=== PATIENT | female | born 1955 | race Caucasian/White ===

== ENCOUNTER 2020-06-09 09:55 | Outpatient (CLI) | payer MEDICARE, BC, SELFPAY ==
[2020-06-09 11:42] LABS: Basophils Percent Auto 0.7 % (0.2-1.2); Eosinophils Absolute Auto 0.1 K/mm3 (0-0.3); Eosinophils Percent Auto 2.1 % (0-4.4); Hematocrit 38.1 % (37.0-47.0); Hemoglobin 13.1 g/dL (12.0-15.0); Lymphocytes Absolute Auto 1.54 K/mm3 (0.9-3.2); Lymphocytes Percent Auto 35.2 % (18.3-44.2); Mean Corpuscular HGB Conc 34.4 g/dl (32-36); Mean Corpuscular Hemoglobin 29.7 pg (26-34); Mean Corpuscular Volume 86.4 fl (80-100); Mean Platelet Volume 9.9 fl (7.4-10.4); Monocytes Absolute Auto 0.4 K/mm3 (0.1-0.6); Monocytes Percent Auto 9.2 % (2.6-8.5); Neutrophils Absolute Auto 2.3 K/mm3 (1.3-6.7); Neutrophils Percent Auto 52.8 % (45.5-73.1); Platelet Count Result 261 k/mm3 (150-375); Red Blood Count 4.41 M/mm3 (4.2-5.4); Red Cell Distribution Width 12.4 % (11.5-14.5); White Blood Count 4.4 K/mm3 (4.5-10.0)
[2020-06-09 11:49] LABS: Hemoglobin A1C 5.5 % (<5.7)
[2020-06-09 11:56] LABS: Alanine Aminotransferase 29 U/L (4-35); Albumin Level 4.6 g/dL (3.5-5.1); Alkaline Phosphatase 97 U/L (38-126); Anion Gap 11.6 mmol/L (7-16); Aspartate Amino Transferase 32 U/L (14-36); Bilirubin,Total 0.3 mg/dL (0.2-1.3); Blood Urea Nitrogen 8 mg/dL (7-17); Calcium 9.2 mg/dL (8.4-10.2); Carbon Dioxide 29 mmol/L (22-30); Chloride 101 mmol/L (98-107); Cholesterol 149 mg/dL (0-200); Estimated Glomerular Filt Rate > 60; Glucose 96 mg/dL (65-105); HDL Direct 55 mg/dL; Potassium 4.6 mmol/L (3.4-5.0); Sodium 137 mmol/L (137-145); Triglycerides 131 mg/dL (<150)
[2020-06-09 12:07] LABS: LDL Cholesterol Direct 75 mg/dL
[2020-06-09 12:35] LABS: Iron 54 ug/dL (37-170)
[2020-06-09 12:44] LABS: Percent Iron Saturation 12 % (20-50)
[2020-06-09 13:01] LABS: Folic Acid > 20.0 ng/mL (2.76->20)
[2020-06-09 13:25] LABS: Vitamin D 25 Hydroxy 44.5 ng/mL
== END 2020-06-09 09:56 | disposition home or self-care (01) ==
PROVIDERS: PCP Family Medicine; Visit Provider Internal Medicine Cardiovascular Disease
DX: I48.91 Unspecified atrial fibrillation (principal); E66.9 Obesity, unspecified; I82.90 Acute embolism and thrombosis of unspecified vein; I21.3 ST elevation (STEMI) myocardial infarction of unspecified site; E78.1 Pure hyperglyceridemia; R06.02 Shortness of breath; I25.10 Atherosclerotic heart disease of native coronary artery without angina pectoris; I10 Essential (primary) hypertension; Z86.19 Personal history of other infectious and parasitic diseases; E11.9 Type 2 diabetes mellitus without complications; G47.30 Sleep apnea, unspecified; J45.909 Unspecified asthma, uncomplicated; F32.9 Major depressive disorder, single episode, unspecified; E55.9 Vitamin D deficiency, unspecified
CPT/HCPCS: 36415; 80053; 80061; 82306; 82607; 82728; 82746; 83036; 83540; 83550; 84443; 85025

== ENCOUNTER 2020-09-03 08:39 | Outpatient (CLI) | payer MEDICARE, BC, SELFPAY ==
--- NOTE | ~2020-09-03 | MM_ITS ---
EXAMINATION: MM screening [facility] w calvin HISTORY: Screening mammogram TECHNIQUE: Craniocaudal and mediolateral oblique 3-D tomosynthesis images were obtained and synthetic 2-D images were generated. CAD analysis was submitted and interpreted. COMPARISON: 06/12/2019, 05/28/2018 bilateral digital screening mammogram examinations 05/19/2017 diagnostic right digital mammogram 04/27/2017 bilateral digital screening mammogram BREAST PARENCHYMAL COMPOSITION: There are scattered areas of fibroglandular density. FINDINGS: Bilateral benign calcifications are noted. There is no evidence of suspicious mass, calcifi cation, or architectural distortion to suggest malignancy in either breast. There has been no suspici ous interval change. IMPRESSION: 1. No mammographic evidence of malignancy. 2. Recommend routine screening mammography in one year. BI-RADS Category 2: Benign finding(s). Reviewed, dictated and finalized at location A.
== END 2020-09-03 08:40 | disposition home or self-care (01) ==
LOC: ANHIMG 08:43
PROVIDERS: PCP Family Medicine; Visit Provider Obstetrics & Gynecology
DX: Z12.31 Encounter for screening mammogram for malignant neoplasm of breast (principal)
CPT/HCPCS: 77063; 77067

== ENCOUNTER 2020-10-24 07:38 | Outpatient (CLI) | payer MEDICARE, BC, SELFPAY ==
[2020-10-24 08:03] LABS: Basophils Percent Auto 0.5 % (0.2-1.2); Eosinophils Absolute Auto 0.1 K/mm3 (0-0.3); Eosinophils Percent Auto 1.6 % (0-4.4); Hematocrit 39.1 % (37.0-47.0); Hemoglobin 13.3 g/dL (12.0-15.0); Immature Granulocyte Absolute 0.01 K/mm3 (0.00-0.031); Immature Granulocyte Percent A 0.2 % (0-0.5); Lymphocytes Absolute Auto 1.21 K/mm3 (0.9-3.2); Lymphocytes Percent Auto 27.6 % (18.3-44.2); Mean Corpuscular Hemoglobin 30.2 pg (26-34); Mean Corpuscular Volume 88.7 fl (80-100); Mean Platelet Volume 9.6 fl (7.4-10.4); Monocytes Absolute Auto 0.5 K/mm3 (0.1-0.6); Monocytes Percent Auto 10.3 % (2.6-8.5); Neutrophils Absolute Auto 2.6 K/mm3 (1.3-6.7); Neutrophils Percent Auto 59.8 % (45.5-73.1); Platelet Count Result 238 k/mm3 (150-375); Red Blood Count 4.41 M/mm3 (4.2-5.4); Red Cell Distribution Width 12.8 % (11.5-14.5); White Blood Count 4.4 K/mm3 (4.5-10.0)
[2020-10-24 08:20] LABS: Anion Gap 5 mmol/L (8-16); Blood Urea Nitrogen 15 mg/dL (7-17); Calcium 9.4 mg/dL (8.4-10.2); Carbon Dioxide 28 mmol/L (22-30); Chloride 103 mmol/L (98-107); Cholesterol 148 mg/dL (0-200); Estimated Glomerular Filt Rate > 60; Glucose 118 mg/dL (65-105); HDL Direct 53 mg/dL; Sodium 136 mmol/L (137-145); Triglycerides 140 mg/dL (<150)
[2020-10-24 08:32] LABS: LDL Cholesterol Direct 67 mg/dL
== END 2020-10-24 07:39 | disposition home or self-care (01) ==
PROVIDERS: PCP Family Medicine; Referring Provider Internal Medicine Cardiovascular Disease; Visit Provider Family Medicine
DX: E87.6 Hypokalemia (principal); E78.2 Mixed hyperlipidemia; D50.9 Iron deficiency anemia, unspecified
CPT/HCPCS: 36415; 80048; 80061; 85025

== ENCOUNTER 2021-08-09 00:30 | Day surgery (SDC) | payer MEDICARE, BC, SELFPAY ==
[2021-08-02 10:32] VITALS: BMI 37.9
[2021-08-09 08:34] VITALS: BP 121/75; PULSE 91; RESP 20; TEMP 36.4; O2SAT 100
[2021-08-09] MEDS: LACTATED RINGERS 1,000 ML 150 ML IV CONT (08:42)
--- NOTE | 2021-08-09 08:57 | WPDANESEPPF ---
Anes - Initial Pre Proc Eval Procedure: Operation Date: 08/09/21 09:30 Proposed Procedures p Screening Colonoscopy - Abram Dillon MD Date/Time: 08/09/21 08:57 Surgeon: Abram Dillon MD Pre Op Diagnosis: hx of colon polyps Patient Data Age: 65 Gender: F Height: 1.66 m Weight: 104.9 kg Last Vital Signs Temp 36.4 C 08/09/21 08:34 Pulse 91 08/09/21 08:34 Resp 20 08/09/21 08:34 BP 121/75 08/09/21 08:34 Pulse Ox 100 08/09/21 08:34 Allergies Allergy/AdvReac Type Severity Reaction Status Date / Time heparin Allergy Severe Unknown Verified 08/09/21 08:32 lisinopril Allergy Intermediate Cough Verified 08/09/21 08:32 Home Medications Medication Instructions Recorded Confirmed Type blood sugar diagnostic #100 each 11/05/19 08/08/21 Rx alprazolam 0.25 mg tablet 0.25 mg PO BID PRN 12/08/19 08/08/21 History buspirone 15 mg tablet 15 mg PO DAILY 12/08/19 08/08/21 History losartan 50 mg tablet 50 mg PO DAILY 12/08/19 08/08/21 History blood sugar diagnostic #100 each 12/09/19 08/08/21 Rx blood-glucose meter #1 each 12/09/19 08/08/21 Rx ferrous sulfate 325 mg (65 mg 325 mg PO DAILY #1 tablet 08/17/20 08/08/21 Rx iron) tablet venlafaxine 50 mg tablet 50 mg PO QAM tablet 08/17/20 08/08/21 History atorvastatin 80 mg tablet 80 mg PO DAILY #90 tablet 10/19/20 08/08/21 Rx omeprazole 40 mg capsule,delayed 40 mg PO DAILY #90 cap 02/01/21 08/08/21 Rx release mupirocin 2 % topical ointment 1 applic TOPICAL BID #22 g 07/21/21 08/02/21 Rx ropinirole 0.25 mg tablet See Rx Instructions PO TID #540 07/22/21 08/08/21 Rx tablet triamcinolone acetonide 0.1 % 1 applic TOPICAL BID #30 g 07/28/21 08/02/21 Rx topical ointment B-complex with vitamin C [Vitamin 1 tablet PO DAILY 08/02/21 08/02/21 History B Complex-C] Centrum Silver Women 1 tablet PO DAILY 08/02/21 08/02/21 History Nature's Bounty 1 1 wafer PO DAILY 08/02/21 08/02/21 History Vitamin D (with calcium) 5,000 units PO DAILY 08/02/21 08/02/21 History acetaminophen [Tylenol Extra 500 mg PO BID PRN 08/02/21 08/02/21 History Strength] bumetanide 2 mg PO DAILY 08/02/21 08/02/21 History cetirizine 10 mg PO DAILY 08/02/21 08/02/21 History colesevelam 1,875 mg PO BID 08/02/21 08/02/21 History potassium chloride 10 meq PO BID 08/02/21 08/02/21 History spironolactone 25 mg PO DAILY 08/02/21 08/02/21 History vitamin E mixed [Natural Vitamin E] 400 unit PO DAILY 08/02/21 08/02/21 History warfarin 7 mg PO USEASDIRECTD 08/02/21 08/08/21 History warfarin 8 mg PO TU 08/02/21 08/08/21 History Patient hx anesthesia problems: none Family hx anesthesia problems: none Results Review: All pre-operative results and documents have been reviewed as part of the pre-operative evaluation. [facility] Past Medical History Medical History BMI 38.0-38.9,adult BMI 39.0-39.9,adult Hypokalemia Hypoxic encephalopathy Iron deficiency anemia Family History Family History Father Hypertension Family history of liver disease Family history of diabetes mellitus in first degree relative Family history of alcoholism Family history of cardiovascular disease Sibling Family history of malignant neoplasm of brain Grandparent Family history of heart disease in male family member before age 55 Social History Social History Smoking status: Never smoker Second hand tobacco smoke exposure: Yes Alcohol intake: never Substance use: never Substance use type: does not use Living arrangements: with family Gender identity (if verbalized by the patient): Female Spiritual care concerns: No Anes - Eval Final PreProcedure Day of Procedure 08/09/21 08:57 Patient weight: obese Heart: irregular rhythm Lungs: clear to auscultation Airway: Mallampati scale class II Neurological: alert and oriented Last ora
--- NOTE | 2021-08-09 09:08 | WPDGICN ---
Assessment and Plan Assessment and plan (1) History of colon polyps: Code(s): Z86.010 - Personal history of colonic polyps Status: Acute Assessment and Plan: Patient has a history of colon polyps. Adenoma removed from the colon 2019. Plan is for surveillance exam at this time. Further recommendations will be given after endoscopy. (2) BMI 38.0-38.9,adult: Code(s): Z68.38 - Body mass index [BMI] 38.0-38.9, adult Status: Acute Assessment and Plan: Patient is significantly overweight. Recommend increase activity and diet monitoring. GI Consult Note Consult date/time: 08/09/21 09:08 HPI: Regla Kennedy is a 65 year old female Presents for surveillance colonoscopy. Patient has a history of adenomatous colon polyp removed in 2019. She presents today for follow-up examination. Her current weight appetite bowel movements are normal. She denies abdominal pain. Her bowel habits been regular with no bleeding. Patient reportedly followed at [facility] hepatology for underlying fatty liver. This is felt to be stable. Review of Systems Review of Systems: All systems reviewed & are unremarkable except as noted in HPI and below PMFSH Past Medical History Medical History BMI 38.0-38.9,adult BMI 39.0-39.9,adult Hypokalemia Hypoxic encephalopathy Iron deficiency anemia Family History Family History Father Hypertension Family history of liver disease Family history of diabetes mellitus in first degree relative Family history of alcoholism Family history of cardiovascular disease Sibling Family history of malignant neoplasm of brain Grandparent Family history of heart disease in male family member before age 55 Social History Social History Smoking status: Never smoker Second hand tobacco smoke exposure: Yes Alcohol intake: never Substance use: never Substance use type: does not use Living arrangements: with family Gender identity (if verbalized by the patient): Female Spiritual care concerns: No Meds Home Medications and Allergies Home Medications Medication Instructions Recorded Confirmed Type blood sugar diagnostic #100 each 11/05/19 08/08/21 Rx alprazolam 0.25 mg tablet 0.25 mg PO BID PRN 12/08/19 08/08/21 History buspirone 15 mg tablet 15 mg PO DAILY 12/08/19 08/08/21 History losartan 50 mg tablet 50 mg PO DAILY 12/08/19 08/08/21 History blood sugar diagnostic #100 each 12/09/19 08/08/21 Rx blood-glucose meter #1 each 12/09/19 08/08/21 Rx ferrous sulfate 325 mg (65 mg 325 mg PO DAILY #1 tablet 08/17/20 08/08/21 Rx iron) tablet venlafaxine 50 mg tablet 50 mg PO QAM tablet 08/17/20 08/08/21 History atorvastatin 80 mg tablet 80 mg PO DAILY #90 tablet 10/19/20 08/08/21 Rx omeprazole 40 mg capsule,delayed 40 mg PO DAILY #90 cap 02/01/21 08/08/21 Rx release mupirocin 2 % topical ointment 1 applic TOPICAL BID #22 g 07/21/21 08/02/21 Rx ropinirole 0.25 mg tablet See Rx Instructions PO TID #540 07/22/21 08/08/21 Rx tablet triamcinolone acetonide 0.1 % 1 applic TOPICAL BID #30 g 07/28/21 08/02/21 Rx topical ointment B-complex with vitamin C [Vitamin 1 tablet PO DAILY 08/02/21 08/02/21 History B Complex-C] Centrum Silver Women 1 tablet PO DAILY 08/02/21 08/02/21 History Nature's Bounty 1 1 wafer PO DAILY 08/02/21 08/02/21 History Vitamin D (with calcium) 5,000 units PO DAILY 08/02/21 08/02/21 History acetaminophen [Tylenol Extra 500 mg PO BID PRN 08/02/21 08/02/21 History Strength] bumetanide 2 mg PO DAILY 08/02/21 08/02/21 History cetirizine 10 mg PO DAILY 08/02/21 08/02/21 History colesevelam 1,875 mg PO BID 08/02/21 08/02/21 History potassium chloride 10 meq PO BID 08/02/21 08/02/21 History spironolactone 25 mg PO DAILY 08/02/21 08/02/21 History vitamin E mixe
[2021-08-09 09:21] LABS: INR 1.2; Prothrombin Time 15.2 Seconds (11.1-14.7)
[2021-08-09 10:05] VITALS: BP 106/54; PULSE 78; RESP 20; O2SAT 99
[2021-08-09 10:15] VITALS: BP 120/67; PULSE 73; RESP 21; O2SAT 100
[2021-08-09 10:26] VITALS: BP 114/69; PULSE 73; RESP 19; O2SAT 100
== END 2021-08-09 10:39 | disposition home or self-care (01) ==
PROVIDERS: PCP Family Medicine; Visit Provider Internal Medicine Gastroenterology
PROC: 0DJD8ZZ Inspection of Lower Intestinal Tract, Via Natural or Artificial Opening Endoscopic (ICD-10-PCS; CPT 45378; principal; 2021-08-09 09:30)
DX: Z12.11 Encounter for screening for malignant neoplasm of colon (principal); D12.2 Benign neoplasm of ascending colon; E87.6 Hypokalemia; D50.9 Iron deficiency anemia, unspecified; Z79.01 Long term (current) use of anticoagulants; E66.9 Obesity, unspecified; Z68.37 Body mass index [BMI] 37.0-37.9, adult
CPT/HCPCS: 45385; 36415; 85610; 88305; J2704; J7120

== ENCOUNTER 2021-09-06 08:29 | Outpatient (CLI) | payer MEDICARE, SELFPAY ==
[2021-09-06 09:27] LABS: Basophils Percent Auto 0.6 % (0.2-1.2); Eosinophils Absolute Auto 0.1 K/mm3 (0-0.3); Eosinophils Percent Auto 2.1 % (0-4.4); Hematocrit 39.5 % (37.0-47.0); Hemoglobin 13.5 g/dL (12.0-15.0); Immature Granulocyte Absolute 0.01 K/mm3 (0.00-0.031); Immature Granulocyte Percent A 0.2 % (0-0.5); Lymphocytes Absolute Auto 1.47 K/mm3 (0.9-3.2); Lymphocytes Percent Auto 28.7 % (18.3-44.2); Mean Corpuscular HGB Conc 34.2 g/dl (32-36); Mean Corpuscular Hemoglobin 30.4 pg (26-34); Mean Platelet Volume 10.1 fl (7.4-10.4); Monocytes Absolute Auto 0.5 K/mm3 (0.1-0.6); Monocytes Percent Auto 9.6 % (2.6-8.5); Neutrophils Percent Auto 58.8 % (45.5-73.1); Platelet Count Result 235 k/mm3 (150-375); Red Blood Count 4.44 M/mm3 (4.2-5.4); Red Cell Distribution Width 12.1 % (11.5-14.5); White Blood Count 5.1 K/mm3 (4.5-10.0)
[2021-09-06 09:34] LABS: Alanine Aminotransferase 27 U/L (4-35); Albumin Level 4.7 g/dL (3.5-5.1); Alkaline Phosphatase 108 U/L (38-126); Anion Gap 7 mmol/L (8-16); Aspartate Amino Transferase 34 U/L (14-36); Bilirubin,Total 0.9 mg/dL (0.2-1.3); Blood Urea Nitrogen 12 mg/dL (7-17); Carbon Dioxide 29 mmol/L (22-30); Chloride 97 mmol/L (98-107); Estimated Glomerular Filt Rate > 60; Glucose 92 mg/dL (65-110); Potassium 4.4 mmol/L (3.4-5.0); Sodium 133 mmol/L (137-145)
[2021-09-06 09:49] LABS: Iron 68 ug/dL (37-170)
[2021-09-06 09:58] LABS: Percent Iron Saturation 17 % (20-50)
== END 2021-09-06 08:30 | disposition home or self-care (01) ==
LOC: ANHLAB 08:35
PROVIDERS: PCP Family Medicine; Visit Provider Internal Medicine Gastroenterology
DX: K75.81 Nonalcoholic steatohepatitis (NASH) (principal)
CPT/HCPCS: 36415; 80053; 82728; 83540; 83550; 85025

== ENCOUNTER 2021-09-27 10:22 | Outpatient (CLI) | payer MEDICARE, BC, SELFPAY ==
--- NOTE | ~2021-09-27 | MM_ITS ---
EXAMINATION: MM screening [facility] BI w calvin HISTORY: Screening mammogram TECHNIQUE: Craniocaudal and mediolateral oblique 3-D tomosynthesis images were obtained and synthetic 2-D images were generated. CAD analysis was submitted and interpreted. COMPARISON: 09/03/2020, 06/12/2019 BREAST PARENCHYMAL COMPOSITION: There are scattered areas of fibroglandular density. FINDINGS: Scattered benign-appearing calcifications are present. There is no evidence of suspicious m ass, calcification, or architectural distortion to suggest malignancy in either breast. There has bee n no suspicious interval change. IMPRESSION: 1. No mammographic evidence of malignancy. 2. Recommend routine screening mammography in one year. BI-RADS Category 2: Benign finding(s). Reviewed, dictated and finalized at location A. PECTING DRILLER
== END 2021-09-27 10:23 | disposition home or self-care (01) ==
LOC: ANHIMG 10:31
PROVIDERS: PCP Family Medicine; Visit Provider Obstetrics & Gynecology
DX: Z12.31 Encounter for screening mammogram for malignant neoplasm of breast (principal)
CPT/HCPCS: 77063; 77067

== ENCOUNTER 2022-06-10 09:41 | Outpatient (CLI) | payer MEDICARE, SELFPAY ==
[2022-06-10 10:27] LABS: Basophils Percent Auto 0.6 % (0.2-1.2); Eosinophils Absolute Auto 0.1 K/mm3 (0-0.3); Eosinophils Percent Auto 1.9 % (0-4.4); Hematocrit 41.5 % (37.0-47.0); Hemoglobin 13.6 g/dL (12.0-15.0); Immature Granulocyte Absolute 0.02 K/mm3 (0.00-0.031); Immature Granulocyte Percent A 0.4 % (0-0.5); Lymphocytes Absolute Auto 1.55 K/mm3 (0.9-3.2); Lymphocytes Percent Auto 32.5 % (18.3-44.2); Mean Corpuscular HGB Conc 32.8 g/dl (32-36); Mean Corpuscular Volume 91.6 fl (80-100); Monocytes Absolute Auto 0.4 K/mm3 (0.1-0.6); Monocytes Percent Auto 7.3 % (2.6-8.5); Neutrophils Absolute Auto 2.7 K/mm3 (1.3-6.7); Neutrophils Percent Auto 57.3 % (45.5-73.1); Platelet Count Result 260 k/mm3 (150-375); Red Blood Count 4.53 M/mm3 (4.2-5.4); Red Cell Distribution Width 12.5 % (11.5-14.5); White Blood Count 4.8 K/mm3 (4.5-10.0)
[2022-06-10 10:33] LABS: Iron 166 ug/dL (37-170)
[2022-06-10 10:36] LABS: Alanine Aminotransferase 30 U/L (6-35); Albumin Level 4.7 g/dL (3.5-5.1); Alkaline Phosphatase 109 U/L (38-126); Anion Gap 8 mmol/L (8-16); Aspartate Amino Transferase 32 U/L (14-36); Bilirubin,Total 1.1 mg/dL (0.2-1.3); Blood Urea Nitrogen 16 mg/dL (7-17); Calcium 9.5 mg/dL (8.4-10.2); Carbon Dioxide 28 mmol/L (22-30); Chloride 100 mmol/L (98-107); Cholesterol 168 mg/dL (0-200); Estimated Glomerular Filt Rate > 60; Glucose 98 mg/dL (65-110); HDL Direct 59 mg/dL; Potassium 4.5 mmol/L (3.4-5.0); Sodium 136 mmol/L (137-145); Triglycerides 128 mg/dL (<150)
[2022-06-10 10:43] LABS: Percent Iron Saturation 41 % (20-50)
[2022-06-10 10:47] LABS: LDL Cholesterol Direct 70 mg/dL
== END 2022-06-10 09:42 | disposition home or self-care (01) ==
PROVIDERS: PCP Family Medicine; Visit Provider Family Medicine
DX: E78.2 Mixed hyperlipidemia (principal); Z13.220 Encounter for screening for lipoid disorders; I10 Essential (primary) hypertension; F41.9 Anxiety disorder, unspecified; D50.9 Iron deficiency anemia, unspecified
CPT/HCPCS: 36415; 80048; 80061; 80076; 83540; 83550; 84443; 85025

== ENCOUNTER 2022-11-19 09:36 | Outpatient (CLI) | payer MEDICARE, SELFPAY ==
--- NOTE | ~2022-11-19 | MM_ITS ---
EXAMINATION: MM screening [facility] w calvin HISTORY: Screening mammogram TECHNIQUE: Craniocaudal and mediolateral oblique 3-D tomosynthesis images were obtained and synthetic 2-D images were generated. CAD analysis was submitted and interpreted. COMPARISON: No prior mammogram is available for comparison at this institution. BREAST PARENCHYMAL COMPOSITION: There are scattered areas of fibroglandular density. FINDINGS: Scattered bilateral benign calcifications. There is no evidence of suspicious mass, calcifi cation, or architectural distortion to suggest malignancy in either breast. There has been no suspici ous interval change. IMPRESSION: 1. No mammographic evidence of malignancy. 2. Recommend routine screening mammography in one year. BI-RADS Category 2: Benign finding(s). Reviewed, dictated and finalized at location A. [employer]GER
== END 2022-11-19 09:37 | disposition home or self-care (01) ==
PROVIDERS: PCP Family Medicine; Visit Provider Obstetrics & Gynecology
DX: Z12.31 Encounter for screening mammogram for malignant neoplasm of breast (principal)
CPT/HCPCS: 77063; 77067

== ENCOUNTER 2023-05-09 09:35 | Outpatient (CLI) | payer MEDICARE, SELFPAY ==
[2023-05-09 10:08] LABS: Basophils Percent Auto 0.4 % (0.2-1.2); Eosinophils Absolute Auto 0.1 K/mm3 (0-0.3); Eosinophils Percent Auto 1.9 % (0-4.4); Hematocrit 43.4 % (37.0-47.0); Hemoglobin 14.4 g/dL (12.0-15.0); Immature Granulocyte Absolute 0.02 K/mm3 (0.00-0.031); Immature Granulocyte Percent A 0.4 % (0-0.5); Lymphocytes Absolute Auto 1.39 K/mm3 (0.9-3.2); Lymphocytes Percent Auto 28.9 % (18.3-44.2); Mean Corpuscular HGB Conc 33.2 g/dl (32-36); Mean Corpuscular Hemoglobin 30.4 pg (26-34); Mean Corpuscular Volume 91.6 fl (80-100); Mean Platelet Volume 9.7 fl (7.4-10.4); Monocytes Absolute Auto 0.4 K/mm3 (0.1-0.6); Monocytes Percent Auto 7.5 % (2.6-8.5); Neutrophils Absolute Auto 2.9 K/mm3 (1.3-6.7); Neutrophils Percent Auto 60.9 % (45.5-73.1); Platelet Count Result 271 k/mm3 (150-375); Red Blood Count 4.74 M/mm3 (4.2-5.4); Red Cell Distribution Width 12.3 % (11.5-14.5); White Blood Count 4.8 K/mm3 (4.5-10.0)
[2023-05-09 10:17] LABS: Prothrombin Time 23.7 Seconds (11.1-14.7)
[2023-05-09 10:18] LABS: Anion Gap 6 mmol/L (8-16); Blood Urea Nitrogen 17 mg/dL (7-17); Calcium 9.8 mg/dL (8.4-10.2); Carbon Dioxide 28 mmol/L (22-30); Chloride 102 mmol/L (98-107); Cholesterol 166 mg/dL (0-200); Estimated Glomerular Filt Rate > 60; Glucose 115 mg/dL (65-110); HDL Direct 55 mg/dL; Potassium 4.4 mmol/L (3.4-5.0); Sodium 136 mmol/L (137-145); Triglycerides 153 mg/dL (<150)
[2023-05-09 10:29] LABS: LDL Cholesterol Direct 72 mg/dL
== END 2023-05-09 09:36 | disposition home or self-care (01) ==
LOC: ANHLAB 09:39
PROVIDERS: PCP Family Medicine; Visit Provider Internal Medicine Cardiovascular Disease
DX: I21.3 ST elevation (STEMI) myocardial infarction of unspecified site (principal); I25.10 Atherosclerotic heart disease of native coronary artery without angina pectoris; R94.39 Abnormal result of other cardiovascular function study; I48.91 Unspecified atrial fibrillation; I82.90 Acute embolism and thrombosis of unspecified vein; E78.1 Pure hyperglyceridemia; R06.02 Shortness of breath; I10 Essential (primary) hypertension; Z86.19 Personal history of other infectious and parasitic diseases; G47.30 Sleep apnea, unspecified; J45.909 Unspecified asthma, uncomplicated; F32.9 Major depressive disorder, single episode, unspecified; E66.9 Obesity, unspecified
CPT/HCPCS: 36415; 80048; 80061; 85025; 85610

== ENCOUNTER 2023-09-13 09:39 | Outpatient (CLI) | payer MEDICARE, SELFPAY ==
[2023-09-13 10:35] LABS: Basophils Percent Auto 0.4 % (0.2-1.2); Eosinophils Absolute Auto 0.1 K/mm3 (0-0.3); Eosinophils Percent Auto 0.7 % (0-4.4); Hematocrit 42.1 % (37.0-47.0); Hemoglobin 13.9 g/dL (12.0-15.0); Immature Granulocyte Absolute 0.04 K/mm3 (0.00-0.031); Immature Granulocyte Percent A 0.5 % (0-0.5); Lymphocytes Absolute Auto 1.47 K/mm3 (0.9-3.2); Lymphocytes Percent Auto 19.7 % (18.3-44.2); Mean Corpuscular Hemoglobin 30.5 pg (26-34); Mean Corpuscular Volume 92.3 fl (80-100); Mean Platelet Volume 9.6 fl (7.4-10.4); Monocytes Absolute Auto 0.7 K/mm3 (0.1-0.6); Monocytes Percent Auto 9.8 % (2.6-8.5); Neutrophils Absolute Auto 5.2 K/mm3 (1.3-6.7); Neutrophils Percent Auto 68.9 % (45.5-73.1); Platelet Count Result 314 k/mm3 (150-375); Red Blood Count 4.56 M/mm3 (4.2-5.4); Red Cell Distribution Width 12.7 % (11.5-14.5); White Blood Count 7.5 K/mm3 (4.5-10.0)
[2023-09-13 10:51] LABS: Iron 52 ug/dL (37-170)
[2023-09-13 10:57] LABS: Alanine Aminotransferase 30 U/L (6-35); Albumin Level 4.9 g/dL (3.5-5.1); Alkaline Phosphatase 131 U/L (38-126); Anion Gap 9 mmol/L (8-16); Aspartate Amino Transferase 42 U/L (14-36); Bilirubin,Total 1.2 mg/dL (0.2-1.3); Blood Urea Nitrogen 22 mg/dL (7-17); Carbon Dioxide 26 mmol/L (22-30); Chloride 102 mmol/L (98-107); Estimated Glomerular Filt Rate 55; Glucose 124 mg/dL (65-110); Potassium 4.4 mmol/L (3.4-5.0); Sodium 137 mmol/L (137-145)
[2023-09-13 11:01] LABS: Percent Iron Saturation 14 % (20-50)
== END 2023-09-13 09:40 | disposition home or self-care (01) ==
LOC: ANHLAB 09:46
PROVIDERS: PCP Family Medicine; Visit Provider Internal Medicine Gastroenterology
DX: E88.01 Alpha-1-antitrypsin deficiency (principal); K75.81 Nonalcoholic steatohepatitis (NASH)
CPT/HCPCS: 36415; 80053; 82728; 83540; 83550; 85025

== ENCOUNTER 2024-01-31 09:38 | Outpatient (CLI) | payer MEDICARE, SELFPAY ==
[2024-01-31 11:17] LABS: Basophils Percent Auto 0.6 % (0.2-1.2); Eosinophils Percent Auto 0.6 % (0-4.4); Hematocrit 41.6 % (37.0-47.0); Hemoglobin 14.1 g/dL (12.0-15.0); Immature Granulocyte Absolute 0.02 K/mm3 (0.00-0.031); Immature Granulocyte Percent A 0.3 % (0-0.5); Lymphocytes Absolute Auto 1.21 K/mm3 (0.9-3.2); Lymphocytes Percent Auto 17.4 % (18.3-44.2); Mean Corpuscular HGB Conc 33.9 g/dl (32-36); Mean Corpuscular Hemoglobin 30.9 pg (26-34); Mean Corpuscular Volume 91.2 fl (80-100); Mean Platelet Volume 10.3 fl (7.4-10.4); Monocytes Absolute Auto 0.5 K/mm3 (0.1-0.6); Monocytes Percent Auto 7.3 % (2.6-8.5); Neutrophils Absolute Auto 5.2 K/mm3 (1.3-6.7); Neutrophils Percent Auto 73.8 % (45.5-73.1); Platelet Count Result 290 k/mm3 (150-375); Red Blood Count 4.56 M/mm3 (4.2-5.4); Red Cell Distribution Width 12.2 % (11.5-14.5)
[2024-01-31 11:27] LABS: INR 2.2; Prothrombin Time 26.5 Seconds (11.1-14.7)
[2024-01-31 11:43] LABS: Anion Gap 7 mmol/L (8-16); Blood Urea Nitrogen 15 mg/dL (7-17); Calcium 10.3 mg/dL (8.4-10.2); Carbon Dioxide 26 mmol/L (22-30); Chloride 102 mmol/L (98-107); Cholesterol 128 mg/dL (0-200); Estimated Glomerular Filt Rate > 60; Glucose 100 mg/dL (65-110); HDL Direct 51 mg/dL; Sodium 135 mmol/L (137-145)
[2024-01-31 12:11] LABS: Triglycerides 86 mg/dL (<150)
[2024-01-31 12:33] LABS: LDL Cholesterol Direct 65 mg/dL
== END 2024-01-31 09:39 | disposition home or self-care (01) ==
PROVIDERS: PCP Family Medicine; Visit Provider Internal Medicine Cardiovascular Disease
DX: R94.39 Abnormal result of other cardiovascular function study (principal); I21.3 ST elevation (STEMI) myocardial infarction of unspecified site; I25.10 Atherosclerotic heart disease of native coronary artery without angina pectoris; I82.90 Acute embolism and thrombosis of unspecified vein; I48.91 Unspecified atrial fibrillation; E78.1 Pure hyperglyceridemia; I10 Essential (primary) hypertension; G47.30 Sleep apnea, unspecified; J45.909 Unspecified asthma, uncomplicated; F32.9 Major depressive disorder, single episode, unspecified; E66.9 Obesity, unspecified; Z86.19 Personal history of other infectious and parasitic diseases
CPT/HCPCS: 36415; 80048; 80061; 85025; 85610

== ENCOUNTER 2024-06-25 08:43 | Outpatient (CLI) | payer MEDICARE, SELFPAY ==
--- NOTE | ~2024-06-25 | MM_ITS ---
EXAMINATION: MM screening [facility] BI w calvin HISTORY: Screening TECHNIQUE: Craniocaudal and mediolateral oblique 3-D tomosynthesis images were obtained and synthetic 2-D images were generated. CAD analysis was submitted and interpreted. COMPARISON: Comparison to multiple prior studies sequentially, with oldest reviewed study dated 05/2017. BREAST PARENCHYMAL COMPOSITION: Not dense: There are scattered areas of fibroglandular density. FINDINGS: There is no evidence of suspicious mass, calcification, or architectural distortion to sugg est malignancy in either breast. There has been no suspicious interval change. IMPRESSION: 1. No mammographic evidence of malignancy. 2. Recommend routine screening mammography in one year. BI-RADS Category 1: Negative Reviewed, dictated and finalized at location B.
== END 2024-06-25 08:44 | disposition home or self-care (01) ==
LOC: ANHIMG 08:44
PROVIDERS: PCP Family Medicine; Visit Provider Obstetrics & Gynecology
DX: Z12.31 Encounter for screening mammogram for malignant neoplasm of breast (principal)
CPT/HCPCS: 36415; 77063; 77067; 80061; 80076; 82043; 82306; 82728; 83540; 83550; 84443; 85027

== ENCOUNTER 2024-06-25 09:35 | Outpatient (CLI) | payer MEDICARE, SELFPAY ==
[2024-06-25 10:48] LABS: Hematocrit 35.8 % (37.0-47.0); Hemoglobin 12.6 g/dL (12.0-15.0); Mean Corpuscular HGB Conc 35.2 g/dl (32-36); Mean Corpuscular Hemoglobin 32.1 pg (26-34); Mean Corpuscular Volume 91.1 fl (80-100); Mean Platelet Volume 10.1 fl (7.4-10.4); Platelet Count Result 261 k/mm3 (150-375); Red Blood Count 3.93 M/mm3 (4.2-5.4); Red Cell Distribution Width 12.7 % (11.5-14.5); White Blood Count 5.9 K/mm3 (4.5-10.0)
[2024-06-25 11:00] LABS: Iron 74 ug/dL (37-170)
[2024-06-25 11:03] LABS: Alanine Aminotransferase 28 U/L (6-35); Alkaline Phosphatase 108 U/L (38-126); Aspartate Amino Transferase 39 U/L (14-36); Bilirubin,Total 1.1 mg/dL (0.2-1.3); Cholesterol 124 mg/dL (0-200); HDL Direct 54 mg/dL; Triglycerides 73 mg/dL (<150)
[2024-06-25 11:14] LABS: LDL Cholesterol Direct 43 mg/dL; Percent Iron Saturation 18 % (20-50)
[2024-06-25 11:51] LABS: Vitamin D 25 Hydroxy 55.9 ng/mL
[2024-06-25 12:38] LABS: Creatinine Urine 213.5 mg/dL
[2024-06-25 14:51] LABS: MALB Creatinine Ratio > 534.0 mg/g (0-30); Microalbumin Urine Random > 1140.0 mg/L (0-16.7)
== END 2024-06-25 09:36 | disposition home or self-care (01) ==
PROVIDERS: PCP Family Medicine; Referring Provider Internal Medicine Cardiovascular Disease; Visit Provider Family Medicine
DX: D64.9 Anemia, unspecified (principal); E55.9 Vitamin D deficiency, unspecified; D50.9 Iron deficiency anemia, unspecified; E78.2 Mixed hyperlipidemia; E11.9 Type 2 diabetes mellitus without complications; I48.0 Paroxysmal atrial fibrillation; Z13.220 Encounter for screening for lipoid disorders
CPT/HCPCS: 36415; 80061; 80076; 82043; 82306; 82728; 83540; 83550; 84443; 85027

== ENCOUNTER 2024-09-11 11:17 | Outpatient (CLI) | payer MEDICARE, SELFPAY ==
[2024-09-11 12:08] LABS: Basophils Percent Auto 0.4 % (0.2-1.2); Eosinophils Percent Auto 0.8 % (0-4.4); Hematocrit 37.1 % (37.0-47.0); Hemoglobin 12.3 g/dL (12.0-15.0); Immature Granulocyte Absolute 0.01 K/mm3 (0.00-0.031); Immature Granulocyte Percent A 0.2 % (0-0.5); Lymphocytes Absolute Auto 1.13 K/mm3 (0.9-3.2); Lymphocytes Percent Auto 23.2 % (18.3-44.2); Mean Corpuscular HGB Conc 33.2 g/dl (32-36); Mean Corpuscular Hemoglobin 31.9 pg (26-34); Mean Corpuscular Volume 96.1 fl (80-100); Mean Platelet Volume 9.8 fl (7.4-10.4); Monocytes Absolute Auto 0.3 K/mm3 (0.1-0.6); Neutrophils Absolute Auto 3.3 K/mm3 (1.3-6.7); Neutrophils Percent Auto 68.4 % (45.5-73.1); Platelet Count Result 223 k/mm3 (150-375); Red Blood Count 3.86 M/mm3 (4.2-5.4); Red Cell Distribution Width 12.6 % (11.5-14.5); White Blood Count 4.9 K/mm3 (4.5-10.0)
[2024-09-11 12:20] LABS: Alanine Aminotransferase 32 U/L (6-35); Albumin Level 4.5 g/dL (3.5-5.1); Alkaline Phosphatase 111 U/L (38-126); Anion Gap 9 mmol/L (4-12); Aspartate Amino Transferase 37 U/L (14-36); Bilirubin,Total 1.1 mg/dL (0.2-1.3); Blood Urea Nitrogen 15 mg/dL (7-17); Calcium 9.4 mg/dL (8.4-10.2); Carbon Dioxide 25 mmol/L (22-30); Chloride 105 mmol/L (98-107); Estimated Glomerular Filt Rate > 60; Glucose 73 mg/dL (65-110); INR 2.2; Potassium 3.8 mmol/L (3.4-5.0); Prothrombin Time 24.8 Seconds (11.1-14.7); Sodium 139 mmol/L (137-145)
[2024-09-11 12:44] LABS: Iron 73 ug/dL (37-170)
[2024-09-11 12:54] LABS: Percent Iron Saturation 19 % (20-50)
== END 2024-09-11 11:18 | disposition home or self-care (01) ==
PROVIDERS: PCP Family Medicine; Visit Provider Internal Medicine Gastroenterology
DX: K75.81 Nonalcoholic steatohepatitis (NASH) (principal)
CPT/HCPCS: 36415; 80048; 80076; 83540; 83550; 85025; 85610

== ENCOUNTER 2024-12-24 00:26 | Day surgery (SDC) | payer MEDICARE, SELFPAY ==
[2024-12-09 11:20] VITALS: BMI 32.5
--- NOTE | 2024-12-13 11:36 | SUR.PREOP ---
Spoke with patient regarding medication Warfarin. Patient verbalizes understanding that the last dose is to be taken on 12/19/2024 and the Endoscopist will instruct them when to restart after the procedure.
--- NOTE | 2024-12-23 14:47 | WPDANESEPPF ---
Anes - Initial Pre Proc Eval Procedure: Operation Date: 12/24/24 08:30 Proposed Procedures p Screening Colonoscopy - Gwyn Zepeda MD Date/Time: 12/23/24 14:47 Surgeon: Gwyn Zepeda MD Pre Op Diagnosis: personal hx colon polyps Patient Data Age: 69 Gender: F Height: 1.65 m Weight: 88.6 kg Allergies Allergy/AdvReac Type Severity Reaction Status Date / Time heparin Allergy Severe Unknown Verified 12/09/24 11:01 lisinopril Allergy Intermediate Cough Verified 12/09/24 11:01 Home Medications ?Medication ?Instructions ?Recorded ?Confirmed ?Type losartan 50 mg tablet 50 mg PO DAILY 12/08/19 12/24/24 History B-complex with vitamin C 1 tablet PO DAILY 08/02/21 12/24/24 History acetaminophen 500 mg capsule 500 mg PO BID PRN Pain 08/02/21 12/09/24 History spironolactone 25 mg tablet 25 mg PO DAILY 08/02/21 12/24/24 History vitamin E mixed 400 unit capsule 400 unit PO DAILY 08/02/21 12/24/24 History cetirizine 10 mg tablet 10 mg PO DAILY PRN allergy symptoms 12/18/23 12/24/24 History inulin 2 gram chewable tablet 8 g PO .qd 12/18/23 12/09/24 History (Fiber Gummies) mupirocin 2 % topical ointment 1 applic topical BID PRN infection 12/18/23 12/09/24 Rx #22 grams ondansetron HCl 8 mg tablet 8 mg PO Q8H PRN nausea and vomiting 12/18/23 12/09/24 History triamcinolone acetonide 0.1 % 1 applic topical BID PRN infection 12/18/23 12/09/24 Rx topical ointment #30 grams omeprazole 40 mg capsule,delayed 40 mg PO DAILY #90 caps 05/21/24 12/24/24 Rx release bumetanide 2 mg tablet 2 mg PO DAILY PRN swelling 07/10/24 12/09/24 History multivitamin 1 tablet PO DAILY 07/10/24 12/09/24 History potassium chloride 10 mEq 10 meq PO BID PRN swelling 07/10/24 12/09/24 History tablet,extended release(part/cryst) blood sugar diagnostic (OneTouch #100 strips 09/23/24 12/09/24 Rx Verio test strips) semaglutide 1 mg/dose (4 mg/3 mL) 1 mg (0.75 mL) subcut WEEKLY #3 mL 10/28/24 12/09/24 Rx subcutaneous pen injector colesevelam 625 mg tablet 1,875 mg (3 x 625 mg) PO BID #540 10/30/24 12/24/24 Rx tabs dapagliflozin propanediol 5 mg 5 mg PO DAILY #30 tabs 10/30/24 12/24/24 Rx tablet (Farxiga) warfarin 3 mg tablet 3 mg PO .QD #90 tabs 10/30/24 12/24/24 Rx warfarin 4 mg tablet 4 mg PO .QD #90 tabs 10/30/24 12/24/24 Rx atorvastatin 80 mg tablet See Rx Instructions .Route 11/20/24 12/24/24 Rx .COMPLEX #90 tabs cholecalciferol (vitamin D3) 125 125 mcg PO DAILY 11/28/24 12/24/24 History mcg (5,000 unit) capsule ferrous sulfate 325 mg (65 mg 325 mg PO DAILY 11/28/24 12/09/24 History iron) tablet venlafaxine 75 mg capsule,extended 75 mg PO DAILY #90 caps 11/28/24 12/24/24 Rx release 24 hr (Effexor XR) Patient hx anesthesia problems: none Family hx anesthesia problems: none Results Review: All pre-operative results and documents have been reviewed as part of the pre-operative evaluation. [facility] Past Medical History Medical History CAD (coronary atherosclerotic disease) CHF (congestive heart failure) Atrial fibrillation Type 2 diabetes mellitus without complications Sleep apnea with cognitive complaints Mixed hyperlipidemia Ischemic cardiomyopathy Hypertension Anxiety History of colon polyps Anticoagulant long-term use Metabolic dysfunction-associated steatohepatitis (MASH) Feeling of incomplete bladder emptying Infection caused by Enterobacter cloacae Microhematuria Frequency of micturition Dysuria Mixed anxiety depressive disorder Hypokalemia Iron deficiency anemia Hypoxic encephalopathy Family History Family History Father Hypertension Family history of liver disease Family history of diabetes mellitus in first degree relative Family history of alcoholism Family history of cardiovascular disease Sibling Family history of malignant neoplasm of brain Grandparent Family history of heart disease in male family member before age 55 Social History Social History Smoking status: Never smoker Second hand tobacco smoke exposure: Yes Alcohol intake: never Substance use: never Substance use type: does not use Do You Feel Safe in your Home?: Yes Lack of Transportation: No Lack of Food: Never True Current Housing: I Have Housing Concerned About Future Housing: No Difficulty Paying Gas/Electric Bills: No Difficulty Paying for Meds: No Currently Unemployed: No Difficulty w/ Childcare or Family Care: No Living arrangements: with family Occupation/Education: retired Gender identity (if verbalized by the patient): Female Spiritual care concerns: No Anes - Eval Final PreProcedure Day of Procedure 12/23/24 14:47 Results Review: All pre-operative results and documents have been reviewed as part of the pre-operative evaluation. Informed Consent: The patient's anesthetic plan and its attendant risks and benefits were discussed with the patient/family/POA. Questions were solicited and answers provided to the satisfaction of the patient/family/POA.
--- OUTSIDE RECORDS SUMMARY | 2024-12-24 00:29 | XMS_ITS | CONTINUITY OF CARE DOCUMENT ---
Author Name lawson, lawson Address Unknown Organization [facility] Address [address] [place] [address] Phone [phone] Care Team Providers Care Curator Of Collections Name Role Phone Blaze LATIF, Elgin Unavailable AGUEDA LATIF, SETH F Unavailable [phone] AGUEDA LATIF, SETH F Unavailable PROBLEMS Condition Status Date Provider Notes HYPERTRIGLYCERIDEMIA active Maikol Sneed SLEEP APNEA active Elgin Thakur MD ASTHMA active Mayra Parks DEPRESSION active Mayra Parks CHEST PAIN- 09/22 NUC INF WA LL ISCHEMIA 08/19 NUC NEG completed - Jake Mejias RN HTN-08/21ECHO EF 65 MILD LAE TRIV PERIC EFF 08/20ECHO LV 55 completed - Jake Mejias RN PVD active - Elgin Thakur MD DIABETES MELLITUS completed - Elgin Thakur MD HEPATITIS, NONALCOHOLIC STEAT[facility]ATITIS [facility] active Elgin Thakur MD D r Tetri HTN--echo ef nl, mild mr, 10/2024 active Tom Wilburn CAD-05/23 CATH PTCA-STENT LAD -11/22 STENT XIENCE Z STENT RCA--stent to PL from RCA, 05/2023 active Pankaj Wilburn CAROTID ARTERY DISEASE-01/21 CAROTID NEG completed - Elgin Thakur MD CAD-03/25 NUC NL completed - Elgin Thakur MD SHORTNESS OF BREATH, COPD active Elgin morales MD Family History of Hypertension: completed - To aurora Thakur MD Acute STEMI s/p NIESHA x 3 to circumflex in 05/2016 at [facility] with cardiac arrest active Elgin Thakur MD DVT on coumadin active Elgin Thakur MD Atrial fib paroxysmal active Elgin Marinelli Obesity active Elgin Thakur MD Abnormal nuclear stress test active Pankaj Claudio medzai Nausea active Elgin Thakur MD Cardiology examination active Pankaj Wilburn ENCOUNTERS Date Type Provider Location Encounter Diag nosis - In-person encounter Office Visit Elgin Thakur MD [facility] Cardiology examination - In-person encounter Office Visit Elgin Thakur MD [facility] - In-person encounter Office Visit Elgin Thakur MD [facility] Nausea - In-person encounter Office Visit Elgin Thakur MD [facility] - In-person encounter Office Visit Elgin Thakur MD [place] [facility] CAD-05/23 CATH PTCA-STENT LAD-11/22 STENT XIENCE Z STENT RCA--stent to PL from RCA, 05/2023 - In-person encounter Office Visit Elgin Thakur MD [facility] HTN--echo ef nl, mil d mr, bnormal nuclear stress test - In-person encounter Office Visit Elgin Thakur MD [facility] - In-person encounter Office Visit Elgin Thakur MD [facility] - In-person encounter Office Visit Elgin Thakur MD [facility] HTN--echo ef nl, mild mr, 10/2024 - In-person encounter Office Visit Elgin Thakur MD [facility] - In-person encounter Office Visit Elgin Thakur MD [facility] HTN--echo ef nl, mild mr, 10/2024 - In-person encounter Office Visit Elgin Thakur MD [facility] - In-person encounter Office Visit Elgin Thakur MD [facility] - In-person encounter Office Visit Elgin Thakur MD [facility] CAROTID ARTERY DISEASE-01/21 CAROTID NEG - In-person encounter Office Visit Elgin Thakur MD [facility] - In-person encounter Office Visit Elgin Thakur MD [facility] - In-person encounter Office Visit Elgin Thakur MD [facility] - In-person encounter Office Visit Elgin Thakur MD [facility] CAD-05/23 CATH PTCA-STENT LAD-11/22 STENT XIENCE Z STENT RCA--stent to PL from RCA, cute STEMI s/p NIESHA x 3 to circumflex in 05/2016 at [facility] with cardiac arrestObesity - In-person encounter Office Visit Elgin Thakur MD [place] [facility] - In-person encounter Office Visit Elgin Thakur MD [place] [facility] - In-person encounter Office Visit Elgin Thakur MD [facility] Office - In-person encounter Office Visit Elgin Thakur MD [place] [facility] Acute STEMI s/p NIESHA x 3 to circumflex in 05/2016 at [facility] with cardiac arrestDVT on coumadinAtrial fib paroxysmal - In-person encounter Office Visit Elgin Thakur MD [facility] - In-person encounter Office Visit Elgin Thakur MD [facility] Family History of Hypertension: - In-person encounter Office Visit Elgin Thakur MD [facility] - In-person encounter Office Visit Elgin Thakur MD [facility] - In-person encounter Office Visit Elgin Thakur MD [facility] - In-person encounter Office Visit Elgin Thakur MD [facility] - In-person encounter Office Visit Elgin Thakur MD [facility] - In-person encounter Office Visit Elgin Thakur MD [facility] SHORTNESS OF BREATH, COPD - In-person encounter Office Visit Elgin Thakur MD [facility] - In-person encounter Office Visit Elgin Thakur MD [facility] - In-person encounter Office Visit Elgin Thakur MD [facility] - In-person encounter Office Visit Elgin Thakur MD [facility] - In-person encounter Office Visit Jina Rodríguez MD [facility] -03/25 NUC NLSHORTNESS OF BREATH, COPD - In-person encounter Office Visit Elgin Thakur MD [facility] - In-person encounter Office Visit Elgin Thakur MD [facility] - In-person encounter Office Visit Elgin Thakur MD [facility] - In-person encounter Office Visit Elgin Thakur MD [facility] DIABETES MELLITUSHEPATITIS, NONALCOHOLIC STEATOHEPATITIS FOLLOWS AT U - In-person encounter Office Visit Elgin Thakur MD [facility] - In-person encounter Office Visit Elgin Thakur MD [facility] HTN-08/21ECHO EF 65 MILD LAE TRIV PERIC EFF 08/20ECHO LV 55 - In-person encounter Office Visit Elgin Thakur MD [facility] CHEST PAIN- 09/22 NUC INF WALL ISCHEMIA 08/19 NUC NEGHTN-08/21ECHO EF 65 MILD LAE TRIV PERIC EFF 08/20ECHO LV 55PVD VITAL SIGNS Date Observation Value Provider Body Mass Index (Ratio) 32.95 kg/m2 Tico Stafford blood pressure, diastolic 56 mm[Hg] Li nkLog blood pressure, systolic 110 mm[Hg] [facility], cuff size regular Yves Mccauley blood pressure, diastolic 56 mm[Hg] Ta lola Mccauley blood pressure, systolic 110 mm[Hg] Tab sravani Mccauley oxygen saturation, oximetry 98 % Marcia Mccauley pulse rate 64 /min Marcia Mccauley weight E&M 198 [lb_av] Marcia Mccauley respiratory rate E&M 12 /min Marcia Mccauley height E&M 65 [in_i] Marcia Mccauley Body Mass Index (Ratio) 40.60 kg/m2 Georgina crystal Masone blood pressure, diastolic 62 mm[Hg] An brian Sutherland blood pressure, systolic 136 mm[Hg] Any a Koko oxygen saturation, oximetry 98 % Heidi Koko pulse rate 69 /min Heidi Koko weight E&M 244 [lb_av] Heidi Koko blood pressure, cuff size large An brian Sutherland height E&M 65 [in_i] Heidi Koko blood pressure, diastolic 76 mm[Hg] Ri az Cosmo blood pressure, systolic 130 mm[Hg] Fauzia z Cosmo Body Mass Index (Ratio) 41.60 kg/m2 Pankaj blood pressure, cuff size large Ja blood pressure, diastolic 74 mm[Hg] Ja rret blood pressure, systolic 120 mm[Hg] Jar ret pulse rate 99 /min Marino respiratory rate E&M 12 /min Marino weight E&M 250 [lb_av] Marino y height E&M 65 [in_i] [facility] Body Mass Index (Ratio) 39.43 kg/m2 [facility] blood pressure, cuff size large Saman blood pressure, diastolic 91 mm[Hg] [facility] blood pressure, systolic 139 mm[Hg] [facility] pulse rate 66 /min Marino oxygen saturation, oximetry 99 % [facility] respiratory rate E&M 12 /min [facility] weight E&M 237 [lb_av] Marino y height E&M 65 [in_i] [facility] Body Mass Index (Ratio) 39.43 kg/m2 Manjit Thakur MD pulse rate 73 /min Heidi Sutherland blood pressure, diastolic 82 mm[Hg] Iza Sutherland blood pressure, systolic 129 mm[Hg] Laurel Sutherland oxygen saturation, oximetry 100 % Heidi Sutherland weight E&M 237 [lb_av] Heidi Sutherland blood pressure, cuff size large An brian Sutherland height E&M 65 [in_i] Heidi Sutherland Body Mass Index (Ratio) 39.93 kg/m2 Pankaj Wilburn blood pressure, diastolic 93 mm[Hg] Ri az Shanonmedzai blood pressure, systolic 128 mm[Hg] Fauzia z medzai weight E&M 240 [lb_av] Pankaj medzai pulse rate 64 /min Pankaj Claudiomedzai oxygen saturation, oximetry 97 % Pankaj Vegaza Body Mass Index (Ratio) 41.10 kg/m2 Manjit Thakur MD blood pressure, diastolic 97 mm[Hg] Ri hayde Joyce blood pressure, systolic 123 mm[Hg] Sher ant Joyce blood pressure, cuff size large Ri hayde Joyce pulse rate 87 /min Diana Gifford son oxygen saturation, oximetry 98 % Diana Joyce respiratory rate E&M 16 /min Daina Joyce weight E&M 247 [lb_av] Diana Gifford son height E&M 65 [in_i] Diana Gifford son Body Mass Index (Ratio) 40.93 kg/m2 Manjit Thakur MD blood pressure, diastolic 75 mm[Hg] Sa ra Sumner blood pressure, systolic 152 mm[Hg] Chantelle a Sumner respiratory rate E&M 18 /min Alison Si ms oxygen saturation, oximetry 100 % Alison Sumner pulse rate 71 /min Alison Sumner blood pressure, cuff size regular Sa ra Sumner weight E&M 246 [lb_av] Alison Sumner height E&M 65 [in_i] Alison Sumner Body Mass Index (Ratio) 38.77 kg/m2 Trac y Lively blood pressure, diastolic 66 mm[Hg] Li nkLogic blood pressure, systolic 117 mm[Hg] Ashlie kLogic blood pressure, cuff size large Sa ra Sumner blood pressure, diastolic 66 mm[Hg] Sa ra Sumner blood pressure, systolic 117 mm[Hg] Chantelle a Sumner pulse rate 89 /min Alison Sumner respiratory rate E&M 17 /min Alison Si ms oxygen saturation, oximetry 97 % Alison Sumner weight E&M 233 [lb_av] Alison Sumner height E&M 65 [in_i] Alison Sumner Body Mass Index (Ratio) 37.94 kg/m2 Manjit Thakur MD blood pressure, diastolic 71 mm[Hg] Ch astity Siomara blood pressure, systolic 116 mm[Hg] Cookie stity Siomara oxygen saturation, oximetry 97 % Chastity Siomara pulse rate 84 /min Chastity Siomara weight E&M 228 [lb_av] Chastity Siomara respiratory rate E&M 16 /min Chastit y Siomara height E&M 65 [in_i] Chastity Siomara Body Mass Index (Ratio) 40.10 kg/m2 Manjit Thakur MD blood pressure, cuff size large Ke rri Gruenenfelder blood pressure, diastolic 70 mm[Hg] Ke rri Gruenenfelder blood pressure, systolic 122 mm[Hg] Leandro Talaveranemercedeser oxygen saturation, oximetry 98 % Coco Angulo respiratory rate E&M 18 /min Coco carroller pulse rate 83 /min Coco Campos er weight E&M 241 [lb_av] Coco Campos lder height E&M 65 [in_i] Coco Campos jose juan Body Mass Index (Ratio) 40.60 kg/m2 Bill Colon pulse rate 72 /min [facility] oxygen saturation, oximetry 98 % [facility] blood pressure, diastolic 82 mm[Hg] [facility] blood pressure, systolic 159 mm[Hg] [facility] weight E&M 244 [lb_av] [facility] respiratory rate E&M 16 /min [facility] height E&M 65 [in_i] [facility] Body Mass Index (Ratio) 41.26 kg/m2 Manjit Thakur MD respiratory rate E&M 18 /min [facility] blood pressure, diastolic 69 mm[Hg] [facility] blood pressure, systolic 128 mm[Hg] [facility] pulse rate 77 /min [facility] oxygen saturation, oximetry 96 % [facility] weight E&M 248 [lb_av] [facility] height E&M 65 [in_i] [facility] Body Mass Index (Ratio) 40.77 kg/m2 Manjit Thakur MD blood pressure, cuff size regular Cy nthia Easton blood pressure, diastolic 70 mm[Hg] Cy nthia Mccormack blood pressure, systolic 140 mm[Hg] Kacie thijessica Mccormack oxygen saturation, oximetry 98 % Dinora Mccormack respiratory rate E&M 16 /min Dinora Mccormack pulse rate 60 /min Dinora Campbel l weight E&M 245 [lb_av] Dinora Campbel l height E&M 65 [in_i] Dinora Campbel l Body Mass Index (Ratio) 39.43 kg/m2 Manjit Thakur MD blood pressure, cuff size small Cy nthia [place] blood pressure, diastolic 76 mm[Hg] Cy nthia Mccormack blood pressure, systolic 124 mm[Hg] Kacie Mccormack pulse rate 79 /min Dinora jean baptiste oxygen saturation, oximetry 99 % Dinora Mccormack respiratory rate E&M 18 /min Dinora Mccormack weight E&M 237 [lb_av] Dinora jean baptiste height E&M 65 [in_i] Dinora jean baptiste Body Mass Index (Ratio) 41.60 kg/m2 Manjit Thakur MD blood pressure, diastolic 70 mm[Hg] Da juan pablo Sarahi blood pressure, systolic 112 mm[Hg] Dac ia Sarahi oxygen saturation, oximetry 97 % Jemima Sarahi respiratory rate E&M 18 /min Jemima V oss pulse rate 68 /min Jemima Sarahi weight E&M 250 [lb_av] Jemima Sarahi height E&M 65 [in_i] Jemima Sarahi blood pressure, resting Yes Manjit Thakur MD Body Mass Index (Ratio) 40.77 kg/m2 Manjit Thakur MD blood pressure, diastolic 70 mm[Hg] Da juan pablo Sarahi blood pressure, systolic 122 mm[Hg] Dac ia Sarahi oxygen saturation, oximetry 96 % Jemima Sarahi respiratory rate E&M 20 /min Jemima V oss pulse rate 87 /min Jemima Sarahi weight E&M 245 [lb_av] Jemima Sarahi height E&M 65 [in_i] Jemima Sarahi Body Mass Index (Ratio) 40.27 kg/m2 Manjit Thakur MD blood pressure, cuff size large Catherine Cruz blood pressure, diastolic 80 mm[Hg] Catherine Cruz blood pressure, systolic 122 mm[Hg] Isrrael Cruz oxygen saturation, oximetry 99 % Leesa Cruz respiratory rate E&M 16 /min Leesa Cruz pulse rate 61 /min Leesa Cruz weight E&M 242 [lb_av] Leesa Cruz height E&M 65 [in_i] Alok shipley Body Mass Index (Ratio) 40.43 kg/m2 Manjit Thakur MD blood pressure, cuff size regular Ke rri Adele blood pressure, diastolic 68 mm[Hg] Ke rrvicky Adele blood pressure, systolic 140 mm[Hg] Leandro Angulo oxygen saturation, oximetry 98 % Coco Angulo respiratory rate E&M 16 /min Coco vanegas pulse rate 59 /min Coco manzano weight E&M 243 [lb_av] Coco thomson height E&M 65 [in_i] Coco manzano blood pressure, diastolic 77 mm[Hg] Yves Case blood pressure, systolic 112 mm[Hg] Renato Case pulse rate 64 /min Gabriela Case oxygen saturation, oximetry 97 % Gabriela Case respiratory rate E&M 22 /min Gabriela Case Body Mass Index (Ratio) 39.27 kg/m2 Erin Case weight E&M 236 [lb_av] Gabriela Case blood pressure, diastolic 60 mm[Hg] Kr isty Meng blood pressure, systolic 110 mm[Hg] Josei taran Fan respiratory rate E&M 18 /min Tiffany Alexandria pulse rate 63 /min Tiffany Meng oxygen saturation, oximetry 99 % Tiffany Meng Body Mass Index (Ratio) 39.43 kg/m2 Arnoldo iker Fan weight E&M 237 [lb_av] Tiffany Fan blood pressure, diastolic 68 mm[Hg] Mehdi Jim blood pressure, systolic 141 mm[Hg] Merna Jim pulse rate 74 /min Alok shipley oxygen saturation, oximetry 98 % Alok Jim respiratory rate E&M 18 /min Sarah Jim Body Mass Index (Ratio) 44.56 kg/m2 Karoline Jim weight E&M 267.8 [lb_av] Alok aguilera blood pressure, diastolic 83 mm[Hg] Mehdi Jim blood pressure, systolic 159 mm[Hg] Merna Jim Body Mass Index (Ratio) 45.46 kg/m2 Karoline Jim pulse rate 73 /min Alok shipley oxygen saturation, oximetry 97 % Alok Jim respiratory rate E&M 20 /min Sarah Jim weight E&M 273.2 [lb_av] Alok aguilera blood pressure, diastolic, left arm 91 mm [Hg] Aneatris Brown blood pressure, systolic, left arm 194 mm [Hg] Aneatris [facility] blood pressure, diastolic, right arm 86 m m[Hg] Aneatris Brown blood pressure, systolic, right arm 186 m m[Hg] Aneatris Brown blood pressure, diastolic 86 mm[Hg] An eatris [facility] blood pressure, systolic 186 mm[Hg] Ane atris [facility] Body Mass Index (Ratio) 45.92 kg/m2 Anea maciej [facility] pulse rate 96 /min Aneatris Brown oxygen saturation, oximetry 99 % Aneatris Brown respiratory rate E&M 18 /min Aneatri s Brown weight E&M 276 [lb_av] Aneatris Brown Body Mass Index (Ratio) 47.40 kg/m2 Rosalind Woo blood pressure, diastolic 70 mm[Hg] Russ Woo blood pressure, systolic 169 mm[Hg] Stepan Woo pulse rate 85 /min Lorenza oWo oxygen saturation, oximetry 98 % Lorenza Woo respiratory rate E&M 18 /min Lorenza Woo weight E&M 283.8 [lb_av] Russleighton Woo Body Mass Index (Ratio) 47.10 kg/m2 Santiago odessa Walker blood pressure, diastolic 70 mm[Hg] Bell blood pressure, systolic 130 mm[Hg] Sushant Walker pulse rate 67 /min Jaylin Walker oxygen saturation, oximetry 98 % Jaylin Awlker respiratory rate E&M 16 /min Jaylin Walker weight E&M 282 [lb_av] Jaylin Baekrran Body Mass Index (Ratio) 43.02 kg/m2 Padmini Lindsay blood pressure, diastolic 42 mm[Hg] Yves Lindsay blood pressure, systolic 128 mm[Hg] Jayson Lindsay pulse rate 63 /min Johanna Lindsay oxygen saturation, oximetry 98 % Johanna Lindsay respiratory rate E&M 18 /min Johanna hearn weight E&M 257.6 [lb_av] Johanna Stinocencia Body Mass Index (Ratio) 41.08 kg/m2 Venkatesh Angulo blood pressure, diastolic 69 mm[Hg] Jasmeet luoi Adele blood pressure, systolic 119 mm[Hg] Leandro Angulo pulse rate 71 /min Coco Mitchellnfe lder oxygen saturation, oximetry 98 % Coco Adele respiratory rate E&M 17 /min Coco Zuniga guilherme weight E&M 246 [lb_av] Coco Beth lder blood pressure, diastolic 65 mm[Hg] Saman Mejias RN blood pressure, systolic 131 mm[Hg] Jake Mejias RN pulse rate 65 /min Jake Mejias RN oxygen saturation, oximetry 99 % Jake Mejias RN respiratory rate E&M 18 /min Jake green RN weight E&M 245 [lb_av] Jake Mejias RN blood pressure, diastolic 64 mm[Hg] Saman Mejias RN blood pressure, systolic 109 mm[Hg] Jake Mejias RN pulse rate 77 /min Jake Mejias RN oxygen saturation, oximetry 96 % Jake Mejias RN respiratory rate E&M 16 /min Jake green RN weight E&M 261 [lb_av] Jake Mejias RN blood pressure, diastolic 60 mm[Hg] Claudine talley [place] blood pressure, systolic 108 mm[Hg] Walt gardiner [place] pulse rate 75 /min Jacobo [place] oxygen saturation, oximetry 97 % Jacobo [place] respiratory rate E&M 20 /min Jacobo [place] weight E&M 271 [lb_av] Jacobo [place] blood pressure, diastolic 64 mm[Hg] Bell blood pressure, systolic 117 mm[Hg] Sushant Walker pulse rate 83 /min Jaylin Walker oxygen saturation, oximetry 92 % Jaylin Walker respiratory rate E&M 16 /min Jaylin Walker weight E&M 270 [lb_av] Jaylin Walker blood pressure, diastolic 68 mm[Hg] Saman Mejias RN blood pressure, systolic 126 mm[Hg] Jake Mejias RN pulse rate 71 /min Jake Mejias RN oxygen saturation, oximetry 97 % Jake Mejias RN respiratory rate E&M 16 /min Jake green RN weight E&M 275 [lb_av] Jake Mejias RN height E&M 65 [in_i] Bradley Savage is blood pressure, diastolic 70 mm[Hg] Saman Mejias RN blood pressure, systolic 133 mm[Hg] Jake Mejias RN pulse rate 83 /min Jake Mejias RN oxygen saturation, oximetry 99 % Jake Mejias RN respiratory rate E&M 18 /min Jake green RN weight E&M 275 [lb_av] Jake Mejias RN blood pressure, diastolic 70 mm[Hg] Ma kalaniha [place] blood pressure, systolic 141 mm[Hg] Merna brissa [place] pulse rate 58 /min Susana [place] oxygen saturation, oximetry 99 % Susana [place] respiratory rate E&M 16 /min Susana [place] weight E&M 270 [lb_av] Susana [place] blood pressure, diastolic 76 mm[Hg] Saman Mejias RN blood pressure, systolic 124 mm[Hg] Jake Mejias RN pulse rate 83 /min Jake Mejias RN oxygen saturation, oximetry 99 % Jake Mejias RN respiratory rate E&M 18 /min Jake green RN weight E&M 272 [lb_av] Jake Mejias RN blood pressure, diastolic 76 mm[Hg] He ather Blunt blood pressure, systolic 152 mm[Hg] Hea ther Blunt pulse rate 65 /min Alena Blunt oxygen saturation, oximetry 97 % Alena Blunt respiratory rate E&M 18 /min Alena Blunt weight E&M 274 [lb_av] Alena Blunt blood pressure, diastolic, left arm 80 mm [Hg] Susana [place] blood pressure, systolic, left arm 166 mm [Hg] [facility] [place] blood pressure, diastolic, right arm 70 m m[Hg] [facility] [place] blood pressure, systolic, right arm 128 m m[Hg] [facility] [place] blood pressure, diastolic 80 mm[Hg] [facility] blood pressure, systolic 166 mm[Hg] [facility] 89 /min [facility] oxygen saturation, oximetry 97 % [facility] respiratory rate E&M 18 /min [facility] weight E&M 270 [lb_av] [facility] [place] blood pressure, diastolic, left arm 83 mm [Hg] [facility] blood pressure, systolic, left arm 152 mm [Hg] [facility] blood pressure, diastolic, right arm 84 m m[Hg] [facility] blood pressure, systolic, right arm 156 m m[Hg] [facility] blood pressure, diastolic 84 mm[Hg] Claudine seph [place] blood pressure, systolic 156 mm[Hg] Walt gardiner [facility] pulse rate 65 /min [facility] oxygen saturation, oximetry 97 % [facility] respiratory rate E&M 16 /min [facility] [lb[facility]av[facility], diastolic 67 mm[Hg] Saman Mejias RN blood pressure, systolic 105 mm[Hg] Jake Mejias RN pulse rate 73 /min Jake Mejias RN oxygen saturation, oximetry 98 % Jake Mejias RN respiratory rate E&M 18 /min Jake Dorinda sharonisabel RN weight E&M 280 [lb_av] Jake Cavanaughs RN blood pressure, diastolic 80 mm[Hg] Saman Mejias RN blood pressure, systolic 153 mm[Hg] Jake Mejias RN pulse rate 68 /min Jake Mejias CHAIM oxygen saturation, oximetry 98 % Jake Mejias CHA[facility] respiratory rate E&M 22 /min Jake Dorinda sharonisabel RN weight E&M 292 [lb_av] Jake Mejias RN ALLERGIES Allergy Name Onset Date Reaction Criticality Status HEPARIN Low Criticality active LISINOPRIL Low Criticality active RESULTS Date Observation Value Provider Reference Range Interpretation Location alanine aminotransferase (SGPT), serum 23 1/L [facility] aspartate aminotransferase (SGOT), serum 27 1/L [facility] creatinine, serum 0.70 mg/dL [facility] potassium, serum 4.1 mmol/L [facility] sodium, serum 136 mmol/L [facility] B-12, serum 986.0 pg/mL [facility] folate, serum 16.9 ng/mL [facility] triglyceride, serum, fasting 207 mg/dL [facility] HDL cholesterol, serum 43 mg/dL [facility] LDL cholesterol, serum 154 mg/dL [facility] cholesterol, serum 253 mg/dL [facility] thyroxine, serum, free 1.36 ng/dL [facility] thyroid stimulating hormone, serum 2.200 u[IU]/mL [facility] Vitamin D, 25 Hydroxy D3 24 ng/mL [facility] Vitamin D, 25 Hydroxy D2 <4 [facility] Estimated Glomerular Filtration Rate (calc) >60 [facility] protein, total, serum 8.0 g/dL [facility] albumin, serum 4.4 g/dL [facility] bilirubin, serum, total 0.7 mg/dL [facility] alkaline phosphatase, serum 121 1/L [facility] alanine aminotransferase (SGPT), serum 194 1/L [facility] aspartate aminotransferase (SGOT), serum 111 1/L [facility] calcium, serum 9.6 mg/dL [facility] blood glucose, fasting 115 mg/dL [facility] creatinine, serum 0.80 mg/dL [facility] urea nitrogen, blood 18 mg/dL [facility] carbon dioxide, serum, total 27 mmol/L [facility] chloride, serum 95 mmol/L [facility] potassium, serum 3.7 mmol/L [facility] sodium, serum 134 mmol/L [facility] platelet count 277 10*3/uL [facility] red blood cell distribution width 12.3 % [facility] mean corpuscular hemoglobin concentration, RBC 34.6 g/dL [facility] mean corpuscular hemoglobin, RBC 29.6 pg [facility] mean corpuscular volume, RBC 85.5 fL [facility] hematocrit, blood 38.5 % [facility] hemoglobin, blood 13.3 g/dL [facility] erythrocyte (RBC) count 4.51 10*6/mm3 [facility] monocyte count, blood 0.3 10*3/mm3 [facility] lymphocyte count, blood 1.9 10*3/mm3 [facility] monocytes as percent of blood leukocytes 4.4 % [facility] lymphocytes as percent of blood leukocytes 32.4 % [facility] leukocyte count, blood 5.9 10*3/mm3 [facility] antinuclear antibody, titer Negative [facility] triglyceride, serum, fasting 295 mg/dL [facility] HDL cholesterol, serum 39 mg/dL [facility] LDL cholesterol, serum 141 mg/dL [facility] cholesterol, serum 242 mg/dL [facility] protein, total, serum 7.5 g/dL [facility] albumin, serum 4.3 g/dL [facility] bilirubin, serum, total 0.5 mg/dL [facility] alkaline phosphatase, serum 93 1/L [facility] alanine aminotransferase (SGPT), serum 168 1/L [facility] aspartate aminotransferase (SGOT), serum 77 1/L [facility] calcium, serum 9.8 mg/dL [facility] blood glucose, fasting 112 mg/dL [facility] creatinine, serum 0.80 mg/dL [facility] urea nitrogen, blood 20 mg/dL [facility] carbon dioxide, serum, total 27 mmol/L [facility] chloride, serum 104 mmol/L [facility] potassium, serum 4.0 mmol/L [facility] sodium, serum 142 mmol/L [facility] hemoglobin A1C, blood, as % of total hemoglobin 6.9 % [facility] B-type natriuretic peptide 134 pg/mL [facility] B-type natriuretic peptide 134 pg/mL [facility] alanine aminotransferase (SGPT), serum 153 1/L [facility] aspartate aminotransferase (SGOT), serum 72 1/L [facility] blood glucose, fasting 139 mg/dL [facility] creatinine, serum 0.80 mg/dL [facility] urea nitrogen, blood 26 mg/dL [facility] carbon dioxide, serum, total 28 mmol/L [facility] chloride, serum 105 mmol/L [facility] potassium, serum 4.6 mmol/L [facility] sodium, serum 146 mmol/L [facility] blood glucose, fasting 139 mg/dL [facility] creatinine, serum 0.80 mg/dL [facility] urea nitrogen, blood 26 mg/dL [facility] carbon dioxide, serum, total 28 mmol/L [facility] chloride, serum 105 mmol/L [facility] potassium, serum 4.6 mmol/L [facility] sodium, serum 146 mmol/L [facility] platelet count 251 10*3/uL [facility] hematocrit, blood 35.6 % [facility] hemoglobin, blood 12.2 g/dL [facility] erythrocyte (RBC) count 4.05 10*6/mm3 [facility] leukocyte count, blood 6.3 10*3/mm3 [facility] blood glucose, fasting 119 mg/dL [facility] blood glucose, 2 hours postprandial 129 mg/dL [facility] anion gap, serum 9.1 [facility] Estimated Glomerular Filtration Rate (calc) 87.20 mL/min/{1.7 3_m2} [facility] calcium, serum 9.3 mg/dL [facility] blood glucose, fasting 109 mg/dL [facility] creatinine, serum 0.7 mg/dL [facility] urea nitrogen, blood 14 mg/dL [facility] carbon dioxide, serum, total 30 mmol/L [facility] chloride, serum 92 mmol/L [facility] potassium, serum 3.7 mmol/L [facility] sodium, serum 131 mmol/L [facility] cholesterol/HDL ratio, serum 5.8 Ifeoma Garcia triglyceride, serum, fasting 284 mg/dL [facility] HDL cholesterol, serum 37 mg/dL [facility] LDL cholesterol, serum 120.2 mg/dL [facility] cholesterol, serum 214 mg/dL [facility] prothrombin time (patient) 11.8 s [facility] international normalized ratio (INR) 0.9 [facility] blood glucose, fasting 156 mg/dL [facility] creatinine, serum 0.70 mg/dL [facility] urea nitrogen, blood 15 mg/dL [facility] carbon dioxide, serum, total 28 mmol/L [facility] chloride, serum 100 mmol/L [facility] potassium, serum 4.1 mmol/L [facility] sodium, serum 141 mmol/L [facility] platelet count 320 10*3/uL [facility] hematocrit, blood 38.8 % [facility] hemoglobin, blood 13.5 g/dL [facility] erythrocyte (RBC) count 4.55 10*6/mm3 [facility] leukocyte count, blood 7.2 10*3/mm3 [facility] cholesterol/HDL ratio, serum 6.3 [facility] triglyceride, serum, fasting 237 mg/dL [facility] HDL cholesterol, serum 35 mg/dL [facility] LDL cholesterol, serum 137.6 mg/dL [facility] cholesterol, serum 220 mg/dL [facility] creatinine, serum 1.00 mg/dL [facility] urea nitrogen, blood 19 mg/dL [facility] carbon dioxide, serum, total 26 mmol/L [facility] chloride, serum 103 mmol/L [facility] potassium, serum 3.9 mmol/L [facility] sodium, serum 138 mmol/L [facility] platelet count 314 10*3/uL [facility] hematocrit, blood 38.7 % Karoline Weiss RN hemoglobin, blood 13.7 g/dL Karoline Weiss RN erythrocyte (RBC) count 4.52 10*6/mm3 Karoline Columbus RN leukocyte count, blood 7.5 10*3/mm3 Karoline Columbus RN HISTORY OF MEDICATION USE Medication Status Instructions Dates Provider Indications Com ments Farxiga 5 mg tablet active Take Take 1 tablet by mouth once daily Pankaj Ahmedzai potassium chloride 10 mEq tablet,ER particles/crystals active Take 2 tablet by mouth once a day Pankaj Ahmedzai bumetanide 2 mg tablet active Take 1/2 tablet by mouth once a day Pankaj Ahmedzai bumetanide 2 mg tablet completed - Pankaj Ahmedzai potassium chloride 10 mEq tablet,ER particles/crystals completed - Pankaj Vegazai aspirin 81 mg tablet,delayed release (DR/EC) completed Take 1 tablet by mouth once a day - Pankaj Vegazai ondansetron HCl 4 mg tablet active Take 1 tablet by mouth three times a day as needed for nausea Pankaj Ahmedzai warfarin 3 mg tablet active Pankaj Shanonmedzai warfarin 4 mg tablet active Pankaj Claudiomedzai clopidogrel 75 mg tablet completed TAKE 1 TABLET BY MOUTH EVERY DAY - Pankaj Claudiomedzai clopidogrel 75 mg tablet completed - Paola Rushing clopidogrel 75 mg tablet completed Take 1 tablet by mouth once a day - Paola Rushing Ozempic 0.25 mg or 0.5 mg(2 mg/1.5 mL) pen injector active Pankaj Vegazai bumetanide 2 mg tablet completed Take 1 tablet by mouth once a day - Pankaj Claudiomedzai Trulicity 0.75 mg/0.5 mL pen injector completed - Pankaj Vegazai losartan 50 mg tablet active Take 1 tablet by mouth once a day Coco Angulo losartan 50 mg tablet completed TAKE 1 TABLET DAILY - Coco Adele GNP HAIR/SKIN/NAILS TABS active once a day Coco Latanyamartinez Zyrtec 10 mg capsule completed once a day - Pankaj Wilburn MULTIVITAMINS CAPS active 1 tablet once a day Coco Adele vitamin E 400 unit capsule active once a day Coco Adele Miralax 17 gram/dose powder active Take as directed Dinora Mccormack ferrous sulfate 325 mg (65 mg iron) tablet active Take 1 tablet once a day Dinora Mccormack VITAMIN D CAPSULE active Take 1 tablet once a day Dinora Mccormack spironolactone 25 mg tablet active TAKE 1 TABLET BY MOUTH EVERY DAY Pankaj Wilburn alprazolam 0.25 mg tablet completed twice a day - Pankaj Wilburn WelChol 625 mg tablet active Take 3 twice a day Coco Angulo losartan 50 mg tablet completed Take 1 tablet once a day - Tyler Wilson Vitamins B Complex capsule active 1 capsule once a day Elgin Thakur MD ropinirole 0.5 mg tablet completed Take 1 three times a day - Pankaj Wilburn COUMADIN 5 MG ORAL TABLET completed Take 10 mg - Pankaj Wilburn AMIODARONE HCL 200 MG ORAL TABLET completed ONE HALF TAB. DAILY - Elgin Thakur MD atorvastatin 80 mg tablet active by mouth once a day Elgin Thakur MD HYDROCODONE-ACETAM INOPHEN 5-325 MG ORAL TABLET completed take one tablet by mouth every 6 hours as needed for pain - Coco Angulo LANTUS 100 UNIT/ML SUBCUTANEOUS SOLUTION completed 5 units at bedtime - Elgin Thakur MD ALDACTONE 25 MG ORAL TABLET completed once daily - Jemimahellen Mcclain BUMEX 2 MG ORAL TABLET completed once a day - Pankaj Wilburn buspirone 5 mg tablet active three times a day Elgin Thakur MD Effexor XR 75 mg capsule,extended release 24hr active Take 1 tablet twice a day Jemima Mcclain FLONASE ALLERGY RELIEF SUSPENSION completed as directed - Elgin Thakur MD LOSARTAN POTASSIUM-HCTZ 100-25 MG ORAL TABLET completed once daily - Gabriela Case PEPCID 20 MG ORAL TABLET completed as needed - Elgin Thakur MD NITROLINGUAL 0.4 MG/SPRAY TRANSLINGUAL SOLUTION completed 1 spray as needed for chest discomfort - Coco Angulo DULERA AEROSOL completed 2 puffs twice daily - Tiffany Fan IMODIUM A-D TABLET completed as needed - Tiffany Fan FLONASE 50 MCG/ACT NASAL SUSPENSION completed TAKE DIRECTED - Alok Jim LOSARTAN POTASSIUM-HCTZ 100-25 MG ORAL TABLET completed 1 tab by mouth daily - Alok Jim LORATADINE 10 MG ORAL TABLET completed 1 tab daily - Tiffany Fan ALPRAZOLAM 0.25 MG ORAL TABLET completed 1 tab three times daily - Tiffany Fan VITAMIN D2 TABLET completed 1 tab daily - Alok Jim LIPITOR 20 MG ORAL TABLET completed 1 tab daily - Elgin Thakur MD ALLERGY MEDICATION CAPSULE completed as needed - Jaylin Walker VITAMIN D3 23394 UNIT ORAL CAPSULE completed take one a week - Alok Jim NUVIGIL 150 MG ORAL TABLET completed take one a day - Jaylin Walker PRISTIQ 50 MG ORAL TABLET EXTENDED RELEASE 24 HOUR completed 1 tab twice daily - Tiffany Fan VENTOLIN HFA 108 (90 Base) MCG/ACT INHALATION AEROSOL SOLUTION completed - Tiffany Fan ADVAIR DISKUS 100-50 MCG/DOSE INHALATION AEROSOL POWDER BREATH ACTIVATED completed 1 puff twice daily - Alok Jim MYLANTA GAS TABLET CHEWABLE completed - Jake Mejias RN BENICAR HCT 40-25 MG ORAL TABLET completed ONCE TABLET DAILY - Maikol Sneed B-12 TABS completed as directed - Gabriela Case GREEN TEA CAPSULE completed 2 -3 tabs daily - Jake Mejias RN PROVENTIL HFA AEROSOL SOLUTION completed 2 puff three times daily - Jacobo Mckeon NITROLINGUAL 0.4 MG/SPRAY TRANSLINGUAL SOLUTION completed 1 spray PRN 4.9gm. bottle - Lorenza Woo LOVAZA 1 GM ORAL CAPSULE completed 2 capsules twice a day - Tiffany Fan ZETIA 10 MG ORAL TABLET completed ONE TAB. DAILY - Tiffany Fan ROPINIROLE HCL 0.25 MG ORAL TABLET completed one tab prn - Alok Jim PROAIR HFA AEROSOL SOLUTION completed 2 puffs qid - Jake Mejias RN TYLENOL WITH CODEINE #3 300-30 MG ORAL TABLET completed as needed - Susana Tinoco CYCLOBENZAPRINE HCL 10 MG ORAL TABLET completed twice daily - Susaan Tinoco PLAVIX 75 MG ORAL TABLET completed ONE TAB. DAILY - Elgin Thakur MD RAPID B-12 ENERGY LIQUID completed as directed - Jacobo Mckeon METFORMIN HCL 500 MG ORAL TABLET completed 1 tab twice daily - Elgin Thakur MD VITAMIN E 400 UNIT ORAL CAPSULE completed 2 cap by mouth daily - Elgin Thakur MD ADDERALL 15 MG ORAL TABLET completed 1 tablet by mouth daily - Susana O'Obi GABAPENTIN 100 MG ORAL CAPSULE completed 1 capsule by mouth as needed - Susana O'Obi PEPCID 20 MG ORAL TABLET completed as needed - Susana O'Obi CLARITHROMYCIN TABLET completed one tab daily - Jake Mejias RN AMOXICILLIN TABLET completed 500mg 2 tabs twice a day - Jake Mejias RN GAS-X EXTRA STRENGTH 125 MG ORAL CAPSULE completed prn - Alok SHORE ALLERGY RELIEF LORATADINE TABLET completed prn - Jake Mejias RN VITAMIN E 400 UNIT ORAL CAPSULE completed ONE TAB. DAILY - Jacobo Duarteacodavina MULTIVITAMINS ORAL CAPSULE completed ONE TAB. DAILY - Tiffany Fan ASPIRIN 81 MG ORAL TABLET completed ONE TAB. DAILY - Gabriela Case CARLA 60 MG ORAL CAPSULE completed 2 capsules by mouth three times daily - Alok Jim Klor-Con M10 10 mEq tablet,ER particles/crystals completed Take 2 tablet once a day - Pankaj Wilburn LASIX 20 MG ORAL TABLET completed 1 tablet by mouth daily - Tiffany Fan BUSIPRONE HCL completed take 5 mg 4 times a day - Jaylin Walker VITAMIN C completed - Jacobo Mckeon EXCEDRIN MIGRAINE TABLET completed - Elgin Thakur MD CALCIUM CITRATE-VITAMIN D TABS completed daily - Jake Mejias RN VITAMIN B COMPLEX CAPS completed daily - Jake Mejias RN FLUTICASONE PROPIONATE SUSPENSION completed daily - Susana Odonnell'Obi CLONAZEPAM TABLET completed q hs - Jake Mejias RN HEMATOGEN ORAL CAPSULE completed BID - Jake Mejias RN ZOCOR 40 MG ORAL TABLET completed ONE TAB. AT BEDTIME - Susana Odonnell'Obi omeprazole 40 mg capsule,delayed release(DR/EC) active 1 capsule by mouth once a day Elgin Thakur MD PRINZIDE 20-25 MG TABS completed 1 tablet by mouth twice daily - Jacobo Mckeon SOCIAL HISTORY Date Observation Value Provider drug use none Pankaj Wilburn alcohol use no Pankaj Wilburn passive cigarette sm hannah exposure no Pankaj Wilburn smoking status Never smoker Pankaj Ramey drug use none Pankaj Wilburn alcohol use no Pankaj Wilburn passive cigarette sm hannah exposure no Pankaj Wilburn smoking status Never smoker Pankaj Ramey drug use none Pankaj Ramey alcohol use no Pankaj Ramey passive cigarette sm hannah exposure no Pankaj Ramey smoking status Never smoker Pankaj Rameyvicky social history reviewed E&M revi ewed - no changes required Pankaj Rameyvicky social history reviewed E&M revi ewed - no changes required Pankajtaty Rameyvicky social history E&M Marital Statu s: L sony alone E thnicity: Smoking History: P tonie has never smoked. Pankaj Wilburn physical exercise, f requency, days per week no Heidi Sutherland caffeine use, averag e drinks per day yes Heidi Sutherland passive cigarette sm hannah exposure no Heidi Sutherland smoking status Never smoker Heidi Sutherland social history reviewed E&M revi ewed - no changes required Pankaj trevorvicky social history reviewed E&M revi ewed - no changes required Pankaj adrianananci physical exercise, f requency, days per week no Diana Joyce caffeine use, averag e drinks per day yes Diana Joyce passive cigarette sm hannah exposure no Diana Joyce smoking status Never smoker Diana berry social history reviewed E&M revi ewed - no changes required Pankaj Wilburn social history reviewed E&M revi ewed - no changes required Elgin Thakur MD social history reviewed E&M revi ewed - no changes required Pankaj Wilburn social history E&M Marital Statu s: L sony alone E thnicity: Smoking History: P atkamran has never smoked. Pankaj Wilburn social history reviewed E&M revi ewed - no changes required Pankaj Wilburn physical exercise, f requency, days per week no Chastity Siomara caffeine use, averag e drinks per day yes Chastity Siomara passive cigarette sm hannah exposure no Chastity Siomara smoking status Never smoker Cookiest[employer] Castellanosu e social history E&M Marital Statu s: L sony alone E thnicity: Smoking History: P atient has never smoked. Anderson Espinosa social history reviewed E&M revi ewed - no changes required Anderson Espinosa physical exercise, f requency, days per week no Coco Angulo caffeine use, averag e drinks per day yes Coco Angulo passive cigarette sm hannah exposure no Coco Angulo smoking status Never smoker Coco Peacockbea land social history E&M Marital Statu s: L sony alone E thnicity: Smoking History: P atient has never smoked. Anderson Espinosa social history reviewed E&M revi ewed - no changes required Anderson Espinosa physical exercise, f requency, days per week no Tonsha Antonio caffeine use, averag e drinks per day yes Tonsha Antonio passive cigarette sm hannah exposure no [facility] smoking status Never smoker [facility] social history E&M Marital Statu s: L sony alone E thnicity: Smoking History: P tonie has never smoked. Elgin Thakur MD social history reviewed E&M revi ewed - no changes required Elgin Thakur MD physical exercise, f requency, days per week no [facility] caffeine use, averag e drinks per day yes [facility] passive cigarette sm hannah exposure no [facility] smoking status Never smoker [facility] social history E&M Marital Statu s: L sony alone E thnicity: Smoking History: P tonie has never smoked. Elgin Thakur MD social history reviewed E&M revi ewed - no changes required Elgin Thakur MD smoking status Never smoker Dinora singleton physical exercise, f requency, days per week no Dinora Mccormack alcohol use, average drinks per day none Dinora Mccormack alcohol use no Dinora jean baptiste caffeine use, averag e drinks per day yes Dinora Mccormack drug use none Dinora jean baptiste passive cigarette sm hannah exposure no Dinora Mccormack social history E&M Marital Statu s: L sony alone E thnicity: Smoking History: P tonie has never smoked. Elgin Thakur MD social history reviewed E&M revi ewed - no changes required Elgin Thakur MD physical exercise, f requency, days per week no Dinora Mccormack alcohol use, average drinks per day none Dinora Mccormack alcohol use no Dinora jean baptiste caffeine use, averag e drinks per day yes Dinora Mccormack drug use none Dinora jean baptiste passive cigarette sm hannah exposure no Dinora Mccormack smoking status Never smoker Dinora Bhatti mani social history reviewed E&M revi ewed - no changes required Elgin Thakur MD social history E&M Marital Statu s: L sony alone E thnicity: Smoking History: P tonie has never smoked. Elgin Thakur MD number of grandchildren Elgin Thakur MD T cole Thakur MD physical exercise, f requency, days per week no Jemima Sarahi alcohol use, average drinks per day none Jemima Sarahi alcohol use no Jemima Sarahi caffeine use, averag e drinks per day yes Jemima Sarahi drug use none Jemima Sarahi passive cigarette sm hannah exposure no Jemima Sarahi smoking status Never smoker Jemima Sarahi social history E&M Marital Statu s: L sony alone E thnicity: Smoking History: P tonie has never smoked. Elgin Thakur MD social history reviewed E&M revi ewed - no changes required Elgin Thakur MD physical exercise, f requency, days per week no Jemima Sarahi alcohol use, average drinks per day none Jemima Sarahi alcohol use no Jemima Sarahi caffeine use, averag e drinks per day yes Jemima Sarahi drug use none Jemima Sarahi passive cigarette sm hannah exposure no Jemima Sarahi smoking status Never smoker Jemima Sarahi social history reviewed E&M revi ewed - no changes required Eglin Thakur MD physical exercise, f requency, days per week no Leesa Cruz alcohol use, average drinks per day none Leesa Cruz alcohol use no Leesa Cruz caffeine use, averag e drinks per day yes Leesa Cruz drug use none Leesa Cruz passive cigarette sm hannah exposure no Leesa Cruz smoking status Never smoker Leesa Cruz social history reviewed E&M revi ewed - no changes required Elgin Thakur MD physical exercise, f requency, days per week no Coco Peacockjohanaabimbolaelise alcohol use, average drinks per day none Coco Adele alcohol use no Coco Mitchellabimbolaanette bertoer caffeine use, averag e drinks per day yes Coco Talaveraearlineabimbolaelise drug use none Coco Campos lder passive cigarette sm hannah exposure no Coco Adele smoking status Never smoker Coco Tala[place] land social history reviewed E&M revi ewed - no changes required Elgin Thakur MD social history reviewed E&M revi ewed - no changes required Elgin Thakur MD social history reviewed E&M revi ewed - no changes required Elgin Thakur MD physical exercise, f requency, days per week no Alok Jim alcohol use, average drinks per day none Alok Jim alcohol use no Alok shipley caffeine use, averag e drinks per day yes Alok Jim drug use none Alok shipley passive cigarette sm hannah exposure no Alok iJm smoking status Never smoker Alok Edgar social history reviewed E&M revi ewed - no changes required Elgin Thakur MD physical exercise, f requency, days per week no Alok Jim alcohol use, average drinks per day none Alok Jim caffeine use, averag e drinks per day yes Alok iJm drug use none Alok shipley passive cigarette sm hannah exposure no Alok Jim smoking status Never smoker Alok Edgar social history reviewed E&M malik shen - no changes required Elgin Thakur MD smoking status Never smoker Sandy Evie gunter social history reviewed E&M reviewed Elgin Thakur MD social history reviewed E&M reviewed Elgin Thakur MD drug use none Elgin Thakur MD social history reviewed E&M reviewed Elgin Thakur MD drug use no Coco Gruenenfe lder passive cigarette sm hannah exposure no Coco Gruenenfelder smoking status never smoker Jake Mejias RN social history reviewed E&M reviewed Jake Mejias RN social history reviewed E&M reviewed Jake Mejias RN social history reviewed E&M reviewed Elgin Thakur MD social history reviewed E&M reviewed Elgin Thakur MD social history reviewed E&M reviewed Jake Mejias RN social history reviewed E&M reviewed Jake Mejias RN social history reviewed E&M reviewed Elgin Thakur MD social history reviewed E&M reviewed Jake Mejias RN social history reviewed E&M reviewed Jake Mejias RN social history reviewed E&M reviewed Jake Mejias RN social history reviewed E&M reviewed Jake Mejias RN drug use none Elgin Thakur MD social history E&M Marital Statu s: L snoy alone E thnicity: Jake Mejias RN social history reviewed E&M reviewed Jake Mejias RN physical exercise, f requency, days per week no [employer] caffeine use, averag e drinks per day yes [employer] alcohol use, average drinks per day none [employer] smoking status Non-smoker [employer] FUNCTIONAL STATUS Date Observation Value Provider HRA, CV Assess/Plan, Angina (inactive) Management Plan continue current therapy Pankaj Wilburn HRA, CV Assess/Plan, Angina (inactive) Management Plan continue current therapy Pankaj Claudiomedzai HRA, CV Assess/Plan, Angina (inactive) Management Plan continue current therapy Pankaj Ahmedzai HRA, CV Assess/Plan, Angina (inactive) Management Plan continue current therapy Pankaj Claudiomedzai HRA, CV Assess/Plan, Angina (inactive) Management Plan continue current therapy Pankaj Ahmedzai HRA, CV Assess/Plan, Angina (inactive) Management Plan continue current therapy Pankaj Ahmedzai HRA, CV Assess/Plan, Angina (inactive) Management Plan continue current therapy Pankaj Claudiomedzai HRA, CV Assess/Plan, Angina (inactive) Management Plan continue current therapy Pankaj Claudiomedzai HRA, CV Assess/Plan, Angina (inactive) Management Plan continue current therapy Pankaj Vegazai HRA, CV Assess/Plan, Angina (inactive) Management Plan continue current therapy Pankaj Claudiomedzai HRA, CV Assess/Plan, Angina (inactive) Management Plan continue current therapy Pankaj Claudiomedzai HRA, CV Assess/Plan, Angina (inactive) Management Plan continue current therapy Anderson Nacht HRA, CV Assess/Plan, Angina (inactive) Management Plan continue current therapy Anderson Nacht HRA, CV Assess/Plan, Angina (inactive) Management Plan continue current therapy Nicholas Antonio HRA, CV Assess/Plan, Angina (inactive) Management Plan continue current therapy Elgin Thakur MD HRA, CV Assess/Plan, Angina (inactive) Management Plan continue current therapy Elgin Thakur MD HRA, CV Assess/Plan, Angina (inactive) Management Plan antianginal therapy Elgin Thakur MD HRA, CV Assess/Plan, Angina (inactive) Management Plan continue current therapy Elgin Thakur MD HRA, CV Assess/Plan, Angina (inactive) Management Plan continue current therapy Elgin Thakur MD HRA, CV Assess/Plan, Angina (inactive) Management Plan continue current therapy Elgin Thakur MD HRA, CV Assess/Plan, Angina (inactive) Management Plan continue current therapy Elgin Thakur MD HRA, CV Assess/Plan, Angina (inactive) Management Plan continue current therapy Elgin Thakur MD MENTAL STATUS Date Observation Value Provider assessment of judgme nt and insight E&M Alert and oriented to time, place and person. Mood and affect are normal. Elgin Thakur MD assessment of judgme nt and insight E&M Alert and oriented to time, place and person. Mood and affect are normal. Elgin Thakur MD assessment of judgme nt and insight E&M Alert and oriented to time, place and person. Mood and affect are normal. Elgin Thakur MD assessment of judgme nt and insight E&M Alert and oriented to time, place and person. Mood and affect are normal. Elgin Thakur MD assessment of judgme nt and insight E&M Alert and oriented to time, place and person. Mood and affect are normal. Jake Mejias RN assessment of judgme nt and insight E&M Alert and oriented to time, place and person. Mood and affect are normal. Jake Mejias RN assessment of judgme nt and insight E&M Alert and oriented to time, place and person. Mood and affect are normal. Elgin Thakur MD assessment of judgme nt and insight E&M Alert and oriented to time, place and person. Mood and affect are normal. Elgin Thakur MD assessment of judgme nt and insight E&M Alert and oriented to time, place and person. Mood and affect are normal. Jake Mejias RN assessment of judgme nt and insight E&M Alert and oriented to time, place and person. Mood and affect are normal. Jake Mejias RN assessment of judgme nt and insight E&M Alert and oriented to time, place and person. Mood and affect are normal. Elgin Thakur MD assessment of judgme nt and insight E&M Alert and oriented to time, place and person. Mood and affect are normal. Jake Mejias RN assessment of judgme nt and insight E&M Alert and oriented to time, place and person. Mood and affect are normal. Jake Mejias RN assessment of judgme nt and insight E&M Alert and oriented to time, place and person. Mood and affect are normal. Jake Mejias RN assessment of judgme nt and insight E&M Alert and oriented to time, place and person. Mood and affect are normal. Jake Mejias RN assessment of judgme nt and insight E&M Alert and oriented to time, place and person. Mood and affect are normal. Jake Mejias RN FAMILY HISTORY Family Member Condition Father Family History of Hy pertension: Father Family History of Di abetes: Father Family History of Ar thritis: Mother Negative FH of Diabe sera, Hypertension, or Coronary Artery Disease INSURANCE PROVIDERS Payer name Policy type / Coverage type [place] [employer] party ID ARM[employer] insurance XMLAW pany [id number] [place] Medicare [id number] ADVANCE DIRECTIVES Name Date DISCUSSED - NO DECISION MADE TREATMENT PLAN Date Name Performer [id number],Elgin Boyd MD [id number],Elgin Bauer MD [id number],Elgin Bauer MD [id number],Elgin Bauer MD [id number],Elgin Bauer MD [id number],Pankaj Boyd i [id number],SPankaj i [id number],SPankaj i [id number],SPankaj i [id number],SPankaj i [id number],SPankaj i [id number],S, Pankaj Ahmedza i [id number],S, Pankaj Ahmedza i [id number],S, Pankaj Ahmedza i [id number],S, Pankaj Ahmedza i [id number],S, Pankaj Ahmedza i [id number],S, Pankaj Ahmedza i [id number],S, Pankaj Ahmedza i [id number],S, Pankaj Ahmedza i [id number],S, Pankaj Ahmedza i [id number],S, Pankaj Ahmedza i [id number],S, Pankaj Ahmedza i [id number],S, Pankaj Ahmedza i [id number],S, Pankaj Ahmedza i [id number],S, Pankaj Ahmedza i [id number],S, Pankaj Ahmedza i [id number],S, Pankaj Ahmedza i [id number],S, Pankaj Ahmedza i [id number],S, Pankaj Ahmedza i [id number],S, Pankaj Ahmedza i [id number],B, Pankaj Ahmedza i [id number],S, Pankaj Ahmedza i [id number],S, Pankaj Ahmedza i [id number],S, Pankaj Ahmedza i [id number],S, Pankaj Claudiomedza i [id number],S, Pankaj Shanonmedza i [id number],S, Pankaj medza i [id number],S, Pankaj medza i [id number],S, Pankaj medza i [id number],S, Pankaj medza i [id number],B, Pankaj medza i [id number],B, Pankaj medza i [id number],B, Pankaj medza i [id number],B, Pankaj medza i [id number],B, Pankaj medza i [id number],S, Pankaj medza i [id number],S, Pankaj medza i [id number],S, Pankaj medza i [id number],S, Pankaj medza i [id number],S, Pankaj medza i [id number],S, Pankaj medza i Telehealth: H er updated medication list for this problem includes: Bumetanide 2 Mg Tablet (Bumetanide) ..... Take 1/2 tablet by mouth once a day Spironolactone 25 Mg Tablet (Spironolactone) ..... Take 1 tablet by mouth every day Losartan 50 Mg Tablet (Losartan) ..... Take 1 tablet by mouth once a day [facility]aj [facility]ai [facility] H er updated medication list for this problem includes: Warfarin 3 Mg Tablet (Warfarin) Warfarin 4 Mg Tablet (Warfarin) [facility]: H er updated medication list for this problem includes: Warfarin 3 Mg Tablet (Warfarin) Warfarin 4 Mg Tablet (Warfarin) [facility] Telehealth: H er updated medication list for this problem includes: Bumetanide 2 Mg Tablet (Bumetanide) ..... Take 1/2 tablet by mouth once a day Spironolactone 25 Mg Tablet (Spironolactone) ..... Take 1 tablet by mouth every day Losartan 50 Mg Tablet (Losartan) ..... Take 1 tablet by mouth once a day [facility] Cardiology:This visi t has been a part of the consistent, comprehensive, and ongoing management of the chronic medical condition(s) listed above for the patient. The following medications were removed from the medication list: Aspirin 81 Mg Tablet,delayed Release (dr/ec) (Aspirin) ..... Take 1 tablet by mouth once a day Her updated medication list for this problem includes: Warfarin 3 Mg Tablet (Warfarin) Warfarin 4 Mg Tablet (Warfarin) Orders: C omplete Echo ([id number]) Elgin Thakur MD Cardiology: B P today: 110/56 P rior BP: 136/62 (01/02/2024) Labs Reviewed: C reat: 0.70 (08/11/2012) C hol: 253 (11/29/2011) HDL: 43 (11/29/2011) LDL: 154 (11/29/2011) T (11/29/2011) The following medications were removed from the medication list: Aspirin 81 Mg Tablet,delayed Release (dr/ec) (Aspirin) ..... Take 1 tablet by mouth once a day Bumetanide 2 Mg Tablet (Bumetanide) ..... Take 1 tablet by mouth once a day Her updated medication list for this problem includes: Losartan 50 Mg Tablet (Losartan) ..... Take 1 tablet by mouth once a day Spironolactone 25 Mg Tablet (Spironolactone) ..... Take 1 tablet by mouth every day [facility] Cardiology [facility] Cardiology: T he following medications were removed from the medication list: Aspirin 81 Mg Tablet,delayed Release (dr/ec) (Aspirin) ..... Take 1 tablet by mouth once a day Her updated medication list for this problem includes: Warfarin 3 Mg Tablet (Warfarin) Warfarin 4 Mg Tablet (Warfarin) Orders: Karen omplete Echo ([id number]) [facility] Cardiology: T he following medications were removed from the medication list: Aspirin 81 Mg Tablet,delayed Release (dr/ec) (Aspirin) ..... Take 1 tablet by mouth once a day Bumetanide 2 Mg Tablet (Bumetanide) ..... Take 1 tablet by mouth once a day Her updated medication list for this problem includes: Losartan 50 Mg Tablet (Losartan) ..... Take 1 tablet by mouth once a day Spironolactone 25 Mg Tablet (Spironolactone) ..... Take 1 tablet by mouth every day Orders: Karen omplete Echo ([id number]) [facility] Cardiology: T he following medications were removed from the medication list: Aspirin 81 Mg Tablet,delayed Release (dr/ec) (Aspirin) ..... Take 1 tablet by mouth once a day Her updated medication list for this problem includes: Warfarin 3 Mg Tablet (Warfarin) Warfarin 4 Mg Tablet (Warfarin) Orders: Karen omplete Echo ([id number]) [facility] Cardiology [facility] Cardiology [facility] Cardiology: B P today: 136/62 P rior BP: 130/76 (12/05/2023) Labs Reviewed: C reat: 0.70 (08/11/2012) C hol: 253 (11/29/2011) HDL: 43 (11/29/2011) LDL: 154 (11/29/2011) T (11/29/2011) Her updated medication list for this problem includes: Bumetanide 2 Mg Tablet (Bumetanide) ..... Take 1 tablet by mouth once a day Spironolactone 25 Mg Tablet (Spironolactone) ..... Take 1 tablet by mouth every day Losartan 50 Mg Tablet (Losartan) ..... Take 1 tablet by mouth once a day Pankaj Ahmedzai Cardiology Pankaj Ahmedzai Cardiology Pankaj Ahmedzai Cardiology Pankaj Ahmedzai Cardiology Pankaj Ahmedzai Cardiology Pankaj Ahmedzai Cardiology Pankaj Ahmedzai Cardiology Pankaj Ahmedzai Cardiology: H er updated medication list for this problem includes: Warfarin 4 Mg Tablet (Warfarin) Pankaj Ahmedzai Cardiology Pankaj Ahmedzai Cardiology Pankaj Ahmedzai Cardiology Pankaj Ahmedzai Telehealth Elgin Thakur MD Telehealth Elgin Thakur MD Telehealth Elgin Thakur MD Telehealth Elgin Thakur MD Telehealth Elgin Thakur MD Cardiology Pankaj Ahmedzai Cardiology Pankaj Ahmedzai Cardiology Pankaj Ahmedzai Cardiology Pankaj Ahmedzai Cardiology Pankaj Ahmedzai Cardiology Pankaj Ahmedzai Cardiology Pankaj Ahmedzai Cardiology Pankaj Ahmedzai Cardiology Pankaj Ahmedzai Cardiology Pankaj Ahmedzai Cardiology Pankaj Ahmedzai Cardiology Pankaj Ahmedzai Cardiology Pankaj Ahmedzai Cardiology Pankaj Ahmedzai Cardiology Pankaj Ahmedzai Cardiology Pankaj Ahmedzai Cardiology Pankaj Ahmedzai Cardiology Pankaj Ahmedzai Cardiology Pankaj Ahmedzai Cardiology Pankaj Ahmedzai Cardiology Pankaj Ahmedzai Cardiology Pankaj Ahmedzai Cardiology Pankaj Ahmedzai Cardiology Pankaj Ahmedzai Cardiology Pankaj Ahmedzai Cardiology Pankaj Ahmedzai Cardiology Pankaj Ahmedzai Cardiology Pankaj Ahmedzai Cardiology Pankaj Ahmedzai Cardiology Pankaj Ahmedzai Cardiology Pankaj Ahmedzai Cardiology Pankaj Ahmedzai Cardiology Pankaj Ahmedzai Cardiology Pankaj Ahmedzai Cardiology Pankaj Ahmedzai Cardiology Pankaj Ahmedzai Cardiology Pankaj Ahmedzai Cardiology Pankaj Ahmedzai Cardiology Pankaj Ahmedzai Cardiology Pankaj Ahmedzai Cardiology Pankaj Ahmedzai Cardiology Pankaj Ahmedzai Cardiology Pankaj Ahmedzai Cardiology Pankaj Ahmedzai Cardiology Pankaj Ahmedzai Cardiology Pankaj Ahmedzai Cardiology Follow up [facility] Follow [facility] Follow [facility] Follow [facility] Elgin Thakur MD Cardiology Elgin Thakur MD Cardiology Elgin Thakur MD Cardiology Elgin Thakur MD Cardiology Elgin Thakur MD Cardiology Tonprosper Thakur MD Cardiology follow up Toniya Sing h Cardiology follow up Toniya Sing h Cardiology follow up Toniya Sing h Cardiology follow up Toniya Sing h Cardiology follow up Toniya Sing h Cardiology follow up Toniya Sing h Cardiology follow up Toniya Sing h Cardiology follow up Toniya Sing h Cardiology follow up Toniya Sing h Cardiology follow up Toniya Sing h Cardiology follow up Toniya Sing h Cardiology follow up Toniya Sing h Cardiology follow up Toniya Sing h Cardiology follow up Toniya Sing h Cardiology follow up Toniya Sing h Cardiology follow up Toniya Sing h Cardiology follow up Toniya Sing h Cardiology follow up Toniya Sing h Cardiology follow up Toniya Sing h Cardiology follow up:Controlled. Elgin Thakur MD Cardiology follow up :More than a year since last stents (drug eluting). Will stop Plavix as she's on Coumadin (INR followed by Dr. Pat's office). Elgin Thakur MD Cardiology follow up :Stop Plavix as its been over a year and pt is on Coumadin. Elgin Thakur MD Cardiology Elgin Thakur MD Cardiology Elgin Thakur MD Cardiology Elgin Thakur MD Cardiology Elgin Thakur MD Cardiology Elgin Thakur MD Cardiology Follow up Toniya Sing óscar LATIF Cardiology Follow up Toniya Sing h MD Cardiology Follow up Tonibrian cantrell MD Cardiology Follow up Elgin cantrell MD Cardiology Follow up Girmaibrian cantrell MD Cardiology Elgin Thakur MD Cardiology Elgin Thakur MD Cardiology Elgin Thakur MD Cardiology Elgin Thakur MD Cardiology Elgin Thakur MD Cardiology Elgin Thakur MD Cardiology Tonibrian hTakur MD Cardiology Tonibrian Thakur MD Cardiology Girmaibrian Thakur MD Cardiology Elgin Thakur MD Cardiology Elgin Thakur MD Cardiology Elgin Thakur MD Cardiology Elgin Thakur MD Cardiology Elgin Thakur MD Cardiology Elgin Thakur MD Cardiology Elgin Thakur MD fu: T he following medications were removed from the medication list: Losartan Potassium-hctz 100-25 Mg Tabs (Losartan potassium-hctz) ..... 1 tab by mouth daily Her updated medication list for this problem includes: Aspirin 81 Mg Tabs (Aspirin) ..... One tab. daily Metformin Hcl 500 Mg Tabs (Metformin hcl) ..... 1 tab twice daily Elgin Thakur MD fu: H er updated medication list for this problem includes: Aspirin 81 Mg Tabs (Aspirin) ..... One tab. daily Nitrolingual 0.4 Mg/spray Soln (Nitroglycerin) ..... 1 spray as needed for chest discomfort Plavix 75 Mg Tabs (Clopidogrel bisulfate) ..... One tab. daily Zetia 10 Mg Tabs (Ezetimibe) ..... One tab. daily Lovaza 1 Gm Caps (Mszbt-8-uutn ethyl esters) ..... 2 capsules twice a day Lipitor 20 Mg Tabs (Atorvastatin calcium) ..... 1 tab daily Elgin Thakur MD fu: H er updated medication list for this problem includes: Aspirin 81 Mg Tabs (Aspirin) ..... One tab. daily Nitrolingual 0.4 Mg/spray Soln (Nitroglycerin) ..... 1 spray as needed for chest discomfort Plavix 75 Mg Tabs (Clopidogrel bisulfate) ..... One tab. daily Zetia 10 Mg Tabs (Ezetimibe) ..... One tab. daily Lovaza 1 Gm Caps (Cipnx-6-muhb ethyl esters) ..... 2 capsules twice a day Lipitor 20 Mg Tabs (Atorvastatin calcium) ..... 1 tab daily Elgin Thakur MD fu: H er updated medication list for this problem includes: Nitrolingual 0.4 Mg/spray Soln (Nitroglycerin) ..... 1 spray as needed for chest discomfort Aspirin 81 Mg Tabs (Aspirin) ..... One tab. daily Plavix 75 Mg Tabs (Clopidogrel bisulfate) ..... One tab. daily Zetia 10 Mg Tabs (Ezetimibe) ..... One tab. daily Lovaza 1 Gm Caps (Bwbbh-7-kcjb ethyl esters) ..... 2 capsules twice a day Lipitor 20 Mg Tabs (Atorvastatin calcium) ..... 1 tab daily Elgin Thakur MD fu: H er updated medication list for this problem includes: Nitrolingual 0.4 Mg/spray Soln (Nitroglycerin) ..... 1 spray as needed for chest discomfort Aspirin 81 Mg Tabs (Aspirin) ..... One tab. daily Plavix 75 Mg Tabs (Clopidogrel bisulfate) ..... One tab. daily Zetia 10 Mg Tabs (Ezetimibe) ..... One tab. daily Lovaza 1 Gm Caps (Sbvag-8-east ethyl esters) ..... 2 capsules twice a day Lipitor 20 Mg Tabs (Atorvastatin calcium) ..... 1 tab daily Elgin Thakur MD FOLLOW UP: H er updated medication list for this problem includes: Aspirin 81 Mg Tabs (Aspirin) ..... One tab. daily Plavix 75 Mg Tabs (Clopidogrel bisulfate) ..... One tab. daily Carotid Duplex Scan: Lindsey HERRERA (01/20/2011) Elgin Thakur MD FOLLOW UP: H er updated medication list for this problem includes: Lasix 20 Mg Tabs (Furosemide) ..... 1 tablet by mouth daily Klor-con M10 10 Meq Tbcr (Potassium chloride diana cr) ..... 1 tab on days lasix is used Aspirin 81 Mg Tabs (Aspirin) ..... One tab. daily Losartan Potassium-hctz 100-25 Mg Tabs (Losartan potassium-hctz) ..... 1 tab by mouth daily BP today: 169/70 Prior BP: 130/70 (10/08/2013) N uclear Stress Findings: 1. Normal myocardial perfusion imaging after vasodilator stress with Regadenoson. 2 . Normal left ventricular systolic function with a calculated ejection fraction of (QGS) 53%. 3 . No obvious significant scintigraphic evidence of myocardial ischemia or scar. - (04/10/2013) C ardiac Cath: 1. Moderate lesion in the left anterior descending artery. This will be assessed by fractional flow reserve. 2 . Patent stent in the right coronary artery. 3 . Mild disease in the circunflex. 4 . Normal left ventricular systolic function. 5 . We will plan further intervention based on the results of the fractional flow reserve. [facility] (06/01/2011) C ardiac Cath Comments: Abnormal RADI wire evaluation of the left anterior descending a rtery with successful angioplasty and stenting with a medicated stent with excellent results and no complications. [facility] (06/01/2011) H gb: 13.3 (11/29/2011) HCT: 38.5 (11/29/2011) RBC: 4.51 (11/29/2011) WBC: 5.9 (11/29/2011) B UN: 18 (11/29/2011) Creat: 0.70 (08/11/2012) Glucose: 115 (11/29/2011) N a+: 136 (08/11/2012) K+: 4.1 (08/11/2012) Cl: 95 (11/29/2011) SGOT (AST): 27 (08/11/2012) SGPT (ALT): 23 (08/11/2012) TSH: 2.200 (11/29/2011) Elgin Thakur MD FOLLOW UP: T he following medications were removed from the medication list: Nitrolingual 0.4 Mg/spray Soln (Nitroglycerin) ..... 1 spray prn 4.9gm. bottle Her updated medication list for this problem includes: Aspirin 81 Mg Tabs (Aspirin) ..... One tab. daily Plavix 75 Mg Tabs (Clopidogrel bisulfate) ..... One tab. daily Zetia 10 Mg Tabs (Ezetimibe) ..... One tab. daily Lovaza 1 Gm Caps (Qmnfw-2-xkhc ethyl esters) ..... 2 capsules twice a day Lipitor 20 Mg Tabs (Atorvastatin calcium) ..... 1 tab daily BP today: 169/70 Prior BP: 130/70 (10/08/2013) N uclear Stress Findings: 1. Normal myocardial perfusion imaging after vasodilator stress with Regadenoson. 2 . Normal left ventricular systolic function with a calculated ejection fraction of (QGS) 53%. 3 . No obvious significant scintigraphic evidence of myocardial ischemia or scar. - (04/10/2013) C ardiac Cath: 1. Moderate lesion in the left anterior descending artery. This will be assessed by fractional flow reserve. 2 . Patent stent in the right coronary artery. 3 . Mild disease in the circunflex. 4 . Normal left ventricular systolic function. 5 . We will plan further intervention based on the results of the fractional flow reserve. [facility] (06/01/2011) C ardiac Cath Comments: Abnormal RADI wire evaluation of the left anterior descending a rtery with successful angioplasty and stenting with a medicated stent with excellent results and no complications. [facility] (06/01/2011) C arotid Doppler/Duplex: Normal [facility] (01/20/2011) C HOL: 253 (11/29/2011) LDL: 154 (11/29/2011) HDL: 43 (11/29/2011) T (11/29/2011) H gb: 13.3 (11/29/2011) HCT: 38.5 (11/29/2011) RBC: 4.51 (11/29/2011) WBC: 5.9 (11/29/2011) B UN: 18 (11/29/2011) Creat: 0.70 (08/11/2012) Glucose: 115 (11/29/2011) N a+: 136 (08/11/2012) K+: 4.1 (08/11/2012) Cl: 95 (11/29/2011) PT: 11.8 (05/23/2011) INR: 0.9 (05/23/2011) T SH: 2.200 (11/29/2011) Elgin Thakur MD FOLLOW UP: H er updated medication list for this problem includes: Zetia 10 Mg Tabs (Ezetimibe) ..... One tab. daily Lovaza 1 Gm Caps (Wdmis-3-oqgg ethyl esters) ..... 2 capsules twice a day Lipitor 20 Mg Tabs (Atorvastatin calcium) ..... 1 tab daily BP today: 169/70 Prior BP: 130/70 (10/08/2013) C HOL: 253 (11/29/2011) LDL: 154 (11/29/2011) HDL: 43 (11/29/2011) T (11/29/2011) Elgin Thakur MD follow up: H er updated medication list for this problem includes: Advair Diskus 100-50 Mcg/dose Misc (Fluticasone-salmeterol) ..... 1 puff twice daily Ventolin Hfa 108 (90 Base) Mcg/act Aers (Albuterol sulfate) Pulmonary Functions Reviewed: O 2 sat: 98 (10/08/2013) Elgin Thakur MD follow up: H er updated medication list for this problem includes: Lasix 20 Mg Tabs (Furosemide) ..... 1 tablet by mouth daily Klor-con M10 10 Meq Tbcr (Potassium chloride diana cr) ..... 1 tab on days lasix is used Aspirin 81 Mg Tabs (Aspirin) ..... One tab. daily Benicar Hct 40-25 Mg Tabs (Olmesartan medoxomil-hctz) ..... Once tablet daily BP today: 130/70 Prior BP: 128/42 (03/26/2013) N uclear Stress Findings: 1. Normal myocardial perfusion imaging after vasodilator stress with Regadenoson. 2 . Normal left ventricular systolic function with a calculated ejection fraction of (QGS) 53%. 3 . No obvious significant scintigraphic evidence of myocardial ischemia or scar. - (04/10/2013) C ardiac Cath: 1. Moderate lesion in the left anterior descending artery. This will be assessed by fractional flow reserve. 2 . Patent stent in the right coronary artery. 3 . Mild disease in the circunflex. 4 . Normal left ventricular systolic function. 5 . We will plan further intervention based on the results of the fractional flow reserve. [facility] (06/01/2011) C ardiac Cath Comments: Abnormal RADI wire evaluation of the left anterior descending a rtery with successful angioplasty and stenting with a medicated stent with excellent results and no complications. [facility] (06/01/2011) H gb: 13.3 (11/29/2011) HCT: 38.5 (11/29/2011) RBC: 4.51 (11/29/2011) WBC: 5.9 (11/29/2011) B UN: 18 (11/29/2011) Creat: 0.70 (08/11/2012) Glucose: 115 (11/29/2011) N a+: 136 (08/11/2012) K+: 4.1 (08/11/2012) Cl: 95 (11/29/2011) SGOT (AST): 27 (08/11/2012) SGPT (ALT): 23 (08/11/2012) TSH: 2.200 (11/29/2011) Elgin Thakur MD follow up: H er updated medication list for this problem includes: Aspirin 81 Mg Tabs (Aspirin) ..... One tab. daily Plavix 75 Mg Tabs (Clopidogrel bisulfate) ..... One tab. daily Zetia 10 Mg Tabs (Ezetimibe) ..... One tab. daily Lovaza 1 Gm Caps (Oktuj-4-qbhi ethyl esters) ..... 2 capsules twice a day Nitrolingual 0.4 Mg/spray Soln (Nitroglycerin) ..... 1 spray prn 4.9gm. bottle Lipitor 20 Mg Tabs (Atorvastatin calcium) ..... 1 tab daily BP today: 130/70 Prior BP: 128/42 (03/26/2013) N uclear Stress Findings: 1. Normal myocardial perfusion imaging after vasodilator stress with Regadenoson. 2 . Normal left ventricular systolic function with a calculated ejection fraction of (QGS) 53%. 3 . No obvious significant scintigraphic evidence of myocardial ischemia or scar. - (04/10/2013) C ardiac Cath: 1. Moderate lesion in the left anterior descending artery. This will be assessed by fractional flow reserve. 2 . Patent stent in the right coronary artery. 3 . Mild disease in the circunflex. 4 . Normal left ventricular systolic function. 5 . We will plan further intervention based on the results of the fractional flow reserve. [facility] (06/01/2011) C ardiac Cath Comments: Abnormal RADI wire evaluation of the left anterior descending a rtery with successful angioplasty and stenting with a medicated stent with excellent results and no complications. [facility] (06/01/2011) C arotid Doppler/Duplex: Normal [facility] (01/20/2011) C HOL: 253 (11/29/2011) LDL: 154 (11/29/2011) HDL: 43 (11/29/2011) T (11/29/2011) H gb: 13.3 (11/29/2011) HCT: 38.5 (11/29/2011) RBC: 4.51 (11/29/2011) WBC: 5.9 (11/29/2011) B UN: 18 (11/29/2011) Creat: 0.70 (08/11/2012) Glucose: 115 (11/29/2011) N a+: 136 (08/11/2012) K+: 4.1 (08/11/2012) Cl: 95 (11/29/2011) PT: 11.8 (05/23/2011) INR: 0.9 (05/23/2011) T SH: 2.200 (11/29/2011) Elgin Thakur MD follow up: H er updated medication list for this problem includes: Lasix 20 Mg Tabs (Furosemide) ..... 1 tablet by mouth daily Aspirin 81 Mg Tabs (Aspirin) ..... One tab. daily Benicar Hct 40-25 Mg Tabs (Olmesartan medoxomil-hctz) ..... Once tablet daily BP today: 128/42 P rior BP: 119/69 (09/18/2012) Labs Reviewed: C reat: 0.70 (08/11/2012) C hol: 253 (11/29/2011) HDL: 43 (11/29/2011) LDL: 154 (11/29/2011) T (11/29/2011) Elgin Thakur MD follow up: H er updated medication list for this problem includes: Aspirin 81 Mg Tabs (Aspirin) ..... One tab. daily Plavix 75 Mg Tabs (Clopidogrel bisulfate) ..... One tab. daily Carotid Duplex Scan: N nazia [facility] (01/20/2011) Elgin Thakur MD follow up: H er updated medication list for this problem includes: Lasix 20 Mg Tabs (Furosemide) ..... 1 tablet by mouth daily Klor-con M10 10 Meq Tbcr (Potassium chloride diana cr) ..... 1 tab on days lasix is used Aspirin 81 Mg Tabs (Aspirin) ..... One tab. daily Benicar Hct 40-25 Mg Tabs (Olmesartan medoxomil-hctz) ..... Once tablet daily Elgin Thakur MD follow up: H er updated medication list for this problem includes: Aspirin 81 Mg Tabs (Aspirin) ..... One tab. daily Plavix 75 Mg Tabs (Clopidogrel bisulfate) ..... One tab. daily Zetia 10 Mg Tabs (Ezetimibe) ..... One tab. daily Lovaza 1 Gm Caps (Yaont-9-fxik ethyl esters) ..... 2 capsules twice a day Nitrolingual 0.4 Mg/spray Soln (Nitroglycerin) ..... 1 spray prn 4.9gm. bottle Elgin Thakur MD follow up: H er updated medication list for this problem includes: Aspirin 81 Mg Tabs (Aspirin) ..... One tab. daily Plavix 75 Mg Tabs (Clopidogrel bisulfate) ..... One tab. daily Zetia 10 Mg Tabs (Ezetimibe) ..... One tab. daily Lovaza 1 Gm Caps (Ivqxk-7-vlrg ethyl esters) ..... 2 capsules twice a day Nitrolingual 0.4 Mg/spray Soln (Nitroglycerin) ..... 1 spray prn 4.9gm. bottle BP today: 128/42 Prior BP: 119/69 (09/18/2012) N uclear Stress Findings: 1. Regadenoson mediated myocardial perfusion study 2 . Normal left ventricular systolic function with a calculated ejection fraction of 60%. 3 . Myocardial scintigraphy demonstrates inferior wall ischemia. (09/13/2010) C ardiac Cath: 1. Moderate lesion in the left anterior descending artery. This will be assessed by fractional flow reserve. 2 . Patent stent in the right coronary artery. 3 . Mild disease in the circunflex. 4 . Normal left ventricular systolic function. 5. We will plan further intervention based on the results of the fractional flow reserve. [facility] (06/01/2011) C ardiac Cath Comments: Abnormal RADI wire evaluation of the left anterior descending a rtery with successful angioplasty and stenting with a medicated stent with excellent results and no complications. [facility] (06/01/2011) C arotid Doppler/Duplex: Normal O (01/20/2011) C HOL: 253 (11/29/2011) LDL: 154 (11/29/2011) HDL: 43 (11/29/2011) T (11/29/2011) H gb: 13.3 (11/29/2011) HCT: 38.5 (11/29/2011) RBC: 4.51 (11/29/2011) WBC: 5.9 (11/29/2011) B UN: 18 (11/29/2011) Creat: 0.70 (08/11/2012) Glucose: 115 (11/29/2011) N a+: 136 (08/11/2012) K+: 4.1 (08/11/2012) Cl: 95 (11/29/2011) PT: 11.8 (05/23/2011) INR: 0.9 (05/23/2011) T SH: 2.200 (11/29/2011) Elgin Thakur MD follow up: H er updated medication list for this problem includes: Lasix 20 Mg Tabs (Furosemide) ..... 1 tablet by mouth daily Aspirin 81 Mg Tabs (Aspirin) ..... One tab. daily Benicar Hct 40-25 Mg Tabs (Olmesartan medoxomil-hctz) ..... Once tablet daily BP today: 119/69 P rior BP: 131/65 (05/29/2012) Labs Reviewed: C reat: 0.80 (11/29/2011) C hol: 253 (11/29/2011) HDL: 43 (11/29/2011) LDL: 154 (11/29/2011) T (11/29/2011) Elgin Thakur MD follow up: H er updated medication list for this problem includes: Aspirin 81 Mg Tabs (Aspirin) ..... One tab. daily Plavix 75 Mg Tabs (Clopidogrel bisulfate) ..... One tab. daily Carotid Duplex Scan: N nazia [facility] (01/20/2011) Elgin Thakur MD follow up: H er updated medication list for this problem includes: Aspirin 81 Mg Tabs (Aspirin) ..... One tab. daily Plavix 75 Mg Tabs (Clopidogrel bisulfate) ..... One tab. daily Zetia 10 Mg Tabs (Ezetimibe) ..... One tab. daily Lovaza 1 Gm Caps (Mdkoc-2-gaua ethyl esters) ..... 2 capsules twice a day Nitrolingual 0.4 Mg/spray Soln (Nitroglycerin) ..... 1 spray prn 4.9gm. bottle BP today: 119/69 Prior BP: 131/65 (05/29/2012) N uclear Stress Findings: 1. Regadenoson mediated myocardial perfusion study 2 . Normal left ventricular systolic function with a calculated ejection fraction of 60%. 3 . Myocardial scintigraphy demonstrates inferior wall ischemia. (09/13/2010) C ardiac Cath: 1. Moderate lesion in the left anterior descending artery. This will be assessed by fractional flow reserve. 2 . Patent stent in the right coronary artery. 3 . Mild disease in the circunflex. 4 . Normal left ventricular systolic function. 5. We will plan further intervention based on the results of the fractional flow reserve. [facility] (06/01/2011) C ardiac Cath Comments: Abnormal RADI wire evaluation of the left anterior descending a rtery with successful angioplasty and stenting with a medicated stent with excellent results and no complications. [facility] (06/01/2011) C arotid Doppler/Duplex: Normal [facility] (01/20/2011) C HOL: 253 (11/29/2011) LDL: 154 (11/29/2011) HDL: 43 (11/29/2011) T (11/29/2011) H gb: 13.3 (11/29/2011) HCT: 38.5 (11/29/2011) RBC: 4.51 (11/29/2011) WBC: 5.9 (11/29/2011) B UN: 18 (11/29/2011) Creat: 0.80 (11/29/2011) Glucose: 115 (11/29/2011) N a+: 134 (11/29/2011) K+: 3.7 (11/29/2011) Cl: 95 (11/29/2011) PT: 11.8 (05/23/2011) INR: 0.9 (05/23/2011) T SH: 2.200 (11/29/2011) Elgin Thakur MD cp-sob: H er updated medication list for this problem includes: Lasix 20 Mg Tabs (Furosemide) ..... 1 tablet by mouth daily Aspirin 81 Mg Tabs (Aspirin) ..... One tab. daily Benicar Hct 40-25 Mg Tabs (Olmesartan medoxomil-hctz) ..... Once tablet daily Elgin Thakur MD cp-sob: H er updated medication list for this problem includes: Aspirin 81 Mg Tabs (Aspirin) ..... One tab. daily Plavix 75 Mg Tabs (Clopidogrel bisulfate) ..... One tab. daily Zetia 10 Mg Tabs (Ezetimibe) ..... One tab. daily Lovaza 1 Gm Caps (Ctmlz-7-xher ethyl esters) ..... 2 capsules twice a day Nitrolingual 0.4 Mg/spray Soln (Nitroglycerin) ..... 1 spray prn 4.9gm. bottle Elgin Thakur MD cp-sob: H er updated medication list for this problem includes: Aspirin 81 Mg Tabs (Aspirin) ..... One tab. daily Plavix 75 Mg Tabs (Clopidogrel bisulfate) ..... One tab. daily Elgin Thakur MD cp-sob: H er updated medication list for this problem includes: Aspirin 81 Mg Tabs (Aspirin) ..... One tab. daily Plavix 75 Mg Tabs (Clopidogrel bisulfate) ..... One tab. daily Zetia 10 Mg Tabs (Ezetimibe) ..... One tab. daily Lovaza 1 Gm Caps (Xzveb-5-russ ethyl esters) ..... 2 capsules twice a day Nitrolingual 0.4 Mg/spray Soln (Nitroglycerin) ..... 1 spray prn 4.9gm. bottle Orders: E KG ([id number]) Elgin Thakur MD cp-sob: H er updated medication list for this problem includes: Lasix 20 Mg Tabs (Furosemide) ..... 1 tablet by mouth daily Klor-con M10 10 Meq Tbcr (Potassium chloride diana cr) ..... 1 tab on days lasix is used Aspirin 81 Mg Tabs (Aspirin) ..... One tab. daily Benicar Hct 40-25 Mg Tabs (Olmesartan medoxomil-hctz) ..... Once tablet daily Elgin Thakur MD routine : H er updated medication list for this problem includes: Lasix 20 Mg Tabs (Furosemide) ..... 1 tablet by mouth daily Aspirin 81 Mg Tabs (Aspirin) ..... One tab. daily Benicar Hct 40-25 Mg Tabs (Olmesartan medoxomil-hctz) ..... Once tablet daily Prior BP: 108/60 (08/30/2011) Labs Reviewed: C reat: 0.80 (08/15/2011) C hol: 242 (08/15/2011) HDL: 39 (08/15/2011) LDL: 141 (08/15/2011) T (08/15/2011) Elgin Thakur MD routine : H er updated medication list for this problem includes: Aspirin 81 Mg Tabs (Aspirin) ..... One tab. daily Plavix 75 Mg Tabs (Clopidogrel bisulfate) ..... One tab. daily Zetia 10 Mg Tabs (Ezetimibe) ..... One tab. daily Lovaza 1 Gm Caps (Btcrt-5-fsbo ethyl esters) ..... 2 capsules twice a day Nitrolingual 0.4 Mg/spray Soln (Nitroglycerin) ..... 1 spray prn 4.9gm. bottle BP today: / Prior BP: 108/60 (08/30/2011) N uclear Stress Findings: 1. Regadenoson mediated myocardial perfusion study 2 . Normal left ventricular systolic function with a calculated ejection fraction of 60%. 3 . Myocardial scintigraphy demonstrates inferior wall ischemia. (09/13/2010) C ardiac Cath: 1. Moderate lesion in the left anterior descending artery. This will be assessed by fractional flow reserve. 2 . Patent stent in the right coronary artery. 3 . Mild disease in the circunflex. 4 . Normal left ventricular systolic function. 5 . We will plan further intervention based on the results of the fractional flow reserve. [facility] (06/01/2011) C ardiac Cath Comments: Abnormal RADI wire evaluation of the left anterior descending a rtery with successful angioplasty and stenting with a medicated stent with excellent results and no complications. [facility] (06/01/2011) C arotid Doppler/Duplex: Normal O (01/20/2011) C HOL: 242 (08/15/2011) LDL: 141 (08/15/2011) HDL: 39 (08/15/2011) T (08/15/2011) H gb: 12.2 (07/09/2011) HCT: 35.6 (07/09/2011) RBC: 4.05 (07/09/2011) WBC: 6.3 (07/09/2011) B UN: 20 (08/15/2011) Creat: 0.80 (08/15/2011) Glucose: 112 (08/15/2011) N a+: 142 (08/15/2011) K+: 4.0 (08/15/2011) Cl: 104 (08/15/2011) PT: 11.8 (05/23/2011) INR: 0.9 (05/23/2011) Elgin Thakur MD routine : H er updated medication list for this problem includes: Aspirin 81 Mg Tabs (Aspirin) ..... One tab. daily Plavix 75 Mg Tabs (Clopidogrel bisulfate) ..... One tab. daily & #13;Carotid Duplex Scan: N ormal [facility] (01/20/2011) Echocardiogram: N ormal left ventricular systolic function. Normal left ventricular size. Normal left ventricular wall thickness. Normal left ventricular diastolic function. Abnormal E/E`, suggestive of elevated LVEDP 15.2. Left ventricular ejection fraction is estimated at 60%. There is non-specific thickening of the mitral valve leaflets. Bileaflet mitral valve prolapse is seen. No mitral valve regurgitation is seen. - O (01/20/2011) Elgin Thakur MD routine : H er updated medication list for this problem includes: Aspirin 81 Mg Tabs (Aspirin) ..... One tab. daily Plavix 75 Mg Tabs (Clopidogrel bisulfate) ..... One tab. daily Zetia 10 Mg Tabs (Ezetimibe) ..... One tab. daily Lovaza 1 Gm Caps (Mmuja-0-gwvx ethyl esters) ..... 2 capsules twice a day Nitrolingual 0.4 Mg/spray Soln (Nitroglycerin) ..... 1 spray prn 4.9gm. bottle BP today: / Prior BP: 108/60 (08/30/2011) N uclear Stress Findings: 1. Regadenoson mediated myocardial perfusion study 2 . Normal left ventricular systolic function with a calculated ejection fraction of 60%. 3 . Myocardial scintigraphy demonstrates inferior wall ischemia. (09/13/2010) C ardiac Cath: 1. Moderate lesion in the left anterior descending artery. This will be assessed by fractional flow reserve. 2 . Patent stent in the right coronary artery. 3 . Mild disease in the circunflex. 4 . Normal left ventricular systolic function. 5 . We will plan further intervention based on the results of the fractional flow reserve. [facility] (06/01/2011) C ardiac Cath Comments: Abnormal RADI wire evaluation of the left anterior descending a rtery with successful angioplasty and stenting with a medicated stent with excellent results and no complications. [facility] (06/01/2011) C arotid Doppler/Duplex: Normal [facility] (01/20/2011) C HOL: 242 (08/15/2011) LDL: 141 (08/15/2011) HDL: 39 (08/15/2011) T (08/15/2011) H gb: 12.2 (07/09/2011) HCT: 35.6 (07/09/2011) RBC: 4.05 (07/09/2011) WBC: 6.3 (07/09/2011) B UN: 20 (08/15/2011) Creat: 0.80 (08/15/2011) Glucose: 112 (08/15/2011) N a+: 142 (08/15/2011) K+: 4.0 (08/15/2011) Cl: 104 (08/15/2011) PT: 11.8 (05/23/2011) INR: 0.9 (05/23/2011) Elgin Thakur MD routine : H er updated medication list for this problem includes: Lasix 20 Mg Tabs (Furosemide) ..... 1 tablet by mouth daily Klor-con M10 10 Meq Tbcr (Potassium chloride diana cr) ..... 1 tab on days lasix is used Aspirin 81 Mg Tabs (Aspirin) ..... One tab. daily Benicar Hct 40-25 Mg Tabs (Olmesartan medoxomil-hctz) ..... Once tablet daily BP today: / Prior BP: 108/60 (08/30/2011) N uclear Stress Findings: 1. Regadenoson mediated myocardial perfusion study 2 . Normal left ventricular systolic function with a calculated ejection fraction of 60%. 3 . Myocardial scintigraphy demonstrates inferior wall ischemia. GC (09/13/2010) E chocardiogram: Normal left ventricular systolic function. Normal left ventricular size. Normal left ventricular wall thickness. Normal left ventricular diastolic function. Abnormal E/E`, suggestive of elevated LVEDP 15.2. Left ventricular ejection fraction is estimated at 60%. There is non-specific thickening of the mitral valve leaflets. Bileaflet mitral valve prolapse is seen. No mitral valve regurgitation is seen. - [facility] (01/20/2011) C ardiac Cath: 1. Moderate lesion in the left anterior descending artery. This will be assessed by fractional flow reserve. 2 . Patent stent in the right coronary artery. 3 . Mild disease in the circunflex. 4 . Normal left ventricular systolic function. 5 . We will plan further intervention based on the results of the fractional flow reserve. [facility] (06/01/2011) C ardiac Cath Comments: Abnormal RADI wire evaluation of the left anterior descending a rtery with successful angioplasty and stenting with a medicated stent with excellent results and no complications. [facility] (06/01/2011) H gb: 12.2 (07/09/2011) HCT: 35.6 (07/09/2011) RBC: 4.05 (07/09/2011) WBC: 6.3 (07/09/2011) B UN: 20 (08/15/2011) Creat: 0.80 (08/15/2011) Glucose: 112 (08/15/2011) N a+: 142 (08/15/2011) K+: 4.0 (08/15/2011) Cl: 104 (08/15/2011) SGOT (AST): 77 (08/15/2011) SGPT (ALT): 168 (08/15/2011) Elgin Thakur MD Chest Pain off nad o n: T he following medications were removed from the medication list: Prinzide 20-25 Mg Tabs (Lisinopril-hydrochlorothiazide) ..... 1 tablet by mouth twice daily Her updated medication list for this problem includes: Lasix 20 Mg Tabs (Furosemide) ..... 1 tablet by mouth daily Aspirin 81 Mg Tabs (Aspirin) ..... One tab. daily Benicar Hct 40-25 Mg Tabs (Olmesartan medoxomil-hctz) ..... Once tablet daily BP today: 108/60 P rior BP: 117/64 (07/04/2011) Labs Reviewed: C reat: 0.80 (07/09/2011) C hol: 214 (06/02/2011) HDL: 37 (06/02/2011) LDL: 120.2 (06/02/2011) T (06/02/2011) Elgin Thakur MD Chest Pain off nad o n: T he following medications were removed from the medication list: Prinzide 20-25 Mg Tabs (Lisinopril-hydrochlorothiazide) ..... 1 tablet by mouth twice daily Her updated medication list for this problem includes: Aspirin 81 Mg Tabs (Aspirin) ..... One tab. daily Plavix 75 Mg Tabs (Clopidogrel bisulfate) ..... One tab. daily Zetia 10 Mg Tabs (Ezetimibe) ..... One tab. daily Lovaza 1 Gm Caps (Mccue-1-beda ethyl esters) ..... 2 capsules twice a day Nitrolingual 0.4 Mg/spray Soln (Nitroglycerin) ..... 1 spray prn 4.9gm. bottle & #13;BP today: 108/60 Prior BP: 117/64 (07/04/2011) N uclear Stress Findings: 1. Regadenoson mediated myocardial perfusion study 2 . Normal left ventricular systolic function with a calculated ejection fraction of 60%. 3 . Myocardial scintigraphy demonstrates inferior wall ischemia. (09/13/2010) C ardiac Cath: 1. Moderate lesion in the left anterior descending artery. This will be assessed by fractional flow reserve. 2 . Patent stent in the right coronary artery. 3 . Mild disease in the circunflex. 4 . Normal left ventricular systolic function. 5 . We will plan further intervention based on the results of the fractional flow reserve. [facility] (06/01/2011) C ardiac Cath Comments: Abnormal RADI wire evaluation of the left anterior descending a rtery with successful angioplasty and stenting with a medicated stent with excellent results and no complications. [facility] (06/01/2011) C arotid Doppler/Duplex: Normal [facility] [place] [facility] (01/20/2011) CHOL: 214 (06/02/2011) LDL: 120.2 (06/02/2011) HDL: 37 (06/02/2011) T (06/02/2011) H gb: 12.2 (07/09/2011) HCT: 35.6 (07/09/2011) RBC: 4.05 (07/09/2011) WBC: 6.3 (07/09/2011) B UN: 26 (07/09/2011) Creat: 0.80 (07/09/2011) Glucose: 139 (07/09/2011) N a+: 146 (07/09/2011) K+: 4.6 (07/09/2011) Cl: 105 (07/09/2011) PT: 11.8 (05/23/2011) INR: 0.9 (05/23/2011) Elgin Thakur MD follow up: H er updated medication list for this problem includes: Prinzide 20-25 Mg Tabs (Lisinopril-hydrochlorothiazide) ..... 1 tablet by mouth twice daily Lasix 20 Mg Tabs (Furosemide) ..... 1 tablet by mouth as needed Klor-con M10 10 Meq Tbcr (Potassium chloride diana cr) ..... 1 tab on days lasix is used Aspirin 81 Mg Tabs (Aspirin) ..... One tab. daily Elgin Thakur MD follow up: H er updated medication list for this problem includes: Prinzide 20-25 Mg Tabs (Lisinopril-hydrochlorothiazide) ..... 1 tablet by mouth twice daily Lasix 20 Mg Tabs (Furosemide) ..... 1 tablet by mouth as needed Aspirin 81 Mg Tabs (Aspirin) ..... One tab. daily Elign Thakur MD follow up: H er updated medication list for this problem includes: Prinzide 20-25 Mg Tabs (Lisinopril-hydrochlorothiazide) ..... 1 tablet by mouth twice daily Aspirin 81 Mg Tabs (Aspirin) ..... One tab. daily Plavix 75 Mg Tabs (Clopidogrel bisulfate) ..... One tab. daily Zetia 10 Mg Tabs (Ezetimibe) ..... One tab. daily Lovaza 1 Gm Caps (Pnrfd-1-cadi ethyl esters) ..... 2 gram po bid Nitrolingual 0.4 Mg/spray Soln (Nitroglycerin) ..... 1 spray prn 4.9gm. bottle BP today: 117/64 Prior BP: 126/68 (05/09/2011) N uclear Stress Findings: 1. Regadenoson mediated myocardial perfusion study 2 . Normal left ventricular systolic function with a calculated ejection fraction of 60%. 3 . Myocardial scintigraphy demonstrates inferior wall ischemia. (09/13/2010) C ardiac Cath: 1. Moderate lesion in the left anterior descending artery. This will be assessed by fractional flow reserve. 2 . Patent stent in the right coronary artery. 3. Mild disease in the circunflex. 4 . Normal left ventricular systolic function. 5 . We will plan further intervention based on the results of the fractional flow reserve. [facility] (06/01/2011) C ardiac Cath Comments: Abnormal RADI wire evaluation of the left anterior descending a rtery with successful angioplasty and stenting with a medicated stent with excellent results and no complications. [facility] (06/01/2011) C arotid Doppler/Duplex: Normal [facility] (01/20/2011) C HOL: 214 (06/02/2011) LDL: 120.2 (06/02/2011) HDL: 37 (06/02/2011) T (06/02/2011) H gb: 13.5 (05/23/2011) HCT: 38.8 (05/23/2011) RBC: 4.55 (05/23/2011) WBC: 7.2 (05/23/2011) B UN: 14 (06/02/2011) Creat: 0.7 (06/02/2011) Glucose: 119 (06/05/2011) N a+: 131 (06/02/2011) K+: 3.7 (06/02/2011) Cl: 92 (06/02/2011) PT: 11.8 (05/23/2011) INR: 0.9 (05/23/2011) Elgin Thakur MD routine : H er updated medication list for this problem includes: Prinzide 20-25 Mg Tabs (Lisinopril-hydrochlorothiazide) ..... 1 tablet by mouth twice daily Aspirin 81 Mg Tabs (Aspirin) ..... One tab. daily Plavix 75 Mg Tabs (Clopidogrel bisulfate) ..... One tab. daily BP today: 126/68 Prior BP: 133/70 (01/31/2011) N uclear Stress Findings: 1. Regadenoson mediated myocardial perfusion study 2 . Normal left ventricular systolic function with a calculated ejection fraction of 60%. 3 . Myocardial scintigraphy demonstrates inferior wall ischemia. (09/13/2010) C ardiac Cath Comments: Successful stenting of the right coronary artery with reduction i n the stenosis from 95% to 0% with an angioplasty and 2.5 x 23 mm Xience Z stent. [facility] (10/06/2010) C arotid Doppler/Duplex: Normal [facility] (01/20/2011) C HOL: 220 (10/06/2010) LDL: 137.6 (10/06/2010) HDL: 35 (10/06/2010) T (10/06/2010) H gb: 13.7 (09/27/2010) HCT: 38.7 (09/27/2010) RBC: 4.52 (09/27/2010) WBC: 7.5 (09/27/2010) B UN: 19 (09/27/2010) Creat: 1.00 (09/27/2010) Na+: 138 (09/27/2010) K+: 3.9 (09/27/2010) Cl: 103 (09/27/2010) Elgin Thakur MD routine : H er updated medication list for this problem includes: Aspirin 81 Mg Tabs (Aspirin) ..... One tab. daily Plavix 75 Mg Tabs (Clopidogrel bisulfate) ..... One tab. daily & #13;Carotid Duplex Scan: N ormal [facility] (01/20/2011) Echocardiogram: N ormal left ventricular systolic function. Normal left ventricular size. Normal left ventricular wall thickness. Normal left ventricular diastolic function. Abnormal E/E`, suggestive of elevated LVEDP 15.2. Left ventricular ejection fraction is estimated at 60%. There is non-specific thickening of the mitral valve leaflets. Bileaflet mitral valve prolapse is seen. No mitral valve regurgitation is seen. - [facility] (01/20/2011) Elgin Thakur MD routine : H er updated medication list for this problem includes: Prinzide 20-25 Mg Tabs (Lisinopril-hydrochlorothiazide) ..... 1 tablet by mouth twice daily Aspirin 81 Mg Tabs (Aspirin) ..... One tab. daily Plavix 75 Mg Tabs (Clopidogrel bisulfate) ..... One tab. daily BP today: 126/68 Prior BP: 133/70 (01/31/2011) N uclear Stress Findings: 1. Regadenoson mediated myocardial perfusion study 2 . Normal left ventricular systolic function with a calculated ejection fraction of 60%. 3 . Myocardial scintigraphy demonstrates inferior wall ischemia. GC (09/13/2010) Karen ardiac Cath Comments: Successful stenting of the right coronary artery with reduction i n the stenosis from 95% to 0% with an angioplasty and 2.5 x 23 mm Xience Z stent. [facility] (10/06/2010) C arotid Doppler/Duplex: Normal [facility] (01/20/2011) C HOL: 220 (10/06/2010) LDL: 137.6 (10/06/2010) HDL: 35 (10/06/2010) T (10/06/2010) H gb: 13.7 (09/27/2010) HCT: 38.7 (09/27/2010) RBC: 4.52 (09/27/2010) WBC: 7.5 (09/27/2010) B UN: 19 (09/27/2010) Creat: 1.00 (09/27/2010) Na+: 138 (09/27/2010) K+: 3.9 (09/27/2010) Cl: 103 (09/27/2010) Elgin Thakur MD routine : H er updated medication list for this problem includes: Prinzide 20-25 Mg Tabs (Lisinopril-hydrochlorothiazide) ..... 1 tablet by mouth twice daily Lasix 20 Mg Tabs (Furosemide) ..... 1 tablet by mouth as needed Klor-con M10 10 Meq Tbcr (Potassium chloride diana cr) ..... 1 tab on days lasix is used Aspirin 81 Mg Tabs (Aspirin) ..... One tab. daily BP today: 126/68 Prior BP: 133/70 (01/31/2011) N uclear Stress Findings: 1. Regadenoson mediated myocardial perfusion study 2 . Normal left ventricular systolic function with a calculated ejection fraction of 60%. 3 . Myocardial scintigraphy demonstrates inferior wall ischemia. (09/13/2010) E chocardiogram: Normal left ventricular systolic function. Normal left ventricular size. Normal left ventricular wall thickness. Normal left ventricular diastolic function. Abnormal E/E`, suggestive of elevated LVEDP 15.2. Left ventricular ejection fraction is estimated at 60%. There is non-specific thickening of the mitral valve leaflets. Bileaflet mitral valve prolapse is seen. No mitral valve regurgitation is seen. - [facility] (01/20/2011) C ardiac Cath Comments: Successful stenting of the right coronary artery with reduction i n the stenosis from 95% to 0% with an angioplasty and 2.5 x 23 mm Xience Z stent. [facility] (10/06/2010) H gb: 13.7 (09/27/2010) HCT: 38.7 (09/27/2010) RBC: 4.52 (09/27/2010) WBC: 7.5 (09/27/2010) B UN: 19 (09/27/2010) Creat: 1.00 (09/27/2010) Na+: 138 (09/27/2010) K+: 3.9 (09/27/2010) Cl: 103 (09/27/2010) Elgin Thakur MD follow up: H er updated medication list for this problem includes: Prinzide 20-25 Mg Tabs (Lisinopril-hydrochlorothiazide) ..... 1 tablet by mouth twice daily Aspirin 81 Mg Tabs (Aspirin) ..... One tab. daily Metformin Hcl 1000 Mg Tabs (Metformin hcl) ..... 1 tab by mouth twice daily hs BP today: 141/70 Prior BP: 124/76 (11/01/2010) Labs Reviewed: C reat: 1.00 (09/27/2010) Elgin Thakur MD follow up: H er updated medication list for this problem includes: Prinzide 20-25 Mg Tabs (Lisinopril-hydrochlorothiazide) ..... 1 tablet by mouth twice daily Lasix 20 Mg Tabs (Furosemide) ..... 1 tablet by mouth as needed Aspirin 81 Mg Tabs (Aspirin) ..... One tab. daily BP today: 141/70 P rior BP: 124/76 (11/01/2010) Labs Reviewed: C reat: 1.00 (09/27/2010) C hol: 220 (10/06/2010) HDL: 35 (10/06/2010) LDL: 137.6 (10/06/2010) T (10/06/2010) Elgin Thakur MD follow up: H er updated medication list for this problem includes: Prinzide 20-25 Mg Tabs (Lisinopril-hydrochlorothiazide) ..... 1 tablet by mouth twice daily Aspirin 81 Mg Tabs (Aspirin) ..... One tab. daily Plavix 75 Mg Tabs (Clopidogrel bisulfate) ..... One tab. daily BP today: 141/70 Prior BP: 124/76 (11/01/2010) N uclear Stress Findings: 1. Regadenoson mediated myocardial perfusion study 2 . Normal left ventricular systolic function with a calculated ejection fraction of 60%. 3 . Myocardial scintigraphy demonstrates inferior wall ischemia. (09/13/2010) C ardiac Cath Comments: Successful stenting of the right coronary artery with reduction i n the stenosis from 95% to 0% with an angioplasty and 2.5 x 23 mm Xience Z stent. [facility] (10/06/2010) C HOL: 220 (10/06/2010) LDL: 137.6 (10/06/2010) HDL: 35 (10/06/2010) T (10/06/2010) H gb: 13.7 (09/27/2010) HCT: 38.7 (09/27/2010) RBC: 4.52 (09/27/2010) WBC: 7.5 (09/27/2010) B UN: 19 (09/27/2010) Creat: 1.00 (09/27/2010) Na+: 138 (09/27/2010) K+: 3.9 (09/27/2010) Cl: 103 (09/27/2010) Elgin Thakur MD stent f/u: H er updated medication list for this problem includes: Prinzide 20-25 Mg Tabs (Lisinopril-hydrochlorothiazide) ..... 1 tablet by mouth twice daily Lasix 20 Mg Tabs (Furosemide) ..... 1 tablet by mouth as needed Aspirin 81 Mg Tabs (Aspirin) ..... One tab. daily BP today: 124/76 P rior BP: 152/76 (09/27/2010) Labs Reviewed: C reat: 1.00 (09/27/2010) Elgin Thakur MD stent f/u Elgin Thakur MD stent f/u: H er updated medication list for this problem includes: Prinzide 20-25 Mg Tabs (Lisinopril-hydrochlorothiazide) ..... 1 tablet by mouth twice daily Aspirin 81 Mg Tabs (Aspirin) ..... One tab. daily Metformin Hcl 1000 Mg Tabs (Metformin hcl) ..... 1 tab by mouth daily hs BP today: 124/76 Prior BP: 152/76 (09/27/2010) Labs Reviewed: C reat: 1.00 (09/27/2010) Elgin Thakur MD stent f/u: H er updated medication list for this problem includes: Prinzide 20-25 Mg Tabs (Lisinopril-hydrochlorothiazide) ..... 1 tablet by mouth twice daily Lasix 20 Mg Tabs (Furosemide) ..... 1 tablet by mouth as needed Aspirin 81 Mg Tabs (Aspirin) ..... One tab. daily BP today: 124/76 P rior BP: 152/76 (09/27/2010) Labs Reviewed: C reat: 1.00 (09/27/2010) Elgin Thakur MD stent f/u: H er updated medication list for this problem includes: Prinzide 20-25 Mg Tabs (Lisinopril-hydrochlorothiazide) ..... 1 tablet by mouth twice daily Aspirin 81 Mg Tabs (Aspirin) ..... One tab. daily Plavix 75 Mg Tabs (Clopidogrel bisulfate) ..... One tab. daily BP today: 124/76 Prior BP: 152/76 (09/27/2010) N uclear Stress Findings: 1. Regadenoson mediated myocardial perfusion study 2 . Normal left ventricular systolic function with a calculated ejection fraction of 60%. 3 . Myocardial scintigraphy demonstrates inferior wall ischemia. (09/13/2010) C ardiac Cath Comments: Successful stenting of the right coronary artery with reduction i n the stenosis from 95% to 0% with an angioplasty and 2.5 x 23 mm Xience Z stent. [facility] (10/06/2010) H gb: 13.7 (09/27/2010) HCT: 38.7 (09/27/2010) RBC: 4.52 (09/27/2010) WBC: 7.5 (09/27/2010) B UN: 19 (09/27/2010) Creat: 1.00 (09/27/2010) Na+: 138 (09/27/2010) K+: 3.9 (09/27/2010) Cl: 103 (09/27/2010) Elgin Thakur MD test results : H er updated medication list for this problem includes: Prinzide 20-25 Mg Tabs (Lisinopril-hydrochlorothiazide) ..... 1 tablet by mouth twice daily Aspirin 81 Mg Tabs (Aspirin) ..... One tab. daily BP today: 152/76 Prior BP: 166/80 (08/30/2010) N uclear Stress Findings: 1. Regadenoson mediated myocardial perfusion study 2 . Normal left ventricular systolic function with a calculated ejection fraction of 60%. 3 . Myocardial scintigraphy demonstrates inferior wall ischemia. (09/13/2010) E chocardiogram: Normal left ventricular systolic function. Normal left ventricular size. Normal left ventricular wall thickness. There is E to A wave reversal consistent with impaired LV relaxation . Abnormal E/E`, suggestive of elevated LVEDP.15.0. Left ventricular ejection f raction is estimated at 65%. There is mild enlargement of the left atrium. Normal appearing tricuspid valve leaflets. There is trace physiologic tricuspid valve regurgitation. IVC is normal in size with normal respiratory response. Estimated peak pulmonary artery systolic pressure is 29.0 mmHg. Normal pericardium with no pericardial or pleural effusion. Normal aortic root size. (09/13/2010) Elgin Thakur MD test results : H er updated medication list for this problem includes: Prinzide 20-25 Mg Tabs (Lisinopril-hydrochlorothiazide) ..... 1 tablet by mouth twice daily Lasix 20 Mg Tabs (Furosemide) ..... 1 tablet by mouth as needed Aspirin 81 Mg Tabs (Aspirin) ..... One tab. daily BP today: 152/76 P rior BP: 166/80 (08/30/2010) Elgin Thakur MD test results : P ulmonary Functions Reviewed: O 2 sat: 97 (09/27/2010) Elgin Thakur MD test results Elgin Thakur MD test results : H er updated medication list for this problem includes: Prinzide 20-25 Mg Tabs (Lisinopril-hydrochlorothiazide) ..... 1 tablet by mouth twice daily Aspirin 81 Mg Tabs (Aspirin) ..... One tab. daily Metformin Hcl 1000 Mg Tabs (Metformin hcl) ..... 1 tab by mouth daily hs BP today: 152/76 Prior BP: 166/80 (08/30/2010) Elgin Thakur MD test results : H er updated medication list for this problem includes: Prinzide 20-25 Mg Tabs (Lisinopril-hydrochlorothiazide) ..... 1 tablet by mouth twice daily Lasix 20 Mg Tabs (Furosemide) ..... 1 tablet by mouth as needed Aspirin 81 Mg Tabs (Aspirin) ..... One tab. daily BP today: 152/76 P rior BP: 166/80 (08/30/2010) Elgin Thakur MD test results Elgin Thakur MD follow up Elgin Thakur MD follow up Elgin Thakur MD follow up Elgin Thakur MD follow up: H er updated medication list for this problem includes: Prinzide 20-25 Mg Tabs (Lisinopril-hydrochlorothiazide) ..... 1 tablet by mouth twice daily Aspirin 81 Mg Tabs (Aspirin) ..... One tab. daily Orders: E KG ([id number]) BP today: 166/80 Prior BP: 156/84 (08/31/2009) N uclear Stress Findings: Resting EKG showed horizontal ST depressions in the diagnostic for ischemia. Normal myocardial perfusion SPECT imaging showing no area of infarction or ischemia. EF 73%. (08/22/2007) E chocardiogram: Normal left ventricular systolic function. Normal left ventricular size. Mild concentric left ventricular hypertrophy. Mitral inflow Doppler demonstrates pseudonormal pattern consistent with diastolic dysfunction. Abnormal E/E` 17.0. Left ventricular ejection fraction is estimated at 65%. There is mild enlargement of the left atrium. T here is trace physiologic mitral valve regurgitation. The mitral valve leaflets appear myxomatous. Mild mitral annular calcification. T rivial pericardial effusion. Normal aortic root. - GC (08/31/2009) Elgin Thakur MD follow up: H er updated medication list for this problem includes: Prinzide 20-25 Mg Tabs (Lisinopril-hydrochlorothiazide) ..... 1 tablet by mouth twice daily Lasix 20 Mg Tabs (Furosemide) ..... 1 tablet by mouth as needed Aspirin 81 Mg Tabs (Aspirin) ..... One tab. daily BP today: 166/80 P rior BP: 156/84 (08/31/2009) Elgin Thakur MD routine: H er updated medication list for this problem includes: Prinzide 10-12.5 Mg Tabs (Lisinopril-hydrochlorothiazide) ..... 2 tabs in am and pm Aspirin 81 Mg Tabs (Aspirin) ..... One tab. daily BP today: 105/67 Prior BP: 153/80 (08/25/2008) N uclear Stress Findings: Resting EKG showed horizontal ST depressions in the diagnostic for ischemia. Normal myocardial perfusion SPECT imaging showing no area of infarction or ischemia. EF 73%. (08/22/2007) E chocardiogram: The left ventricular chamber size is normal. Wall thickness is increased consistent with mild concentric left ventricular hypertrophy. Normal left ventricular function. LV EF is estimated at 55% There is mitral annular calcification. Myxomatous mitral valve. Minimal mitral regurgitation. Minimal tricuspid regurgitation. (08/25/2008) Orders: Karen omplete Echo ([id number]) Elgin Thakur MD routine: O rders: Karen Santos ([id number]) Elgin Thakur MD routine: P ulmonary Functions Reviewed: O 2 sat: 98 (02/23/2009) Orders: Karen Santos ([id number]) Elgin Thakur MD routine: O rders: Karen Santos ([id number]) Elgin Thakur MD routine: H er updated medication list for this problem includes: Prinzide 10-12.5 Mg Tabs (Lisinopril-hydrochlorothiazide) ..... 2 tabs in am and pm Lasix 20 Mg Tabs (Furosemide) ..... I pill prn Aspirin 81 Mg Tabs (Aspirin) ..... One tab. daily BP today: 105/67 P rior BP: 153/80 (08/25/2008) Orders: C omplete Echo ([id number]) Elgin Thakur MD routine: H er updated medication list for this problem includes: Prinzide 10-12.5 Mg Tabs (Lisinopril-hydrochlorothiazide) ..... 2 tabs in am and pm Aspirin 81 Mg Tabs (Aspirin) ..... One tab. daily BP today: 105/67 Prior BP: 153/80 (08/25/2008) N uclear Stress Findings: Resting EKG showed horizontal ST depressions in the diagnostic for ischemia. Normal myocardial perfusion SPECT imaging showing no area of infarction or ischemia. EF 73%. (08/22/2007) E chocardiogram: The left ventricular chamber size is normal. Wall thickness is increased consistent with mild concentric left ventricular hypertrophy. Normal left ventricular function. LV EF is estimated at 55% There is mitral annular calcification. Myxomatous mitral valve. Minimal mitral regurgitation. Minimal tricuspid regurgitation. (08/25/2008) Elgin Thakur MD routine Elgin Thakur MD routine: P ulmonary Functions Reviewed: O 2 sat: 98 (02/23/2009) Elgin Thakur MD routine Elgin Thakur MD routine: H er updated medication list for this problem includes: Prinzide 10-12.5 Mg Tabs (Lisinopril-hydrochlorothiazide) ..... 2 tabs in am and pm Lasix 20 Mg Tabs (Furosemide) ..... I pill prn Aspirin 81 Mg Tabs (Aspirin) ..... One tab. daily BP today: 105/67 P rior BP: 153/80 (08/25/2008) Elgin Thakur MD office visit Elgin Thakur MD office visit: H er updated medication list for this problem includes: Prinzide 10-12.5 Mg Tabs (Lisinopril-hydrochlorothiazide) ..... Bid Lasix 20 Mg Tabs (Furosemide) ..... I pill prn Aspirin 81 Mg Tabs (Aspirin) ..... One tab. daily BP today: 153/80 Elgin Thakur MD office visit: H er updated medication list for this problem includes: Prinzide 10-12.5 Mg Tabs (Lisinopril-hydrochlorothiazide) ..... Bid Aspirin 81 Mg Tabs (Aspirin) ..... One tab. daily BP today: 153/80 Prior BP: / () N uclear Stress Findings: Resting EKG showed horizontal ST depressions in the diagnostic for ischemia. Normal myocardial perfusion SPECT imaging showing no area of infarction or ischemia. EF 73%. (08/22/2007) E chocardiogram: LVH. EF 55% Myxomatous MV. MAC. Trace MR. Trace TR. (08/22/2007) Elgin Thakur MD Date Name Complete Echo PROTHROMBIN TIME WIT H INR LIPID PANEL CBC (INCLUDES DIFF/P LT) BASIC METABOLIC PANE L W/EGFR Stress Regadenoson Complete Echo Complete Echo Complete Echo VITAMIN B12/FOLATE, SERUM PANEL Vitamin D, 25-Hydrox y TSH, 3RD GENERATION W/REFLEX TO FT4 IRON AND TOTAL IRON BINDING CAPACITY FERRITIN CBC (INCLUDES DIFF/P LT) HEMOGLOBIN A1c LIPID PANEL COMPREHENSIVE METABO LIC PANEL, W/EGFR CT Head without cont rast Stress Regadenoson Complete Echo Spirometry Complete Echo HISTORY OF PROCEDURES Procedure Date Procedure Name Provider Procedure Notes S tatus Complex e/m visit add on Elgin Thakur MD completed EKG Elgin Thakur MD completed EKG Elgin Thakur MD completed EKG Elgin Thakur MD completed EKG Elgin Thakur MD completed Regadenoson, 4 units Elgin Thakur MD completed Cardiolite, 2 units Elgin Thakur MD completed SPECT Images Rakan Avery MD completed Stress EKG Leroy Mcgraw MD completed EKG Elgin Thakur MD completed EKG Elgin Thakur MD completed SNOMED-CT: 787853409041205 Current Medications Documented Elgin Thakur MD completed FVC / MVV with bronchodilator - 37707 Elgin Thakur MD completed FRC - 07223 Elgin Thakur MD complete d SpO2 - 92022 Elgin Thakur MD complet ed DLCO - 53483 Elgin Thakur MD complet ed SNOMED-CT: 52306538 Physical Exam, Performed: Pulse Exam of Foot Elgin Thakur MD completed SNOMED-CT: [id number] Current Medications Documented Elgin Thakur MD completed SNOMED-CT: 15124463 Physical Exam, Performed: Pulse Exam of Foot Elgin Thakur MD completed SNOMED-CT: [id number] Current Medications Documented Elgin Thakur MD completed SNOMED-CT: 25267550 Physical Exam, Performed: Pulse Exam of Foot Elgin Thakur MD completed SNOMED-CT: [id number] Current Medications Documented Elgin Thakur MD completed SNOMED-CT: 30935548 Physical Exam, Performed: Pulse Exam of Foot Elgin Thakur MD completed SNOMED-CT: [id number] Current Medications Documented Elgin Thakur MD completed SNOMED-CT: 09658952 Physical Exam, Performed: Pulse Exam of Foot Elgin Thakur MD completed SNOMED-CT: [id number] Current Medications Documented Elgin Thakur MD completed EKG Elgin Thakur MD completed EKG Elgin Thakur MD completed ePrescribe - Check t his box if eRx is used Elgin Thakur MD completed EKG Elgin Thakur MD completed EKG Elgin Thakur MD completed EKG Elgin Thakur MD completed EKG Elgin Thakur MD completed
--- OUTSIDE RECORDS SUMMARY | 2024-12-24 00:29 | XMS_ITS | Clinical Summary ---
Author Organization [facility] [employer] Address [address] [place] [address] Care Team Providers Care Microarray Analyst Name Role Phone Abigail Abernathy RN Unavailable Unavailable Nancy Jay RN Unavailable Unavailable Jose Pat MD Primary Care Provider [phone] Abram Dillon MD Unavailable [phone] Source Comments [facility],non-owned Affiliates and Associated Physician Practices is amultiple site organization consisting of ambulatory clinics and hospital sitesin [place], [place], [place] and [place]. This disclosure is being madepursuant to the Care Everywhere program and may not contain all information available regarding this patient. Last updated 18.[facility] Allergies Active Allergy Reactions Criticality Noted Date Comments Heparin 06/19/2016 06/19/16 - suspected HIT Lisinopril Cough 06/20/2016 Medications * Be aware that medications may not be up to date on this document. Alwaysverify current medications with the patient. Medication Sig Dispensed Refills Start Date End Date Status busPIRone (BUSPAR) 15 MG tablet Take 5 mg by mouth 2 times daily as needed 10/06/2010 Active B Urlgrdm-Cgtlub-YM (B COMPLETE PO) Take by mouth. Activ e vitamin E (TOCOPHERYL) 400 UNIT capsule Take 1 (one) capsule by mouth once daily Active ROPINirole (REQUIP) 0.25 MG tablet Take 1 (one) tablet by mouth 3 times daily as needed Active warfarin (COUMADIN) 2 MG tablet Take 1 (one) tablet by mouth once daily 2 tabs Active venlafaxine (EFFEXOR) 25 MG tablet Take 2 (two) tablets by mouth once daily XR Active atorvastatin (LIPITOR) 80 MG tablet Take 1 Tab by mouth at bedtime 90 Tab 1 07/29/2016 Active bumetanide (BUMEX) 2 MG tablet Take 1 Tab by mouth once daily 90 Tab 1 07/29/2016 Active Additional Information Patient taking differently:2 mg OralDAILY PRN, PRN ankle or feet swelling, Reported on 09/16/2024 losartan (COZAAR) 50 MG tablet Take 1 Tab by mouth once daily 90 Tab 1 07/29/2016 Active spironolactone (ALDACTONE) 25 MG tablet Take 1 Tab by mouth once daily 90 Tab 1 07/29/2016 Active warfarin (COUMADIN) 5 MG tablet Take 8 mg by mouth once daily 7MG ON & , 8MG EVERY DAY BUT TU & THURS 5 09/06/2016 Active potassium chloride (KLOR-CON M) 10 MEQ tablet Take 2 (two) tablets by mouth once daily Take if using Bumex Active omeprazole (PRILOSEC) 40 MG capsule Take 1 (one) capsule by mouth daily before breakfast Active colesevelam (Welchol) 625 MG tablet Take 3 (three) tablets by mouth 2 times daily with morning and evening meal Active ferrous sulfate 325 (65 FE) MG tablet Take 1 (one) tablet by mouth once daily Active Trulicity 0.75 MG/0.5ML injection Inject 0.75 mg subcutaneously every 7 days 09/08/2022 Active aspirin (Aspirin) 81 MG chew tablet 08/16/2023 Active acetaminophen (Tylenol) 500 MG tablet Take 1 (one) tablet by mouth 2 times daily as needed for Fever or Pain Maximum allowable Acetaminophen amount = 4 Grams (4000 mg) / 24 hours. Active cetirizine (ZyrTEC) 10 MG tablet Take 1 (one) tablet by mouth as needed for Allergies Active multivitamins plus minerals chew tablet Take 1 (one) tablet by mouth daily with food Active mupirocin (Bactroban) 2 % ointment Apply to affected area 3 times daily Active semaglutide 1 MG/ML vial Inject 0.25 (one-quarter) mg subcutaneously every 7 days Active triamcinolone acetonide (Kenalog In Orabase) 0.1 % paste Apply to affected area 2 times daily Active psyllium (Metamucil) 58.6 % powder Take 1 (one) packet by mouth 3 times daily as needed for Constipation Active dapagliflozin propanediol (Farxiga) 5 MG tablet Take 1 (one) tablet by mouth every morning Active warfarin (Coumadin) 1 MG tablet Take 1 (one) tablet by mouth once daily 3 tablets Active Active Problems Problem Noted Date Diagnosed Date Colon adenomas 09/13/2021 Overview (09/18/2021): Gets regular colonoscopies by Dr. Dillon. 08/09/21 colonoscopy: 2 adenomas removed Iron deficiency 03/19/2019 Overview (09/29/2021): 02/19/19 trf sat 7% --> told to take supplement OTC for a year 09/06/21 trf sat 17% --> continued FeSO4 one daily TRAV (obstructive sleep apnea) 04/12/2018 Anxiety 03/02/2018 GERD (gastroesophageal reflux disease) 8 Hypertension 03/02/2018 Metabolic dysfunction-associated steatohepatitis (MASH) 03/02/2018 Overview (09/18/2023): Overview: 07/27/10 liver biopsy: WERNER, JEWELS 5, no A1AT globules, focal periportal and dense perisinusoidal fibrosis, stage 2 03/24/15 liver biopsy: WERNER, stage 2 02/21/18 Fibroscan CAP 347, E 6.9 kPa (low probability of advanced fibrosis) dwp 09/07/20 Fibroscan CAP 251, LSM 6.0 kPa dwp 09/13/21 Fibroscan CAP 279, LSM 7.3 kPa 09/16/22 Fibroscan CAP 278, LSM 5.4 kPa 09/18/23 Fibroscan CAP 170, LSM 5.5 kPa Obesity 03/02/2018 Restless leg syndrome 03/02/2018 Type 2 diabetes mellitus 03/02/2018 Hypercholesterolemia 07/26/2016 CAD (coronary artery disease) 07/26/2016 Acute combined systolic and diastolic congestive heart failure 06/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 Pat Depression 08/27/2012 Heterozygous alpha 1-antitrypsin deficiency 08/13 Overview (03/02/2018): Overview: MZ phenotype Level 94 mg/dl No globules on liver biopsy Esophageal reflux 04/10/2003 Resolved Problems Problem Noted Date Diagnosed Date Resolved Date ST elevation myocardial infa rction involving left circumflex coronary artery 06/08/2016 04/12/20 18 Cardiac arrest 06/08/2016 04/12/2018 Immunizations Name Administration Dates Next Due Covid All4Staff primary monoval ent 12+ yr 0.3mL Purple cap 08/14/2021,02/04/2021,01/14/2021 INFLUENZA VACCINE 08/14/2021 PNEUMOCOCCAL PPSV23 06/02/2011 Social History Tobacco Use Types Packs/Day Years Used Date Smoking Tobacco: Never Smokeless Tobacco: Never Alcohol Use Standard Drinks/Week Comments No 0 (1 standard drink = 0.6 oz pur e alcohol) Sex and Gender Information Value Date Recorded Sex Assigned at Not on file Gender Identity Not on file Sexual Orientation Not on file Last Filed Vital Signs Vital Sign Reading Time Taken Comments Blood Pressure 140/71 09/16/2024 12:53 PM MACHINE OPERATOR PICKER Pulse 82 09/16/2024 12:40 PM MACHINE OPERATOR PICKER Temperature 36.4 C (97.5 F) 09/18/2023 1:09 PM MACHINE OPERATOR PICKER Respiratory Rate 14 09/26/2022 12:5 0 PM MACHINE OPERATOR PICKER Oxygen Saturation 100% 09/16/2024 12: 40 PM MACHINE OPERATOR PICKER Inhaled Oxygen Concentration 30% 06/14/2016 8 :00 AM CDT Weight 89.3 kg (196 lb 12.8 oz) 024 12:40 PM MACHINE OPERATOR PICKER Height 165.1 cm (5' 5 ) 09/16/2024 12:4 0 PM MACHINE OPERATOR PICKER Body Mass Index 32.75 09/16/2024 12:40 PM MACHINE OPERATOR PICKER Plan of Treatment Upcoming Encounters Date Type Department Care Team (Late st Contact Info) Description 09/15/2025 12:30 PM MACHINE OPERATOR PICKER Office Visit [facility] [place] [address] [place] [id number] Gurpreet Caban MD [address] [place] [address] Health Maintenance Due Date Last Done Comments BONE DENSITY TESTING 1955 COLOGUARD (AGES 45-75) - COLON CA SCREENING 1956 COLON MONITORING 1956 COLONOSCOPY - COLON CA SCREENING 1956 CT COLONOGRAPHY - COLON CA SCREENING 1955 Colorectal Cancer Screening 1956 FIT - COLON CA SCREENING 1956 FLEX SIG - COLON CA SCREENING 1956 MAMMOGRAM 1955 MEDICARE AWV 12 MONTHS 1956 HEPATITIS C SCREENING 10/22/1974 DTAP/TDAP/TD VACCINES (1 - Tdap) 1975 ZOSTER VACCINE (1 of 2) 2006 PNEUMOCOCCAL VACCINE 50+ (2 of 2 - PCV) 06/02/2012 06/02/2011 Respiratory Syncytial Virus (RSV) Vaccine Pt: or over 60 yrs (1 - Risk 60-74 years 1-dose series) 2016 DIABETES RETINOPATHY SCREENING 01/29/2019 DIABETES-FOOT EXAM WITH MONOFILAMENT 01/29/2019 DIABETES-HGB A1C 01/29/2019 06/12/2016, 02/16/2015 COVID-19 VACCINE ( season) 2024 08/14/2021, 02/04/2021, 01/14/2021 INFLUENZA VACCINE (#1) 2024 08/14/2021 DIABETES-SERUM CREATININE 09/13/20242022, 02/05/2019, 07/06/2016, Additional history exists DEPRESSION SCREENING 11/13/2024 DIABETES - URINE PROTEIN SCREENING 11/13/2024 HEPATITIS B VACCINE Aged Out No longe r eligible based on patient's age to complete this topic HIB VACCINE Aged Out No longer eligi ble based on patient's age to complete this topic HPV VACCINE Aged Out No longer eligi ble based on patient's age to complete this topic MENINGOCOCCAL (Group B) VACCINE Aged Out No longer eligible based on patient's age to complete this topic MENINGOCOCCAL VACCINE Aged Out No marycarmen laz eligible based on patient's age to complete this topic Goals Goal Patient Goal Type Associated Problems Recent Progress Patient-Stated? Author Medication Management General On track( 023 1:08 PM MACHINE OPERATOR PICKER) Christopher Josih RN Note: Expected end date: Interventions: Take all medications as prescribed Let your doctor know right away about any changes in your medications Make sure to request a refill of your medication at least one week prior to your last dose Procedures Procedure Name Priority Date/Time Associated Diagnosis Comments COMP MET PANEL (EXTERNAL RESULT ENTRY) Routine 09/13/2023 9:59 AM CDT HEMOGLOBIN A1C Routine 06/12/2016 3:20 AM CDT from Last 3 Months or Most Recently Relevant to Health Maintenance Results * (ABNORMAL) COMP MET PANEL (EXTERNAL RESULT ENTRY) (09/13/2023 9:59 AM CDT) Glucose (EXTERNAL) 124(A) mg/dL OTHER LAB Sodium (EXTERNAL RESULT) 137 mmol/L OTHER LAB Potassium (EXTERNAL RESULT) 4.4 mmol/L OTHER LAB Chloride (EXTERNAL RESULT) 102 mmol/L OTHER LAB CO2 (EXTERNAL) 26 mmol/L OTHER LAB Calcium (EXTERNAL RESULT) 10.0 mg/dL OTHER LAB Anion Gap (EXTERNAL RESULT) 9 mmol/L OTHER LAB BUN (EXTERNAL RESULT) 22(A) mg/dL OTHER LAB Creatinine (EXTERNAL RESULT) 1.00 mg/dl OTHER LAB Alkaline Phosphatase (EXTERNAL RESULT) 131(A) U/L OTHER LAB ALT (EXTERNAL RESULT) 30 U/L OTHER LAB AST (EXTERNAL RESULT) 42(A) U/L OTHER LAB Protein Total (EXTERNAL RESULT) 9.0(A) gm/dL OTHER LAB Albumin (EXTERNAL RESULT) 4.9 gm/dL OTHER LAB Bilirubin Total (EXTERNAL RESULT) 1.2 mg/dL OTHER LAB eGFR MDRD (EXTERNAL RESULT) 55(A) mL/min/1.7 3m2 OTHER LAB eGFR (EXTERNAL) OTHER LAB Blood BLOOD SPECIMEN / Unknown 09/13/2023 9:59 AM CDT Historical Provider LAB - CHEMISTRY O RDERAFERNANDO OTHER LAB * HEMOGLOBIN A1C (06/12/2016 3:20 AM CDT) Hemoglobin A1c 6.2 4.2 - 6.3 % 06/12/2016 4:00 AM CDT [facility] Estimated Average Glucose 131 mg/dL 06/12/2016 4:00 AM CDT [facility] Whole Blood BLOOD SPECIMEN WITH EDTA / Unknown 06/12/2016 3:20 AM CDT 06/12/2016 3:25 AM CDT Katarina Ortiz MD LAB - CHEMISTRY BARBI RAJPUT [facility] [address] [id number] from Last 3 Months or Most Recently Relevant to Health Maintenance Advance Directives Documents on File Type Date Recorded Patient Lead Nurse Expl anation Adv Directive/Living Will/POA 07/01/2016 7:02 PM * Full Code (Latest Code Status on File) Date Activated Date Inactivated Comments 06/23/2016 8:47 PM 07/07/2016 1:22 PM * Full Code Date Activated Date Inactivated Comments 06/09/2016 10:16 PM 06/23/2016 5:40 PM * Full Code Date Activated Date Inactivated Comments 06/07/2016 2:39 PM 06/09/2016 10:16 PM * FULL RESUSCITATION Date Activated Date Inactivated Comments 06/01/2011 10:32 AM 06/03/2011 2:13 AM * Full Code Date Activated Date Inactivated Comments 10/06/2010 2:09 PM 10/08/2010 1:42 AM Care Teams Microarray Analyst Relationship Specialty Start Date End Date Jose Pat MD [address] [place] [address] PCP - General Family Medicine 07/22/16 Abigail Abernathy, RN Registered Nurse 06/10/16 Nancy Jay, RN Registered Nurse 06/20/16 Abram Dillon MD [address] [place] [address] Gastroenterology 09/13/21
--- OUTSIDE RECORDS SUMMARY | 2024-12-24 00:29 | XMS_ITS | Encounter Summary ---
Author Organization [facility] Health Address [address] [place] [address] Care Team Providers Care Lumber Marker Name Role Phone Abigail Abernathy RN Unavailable Unavailable Nancy Jay RN Unavailable Unavailable Jose Pat MD Primary Care Provider [phone] Abram Dillon MD Unavailable [phone] Encounter Details Date Type Department Care Team (Late st Contact Info) Description 04/17/2017 [facility] Outpatient Visit [facility] [address] [place] [address] Lillie Quinonez MD [address] [facility] [address] [address] Social History Tobacco Use Types Packs/Day Years Used Date Smoking Tobacco: Never Smokeless Tobacco: Never Alcohol Use Standard Drinks/Week Comments No 0 (1 standard drink = 0.6 oz pur e alcohol) Sex and Gender Information Value Date Recorded Sex Assigned at Not on file Gender Identity Not on file Sexual Orientation Not on file documented as of this encounter Functional Status Functional Status Response Date of Assess ment Is person deaf or have serious hearing difficult y? No 06/17/2016 Is person blind or have serious difficulty seein g? No 06/17/2016 Does person have serious dif ficulty walking/climbing stairs? Yes 06/17/2016 Does person have difficulty dressing/bathing? Ye s 06/17/2016 Does person have difficulty doing errands alone? Yes 06/17/2016 Cognitive Status Response Date of Assessm ent Does person have difficulty concentrating/remembering/making decisions? Yes 06/17/2016 documented as of this encounter Plan of Treatment Upcoming Encounters Date Type Department Care Team (Late st Contact Info) Description 09/15/2025 12:30 PM SIEBEL CRM DEVELOPER Office Visit [facility] [place] [address] [facility], [place] [address] Gurpreet Caban MD [facility] [facility] [address] [place] [address] documented as of this encounter Visit Diagnoses Not on filedocumented in this encounter Care Teams Lumber Marker Relationship Specialty Start Date End Date Jose Pat MD [address] [place] [id number] PCP - General Family Medicine 07/22/16 Abigail Abernathy, RN Registered Nurse 06/10/16 Nancy Jay, RN Registered Nurse 06/20/16 Abram Dillon MD [address] [place] [address] Gastroenterology 09/13/21 documented as of this encounter
--- OUTSIDE RECORDS SUMMARY | 2024-12-24 00:29 | XMS_ITS | Encounter Summary ---
Author Organization [facility] Address [address] [facility] [place] [address] Care Team Providers Care Dining Room Tables Set Up Attendant Name Role Phone Elgin Thakur MD Primary Care Provider [phone] Abigail Abernathy RN Unavailable Unavailable Nancy Jay RN Unavailable Unavailable Jose Pat MD Primary Care Provider [phone] Abram Dillon MD Unavailable [phone] Encounter Details Date Type Department Care Team (Late st Contact Info) Description 06/24/2016 Transitional Care [facility] - Disease Management [address] [place] [id number] Dasha Greenwood, RN Social History Tobacco Use Types Packs/Day Years [...] st Contact Info) Description 09/15/2025 12:30 PM TANDEM OPERATOR Office Visit [facility] [place] [address] [place] [address], [place] [address] Gurpreet Caban MD [address] [place] [address] [address] [place] [address] documented as of this encounter Visit Diagnoses Not on filedocumented in this encounter Care Teams Dining Room Tables Set Up Attendant Relationship Specialty Start Date End Date Elgin Thakur MD [address] [place] [address] PCP - General 10/06/10 07/21/16 Jose Pat MD [address] [place] [address] PCP - General Family Medicine 07/22/16 Abigail Abernathy, RN Registered Nurse 06/10/16 Nancy Jay, RN Registered Nurse 06/20/16 Abram Dillon MD [address] [place] [address] Gastroenterology 09/13/21 documented as of this encounter
--- OUTSIDE RECORDS SUMMARY | 2024-12-24 00:29 | XMS_ITS | Referral Summary ---
Author Organization [facility] Spoke Address [address] [facility] [place] [address] Care Team Providers Care Mesh Worker Name Role Phone Abigail Abernathy RN Unavailable Unavailable Nancy Jay RN Unavailable Unavailable Jose Pat MD Primary Care Provider [phone] Abram Dillon MD Unavailable [phone] Source Comments [facility],non-owned Affiliates and Associated Physician Practices is amultiple site organization consisting of ambulatory clinics and hospital sitesin [place], [place], [place] and [place]. This disclosure is being madepursuant to the Care Everywhere program and may not contain all information available regarding this patient. Last updated 18.[facility] Allergies Active Allergy Reactions Criticality Noted Date [...] times daily as needed 10/06/2010 Active B Rsyeuuy-Rycfun-VA (B COMPLETE PO) Take by mouth. Activ [...] 04/12/2018 Immunizations Name Administration Dates Next Due [email or web address] primary monoval ent 12+ yr 0.3mL Purple [...] Comments Blood Pressure 140/71 09/16/2024 12:53 PM KEY HOLDER Pulse 82 09/16/2024 12:40 PM KEY HOLDER Temperature 36.4 C (97.5 F) 09/18/2023 1:09 PM KEY HOLDER Respiratory Rate 14 09/26/2022 12:5 0 PM KEY HOLDER Oxygen Saturation 100% 09/16/2024 12: 40 PM KEY HOLDER Inhaled Oxygen Concentration 30% 06/14/2016 8 :00 AM CDT Weight 89.3 kg (196 lb 12.8 oz) 024 12:40 PM KEY HOLDER Height 165.1 cm (5' 5 ) 09/16/2024 12:4 0 PM KEY HOLDER Body Mass Index 32.75 09/16/2024 12:40 PM KEY HOLDER Functional Status Functional Status Response Date of [...] person have difficulty concentrating/remembering/making decisions? Yes 06/17/2016 Plan of Treatment Upcoming Encounters Date Type Department Care Team (Late st Contact Info) Description 09/15/2025 12:30 PM KEY HOLDER Office Visit [facility] [place] [address] [facility], [place] [phone] Gurpreet Caban MD [facility] [facility] [address] [place] [address] Goals Goal Patient Goal Type Associated Problems Recent Progress Patient-Stated? Author Medication Management General On track( 023 1:08 PM KEY HOLDER) No Christopher Potter RN Note: Expected end date: Interventions: Take [...] CDT Historical Provider LAB - CHEMISTRY O [facility] OTHER LAB * HEMOGLOBIN A1C (06/12/2016 3:20 AM CDT) Hemoglobin A1c 6.2 4.2 - 6.3 % 06/12/2016 4:00 AM CDT [facility] Estimated Average Glucose 131 mg/dL 06/12/2016 4:00 AM CDT [facility] Whole Blood BLOOD SPECIMEN WITH EDTA / Unknown 06/12/2016 3:20 AM CDT 06/12/2016 3:25 AM CDT Katarina Ortiz MD LAB - CHEMISTRY BARBI RAJPUT [facility] [address] [place] [address] from Last 3 Months or Most Recently Relevant to Health Maintenance Advance Directives Documents on File Type Date Recorded Patient Layout Inspector Expl anation Adv Directive/Living Will/POA 07/01/2016 7:02 [...] 2:09 PM 10/08/2010 1:42 AM Care Teams Mesh Worker Relationship Specialty Start Date End Date Jose Pat MD [address] [place] [address] PCP - General Family Medicine 07/22/16 Abigail Abernathy, RN Registered Nurse 06/10/16 Nancy Jay, RN Registered Nurse 06/20/16 Abram Dillon MD [address] [place] [address] Gastroenterology 09/13/21
--- OUTSIDE RECORDS SUMMARY | 2024-12-24 00:30 | XMS_ITS | Patient Health Summary ---
Author Organization [facility] Address [address] [place] [address] Care Team Providers Care Fur Blower Operator Name Role Phone Abigail Abernathy RN Unavailable Unavailable Nancy Jay RN Unavailable Unavailable Seth Pat MD Primary Care Provider [phone] Abram Dillon MD Unavailable [phone] Note from [facility],non-owned Affiliates and Associated Physician Practices is amultiple site organization consisting of ambulatory clinics and hospital sitesin [place], [place], [place] and [place]. This disclosure is being madepursuant to the Care Everywhere program and may not contain all information available regarding this patient. Last updated 18.[facility] Allergies * Heparin(06/19/16 - suspected HIT) * Lisinopril(Cough) Medications * Be aware that medications may not be up to date on this document. Alwaysverify current medications with the patient. * busPIRone (BUSPAR) 15 MG tablet(Started 10/06/2010) Take 5 mg by mouth 2 times daily as needed * B Jymgfkq-Ddttyv-CL (B COMPLETE PO) Take by mouth. * vitamin E (TOCOPHERYL) 400 UNIT capsule Take 1 (one) capsule by mouth once daily * ROPINirole (REQUIP) 0.25 MG tablet Take 1 (one) tablet by mouth 3 times daily as needed * warfarin (COUMADIN) 2 MG tablet Take 1 (one) tablet by mouth once daily 2 tabs * venlafaxine (EFFEXOR) 25 MG tablet Take 2 (two) tablets by mouth once daily XR * atorvastatin (LIPITOR) 80 MG tablet(Started 07/29/2016) Take 1 Tab by mouth at bedtime 1 refill left * bumetanide (BUMEX) 2 MG tablet(Started 07/29/2016) Take 1 Tab by mouth once daily 1 refill left * losartan (COZAAR) 50 MG tablet(Started 07/29/2016) Take 1 Tab by mouth once daily 1 refill left * spironolactone (ALDACTONE) 25 MG tablet(Started 07/29/2016) Take 1 Tab by mouth once daily 1 refill left * warfarin (COUMADIN) 5 MG tablet(Started 09/06/2016) Take 8 mg by mouth once daily 7MG ON & TH, 8MG EVERY DAY BUT & THURS 5 refills left * potassium chloride (KLOR-CON M) 10 MEQ tablet Take 2 (two) tablets by mouth once daily Take if using Bumex * omeprazole (PRILOSEC) 40 MG capsule Take 1 (one) capsule by mouth daily before breakfast * colesevelam (Welchol) 625 MG tablet Take 3 (three) tablets by mouth 2 times daily with morning and evening meal * ferrous sulfate 325 (65 FE) MG tablet Take 1 (one) tablet by mouth once daily * Trulicity 0.75 MG/0.5ML injection(Started 09/08/2022) Inject 0.75 mg subcutaneously every 7 days * aspirin (Aspirin) 81 MG chew tablet(Started 08/16/2023) * acetaminophen (Tylenol) 500 MG tablet Take 1 (one) tablet by mouth 2 times daily as needed for Fever or Pain Maximum allowable Acetaminophen amount = 4 Grams (4000 mg) / 24 hours. * cetirizine (ZyrTEC) 10 MG tablet Take 1 (one) tablet by mouth as needed for Allergies * multivitamins plus minerals chew tablet Take 1 (one) tablet by mouth daily with food * mupirocin (Bactroban) 2 % ointment Apply to affected area 3 times daily * semaglutide 1 MG/ML vial Inject 0.25 (one-quarter) mg subcutaneously every 7 days * triamcinolone acetonide (Kenalog In Orabase) 0.1 % paste Apply to affected area 2 times daily * psyllium (Metamucil) 58.6 % powder Take 1 (one) packet by mouth 3 times daily as needed for Constipation * dapagliflozin propanediol (Farxiga) 5 MG tablet Take 1 (one) tablet by mouth every morning * warfarin (Coumadin) 1 MG tablet Take 1 (one) tablet by mouth once daily 3 tablets Active Problems Problem Noted Date Diagnosed Date Colon adenomas 09/13/2021 Iron deficiency 03/19/2019 TRAV (obstructive sleep apnea) 04/12/2018 Anxiety 03/02/2018 GERD (gastroesophageal reflux disease) 8 Hypertension 03/02/2018 Metabolic dysfunction-associated steatohepatitis (MASH) 03/02/2018 Obesity 03/02/2018 Restless leg syndrome 03/02/2018 Type 2 diabetes mellitus 03/02/2018 Hypercholesterolemia 07/26/2016 CAD (coronary artery disease) 07/26/2016 Acute combined systolic and diastolic congestive heart failure 06/08/2016 Asthma 02/15/2016 Vitamin D deficiency 03/04/2013 Depression 08/27/2012 Heterozygous alpha 1-antitrypsin deficiency 08/13 Esophageal reflux 04/10/2003 Resolved Problems Problem Noted Date Diagnosed Date Resolved Date ST elevation myocardial infa rction involving left circumflex coronary artery 06/08/2016 04/12/20 18 Cardiac arrest 06/08/2016 04/12/2018 Immunizations * Covid Pfizer primary monovalent 12+ yr 0.3mL Purple cap(Given 08/14/2021, 02/04/2021, 01/14/2021) * INFLUENZA VACCINE(Given 08/14/2021) * PNEUMOCOCCAL PPSV23(Given 06/02/2011) Social History Tobacco Use Types Packs/Day Years [...] Comments Blood Pressure 140/71 09/16/2024 12:53 PM [employer]ITY [employer]IFT SUPERVISOR Pulse 82 09/16/2024 12:40 PM [employer]ITY SHIFT SUPERVISOR Temperature 36.4 C (97.5 F) 09/18/2023 1:09 PM SEC[employer]ITY SHIFT SUPERVISOR Respiratory Rate 14 09/26/2022 12:5 0 PM [employer]ITY SHIFT SUPERVISOR Oxygen Saturation 100% 09/16/2024 12: 40 PM [employer]ITY SHIFT SUPERVISOR Inhaled Oxygen Concentration 30% 06/14/2016 8 :00 AM CDT Weight 89.3 kg (196 lb 12.8 oz) 024 12:40 PM [employer]ITY SHIFT SUPERVISOR Height 165.1 cm (5' 5 ) 09/16/2024 12:4 0 PM [employer]ITY SHIFT SUPERVISOR Body Mass Index 32.75 09/16/2024 12:40 PM SECURITY SHIFT SUPERVISOR Procedures * VT LIVER ELASTOGRAPHY(Performed 09/18/2023) Performed for WERNER (nonalcoholic steatohepatitis) * IRON/SATURATION (EXTERNAL RESULT ENTRY)(Performed 09/13/2023) * FERRITIN (EXTERNAL RESULT ENTRY)(Performed 09/13/2023) * CBC W DIFF (EXTERNAL RESULT ENTRY)(Performed 09/13/2023) * IRON/SATURATION (EXTERNAL RESULT ENTRY)(Performed 09/13/2023) * FERRITIN (EXTERNAL RESULT ENTRY)(Performed 09/13/2023) * COMP MET PANEL (EXTERNAL RESULT ENTRY)(Performed 09/13/2023) * VT LIVER ELASTOGRAPHY(Performed 09/26/2022) Performed for WERNER (nonalcoholic steatohepatitis) * VT LIVER ELASTOGRAPHY(Performed 09/13/2021) Performed for WERNER (nonalcoholic steatohepatitis) * VT LIVER ELASTOGRAPHY(Performed 09/07/2020) Performed for WERNER (nonalcoholic steatohepatitis) * IRON/SATURATION (EXTERNAL RESULT ENTRY)(Performed 02/19/2019) * COMP MET PANEL (EXTERNAL RESULT ENTRY)(Performed 02/05/2019) * CBC W DIFF (EXTERNAL RESULT ENTRY)(Performed 02/05/2019) * VT LIVER ELASTOGRAPHY(Performed 03/02/2018) Performed for WERNER (nonalcoholic steatohepatitis) * FERRITIN(Performed 09/22/2016) Performed for Iron deficiency anemia, unspecified iron deficiency anemia type, 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) * IRON + TIBC PANEL(Performed 09/22/2016) Performed for Iron deficiency anemia, unspecified iron deficiency anemia type, 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) * HEPARIN PLATELET INDUCED ANTIBODY(Performed 09/22/2016) Performed for Thrombosis of right saphenous vein, 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), Iron deficiency anemia, unspecified iron deficiency anemia type * CBC W AUTO DIFFERENTIAL (CANCER CARE)(Performed 09/22/2016) Performed for Iron deficiency anemia, unspecified iron deficiency anemia type, 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), Thrombosis of right saphenous vein * CARDIAC RHYTHM STRIP ORDER(Performed 07/29/2016) * FERRITIN(Performed 07/22/2016) Performed for Iron deficiency anemia, unspecified iron deficiency anemia type, 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) * IRON + TIBC PANEL(Performed 07/22/2016) Performed for Iron deficiency anemia, unspecified iron deficiency anemia type, 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) * PT-INR(Performed 07/22/2016) Performed for Iron deficiency anemia, unspecified iron deficiency anemia type, 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) * CBC W AUTO DIFFERENTIAL (CANCER CARE)(Performed 07/22/2016) Performed for Iron deficiency anemia, unspecified iron deficiency anemia type, 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) * BASIC METABOLIC PANEL (CALCIUM TOTAL)(Performed 07/06/2016) * PT-INR(Performed 07/04/2016) * PT-INR(Performed 07/03/2016) * CARDIAC PROCEDURE ORDER(Performed 07/01/2016) * PT-INR(Performed 06/29/2016) * PT-INR(Performed 06/28/2016) * BASIC METABOLIC PANEL (CALCIUM TOTAL)(Performed 06/28/2016) * PT-INR(Performed 06/27/2016) * BASIC METABOLIC PANEL (CALCIUM TOTAL)(Performed 06/24/2016) * CBC W/O DIFFERENTIAL(Performed 06/24/2016) * URINALYSIS REFLEX MICROSCOPIC REFLEX CULTURE(Performed 06/24/2016) * CULTURE URINE(Performed 06/24/2016) * GLUCOSE - POINT OF CARE(Performed 06/23/2016) * BASIC METABOLIC PANEL (CALCIUM TOTAL)(Performed 06/23/2016) * GLUCOSE - POINT OF CARE(Performed 06/23/2016) * PT PTT PANEL(Performed 06/23/2016) * GLUCOSE - POINT OF CARE(Performed 06/22/2016) * GLUCOSE - POINT OF CARE(Performed 06/22/2016) * GLUCOSE - POINT OF CARE(Performed 06/22/2016) * GLUCOSE - POINT OF CARE(Performed 06/22/2016) * CBC W AUTO DIFFERENTIAL(Performed 06/22/2016) * BASIC METABOLIC PANEL (CALCIUM TOTAL)(Performed 06/22/2016) * PT PTT PANEL(Performed 06/22/2016) * GLUCOSE - POINT OF CARE(Performed 06/21/2016) * GLUCOSE - POINT OF CARE(Performed 06/21/2016) * PT PTT PANEL(Performed 06/21/2016) * GLUCOSE - POINT OF CARE(Performed 06/21/2016) * GLUCOSE - POINT OF CARE(Performed 06/21/2016) * DIFFERENTIAL MANUAL(Performed 06/21/2016) * MAGNESIUM BLOOD(Performed 06/21/2016) * CBC W AUTO DIFFERENTIAL(Performed 06/21/2016) * BASIC METABOLIC PANEL (CALCIUM TOTAL)(Performed 06/21/2016) * PT PTT PANEL(Performed 06/21/2016) * GLUCOSE - POINT OF CARE(Performed 06/20/2016) * GLUCOSE - POINT OF CARE(Performed 06/20/2016) * GLUCOSE - POINT OF CARE(Performed 06/20/2016) * PTT(Performed 06/20/2016) * VAS RIGHT VENOUS DUPLEX LE(Performed 06/20/2016) Performed for Thrombosis of saphenous vein, right * GLUCOSE - POINT OF CARE(Performed 06/20/2016) * PTT(Performed 06/20/2016) * DIFFERENTIAL MANUAL(Performed 06/20/2016) * FIBRINOGEN ACTIVITY(Performed 06/20/2016) * FERRITIN(Performed 06/20/2016) * CBC W AUTO DIFFERENTIAL(Performed 06/20/2016) * BASIC METABOLIC PANEL (CALCIUM TOTAL)(Performed 06/20/2016) * PT PTT PANEL(Performed 06/20/2016) * PTT(Performed 06/19/2016) * GLUCOSE - POINT OF CARE(Performed 06/19/2016) * PTT(Performed 06/19/2016) * GLUCOSE - POINT OF CARE(Performed 06/19/2016) * PTT(Performed 06/19/2016) * GLUCOSE - POINT OF CARE(Performed 06/19/2016) * SEROTONIN RELEASE ASSAY PANEL(Performed 06/19/2016) * DIFFERENTIAL MANUAL(Performed 06/19/2016) * PTT(Performed 06/19/2016) * HEPARIN INDUCED PLATELET ANTIBODY W/ RFLX(Performed 06/19/2016) * CBC W AUTO DIFFERENTIAL(Performed 06/19/2016) * GLUCOSE - POINT OF CARE(Performed 06/19/2016) * PT PTT PANEL(Performed 06/19/2016) * BASIC METABOLIC PANEL (CALCIUM TOTAL)(Performed 06/19/2016) * GLUCOSE - POINT OF CARE(Performed 06/18/2016) * GLUCOSE - POINT OF CARE(Performed 06/18/2016) * GLUCOSE - POINT OF CARE(Performed 06/18/2016) * GLUCOSE - POINT OF CARE(Performed 06/18/2016) * GLUCOSE - POINT OF CARE(Performed 06/18/2016) * DIFFERENTIAL MANUAL(Performed 06/18/2016) * BASIC METABOLIC PANEL (CALCIUM TOTAL)(Performed 06/18/2016) * PT PTT PANEL(Performed 06/18/2016) * CBC W AUTO DIFFERENTIAL(Performed 06/18/2016) * GLUCOSE - POINT OF CARE(Performed 06/18/2016) * GLUCOSE - POINT OF CARE(Performed 06/17/2016) * PTT(Performed 06/17/2016) * GLUCOSE - POINT OF CARE(Performed 06/17/2016) * BASIC METABOLIC PANEL (CALCIUM TOTAL)(Performed 06/17/2016) * PTT(Performed 06/17/2016) * GLUCOSE - POINT OF CARE(Performed 06/17/2016) * GLUCOSE - POINT OF CARE(Performed 06/17/2016) * GLUCOSE - POINT OF CARE(Performed 06/17/2016) * POTASSIUM BLOOD(Performed 06/17/2016) * PT PTT PANEL(Performed 06/17/2016) * CBC W AUTO DIFFERENTIAL(Performed 06/17/2016) * GLUCOSE - POINT OF CARE(Performed 06/16/2016) * GLUCOSE - POINT OF CARE(Performed 06/16/2016) * GLUCOSE - POINT OF CARE(Performed 06/16/2016) * GLUCOSE - POINT OF CARE(Performed 06/16/2016) * GLUCOSE - POINT OF CARE(Performed 06/16/2016) * GLUCOSE - POINT OF CARE(Performed 06/16/2016) * CK BLOOD(Performed 06/16/2016) * DIFFERENTIAL MANUAL(Performed 06/16/2016) * PT PTT PANEL(Performed 06/16/2016) * CBC W AUTO DIFFERENTIAL(Performed 06/16/2016) * PHOSPHORUS BLOOD(Performed 06/16/2016) * MAGNESIUM BLOOD(Performed 06/16/2016) * BASIC METABOLIC PANEL (CALCIUM TOTAL)(Performed 06/16/2016) * PTT(Performed 06/16/2016) * GLUCOSE - POINT OF CARE(Performed 06/16/2016) * VANCOMYCIN LEVEL RANDOM(Performed 06/15/2016) * GLUCOSE - POINT OF CARE(Performed 06/15/2016) * DIFFERENTIAL MANUAL(Performed 06/15/2016) * PT PTT PANEL(Performed 06/15/2016) * CBC W AUTO DIFFERENTIAL(Performed 06/15/2016) * GLUCOSE - POINT OF CARE(Performed 06/15/2016) * GLUCOSE - POINT OF CARE(Performed 06/15/2016) * VAS BILATERAL VENOUS DUPLEX LE(Performed 06/15/2016) Performed for Acute respiratory failure with hypoxia (HCC) * GLUCOSE - POINT OF CARE(Performed 06/15/2016) * GLUCOSE - POINT OF CARE(Performed 06/15/2016) * CK BLOOD(Performed 06/15/2016) * DIFFERENTIAL MANUAL(Performed 06/15/2016) * PHOSPHORUS BLOOD(Performed 06/15/2016) * CBC W AUTO DIFFERENTIAL(Performed 06/15/2016) * BASIC METABOLIC PANEL (CALCIUM TOTAL)(Performed 06/15/2016) * GLUCOSE - POINT OF CARE(Performed 06/15/2016) * GLUCOSE - POINT OF CARE(Performed 06/14/2016) * GLUCOSE - POINT OF CARE(Performed 06/14/2016) * OT EVAL AND TREAT(Performed 06/14/2016) * PT EVAL AND TREAT(Performed 06/14/2016) * EXTUBATION(Performed 06/14/2016) * GLUCOSE - POINT OF CARE(Performed 06/14/2016) * GLUCOSE - POINT OF CARE(Performed 06/14/2016) * CK BLOOD(Performed 06/14/2016) * DIFFERENTIAL MANUAL(Performed 06/14/2016) * PTT(Performed 06/14/2016) * PT-INR(Performed 06/14/2016) * PHOSPHORUS BLOOD(Performed 06/14/2016) * MAGNESIUM BLOOD(Performed 06/14/2016) * COMPREHENSIVE METABOLIC PANEL(Performed 06/14/2016) * CBC W AUTO DIFFERENTIAL(Performed 06/14/2016) * XR CHEST 1VW PORTABLE(Performed 06/14/2016) Performed for Acute respiratory failure with hypoxia (HCC) * GLUCOSE - POINT OF CARE(Performed 06/14/2016) * BLOOD GASES ARTERIAL(Performed 06/14/2016) * CULTURE BLOOD(Performed 06/14/2016) * CULTURE BLOOD(Performed 06/14/2016) * GLUCOSE - POINT OF CARE(Performed 06/14/2016) * CULTURE URINE(Performed 06/14/2016) * URINE MICROSCOPIC ONLY(Performed 06/14/2016) * URINALYSIS REFLEX TO MICROSCOPIC NO CULTURE(Performed 06/14/2016) * CULTURE SPUTUM+GRAM STAIN(Performed 06/14/2016) * POTASSIUM BLOOD(Performed 06/13/2016) * VANCOMYCIN LEVEL RANDOM(Performed 06/13/2016) * GLUCOSE - POINT OF CARE(Performed 06/13/2016) * GLUCOSE - POINT OF CARE(Performed 06/13/2016) * GLUCOSE - POINT OF CARE(Performed 06/13/2016) * GLUCOSE - POINT OF CARE(Performed 06/13/2016) * CULTURE VRE(Performed 06/13/2016) * CULTURE MRSA(Performed 06/13/2016) * DIFFERENTIAL MANUAL(Performed 06/13/2016) * PHOSPHORUS BLOOD(Performed 06/13/2016) * MAGNESIUM BLOOD(Performed 06/13/2016) * COMPREHENSIVE METABOLIC PANEL(Performed 06/13/2016) * CBC W AUTO DIFFERENTIAL(Performed 06/13/2016) * GLUCOSE - POINT OF CARE(Performed 06/13/2016) * GLUCOSE - POINT OF CARE(Performed 06/13/2016) * VANCOMYCIN LEVEL RANDOM(Performed 06/12/2016) * GLUCOSE - POINT OF CARE(Performed 06/12/2016) * GLUCOSE - POINT OF CARE(Performed 06/12/2016) * GLUCOSE - POINT OF CARE(Performed 06/12/2016) * VANCOMYCIN LEVEL RANDOM(Performed 06/12/2016) * GLUCOSE - POINT OF CARE(Performed 06/12/2016) * TRANSFUSE RED BLOOD CELL LEUKOREDUCED UNIT(S)(Performed 06/12/2016) * CROSSMATCH RBC LEUKOREDUCED(Performed 06/12/2016) * GLUCOSE - POINT OF CARE(Performed 06/12/2016) * MAGNESIUM BLOOD(Performed 06/12/2016) * HEMOGLOBIN A1C(Performed 06/12/2016) * PHOSPHORUS BLOOD(Performed 06/12/2016) * COMPREHENSIVE METABOLIC PANEL(Performed 06/12/2016) * CBC W AUTO DIFFERENTIAL(Performed 06/12/2016) * GLUCOSE - POINT OF CARE(Performed 06/12/2016) * GLUCOSE - POINT OF CARE(Performed 06/11/2016) * GLUCOSE - POINT OF CARE(Performed 06/11/2016) * GLUCOSE - POINT OF CARE(Performed 06/11/2016) * GLUCOSE - POINT OF CARE(Performed 06/11/2016) * GLUCOSE - POINT OF CARE(Performed 06/11/2016) * VANCOMYCIN LEVEL RANDOM(Performed 06/11/2016) * GLUCOSE - POINT OF CARE(Performed 06/11/2016) * BLOOD GASES ARTERIAL(Performed 06/11/2016) * GLUCOSE - POINT OF CARE(Performed 06/11/2016) * GLUCOSE - POINT OF CARE(Performed 06/11/2016) * XR CHEST 1VW PORTABLE(Performed 06/11/2016) Performed for Acute respiratory failure with hypoxia (HCC) * BLOOD GASES ARTERIAL(Performed 06/11/2016) * PTT(Performed 06/11/2016) * PT-INR(Performed 06/11/2016) * IRON + TRANSFERRIN PANEL(Performed 06/11/2016) * PHOSPHORUS BLOOD(Performed 06/11/2016) * MAGNESIUM BLOOD(Performed 06/11/2016) * COMPREHENSIVE METABOLIC PANEL(Performed 06/11/2016) * CBC W AUTO DIFFERENTIAL(Performed 06/11/2016) * GLUCOSE - POINT OF CARE(Performed 06/11/2016) * GLUCOSE - POINT OF CARE(Performed 06/11/2016) * GLUCOSE - POINT OF CARE(Performed 06/10/2016) * GLUCOSE - POINT OF CARE(Performed 06/10/2016) * GLUCOSE - POINT OF CARE(Performed 06/10/2016) * GLUCOSE - POINT OF CARE(Performed 06/10/2016) * GLUCOSE - POINT OF CARE(Performed 06/10/2016) * GLUCOSE - POINT OF CARE(Performed 06/10/2016) * GLUCOSE - POINT OF CARE(Performed 06/10/2016) * ECHOCARDIOGRAM 2D WITH DOPPLER(Performed 06/10/2016) Performed for Cardiogenic shock (HCC), ST elevation myocardial infarction involving left circumflexcoronary artery (HCC) * XR CHEST 1VW PORTABLE(Performed 06/10/2016) Performed for Acute respiratory failure with hypoxia (HCC) * GLUCOSE - POINT OF CARE(Performed 06/10/2016) * GLUCOSE - POINT OF CARE(Performed 06/10/2016) * GLUCOSE - POINT OF CARE(Performed 06/10/2016) * GLUCOSE - POINT OF CARE(Performed 06/10/2016) * GLUCOSE - POINT OF CARE(Performed 06/10/2016) * GLUCOSE - POINT OF CARE(Performed 06/10/2016) * XR CHEST 1VW PORTABLE(Performed 06/10/2016) Performed for Acute respiratory failure with hypoxia (HCC) * GLUCOSE - POINT OF CARE(Performed 06/10/2016) * DIFFERENTIAL MANUAL(Performed 06/10/2016) * PHOSPHORUS BLOOD(Performed 06/10/2016) * MAGNESIUM BLOOD(Performed 06/10/2016) * COMPREHENSIVE METABOLIC PANEL(Performed 06/10/2016) * CBC W AUTO DIFFERENTIAL(Performed 06/10/2016) * BLOOD GASES ARTERIAL(Performed 06/10/2016) * GLUCOSE - POINT OF CARE(Performed 06/10/2016) * GLUCOSE - POINT OF CARE(Performed 06/10/2016) * GLUCOSE - POINT OF CARE(Performed 06/10/2016) * GLUCOSE - POINT OF CARE(Performed 06/09/2016) * TYPE + SCREEN PANEL(Performed 06/09/2016) * TROPONIN I(Performed 06/09/2016) * PHOSPHORUS BLOOD(Performed 06/09/2016) * MAGNESIUM BLOOD(Performed 06/09/2016) * LACTIC ACID BLOOD(Performed 06/09/2016) * COAGULATION PANEL W D-DIMER(Performed 06/09/2016) * BASIC METABOLIC PANEL (CALCIUM TOTAL)(Performed 06/09/2016) * BLOOD GASES ARTERIAL(Performed 06/09/2016) * GLUCOSE - POINT OF CARE(Performed 06/09/2016) * CARDIAC CATH(Performed 06/09/2016) * CARDIAC CATH CONSULT(Performed 06/09/2016) * ECHOCARDIOGRAM 2D WITH DOPPLER(Performed 06/09/2016) Performed for Pericardial effusion, acute (HCC) * ECHOCARDIOGRAM 2D WITH DOPPLER(Performed 06/09/2016) Performed for ST elevation myocardial infarction involving left circumflex coronary artery (HCC) * CULTURE BLOOD(Performed 06/09/2016) * CULTURE SPUTUM+GRAM STAIN(Performed 06/09/2016) * GLUCOSE - POINT OF CARE(Performed 06/09/2016) * URINE MICROSCOPIC ONLY(Performed 06/09/2016) * URINALYSIS REFLEX TO MICROSCOPIC NO CULTURE(Performed 06/09/2016) * LACTIC ACID BLOOD(Performed 06/09/2016) * PHOSPHORUS BLOOD(Performed 06/09/2016) * MAGNESIUM BLOOD(Performed 06/09/2016) * COMPREHENSIVE METABOLIC PANEL(Performed 06/09/2016) * CULTURE URINE(Performed 06/09/2016) * EKG 12-LEAD(Performed 06/09/2016) Performed for ST elevation myocardial infarction involving left circumflex coronary artery (HCC) * PTT(Performed 06/09/2016) * GLUCOSE - POINT OF CARE(Performed 06/09/2016) * BLOOD GASES ARTERIAL(Performed 06/09/2016) * GLUCOSE - POINT OF CARE(Performed 06/09/2016) * GLUCOSE - POINT OF CARE(Performed 06/09/2016) * GLUCOSE - POINT OF CARE(Performed 06/09/2016) * GLUCOSE - POINT OF CARE(Performed 06/09/2016) * EKG 12-LEAD(Performed 06/09/2016) Performed for Cardiogenic shock (HCC) * GLUCOSE - POINT OF CARE(Performed 06/09/2016) * BLOOD TYPE VERIFICATION(Performed 06/09/2016) * DIFFERENTIAL MANUAL(Performed 06/09/2016) * CBC W AUTO DIFFERENTIAL(Performed 06/09/2016) * COAGULATION PANEL W D-DIMER(Performed 06/09/2016) * PHOSPHORUS BLOOD(Performed 06/09/2016) * MAGNESIUM BLOOD(Performed 06/09/2016) * COMPREHENSIVE METABOLIC PANEL(Performed 06/09/2016) * XR CHEST 1VW PORTABLE(Performed 06/09/2016) Performed for Acute respiratory failure with hypoxia (HCC) * GLUCOSE - POINT OF CARE(Performed 06/09/2016) * GLUCOSE - POINT OF CARE(Performed 06/09/2016) * GLUCOSE - POINT OF CARE(Performed 06/09/2016) * GLUCOSE - POINT OF CARE(Performed 06/09/2016) * GLUCOSE - POINT OF CARE(Performed 06/09/2016) * PHOSPHORUS BLOOD(Performed 06/09/2016) * MAGNESIUM BLOOD(Performed 06/09/2016) * COMPREHENSIVE METABOLIC PANEL(Performed 06/09/2016) * TRIGLYCERIDES BLOOD(Performed 06/09/2016) * PT PTT PANEL(Performed 06/09/2016) * CBC W AUTO DIFFERENTIAL(Performed 06/09/2016) * GLUCOSE - POINT OF CARE(Performed 06/09/2016) * BLOOD GASES ARTERIAL(Performed 06/09/2016) * GLUCOSE - POINT OF CARE(Performed 06/09/2016) * GLUCOSE - POINT OF CARE(Performed 06/09/2016) * GLUCOSE - POINT OF CARE(Performed 06/09/2016) * GLUCOSE - POINT OF CARE(Performed 06/09/2016) * POTASSIUM BLOOD(Performed 06/09/2016) * GLUCOSE - POINT OF CARE(Performed 06/09/2016) * GLUCOSE - POINT OF CARE(Performed 06/08/2016) * PTT(Performed 06/08/2016) * GLUCOSE - POINT OF CARE(Performed 06/08/2016) * GLUCOSE - POINT OF CARE(Performed 06/08/2016) * BLOOD GASES ARTERIAL(Performed 06/08/2016) * BASIC METABOLIC PANEL (CALCIUM TOTAL)(Performed 06/08/2016) * POTASSIUM BLOOD(Performed 06/08/2016) * GLUCOSE - POINT OF CARE(Performed 06/08/2016) * GLUCOSE - POINT OF CARE(Performed 06/08/2016) * GLUCOSE - POINT OF CARE(Performed 06/08/2016) * GLUCOSE - POINT OF CARE(Performed 06/08/2016) * GLUCOSE - POINT OF CARE(Performed 06/08/2016) * GLUCOSE - POINT OF CARE(Performed 06/08/2016) * GLUCOSE - POINT OF CARE(Performed 06/08/2016) * MAGNESIUM BLOOD(Performed 06/08/2016) * CBC W AUTO DIFFERENTIAL(Performed 06/08/2016) * BASIC METABOLIC PANEL (CALCIUM TOTAL)(Performed 06/08/2016) * PT PTT PANEL(Performed 06/08/2016) * GLUCOSE - POINT OF CARE(Performed 06/08/2016) * GLUCOSE - POINT OF CARE(Performed 06/08/2016) * GLUCOSE - POINT OF CARE(Performed 06/08/2016) * BLOOD GASES ARTERIAL(Performed 06/08/2016) * GLUCOSE - POINT OF CARE(Performed 06/08/2016) * GLUCOSE - POINT OF CARE(Performed 06/08/2016) * ECHOCARDIOGRAM 2D WITH DOPPLER(Performed 06/08/2016) Performed for Cardiac arrest (HCC), Acute respiratory failure with hypoxia (HCC) * GLUCOSE - POINT OF CARE(Performed 06/08/2016) * GLUCOSE - POINT OF CARE(Performed 06/08/2016) * PT PTT PANEL(Performed 06/08/2016) * GLUCOSE - POINT OF CARE(Performed 06/08/2016) * CBC W AUTO DIFFERENTIAL(Performed 06/08/2016) * BASIC METABOLIC PANEL (CALCIUM TOTAL)(Performed 06/08/2016) Performed for Cardiac arrest (HCC), Acute respiratory failure with hypoxia (HCC), Cardiogenic shock(HCC) * MAGNESIUM BLOOD(Performed 06/08/2016) * GLUCOSE - POINT OF CARE(Performed 06/08/2016) * XR CHEST 1VW PORTABLE(Performed 06/08/2016) Performed for Acute respiratory failure with hypoxia (HCC) * GLUCOSE - POINT OF CARE(Performed 06/08/2016) * GLUCOSE - POINT OF CARE(Performed 06/08/2016) * BLOOD GASES CHASITY(Performed 06/08/2016) * BLOOD GASES ARTERIAL(Performed 06/08/2016) * GLUCOSE - POINT OF CARE(Performed 06/08/2016) * GLUCOSE - POINT OF CARE(Performed 06/08/2016) * PT PTT PANEL(Performed 06/08/2016) * CBC W AUTO DIFFERENTIAL(Performed 06/08/2016) * BASIC METABOLIC PANEL (CALCIUM TOTAL)(Performed 06/08/2016) * GLUCOSE - POINT OF CARE(Performed 06/08/2016) * GLUCOSE - POINT OF CARE(Performed 06/07/2016) * PTT(Performed 06/07/2016) * GLUCOSE - POINT OF CARE(Performed 06/07/2016) * GLUCOSE - POINT OF CARE(Performed 06/07/2016) * GLUCOSE - POINT OF CARE(Performed 06/07/2016) * GLUCOSE - POINT OF CARE(Performed 06/07/2016) * ED CRITICAL CARE(Performed 06/07/2016) Performed for Cardiac arrest (HCC), Acute respiratory failure with hypoxia (HCC), Cardiogenic shock(HCC) * ED INTUBATION(Performed 06/07/2016) Performed for Cardiac arrest (HCC), Acute respiratory failure with hypoxia (HCC), Cardiogenic shock(HCC) * GLUCOSE - POINT OF CARE(Performed 06/07/2016) * CULTURE MRSA(Performed 06/07/2016) * CULTURE VRE(Performed 06/07/2016) * PT PTT PANEL(Performed 06/07/2016) * XR CHEST 1VW PORTABLE(Performed 06/07/2016) Performed for Acute respiratory failure with hypoxia (HCC) * PHOSPHORUS BLOOD(Performed 06/07/2016) * MAGNESIUM BLOOD(Performed 06/07/2016) * LACTIC ACID BLOOD(Performed 06/07/2016) * CBC W AUTO DIFFERENTIAL(Performed 06/07/2016) * BASIC METABOLIC PANEL (CALCIUM TOTAL)(Performed 06/07/2016) * TROPONIN I(Performed 06/07/2016) * BLOOD GASES ARTERIAL(Performed 06/07/2016) * GLUCOSE - POINT OF CARE(Performed 06/07/2016) * OXYGEN(Performed 06/07/2016) * CARDIAC CATH CONSULT(Performed 06/07/2016) * EKG 12-LEAD(Performed 06/07/2016) Performed for Cardiac arrest (HCC) * COMPREHENSIVE METABOLIC PANEL(Performed 06/07/2016) * CBC W AUTO DIFFERENTIAL(Performed 06/07/2016) * TROPONIN I(Performed 06/07/2016) * PATHOLOGY TISSUE(Performed 03/24/2015) * GLUCOSE ACCUCHECK(Performed 03/24/2015) * HEMOGLOBIN A1C(Performed 02/16/2015) * CBC W AUTO DIFFERENTIAL(Performed 02/16/2015) * PT-INR SLH(Performed 02/16/2015) * COMPREHENSIVE METABOLIC PANEL(Performed 02/16/2015) * CBC W AUTO DIFFERENTIAL(Performed 02/16/2015) * COMPREHENSIVE METABOLIC PANEL(Performed 02/26/2013) * VASCULAR LAB ORDER(Performed 06/06/2011) * CARDIAC ECHOCARDIOGRAM COMPLETE ORDER(Performed 06/06/2011) * CARDIAC PROCEDURE ORDER(Performed 06/06/2011) * CARDIAC RHYTHM STRIP ORDER(Performed 06/05/2011) * BASIC METABOLIC PANEL (CALCIUM TOTAL)(Performed 06/02/2011) * GLUCOSE - POINT OF CARE(Performed 06/02/2011) * IP CONSULT TO CP REHAB(Performed 06/02/2011) * GLUCOSE - POINT OF CARE(Performed 06/02/2011) * LIPID PROFILE(Performed 06/02/2011) * GLUCOSE - POINT OF CARE(Performed 06/01/2011) * GLUCOSE - POINT OF CARE(Performed 06/01/2011) * CARDIAC CATH CONSULT(Performed 06/01/2011) * CARDIAC RHYTHM STRIP ORDER(Performed 10/09/2010) * CARDIAC PROCEDURE ORDER(Performed 10/09/2010) * LAB RESULTS ORDER(Performed 10/09/2010) * LIPID PROFILE(Performed 10/07/2010) * GLUCOSE - POINT OF CARE(Performed 10/07/2010) * GLUCOSE - POINT OF CARE(Performed 10/06/2010) * GLUCOSE - POINT OF CARE(Performed 10/06/2010) * OBTAIN INFORMED CONSENT FORM FOR(Performed 10/06/2010) * CARDIAC CATH CONSULT(Performed 10/06/2010) * CARDIAC CATH ORDER(Performed 10/06/2010) * CARDIAC CATH ORDER(Performed 10/06/2010) * PATHOLOGY REPORTS - HPF HISTORICAL(Performed 08/09/2010) Results * PROC FIBROSCAN (09/18/2023 1:03 PM SECURITY SHIFT SUPERVISOR) Narrative Gurpreet Caban MD - 09/18/2023 1:03 PM SECURITY SHIFT SUPERVISOR Gurpreet Caban MD 09/19/2023 8:37 AM Diagnosis: WERNER RN verified patient NPO for prior 3 hours. Procedure explained. Date of Exam: 09/18/2023 Liver Stiffness: (LSM, kPa) median: 5.5 IQR/Median% (ideally < 30%): 21% CAP (controlled attenuation parameter): 170 Technical Difficulty: Tenderness, many unsuccessful attempts Ordering Provider: Dr. Carolina Phone Fax Fibroscan interpretation: I have personally reviewed the Fibroscan report and associated tracings. The calculated Liver Stiffness Measurement (LSM, kPa) indicates that: The probability of advanced liver fibrosis is: low. The loss of ultrasound signal, (controlled attenuation parameter, CAP [dB/m]), indicates that the probability of hepatic steatosis is: low. Gurpreet Carolina MD The following criteria are used to indicate the probability of advanced (stage 3-4) fibrosis: < 7.0 kPa: low 7.0-8.9 kPa: low to moderate 9.0-14.9 kPa: moderate 15-20 kPa: high > 20 kPa: very high Liver stiffness > 20 kPa is also associated with a high probability of complications of portal hypertension including varices and ascites. Liver stiffness > 50 kPa is associated with a high risk of variceal bleeding. These interpretations are based on the following published data: Jade MONROE, Farheen M, Kathrin M, et al. Accuracy of FibroScan controlled attenuation parameter and liver stiffness measurement in assessing steatosis and fibrosis in patients with nonalcoholic fatty liver disease. Gastroenterology 2019;156:9367-8635. Zackary GODINEZ, Carlos R, Van Natphilippe ML, et al. Vibration-controlled transient elastography to assess fibrosis and steatosis in patients with nonalcoholic fatty liver disease. Clin Gastroenterol Hepatol 2019;17:156-163. Note that scores have been developed that incorporate the Fibroscan liver stiffness measurement from large cohorts of patients with liver biopsies to further refine the ability of Fibroscan to identify patients with WERNER and advanced fibrosis. These include the FAST (Fibroscan-AST) score (Cherelle, 2022) and the Agile3+ and Agile4 scores (Javier, 202). Cherelle TA, Van Natta ML, Darnell M, Seth A, et al. Validation of the accuracy of the FAST score for detecting patients with at-risk nonalcoholic steatohepatitis (WERNER) in a [place] cohort and comparison to other non-invasive algorithms. PLoS ONE (2021) 17: [id number]. Javier TORREZ, Miguel J, Ed LIM, et al. Enhanced diagnosis of advanced fibrosis and cirrhosis in individuals with NAFLD using FibroScan-based Agile scores. J Hepatol (2022) 78: 247-259. Fibroscan LSM can also be used with laboratory parameters without formulas to assess prognosis. According to the Baveno-VII criteria (Mock, 202), Fibroscan LSM ?15 kPa plus a platelet count of ?[id number]/L rules out clinically significant portal hypertension (sensitivity and negative predictive value >90%) in patients with compensated advanced chronic liver disease. Mock R, Rose J, Jojo G, Tee T, Chet Jones on behalf of the Baveno VII Faculty. Baveno VII--Renewing consensus in portal hypertension. J Hepatol (2021) 76: 959-974 Assessing the likelihood of advanced fibrosis in patients with indeterminate liver stiffness measurement (LSM) by Fibroscan (e.g., 8-15 kPa) can be improved by also calculating the FIB-4 score (Haim et al. Hepatology Communications 2019;3:2358-4484) or NAFLD Fibrosis score (Campos et al. Clinical Gastroenterology and Hepatology 2019;17:0967-0242 using routine clinical data. Note: 1. Fibroscan cannot reliably identify earlier stages of fibrosis (ie distinguish F0 from F1 and F2) and thus a histologic stage cannot be predicted from the Fibroscan reading. 2. Liver stiffness can be increased by factors other than fibrosis including passive congestion, infiltrative processes, active alcoholism, recent moderate alcohol consumption in the 2 weeks before the exam, biliary obstruction and marked inflammation. The interpretation of the Fibroscan result provided above may not have taken such clinical factors into account. Disease etiology also influences Fibroscan cutoff values for fibrosis stages and the following cutoffs have been proposed (Dominick et al, Clin Gastro Hepatol 2015; 13:27-36): Cutoffs for Stage 3 and Stage 4 fibrosis respectively: Hepatitis B: >9 and >11.7 kPa Hepatitis C: >9.5 and >12.5 kPa HCV-HIV: >11 and >14 kPa Cholestatic liver diseases: >10 and >17.9 kPa NAFLD/WERNER: >10 and >14 kPa CAP estimates of steatosis: normal <200 dB/m mild 200 to 250 dB/m moderate 250-290 dB/m substantial > 290 dB/m (Note that Fibroscan is not a quantitative measure of liver fat.) These criteria are estimates and may change as additional supporting data becomes available. (This additional interpretive data was last updated 03/18/23.) [email or web address] Gurpreet Caban MD PROCEDURE/ MINOR SURGICAL ORDERABLES * CBC W DIFF (EXTERNAL RESULT ENTRY) (09/13/2023 9:59 AM CDT) Only the most recent of2 resultswithin the time period is included. WBC (EXTERNAL RESULT) 7.5 10^3/ul OTHER LAB Hemoglobin (EXTERNAL RESULT) 13.9 g/dl OTHER LAB Hematocrit (EXTERNAL RESULT) 42.1 % OTHER LAB Platelets (EXTERNAL RESULT) 314 10^3/ul OTHER LAB Neutrophil Absolute (EXTERNAL RESULT) 5.2 10^3/ul OTHER LAB Blood BLOOD SPECIMEN / Unknown 09/13/2023 9:59 AM CDT Historical Provider LAB - HEMATOLOGY ORDERABLES Performing Organization Address City/[facility]/ZIP Co de Phone Number OTHER LAB * FERRITIN (EXTERNAL RESULT ENTRY) (09/13/2023 9:59 AM CDT) Only the most recent of2 resultswithin the time period is included. Ferritin (EXTERNAL RESULT) 148.00 OTHER LAB Blood BLOOD SPECIMEN / Unknown 09/13/2023 9:59 AM CDT Historical Provider LAB - CHEMISTRY O RDERABLES OTHER LAB * (ABNORMAL) IRON/SATURATION (EXTERNAL RESULT ENTRY) (09/13/2023 9:59 AM CDT) Only the most recent of3 resultswithin the time period is included. Iron (EXTERNAL RESULT) OTHER LAB Transferrin (EXTERNAL RESULT) OTHER LAB Transferrin Saturation (EXTERNAL RESULT) 14(A) % OTHER LAB Blood BLOOD SPECIMEN / Unknown 09/13/2023 9:59 AM CDT Historical Provider LAB - CHEMISTRY O ALLISON Performing Organization Address [facility] de Phone Number OTHER LAB * (ABNORMAL) COMP MET PANEL (EXTERNAL RESULT ENTRY) (09/13/2023 9:59 AM CDT) Only the most recent of2 resultswithin the time period is included. Glucose (EXTERNAL) 124(A) mg/dL OTHER LAB Sodium [...] AM CDT Historical Provider LAB - CHEMISTRY Blas COOPER Performing Organization Address [facility] Co de Phone Number OTHER LAB * VT LIVER ELASTOGRAPHY (09/26/2022 11:49 AM SECURITY SHIFT SUPERVISOR) Narrative Gurpreet Carolina MD - 09/26/2022 11:49 AM SECURITY SHIFT SUPERVISOR Gurpreet Carolina MD 09/29/2022 3:21 PM Diagnosis: WERNER (nonalcoholic steatohepatitis) RN verified patient not , no implanted devices and NPO for prior 3 hours. Date of Exam: 09/26/2022 Liver Stiffness: (LSM, kPa) median: 5.4 IQR (interquartile range): 1.4 IQR/Median% (ideally < 30%): 26% CAP (controlled attenuation parameter): 278 Technical Difficulty: Many invalid measures Ordering Provider: Dr. Carolina Phone Fax Fibroscan interpretation: I have personally reviewed the Fibroscan report and associated tracings. The calculated Liver Stiffness Measurement (LSM, kPa) indicates that: The probability of advanced liver fibrosis is: low. The loss of ultrasound signal, (controlled attenuation parameter, CAP [dB/m]), indicates that the probability of hepatic steatosis is: moderate. Gurpreet Carolina MD The following criteria are used to indicate the probability of advanced (stage 3-4) fibrosis: < 7.0 kPa: low 7.0-8.9 kPa: low to moderate 9.0-14.9 kPa: moderate 15-20 kPa: high > 20 kPa: very high Liver stiffness > 20 kPa is also associated with a high probability of complications of portal hypertension including varices and ascites. Liver stiffness > 50 kPa is associated with a high risk of variceal bleeding. These interpretations are based on the following published data: Jade PJ, Farheen M, Kathrin M, et al. Accuracy of FibroScan controlled attenuation parameter and liver stiffness measurement in assessing steatosis and fibrosis in patients with nonalcoholic fatty liver disease. Gastroenterology 2019;156:0999-9714. Zackary MS, Carlos R, Van Lisata ML, et al. Vibration-controlled transient elastography to assess fibrosis and steatosis in patients with nonalcoholic fatty liver disease. Clin Gastroenterol Hepatol 2019;17:156-163. Note: 1. Fibroscan cannot reliably identify earlier stages of fibrosis (ie distinguish F0 from F1 and F2) and thus a histologic stage cannot be predicted from the Fibroscan reading. 2. Assessing the likelihood of advanced fibrosis in patients with indeterminate liver stiffness measurement (LSM) by Fibroscan (e.g., 8-15 kPa) can be improved by also calculating the FIB4 score (Bishopyduke et al. Hepatology Communications 2019;3:6850-9953) or NAFLD Fibrosis score (Campos et al. Clinical Gastroenterology and Hepatology 2019;17:8323-1462. from routine clinical data. 3. Liver stiffness can be increased by factors other than fibrosis including passive congestion, infiltrative processes, active alcoholism, biliary obstruction and marked inflammation. The interpretation of the Fibroscan result provided above may not have taken such clinical factors into account. Disease etiology also influences Fibroscan cutoff values for fibrosis stages and the following cutoffs have been proposed (Dominick et al, Clin Gastro Hepatol 2015; 13:27-36): Cutoffs for Stage 3 and Stage 4 fibrosis respectively: Hepatitis B: >9 and >11.7 kPa Hepatitis C: >9.5 and >12.5 kPa HCV-HIV: >11 and >14 kPa Cholestatic liver diseases: >10 and >17.9 kPa NAFLD/WERNER: >10 and >14 kPa CAP estimates of steatosis: normal <200 dB/m mild 200 to 250 dB/m moderate 250-290 dB/m substantial > 290 dB/m (Note that Fibroscan is not a quantitative measure of liver fat.) These criteria are estimates and may change as additional supporting data becomes available. [email or web address] Gurpreet Caban MD PROCEDURE/ MINOR SURGICAL ORDERABLES * VT LIVER ELASTOGRAPHY (09/13/2021 10:15 AM CDT) Narrative Gurpreet Carolina MD - 09/13/2021 10:15 AM CDT Gurpreet Carolina MD 09/14/2021 12:11 PM Diagnosis: WERNER RN verified patient not , no implanted devices and NPO for prior 3 hours. Procedure explained and consent signed. Date of Exam: 09/13/2021 Liver Stiffness: (LSM, kPa) median: 7.3 IQR (interquartile range): 1.8 IQR/Median% (ideally < 30%): 25 CAP (controlled attenuation parameter): 270 Technical Difficulty: None Ordering Provider: Gurpreet Carolina MD Phone Fax Fibroscan interpretation: I have personally reviewed the Fibroscan report and associated tracings. The calculated Liver Stiffness Measurement (LSM, kPa) indicates that: The probability of advanced liver fibrosis is: low to moderate. The loss of ultrasound signal, (controlled attenuation parameter, CAP [dB/m]), indicates that the probability of hepatic steatosis is: moderate. Gurpreet Carolina MD The following criteria are used to indicate the probability of advanced (stage 3-4) fibrosis: < 7.0 kPa: low 7.0-8.9 kPa: low to moderate 9.0-14.9 kPa: moderate 15-20 kPa: high > 20 kPa: very high Liver stiffness > 20 kPa is also associated with a high probability of complications of portal hypertension including varices and ascites. Liver stiffness > 50 kPa is associated with a high risk of variceal bleeding. These interpretations are based on the following published data: Jade MONROE, Farheen M, Kathrin M, et al. Accuracy of FibroScan controlled attenuation parameter and liver stiffness measurement in assessing steatosis and fibrosis in patients with nonalcoholic fatty liver disease. Gastroenterology 2019;156:2693-7073. Zackary MS, Carlos R, Van Teetee ML, et al. Vibration-controlled transient elastography to assess fibrosis and steatosis in patients with nonalcoholic fatty liver disease. Clin Gastroenterol Hepatol 2019;17:156-163. Note: 1. Fibroscan cannot reliably identify earlier stages of fibrosis (ie distinguish F0 from F1 and F2) and thus a histologic stage cannot be predicted from the Fibroscan reading. 2. Assessing the likelihood of advanced fibrosis in patients with indeterminate liver stiffness measurement (LSM) by Fibroscan (e.g., 8-15 kPa) can be improved by also calculating the FIB4 score (Bishopyduke et al. Hepatology Communications 2019;3:2513-4210) or NAFLD Fibrosis score (Campos et al. Clinical Gastroenterology and Hepatology 2019;17:5959-3995. from routine clinical data. 3. Liver stiffness can be increased by factors other than fibrosis including passive congestion, infiltrative processes, active alcoholism, biliary obstruction and marked inflammation. The interpretation of the Fibroscan result provided above may not have taken such clinical factors into account. Disease etiology also influences Fibroscan cutoff values for fibrosis stages and the following cutoffs have been proposed (Dominick et al, Clin Gastro Hepatol 2015; 13:27-36): Cutoffs for Stage 3 and Stage 4 fibrosis respectively: Hepatitis B: >9 and >11.7 kPa Hepatitis C: >9.5 and >12.5 kPa HCV-HIV: >11 and >14 kPa Cholestatic liver diseases: >10 and >17.9 kPa NAFLD/WERNER: >10 and >14 kPa CAP estimates of steatosis: normal <200 dB/m mild 200 to 250 dB/m moderate 250-290 dB/m substantial > 290 dB/m (Note that Fibroscan is not a quantitative measure of liver fat.) These criteria are estimates and may change as additional supporting data becomes available. [email or web address] Gurpreet Caban MD PROCEDURE/ MINOR SURGICAL ORDERABLES * PROC FIBROSCAN (09/07/2020 10:42 AM CDT) Narrative Gurpreet Carolina MD - 09/07/2020 10:42 AM CDT Gurpreet Carolina MD 09/10/2020 10:07 AM Diagnosis: WERNER RN verified patient not , no implanted devices and NPO for prior 3 hours. Vital signs taken, procedure explained and consent signed. Date of Exam: 09/07/2020 Liver Stiffness: (LSM, kPa) median: 6.0 IQR (interquartile range): 5.1 IQR/Median% (ideally < 30%): 85 CAP (controlled attenuation parameter): 251 Technical Difficulty: Very difficult to get valid measurements. Took over 130 measurements. Ordering Provider: Gurpreet Carolina MD Phone Fax Fibroscan interpretation: I have personally reviewed the Fibroscan report and associated tracings. The calculated Liver Stiffness Measurement (LSM, kPa) indicates that: The probability of advanced liver fibrosis is: low. The loss of ultrasound signal, (controlled attenuation parameter, CAP [dB/m]), indicates that the probability of hepatic steatosis is: moderate. Gurpreet Carolina MD The following criteria are used to indicate the probability of advanced (stage 3-4) fibrosis: < 7.0 kPa: low 7.0-8.9 kPa: low to moderate 9.0-14.9 kPa: moderate 15-20 kPa: high > 20 kPa: very high Liver stiffness > 20 kPa is also associated with a high probability of complications of portal hypertension including varices and ascites. Liver stiffness > 50 kPa is associated with a high risk of variceal bleeding. These interpretations are based on the following published data: Jade PJ, Farheen M, Kathrin M, et al. Accuracy of FibroScan controlled attenuation parameter and liver stiffness measurement in assessing steatosis and fibrosis in patients with nonalcoholic fatty liver disease. Gastroenterology 2019;156:4523-2511. Zackary MS, Carlos R, Van Teetee ML, et al. Vibration-controlled transient elastography to assess fibrosis and steatosis in patients with nonalcoholic fatty liver disease. Clin Gastroenterol Hepatol 2019;17:156-163. Note: 1. Fibroscan cannot reliably identify earlier stages of fibrosis (ie distinguish F0 from F1 and F2) and thus a histologic stage cannot be predicted from the Fibroscan reading. 2. Assessing the likelihood of advanced fibrosis in patients with indeterminate liver stiffness measurement (LSM) by Fibroscan (e.g., 8-15 kPa) can be improved by also calculating the FIB4 score (Dulce Maraiuke et al. Hepatology Communications 2019;3:1580-1899) or NAFLD Fibrosis score (Campos et al. Clinical Gastroenterology and Hepatology 2019;17:8406-8320. from routine clinical data. 3. Liver stiffness can be increased by factors other than fibrosis including passive congestion, infiltrative processes, active alcoholism, biliary obstruction and marked inflammation. The interpretation of the Fibroscan result provided above may not have taken such clinical factors into account. Disease etiology also influences Fibroscan cutoff values for fibrosis stages and the following cutoffs have been proposed (Dominick et al, Clin Gastro Hepatol 2015; 13:27-36): Cutoffs for Stage 3 and Stage 4 fibrosis respectively: Hepatitis B: >9 and >11.7 kPa Hepatitis C: >9.5 and >12.5 kPa HCV-HIV: >11 and >14 kPa Cholestatic liver diseases: >10 and >17.9 kPa NAFLD/WERNER: >10 and >14 kPa CAP estimates of steatosis: normal <200 dB/m mild 200 to 250 dB/m moderate 250-290 dB/m substantial > 290 dB/m (Note that Fibroscan is not a quantitative measure of liver fat.) These criteria are estimates and may change as additional supporting data becomes available. [email or web address] Gurpreet Caban MD PROCEDURE/ MINOR SURGICAL ORDERABLES * VT LIVER ELASTOGRAPHY (03/02/2018 4:10 PM CDT) Narrative Gurpreet Carolina MD - 03/02/2018 4:10 PM CDT Gurpreet Carolina MD 03/02/2018 4:10 PM Diagnosis: WERNER RN verified patient not , no implanted devices and NPO for prior 3 hours. Vital signs taken, procedure explained and consent signed. Date of Exam: 02/21/2018 Liver Stiffness: (E, kPa) median: 6.9 IQR (interquartile range): 0.5 IQR/Median% (ideally < 30%): 7 CAP (controlled attenuation parameter): 347 Technical Difficulty: Pt c/o tenderness when taking measurements Ordering Provider: Gurpreet Carolina MD Phone Fax Fibroscan interpretation: I have personally reviewed the Fibroscan report and associated tracings. The calculated liver stiffness (E, kPa) indicates that: The probability of advanced liver fibrosis is: low. The loss of ultrasound signal, (controlled attenuation parameter, CAP [dB/m]), indicates that the probability of hepatic steatosis is: high. Gurpreet Carolina MD The following criteria are used to indicate the probability of advanced (stage 3-4) fibrosis: < 7.0 kPa: low 7.0-8.9 kPa: low to moderate 9.0-14.9 kPa: moderate 15-20 kPa: high > 20 kPa: very high Liver stiffness > 20 kPa is also associated with a high probability of complications of portal hypertension including varices and ascites. Liver stiffness > 50 kPa is associated with a high risk of variceal bleeding. Note: Liver stiffness is increased by factors other than fibrosis including passive congestion, infiltrative processes, active alcoholism, biliary obstruction and marked inflammation. The interpretation of the Fibroscan result provided above may not have taken such factors into account. Disease etiology also influences Fibroscan cutoff values for fibrosis stages and the following cutoffs have been proposed (Dominick et al, Clin Gastro Hepatol 2015; 13:27-36): Cutoffs for Stage 3 and Stage 4 fibrosis respectively: Hepatitis B: >9 and >11.7 kPa Hepatitis C: >9.5 and >12.5 kPa HCV-HIV: >11 and >14 kPa Cholestatic liver diseases: >10 and >17.9 kPa NAFLD/WERNER: >10 and >14 kPa CAP estimates of steatosis: normal <200 dB/m maybe present 200 to 250 dB/m moderate 250-300 dB/m substantial > 300 dB/m (Note that Fibroscan is not a quantitative measure of liver fat and the risk of NAFLD progression is unrelated to the degree of steatosis.) These criteria are estimates and may change as additional supporting data becomes available. [email or web address] Gurpreet Caban MD PROCEDURE/ MINOR SURGICAL ORDERABLES * HEPARIN PLATELET INDUCED ANTIBODY (09/22/2016 10:34 AM SECURITY SHIFT SUPERVISOR) Heparin Induced Platelet Antibody 0.355 0.000 - 0.400 OD [facility] INSURANCE BILL Blood BLOOD SPECIMEN / Unknown 09/22/2016 10:34 AM SECURITY SHIFT SUPERVISOR 09/22/2016 Narrative Resulting Agency Comment [facility] [place] [address] [facility] [id number] Lillie Quinonez MD LAB - CARD MOUNTER RY ORDERABLES Performing Organization Address City/[facility]/ZIP Co de Phone Number [facility] INSURANCE BILL [address] [place] [address] * IRON + TIBC PANEL (09/22/2016 10:34 AM SECURITY SHIFT SUPERVISOR) Only the most recent of2 resultswithin the time period is included. TIBC 394 250 - 450 ug/dL [facility] ACCOUNT BILL UIBC 289 131 - 425 ug/dL [facility] ACCOUNT BILL Iron 105 27 - 159 ug/dL [facility] ACCOUNT BILL Iron Saturation 27 15 - 55 % [facility] ACCOUNT BILL Blood specimen (specimen) BLOOD SPECIMEN / Unknown 09/22/2016 10:34 AM SECURITY SHIFT SUPERVISOR 09/22/2016 Narrative Resulting Agency Comment [facility] [place] [address] [facility] [phone] Lillie Quinonez MD LAB - CARD MOUNTER RY ORDERABLES Performing Organization Address City/[facility]/ZIP Co de Phone Number [facility] ACCOUNT BILL [address] [place] [address] * FERRITIN (09/22/2016 10:34 AM SECURITY SHIFT SUPERVISOR) Only the most recent of3 resultswithin the time period is included. Ferritin 70 10 - 291 ng/mL [facility] ACCOUNT BILL Blood specimen (specimen) BLOOD SPECIMEN / Unknown 09/22/2016 10:34 AM SECURITY SHIFT SUPERVISOR 09/22/2016 Narrative Resulting Agency Comment [place] [phone] Lillie Quinonez MD LAB - CARD MOUNTER RY ORDERABLES [facility] [address] [place] [address] * CBC W AUTO DIFFERENTIAL (CC) (09/22/2016 10:29 AM SECURITY SHIFT SUPERVISOR) Only the most recent of2 resultswithin the time period is included. WBC 4.6 4.4 - 10.7 x10E9/L 09/22/2016 10:42 AM SECURITY SHIFT SUPERVISOR SS CC LAB SC Neutrophils % 65.6 44.0 - 73.0 % 09/22/2016 10:42 AM SECURITY SHIFT SUPERVISOR [facility] CC LAB SC Lymphocytes % 24.4 20.0 - 43.0 % 09/22/2016 10:42 AM SECURITY SHIFT SUPERVISOR [facility] CC LAB SC Monocytes % 8.3 5.0 - 13.0 % 09/22/2016 10:42 AM SECURITY SHIFT SUPERVISOR [facility] CC LAB SC Eosinophils % 1.3 0.0 - 7.0 % 09/22/2016 10:42 AM SECURITY SHIFT SUPERVISOR [facility] CC LAB SC Basophils % 0.4 0.0 - 2.0 % 09/22/2016 10:42 AM SECURITY SHIFT SUPERVISOR [facility] CC LAB SC Neutrophil Absolute 3.01 2.01 - 7.14 x10E9/L 09/22/2016 10:42 AM SECURITY SHIFT SUPERVISOR [facility] CC LAB SC Lymphocytes Absolute 1.12 1.07 - 3.94 x10E9/L 09/22/2016 10:42 AM SECURITY SHIFT SUPERVISOR SS CC LAB SC Monocytes Absolute 0.38 0.26 - 1.07 x10E9/L 09/22/2016 10:42 AM SECURITY SHIFT SUPERVISOR SS CC LAB SC Eosinophils Absolute 0.06 0 - 0.47 x10E9/L 09/22/2016 10:42 AM SECURITY SHIFT SUPERVISOR SS CC LAB SC Basophils Absolute 0.02 0 - 0.08 x10E9/L 09/22/2016 10:42 AM SECURITY SHIFT SUPERVISOR SS CC LAB SC RBC 4.65 3.80 - 5.20 x10E12/L 09/22/2016 10:42 AM SECURITY SHIFT SUPERVISOR SS CC LAB SC Hemoglobin 13.7 12.0 - 15.6 gm/dL 09/22/2016 10:42 AM SECURITY SHIFT SUPERVISOR SS CC LAB SC Hematocrit 40.8 35.9 - 45.5 % 09/22/2016 10:42 AM [facility] LAB SC MCV 87.7 80.7 - 98.3 fl 09/22/2016 10:42 AM [facility] LAB AL MCH 29.5 26.7 - 34.0 pg 09/22/2016 10:42 AM [facility] LAB AL MCHC 33.6 30.8 - 35.9 gm/dL 09/22/2016 10:42 AM [facility] LAB AL RDW-CV 13.0 12.1 - 14.9 % 09/22/2016 10:42 AM [facility] LAB SC Platelet Count 268 153 - 416 x10E9/L 09/22/2016 10:42 AM [facility] LAB AL MPV 9.8 9.4 - 12.9 fl 09/22/2016 10:42 AM [facility] LAB AL Blood BLOOD SPECIMEN / Unknown 09/22/2016 10:29 AM SECURITY SHIFT SUPERVISOR 09/22/2016 10:29 AM SECURITY SHIFT SUPERVISOR Lillie Quinonez MD LAB - HEMATOL OGY ORDERABLES [facility] AL [address], [address] [place] [address], [facility] * CARDIAC RHYTHM STRIP ORDER (07/29/2016 3:35 PM CDT) Only the most recent of3 resultswithin the time period is included. Narrative 07/29/2016 3:35 PM CDT Ordered by an unspecified provider. Scanned Document CARDIAC SERVICES ORD ERABLES * (ABNORMAL) PT-INR (07/22/2016 10:10 AM CDT) Only the most recent of8 resultswithin the time period is included. PT 11.8(H) 9.5 - 11.6 sec 07/22/2016 10:39 AM CDT [facility] INR 1.2(H) 0.9 - 1.1 07/22/2016 10:39 AM CDT [facility] Blood BLOOD SPECIMEN / Unknown 07/22/2016 10:10 AM CDT 07/22/2016 10:25 AM CDT Narrative [facility] - 07/22/2016 10:39 AM CDT Conventional Warfarin Anticoagulant Therapy: INR Reference Range: 2.0-3.0 Intensive Warfarin Anticoagulant Therapy: INR Reference Range: 2.5-3.5 Lillie Quinonez MD LAB - COAGULA TION ORDERABLES [facility] [address] [address] * BASIC METABOLIC PANEL (CALCIUM TOTAL) (07/06/2016 5:57 AM CDT) Only the most recent of19 resultswithin the time period is included. [facility] Glucose 84 74 - 106 mg/dL 07/06/2016 6:42 AM CDT [facility] Sodium 142 136 - 145 mmol/L 07/06/2016 6:42 AM CDT [facility] Potassium 3.5 3.5 - 5.1 mmol/L 07/06/2016 6:42 AM CDT [facility] Chloride 105 98 - 107 mmol/L 07/06/2016 6:42 AM CDT [facility] CO2 30 22 - 31 mmol/L 07/06/2016 6:42 AM CDT [facility] Calcium 8.8 8.5 - 10.1 mg/dL 07/06/2016 6:42 AM CDT [facility] Anion Gap 7 5 - 20 mmol/L 07/06/2016 6:42 AM CDT [facility] BUN 16 7 - 21 mg/dL 07/06/2016 6:42 AM CDT [facility] Creatinine 0.86 0.50 - 1.30 mg/dL 07/06/2016 6:42 AM CDT [facility] eGFR by MDRD >60 >60 mL/min/1.7 3m2 07/06/2016 6:42 AM CDT [facility] eGFR by MDRD >60 >60 mL/min/1.7 3m2 07/06/2016 6:42 AM CDT [facility] Blood BLOOD SPECIMEN / Unknown Lab Venipuncture / Unknown 07/06/2016 5:57 AM CDT 07/06/2016 6:15 AM CDT Judy Reveles MD LAB - CHEMISTRY BARBI RAJPUT [facility] [address] [place], [place] [id number] * CARDIAC PROCEDURE ORDER (07/01/2016 7:02 PM CDT) Only the most recent of3 resultswithin the time period is included. Narrative 07/01/2016 7:02 PM CDT Ordered by an unspecified provider. Scanned Document CARDIAC SERVICES ORD ERABLES * (ABNORMAL) CBC W/O DIFFERENTIAL (06/24/2016 7:07 AM CDT) WBC 5.4 4.4 - 10.7 x10E9/L 06/24/2016 7:26 AM CDT [facility] RBC 3.10(L) 3.80 - 5.20 x10E12/L 06/24/2016 7:26 AM CDT [facility] Hemoglobin 9.1(L) 12.0 - 15.6 gm/dL 06/24/2016 7:26 AM CDT [facility] Hematocrit 28.5(L) 35.9 - 45.5 % 06/24/2016 7:26 AM CDT [facility] MCV 91.9 80.7 - 98.3 fl 06/24/2016 7:26 AM CDT [facility] MCH 29.4 26.7 - 34.0 pg 06/24/2016 7:26 AM CDT [facility] MCHC 31.9 30.8 - 35.9 gm/dL 06/24/2016 7:26 AM CDT [facility] Platelet Count 584(H) 153 - 416 x10E9/L 06/24/2016 7:26 AM CDT [facility] RDW-CV 19.0(H) 12.1 - 14.9 % 06/24/2016 7:26 AM CDT [facility] MPV 9.7 9.4 - 12.9 fl 06/24/2016 7:26 AM CDT [facility] Blood BLOOD SPECIMEN / Unknown Lab Venipuncture / Unknown 06/24/2016 7:07 AM CDT 06/24/2016 7:17 AM CDT Chele Mcginnis MD LAB - HEMATOLOG Y ORDERABLES [facility] [address] [place] [address] * (ABNORMAL) URINALYSIS ROUTINE W/REFLEX TO CULTURE (06/24/2016 12:05 AM CDT) Color UA Yellow Straw, Yellow, Dark Yellow 06/24/2016 1:20 AM CDT [facility] Clarity UA Clear 06/24/2016 1:20 AM CDT [facility] Specific [place] UA 1.015 1.005 - 1.030 06/24/2016 1:20 AM T [facility] pH UA 6.0 5.0 - 8.0 pH 06/24/2016 1:20 AM T [facility] Protein UA Negative Negative 06/24/2016 1:20 AM T [facility] Blood UA Negative Negative 06/24/2016 1:20 AM [facility] Leukocyte UA 1+(A) Negative 06/24/2016 1:20 AM [facility] Nitrite UA Negative Negative 06/24/2016 1:20 AM T [facility] Glucose UA Negative Negative 06/24/2016 1:20 AM T [facility] Ketone UA Negative Negative 06/24/2016 1:20 AM [facility] Bilirubin UA Negative Negative 06/24/2016 1:20 AM [facility] Urobilinogen UA 1.0 0.1 - 1.0 EU/dL 06/24/2016 1:20 AM [facility] WBC UA Auto 20-50(A) 0-2, 2-5 # /hpf 06/24/2016 1:20 AM [facility] RBC UA Auto 2-5 0-2, 2-5 # /hpf 06/24/2016 1:20 AM T [facility] Epithelial Cell UA Auto 0-2 0-2, 2-5 # /hpf 06/24/2016 1:20 AM [facility] Reflex Status Culture to follow 06/24/2016 1:20 AM [facility] Urine URINE SPECIMEN OBTAINED BY CLEAN CATCH PROCEDURE / Unknown Collection / Unknown 06/24/2016 12:05 AM CDT 06/24/2016 1:08 AM CDT Chele Mcginnis MD LAB - URINALYSI S ORDERABLES [facility] [address] [place] [address] * (ABNORMAL) CULTURE URINE (06/24/2016 12:05 AM CDT) Only the most recent of3 resultswithin the time period is included. [facility] Culture 50,000-100,000 CFU/mL Escherichia coli(A) MAIK 06/26/2016 6:10 AM CDT [facility] Culture <10,000 CFU/mL urogenital chiki MAIK 06/26/2016 6:10 AM CDT [facility] Urine URINE SPECIMEN OBTAINED BY CLEAN CATCH PROCEDURE / Unknown Collection / Unknown 06/24/2016 12:05 AM CDT 06/24/2016 1:08 AM CDT Narrative Organism Antibiotic Method Susceptibility Escherichia coli Amikacin MAIK <=2 ug/mL: Susceptible Escherichia coli Ampicillin MAIK <=2 ug/mL: Susceptible Escherichia coli Ampicillin-sulbactam MAIK <=2 ug/mL: Susceptible Escherichia coli Cefazolin MAIK <=4 ug/mL: Susceptible Escherichia coli Cefepime MAIK <=1 ug/mL: Susceptible Escherichia coli Ceftriaxone MAIK <=1 ug/mL: Susceptible Escherichia coli Ciprofloxacin MAIK <=0.25 ug/mL: Susceptible Escherichia coli Extended-Spectrum Beta-Lactamase MAIK NEG ug/mL: - Escherichia coli Gentamicin MAIK <=1 ug/mL: Susceptible Escherichia coli Meropenem MAIK <=0.25 ug/mL: Susceptible Escherichia coli Nitrofurantoin MAIK <=16 ug/mL: Susceptible Escherichia coli Piperacillin-tazobactam MAIK <=4 ug/mL: Susceptible Escherichia coli Tobramycin MAIK <=1 ug/mL: Susceptible Escherichia coli Trimethoprim-sulfamethoxazole MAIK <=20 ug/mL: Susceptible Chele Mcginnis MD LAB - MICROBIOL OGY ORDERABLES [facility]CRO[facility] [address] [place] [address] [phone] * (ABNORMAL) GLUCOSE - POINT OF CARE (06/23/2016 12:18 PM CDT) Only the most recent of145 resultswithin the time period is included. Glucose WB/POC 185(H) 70 - 106 mg/dL 06/23/2016 12:24 PM CDT [facility] Blood BLOOD SPECIMEN / Unknown 06/23/2016 12:18 PM CDT 06/23/2016 12:24 PM CDT Narrative [facility] - 06/23/2016 12:24 PM CDT GLYCEMIC PROTOCOL Stas Louise MD LAB - POINT OF CARE ORDERABLES Performing Organization Address City/[facility]/ZIP Co de Phone Number [facility] [address] [place] [address] * (ABNORMAL) PT PTT PANEL (06/23/2016 4:20 AM CDT) Only the most recent of15 resultswithin the time period is included. PT 23.1(H) 9.5 - 11.6 sec 06/23/2016 4:53 AM CDT [facility] INR 2.4(H) 0.9 - 1.1 06/23/2016 4:53 AM CDT [facility] PTT 26.7 21.0 - 32.0 sec 06/23/2016 4:53 AM CDT [facility] Blood BLOOD SPECIMEN / Unknown Lab Venipuncture / Unknown 06/23/2016 4:20 AM CDT 06/23/2016 4:34 AM CDT Narrative [facility] - 06/23/2016 4:53 AM CDT Conventional Warfarin Anticoagulant Therapy: INR Reference Range: 2.0-3.0 Intensive Warfarin Anticoagulant Therapy: INR Reference Range: 2.5-3.5 Heparin Therapeutic Range for PTT: 47.7 - 68.6 seconds. Pal Anderson MD LAB - COAGULATION OR DERABLES Performing Organization Address City/[facility]/ZIP Co de Phone Number [facility] [address] [place] [address] * (ABNORMAL) CBC W AUTO DIFFERENTIAL (06/22/2016 3:15 AM CDT) Only the most recent of23 resultswithin the time period is included. WBC 6.3 4.4 - 10.7 x10E9/L 06/22/2016 4:27 AM CDT [facility] WBC Corrected x10E9/L 06/22/2016 4:27 AM CDT [facility] RBC 2.72(L) 3.80 - 5.20 x10E12/L 06/22/2016 4:27 AM [facility] Hemoglobin 7.8(L) 12.0 - 15.6 gm/dL 06/22/2016 4:27 AM CDT [facility] Hematocrit 24.5(L) 35.9 - 45.5 % 06/22/2016 4:27 AM CDT [facility] MCV 90.1 80.7 - 98.3 fl 06/22/2016 4:27 AM [facility] MCH 28.7 26.7 - 34.0 pg 06/22/2016 4:27 AM [facility] MCHC 31.8 30.8 - 35.9 gm/dL 06/22/2016 4:[address] [facility] Platelet Count 387 153 - 416 x10E9/L 06/22/2016 4:[address] [facility] RDW-CV 18.5(H) 12.1 - 14.9 % 06/22/2016 4:27 AM [facility] MPV 10.5 9.4 - 12.9 fl 06/22/2016 4:[address] [facility] Neutrophils % 66.1 44.0 - 73.0 % 06/22/2016 4:27 AM [facility] Lymphocytes % 20.1 20.0 - 43.0 % 06/22/2016 4:27 AM [facility] Monocytes % 8.5 5.0 - 13.0 % 06/22/2016 4:27 AM CDT [facility] Eosinophils % 2.4 0.0 - 6.0 % 06/22/2016 4:27 AM CDT [facility] Basophils % 0.5 0.0 - 2.0 % 06/22/2016 4:27 AM [facility] Immature Granulocytes 2.4(H) 0 - 1 % 06/22/2016 4:27 AM CDT [facility] Neutrophil Absolute 4.15 2.01 - 7.14 x10E9/L 06/22/2016 4:27 AM CDT [facility] Lymphocytes Absolute 1.26 1.07 - 3.94 x10E9/L 06/22/2016 4:27 AM CDT [facility] Monocytes Absolute 0.53 0.26 - 1.07 x10E9/L 06/22/2016 4:27 AM CDT [facility] Eosinophils Absolute 0.15 0 - 0.47 x10E9/L 06/22/2016 4:27 AM CDT [facility] Basophils Absolute 0.03 0 - 0.08 x10E9/L 06/22/2016 4:[address] [facility] Immature Granulocytes Absolute 0.15(H) 0.00 - 0.06 x10E9/L 06/22/2016 4:27 AM T [facility] nRBC Auto 1 /100 WBC 06/22/2016 4:[address] [facility] Blood BLOOD SPECIMEN / Unknown Lab Venipuncture / Unknown 06/22/2016 3:15 AM CDT 06/22/2016 4:16 AM CDT Vipul Acuna MD LAB - HEMATOLOGY OR DERABLES Performing Organization Address City/State/[facility] Co de Phone Number [facility] [address] [place] [address] * (ABNORMAL) DIFFERENTIAL MANUAL (06/21/2016 2:08 AM CDT) Only the most recent of11 resultswithin the time period is included. WBC Auto 6.5 x10E9/L 06/21/2016 6:43 AM CDT [facility] WBC Corrected 4.4 - 10.7 x10E9/L 06/21/2016 6:43 AM CDT [facility] nRBC 1 /100 WBC 06/21/2016 6:43 AM CDT [facility] Neutrophil % Manual 72 44 - 73 % 06/21/2016 6:43 AM CDT [facility] Lymphocytes % Manual 16(L) 20 - 43 % 06/21/2016 6:43 AM T [facility] Monocytes % Manual 7 5 - 13 % 06/21/2016 6:43 AM CDT [facility] Eosinophils % Manual 3 0 - 6 % 06/21/2016 6:43 AM CDT [facility] Band % Manual 1 0 - 11 % 06/21/2016 6:43 AM CDT [facility] [place]hin Manual 1(H) <=0 % 06/21/2016 6:43 AM CDT [facility] Cells Counted 100 # cells 06/21/2016 6:43 AM CDT [facility] WBC Morph Normal 06/21/2016 6:43 AM CDT [facility] Anisocytosis 2+(A) None 06/21/2016 6:43 AM CDT [facility] Polychromasia 1+(A) None 06/21/2016 6:43 AM CDT [facility] Platelet Estimation Normal 06/21/2016 6:43 AM CDT [facility] Blood BLOOD SPECIMEN / Unknown 06/21/2016 2:08 AM CDT 06/21/2016 2:26 AM CDT Vipul Acuna MD LAB - HEMATOLOGY OR DERABLES Performing Organization Address City/[facility]/ZIP Co de Phone Number [facility] [address] [place] [address] * MAGNESIUM BLOOD (06/21/2016 2:08 AM CDT) Only the most recent of14 resultswithin the time period is included. Magnesium 2.0 1.6 - 2.6 mg/dL 06/21/2016 2:42 AM CDT [facility] Blood BLOOD SPECIMEN / Unknown 06/21/2016 2:08 AM CDT 06/21/2016 2:26 AM CDT Eun Hernandez MD LAB - CHEMISTRY ORDE RABLES Performing Organization Address City/[facility]/ZIP Co de Phone Number [facility] [address] [place] [address] * (ABNORMAL) PTT (06/20/2016 11:04 AM CDT) Only the most recent of14 resultswithin the time period is included. PTT 52.1(H) 21.0 - 32.0 sec 06/20/2016 11:27 AM CDT [facility] Blood BLOOD SPECIMEN / Unknown Venipuncture / Unknown 06/20/2016 11:04 AM CDT 06/20/2016 11:14 AM CDT Narrative [facility] - 06/20/2016 11:27 AM CDT Heparin Therapeutic Range for PTT: 47.7 - 68.6 seconds. Vipul Acuna MD LAB - COAGULATION O RDERABLES [facility] [address] [place] [id number] * VAS RIGHT VENOUS DUPLEX LE (06/20/2016 9:59 AM CDT) Anatomical Region Laterality Modality Ultrasound 06/20/2016 9:24 AM CDT Narrative Procedure Note Analia Kong MD - 06/20/[address] [address] Lower Extremity Venous Ultrasound Report Pat.Name: TRACEY REGLACUBA Fink.ID: [id number] .Date: 06/20/2016 Exam Time: 9:24:00 AM Study Type:LE Venous Age: 12 1955,60Y Sex: FEMALE Sonogrphr: Dania Platt RVT Pat. Stat.:Inpatient Room: [facility] Reason for Study:follow up GSV History / Clinical:Hypertension, Diabetes Procedures:Lower Extremity Venous - Right Visit ID: [id number] SUMMARY: Non-occlusive venous thrombosis involving the right greater saphenous vein. No evidence of deep venous thrombosis. FINDINGS: Procedure: Venous duplex imaging of the right lower extremity was performed using color flow and spectral Doppler analysis. Study Quality: Technically difficult exam due to body habitus. Rt Leg: There is a non-occlusive age-inderminate echogenic material is noted in the right greater saphenous vein. All other vessels seen appear patent and compressible. There was spontaneous and phasic flow seen in all other major veins of the right lower extremity. Appropriate augmentation with distal compression. Comments: No new obvious acute DVT seen. Technologist findings were given to CHAIM Cisneros. Signed 06/20/2016 11:12 AM Analia Kong Lillie Quinonez MD VASCULAR LAB ORDERABLES * FIBRINOGEN ACTIVITY (06/20/2016 4:21 AM CDT) Pathologist [facility] Fibrinogen 379 200 - 400 mg/dL 06/20/2016 4:48 AM CDT [facility] Blood BLOOD SPECIMEN / Unknown Line Draw / Unknown 06/20/2016 4:21 AM CDT 06/20/2016 4:28 AM CDT Lillie Quinonez MD LAB - COAGULA TION ORDERABLES [facility] [address] [place] [address] * (ABNORMAL) HEPARIN PLATELET INDUCED ANTIBODY W/ RFLX (06/19/2016 10:36 AM CDT) Pathologist [facility] Heparin Induced Platelet Antibody 2.268(H) 0.000 - 0.400 OD 06/24/2016 11:17 AM CDT [facility] ([facility]) Blood specimen (specimen) BLOOD SPECIMEN / Unknown Venipuncture / Unknown 06/19/2016 10:36 AM CDT 06/19/2016 10:53 AM CDT Narrative [facility] ([facility]) - 06/24/2016 11:17 AM CDT Performed at: [address] [place] [id number] Aircraft Instrument Repairer: Artie Bella MD, Phone: [phone] Vipul Acuna MD LAB - SEROLOGY BARBI RAJPUT Performing Organization Address [facility] Co de Phone Number [facility] ([facility]) [address] [place] [address] * SEROTONIN RELEASE ASSAY PANEL (06/19/2016 10:36 AM CDT) [facility] Low Dose Heparain 14 0 - 20 % 06/24/2016 11:17 AM CDT [facility] ([facility]) [facility] High Dose Heparin 16 0 - 20 % 06/24/2016 11:17 AM CDT [facility] ([facility]) Interpretation [facility] Comment 06/24/2016 11:17 AM CDT [facility] ([facility]) Comment: [facility] Result: NEGATIVE COMMENT: While these results argue against a diagnosis of heparin- induced-thrombocytopenia (HIT), they do not completely exclude the diagnosis. The result should be interpreted in conjunction with other HIT assays, and the context of all the clinical information including the platelet count, the type of heparin administered, the duration of heparin exposure, previous heparin exposure and any thrombotic history. The assay measures serotonin release from donor platelets in the presence of patient's serum and heparin. A positive result requires greater than or equal to 20% release in the presence of low dose (0.2 IU/mL) heparin and inhibition of serotonin release in the presence of high dose (100 IU/mL) heparin. This test was developed and its performance characteristics determined by [facility]. It has not been cleared or approved by the Food and Drug Administration. Blood specimen (specimen) BLOOD SPECIMEN / Unknown Venipuncture / Unknown 06/19/2016 10:36 AM CDT 06/19/2016 10:53 AM CDT Narrative [facility] ([facility]) - 06/24/2016 11:17 AM CDT Performed at: [address] [place] [id number] Aircraft Instrument Repairer: Artie Bella MD, Phone: [phone] Vipul Acuna MD LAB - CHEMISTRY ORD ERAFERNANDO [facility] ([facility]) [address] [place] [address] * (ABNORMAL) POTASSIUM BLOOD (06/17/2016 4:07 AM CDT) Only the most recent of4 resultswithin the time period is included. Potassium 3.3(L) 3.5 - 5.1 mmol/L 06/17/2016 4:36 AM CDT [facility] Blood BLOOD SPECIMEN / Unknown 06/17/2016 4:07 AM CDT 06/17/2016 4:16 AM CDT Demetrio Ibarra MD LAB - CHEMISTRY BARBI RAJPUT Performing Organization Address [facility] Co de Phone Number [facility] [address] [place] [id number] * PHOSPHORUS BLOOD (06/16/2016 3:50 AM CDT) Only the most recent of12 resultswithin the time period is included. Phosphorus 2.5 2.5 - 4.9 mg/dL 06/16/2016 4:15 AM CDT [facility] Blood BLOOD SPECIMEN / Unknown 06/16/2016 3:50 AM CDT 06/16/2016 4:00 AM CDT Eun Heranndez MD LAB - CHEMISTRY BARBI RAJPUT Performing Organization Address [facility] Co de Phone Number [facility] [address], [place] [id number] * (ABNORMAL) CK BLOOD (06/16/2016 3:50 AM CDT) Only the most recent of3 resultswithin the time period is included. CK 1,030(H) 35 - 232 U/L 06/16/2016 11:36 AM CDT [facility] Blood BLOOD SPECIMEN / Unknown 06/16/2016 3:50 AM CDT 06/16/2016 4:00 AM CDT Pal Anderson MD LAB - CHEMISTRY BARBI RAJPUT Performing Organization Address [facility] Co de Phone Number [facility] [place], [place] [id number] * VANCOMYCIN LEVEL RANDOM (06/15/2016 9:03 PM CDT) Only the most recent of5 resultswithin the time period is included. Vancomycin Random 9.0 ug/mL 06/15/2016 9:29 PM CDT [facility] Blood BLOOD SPECIMEN / Unknown Line Draw / Unknown 06/15/2016 9:03 PM CDT 06/15/2016 9:13 PM CDT Narrative [facility] - 06/15/2016 9:29 PM CDT No reference range available for random Vancomycin levels. All results interpreted by ordering physician. Katarina Ortiz MD LAB - CHEMISTRY BARBI RAJPUT Performing Organization Address [facility] de Phone Number [facility] [facility] [place] [address] * VAS VENOUS DUPLEX LE BILATERAL (06/15/2016 11:47 AM CDT) Anatomical Region Laterality Modality Ultrasound 06/15/2016 11:1 4 AM CDT Narrative Procedure Note Brad Rodriguez MD - 06/15/[address] [id number] Lower Extremity Venous Ultrasound Report Pat.Name: TRACEY REGLAPRINCESS Fink.ID: [id number] .Date: 06/15/2016 Exam Time: 11:14:00 AM Study Type:LE Venous Age: 12 1955,60Y Sex: FEMALE Sonogrphr: Marleny Nick RDMS, RVT Pat. Stat.:Inpatient Room: [facility] Reason for Study:Respiratory failure, Swelling -Leg, bilateral Procedures:Lower Extremity Venous - Bilateral Visit ID: [id number] SUMMARY: Age indeterminate thrombus right saphenous vein No evidence of deep or superficial venous thrombosis of the left lower extremity. FINDINGS: Procedure: Venous duplex imaging of both lower extremities was performed using color flow and spectral Doppler analysis. Study Quality: Technically difficult exam due to body habitus. Rt Leg: There is age-indeterminate, occlusive thrombus in the greater saphenous vein. All other vessels seen appear patent and compressible. Lt Leg: All vessels seen appear patent and compressible. There was spontaneous and phasic flow seen in all major veins of the left lower extremity. Appropriate augmentation with distal compression. Comments: Technologist findings were given to CHAIM Aguayo. Signed 06/15/2016 01:35 PM Brad Rodriguez MD Pal Anderson MD VASCULAR LAB ORDERAB LES * (ABNORMAL) COMPREHENSIVE METABOLIC PANEL (06/14/2016 6:45 AM CDT) Only the most recent of11 resultswithin the time period is included. Glucose 226(H) 74 - 106 mg/dL 06/14/2016 7:[address] [facility] Sodium 146(H) 136 - 145 mmol/L 06/14/2016 7:[address] [facility] Potassium 3.4(L) 3.5 - 5.1 mmol/L 06/14/2016 7:[address] [facility] Chloride 108(H) 98 - 107 mmol/L 06/14/2016 7:[address] [facility] CO2 31 22 - 31 mmol/L 06/14/2016 7:[address] [facility] Calcium 8.2(L) 8.5 - 10.1 mg/dL 06/14/2016 7:[address] [facility] Anion Gap 7 5 - 20 mmol/L 06/14/2016 7:16 AM CDT [facility] BUN 32(H) 7 - 21 mg/dL 06/14/2016 7:16 AM CDT [facility] Creatinine 0.98 0.50 - 1.30 mg/dL 06/14/2016 7:16 AM T [facility] Alkaline Phosphatase 122 38 - 126 U/L 06/14/2016 7:16 AM T [facility] ALT 161(H) 13 - 61 U/L 06/14/2016 7:16 AM T [facility] Comment:See reference range update AST 129(H) 5 - 40 U/L 06/14/2016 7:16 AM T [facility] Protein Total 6.6 6.4 - 8.2 gm/dL 06/14/2016 7:16 AM T [facility] Albumin 2.6(L) 3.4 - 5.0 gm/dL 06/14/2016 7:16 AM T [facility] Bilirubin Total 0.7 0.2 - 1.0 mg/dL 06/14/2016 7:[address] [facility] eGFR by MDRD 58(L) >60 mL/min/1.7 3m2 06/14/2016 7:[address] [facility] eGFR by MDRD >60 >60 mL/min/1.7 3m2 06/14/2016 7:16 AM T [facility] Blood BLOOD SPECIMEN / Unknown Venipuncture / Unknown 06/14/2016 6:45 AM CDT 06/14/2016 6:51 AM CDT Katarina Ortiz MD LAB - CHEMISTRY BARBI RAJPUT [facility] Organization Address City/State/ZIP Co de Phone Number [facility] [address] [place] [address] * XR CHEST 1VW PORTABLE (06/14/2016 5:34 AM CDT) Only the most recent of7 resultswithin the time period is included. Anatomical Region Laterality Modality Chest Radiographic Sherita ging 06/14/2016 7:18 AM CDT Impressions 06/14/2016 7:33 AM CDT No significant change. Edited by Francoise Sandra on 06/14/2016 7:30 AM Narrative 06/14/2016 7:33 AM CDT CHEST AP PORTABLE INDICATION: Acute respiratory failure with hypoxia. FINDINGS: Frontal view of the chest compared to June 11, 2016 shows nasogastric tube with normal course into the stomach. Left PICC line in the superior vena cava. There is cardiomegaly. Endotracheal tube is still present. No consolidation, pleural effusion or pneumothorax is seen. Procedure Note Brad Rodriguez MD - 06/14/2016 CHEST AP PORTABLE INDICATION: Acute respiratory failure with hypoxia. FINDINGS: Frontal view of the chest compared to June 11, 2016 shows nasogastric tube with normal course into the stomach. Left PICC line in the superior vena cava. There is cardiomegaly. Endotracheal tube is still present. No consolidation, pleural effusion or pneumothorax is seen. IMPRESSION No significant change. Edited by Francoise Sandra on 06/14/2016 7:30 AM Stalin Estevez MD DIAGNOSTIC IMAGING O RDERABLES * (ABNORMAL) BLOOD GASES ART (06/14/2016 3:18 AM CDT) Only the most recent of11 resultswithin the time period is included. pH Arterial 7.52(H) 7.35 - 7.45 pH 06/14/2016 3:31 AM CDT [facility] pCO2 Arterial 37 35 - 45 mm hg 06/14/2016 3:31 AM CDT [facility] pO2 Arterial 460(H) 80 - 100 mm hg 06/14/2016 3:31 AM CDT [facility] HCO3 Arterial 30(H) 22 - 26 mmol/L 06/14/2016 3:31 AM CDT [facility] BE Arterial 6.4(H) -2.0 - 2.0 mmol/L 06/14/2016 3:31 AM CDT [facility] O2 Saturation Arterial 99 90 - 100 % 06/14/2016 3:31 AM CDT [facility] Hemoglobin Arterial 9.2(L) 14.0 - 16.0 gm/dL 06/14/2016 3:31 AM CDT [facility] Carboxyhemoglobin Arterial 0.4 0.0 - 2.5 % 06/14/2016 3:31 AM CDT [facility] Methemoglobin Arterial 0.3 0.0 - 2.0 % 06/14/2016 3:31 AM CDT [facility] Oxyhemoglobin Arterial 98 % 06/14/2016 3:31 AM CDT [facility] O2 Content Arterial 14.0 % 06/14/2016 3:31 AM CDT [facility] Mode APVcmv 06/14/2016 3:31 AM CDT [facility] FI O2 100 % 06/14/2016 3:31 AM CDT [facility] Tidal Volume 500 mL 06/14/2016 3:31 AM CDT [facility] PEEP (cmH2O) 5.0 06/14/2016 3:31 AM CDT [facility] Respiratory Rate 15.0 06/14/2016 3:31 AM CDT [facility] Sample Site L Radial 06/14/2016 3:31 AM CDT [facility] Sample Type Arterial 06/14/2016 3:31 AM CDT [facility] [employer] ID ARTIE SPENCER 06/14/2016 3:31 AM CDT [facility] Blood ARTERIAL BLOOD SPECIMEN / Unknown 06/14/2016 3:18 AM CDT 06/14/2016 3:18 AM CDT Stalin Estevez MD LAB - BLOOD GASES OR DERABLES Performing Organization Address [facility]/ZIP Co de Phone Number [facility]P [facility]ERAPY [facility] [place] [address], [facility] * CULTURE BLOOD (06/14/2016 1:14 AM CDT) Only the most recent of3 resultswithin the time period is included. Culture No Growth Day 5 MAIK 06/19/2016 6:00 AM CDT [facility] Blood PERIPHERAL BLOOD / Unknown Lab Venipuncture / Unknown 06/14/2016 1:14 AM CDT 06/14/2016 1:32 AM CDT Stalin Estevez MD LAB - MICROBIOLOGY O RDERABLES [facility] [address] [place] [address], [facility] [phone] * (ABNORMAL) URINALYSIS ROUTINE AUTO (06/14/2016 12:19 AM CDT) Only the most recent of2 resultswithin the time period is included. Color UA Yellow Straw, Yellow, Dark Yellow 06/14/2016 1:[address] [facility] Clarity UA Cloudy 06/14/2016 1:[address] [facility] Specific [place] UA 1.020 1.005 - 1.030 06/14/2016 1:[address] [facility] pH UA 6.0 5.0 - 8.0 pH 06/14/2016 1:[address] [facility] Protein UA 2+(A) Negative 06/14/2016 1:[address] [facility] Blood UA 3+(A) Negative 06/14/2016 1:[address] [facility] Leukocyte UA 2+(A) Negative 06/14/2016 1:[address] [facility] Nitrite UA Negative Negative 06/14/2016 1:[address] [facility] Glucose UA Negative Negative 06/14/2016 1:[address] [facility] Ketone UA Negative Negative 06/14/2016 1:[address] [facility] Bilirubin UA Negative Negative 06/14/2016 1:[address] [facility] Urobilinogen UA 0.2 0.1 - 1.0 EU/dL 06/14/2016 1:[address] [facility] Urine Microscopy Urine microscopy to follow 06/14/2016 1:[address] [facility] Urine URINE SPECIMEN COLLECTION, CATHETERIZED / Unknown 06/14/2016 12:19 AM CDT 06/14/2016 1:01 AM T Stalin Estevez MD LAB - URINALYSIS ORD ERABLES [facility] [address] [place] [address] * (ABNORMAL) URINALYSIS MICROSCOPIC ONLY (06/14/2016 12:19 AM CDT) Only the most recent of2 resultswithin the time period is included. RBC UA 20-50(A) 0-2, 2-5 # /hpf 06/14/2016 2:03 AM CDT [facility] WBC UA 20-50(A) 0-2, 2-5 # /hpf 06/14/2016 2:03 AM CDT [facility] Bacteria UA 1+(A) None Seen 06/14/2016 2:03 AM CDT [facility] Epithelial Cell UA 2-5 0-2, 2-5 # /hpf 06/14/2016 2:03 AM CDT [facility] Hyaline Casts 5-10(A) 0 - 2 # /lpf 06/14/2016 2:03 AM CDT [facility] Granular Casts < 2(A) None Seen # /lpf 06/14/2016 2:03 AM CDT [facility] Urine URINE SPECIMEN COLLECTION, CATHETERIZED / Unknown 06/14/2016 12:19 AM CDT 06/14/2016 1:01 AM CDT Stalin Estevez MD LAB - URINALYSIS ORD ERABLES [facility] [address] [place], [place] [id number] * (ABNORMAL) CULTURE SPUTUM+GRAM STAIN (06/14/2016 12:18 AM CDT) Only the most recent of2 resultswithin the time period is included. Culture Heavy growth Pseudomonas aeruginosa(A) MAIK 06/16/2016 5:43 AM CDT [facility] Gram Stain Light Gram negative bacilli 06/16/2016 5:43 AM CDT [facility] Gram Stain >=100 per low power field White blood cells 06/16/2016 5:43 AM CDT [facility] Gram Stain <10 per low power field Squamous epithelial cells 06/16/2016 5:43 AM T [facility] Microbiology SPUTUM / Unknown 06/14/2016 12:18 AM CDT 06/14/2016 1:01 AM CDT Narrative Organism Antibiotic Method Susceptibility Pseudomonas aeruginosa Amikacin MAIK <=2 ug/mL: Susceptible Pseudomonas aeruginosa Cefepime MAIK 2 ug/mL: Susceptible Pseudomonas aeruginosa Ceftazidime MAIK 4 ug/mL: Susceptible Pseudomonas aeruginosa Ciprofloxacin MAIK <=0.25 ug/mL: Susceptible Pseudomonas aeruginosa Gentamicin MAIK <=1 ug/mL: Susceptible Pseudomonas aeruginosa Meropenem MAIK 0.5 ug/mL: Susceptible Pseudomonas aeruginosa Piperacillin-tazobactam MAIK 8 ug/mL: Susceptible Pseudomonas aeruginosa Tobramycin MAIK <=1 ug/mL: Susceptible Stalin Estevez MD LAB - MICROBIOLOGY O ALLISON Performing Organization Address [facility]/ZIP Co de Phone Number [facility] [address] [place] [address], [facility] [phone] * CULTURE VRE (06/13/2016 5:23 AM CDT) Only the most recent of2 resultswithin the time period is included. Culture Negative for VRE MAIK 06/14/2016 11:15 AM CDT [facility] Stool RECTAL SWAB / Unknown 06/13/2016 5:23 AM CDT 06/13/2016 5:25 AM CDT Demetrio Ibarra MD LAB - MICROBIOLOGY O ALLISON Performing Organization Address [facility] de Phone Number [facility] [address] [place] [address], [facility] [phone] * CULTURE MRSA (06/13/2016 5:23 AM CDT) Only the most recent of2 resultswithin the time period is included. Culture Negative for MRSA MAIK 06/14/2016 11:13 AM CDT [facility] Microbiology SPECIMEN FROM NASAL FOSSAE / Unknown 06/13/2016 5:23 AM CDT 06/13/2016 5:25 AM CDT Demetrio Ibarra MD LAB - MICROBIOLOGY O ALLISON Performing Organization Address [facility] Co de Phone Number [facility] [address] [place] [address], [facility] [phone] * TRANSFUSE RED BLOOD CELL UNIT(S) (06/12/2016 6:30 AM CDT) Angel Blackman MD NURSING - BLOOD PROD TRANSFUSION * CROSSMATCH RBC (06/12/2016 4:44 AM CDT) Unit Donor # [id number] -K 06/12/2016 3:40 PM CDT [facility] Product Code E0336 06/12/2016 3:40 PM CDT [facility] Unit Description E0336 RBC, LR, CPD>AS1 06/12/2016 3:40 PM CDT [facility] ABO Donor Type A 06/12/2016 3:40 PM CDT [facility] Rh Type Unit POS 06/12/2016 3:40 PM CDT [facility] Crossmatch Interpretation Compatible 06/12/2016 3:40 PM CDT [facility] Unit Status Transfused Unit 06/12/2016 3:40 PM CDT [facility] Blood Bank BLOOD SPECIMEN / Unknown 06/12/2016 4:44 AM CDT 06/12/2016 5:01 AM CDT Angel Blackman MD LAB - BLOOD BANK ORD GIORGIBLES Performing Organization Address City/[facility]/ZIP Co de Phone Number [facility] [address] [place], [place] [id number] [place] [address] * HEMOGLOBIN A1C (06/12/2016 3:20 AM CDT) Only the most recent of2 resultswithin the time period is included. [facility] Hemoglobin A1c 6.2 4.2 - 6.3 % 06/12/2016 4:00 AM CDT [facility] Estimated Average Glucose 131 mg/dL 06/12/2016 4:00 AM CDT [facility] Whole Blood BLOOD SPECIMEN WITH EDTA / Unknown 06/12/2016 3:20 AM CDT 06/12/2016 3:25 AM CDT Katarina Ortiz MD LAB - CHEMISTRY BARBI RAJPUT [facility] [address] [place] [address] * (ABNORMAL) IRON + TRANSFERRIN PANEL (06/11/2016 3:04 AM CDT) [facility] Iron 33(L) 50 - 170 ug/dL 06/11/2016 3:27 AM CDT [facility] Transferrin 227(L) 250 - 380 mg/dL 06/11/2016 3:27 AM CDT [facility] TIBC Calculated 284 240 - 450 mg/dL 06/11/2016 3:27 AM CDT [facility] Iron Saturation % 12(L) 20 - 50 % 06/11/2016 3:27 AM CDT [facility] Blood BLOOD SPECIMEN / Unknown Line Draw / Unknown 06/11/2016 3:04 AM CDT 06/11/2016 3:08 AM CDT Eun Hernandez MD LAB - CHEMISTRY BARBI RAJPUT [facility] Organization Address City/State/ZIP Co de Phone Number [facility] [address] [address] * ECHOCARDIOGRAM 2D WITH DOPPLER (06/10/2016 3:18 PM CDT) Only the most recent of3 resultswithin the time period is included. 06/10/2016 3:18 PM CDT Narrative [facility] - 06/10/2016 4:21 PM CDT Transthoracic Echocardiogram 2D, 3D, Doppler, and Color Doppler Patient: REGLA WEBB MR number: [id number] Height: Weight: BSA: Study date: 10-Jun-2016 : 1955 Age: 60 years Gender: Female Race: Reading Physician: Eliezer Driscoll MD Inspector Air Carrier: Denisse Yepez RDCS Ordering Physician: Ricardo Rivera MD Reading Physician: Eliezer Driscoll MD Summary: - Clinical question: - STEMI, Cardiogenic shock - Left ventricle: - Systolic function was mildly reduced. Ejection fraction was estimated to be 45 %. - There was hypokinesis of the basal-mid inferoseptal, basal-mid inferior, and basal-mid inferolateral wall(s). - Wall thickness was normal. - Left atrium: - The atrium was mildly dilated. - Inferior vena cava, hepatic veins: - The inferior vena cava was moderately dilated. - Pericardium: - A trivial pericardial effusion was identified posterior to the heart. Indications: STEMI, Cardiogenic shock Procedure: The procedure was performed at the bedside. This was a routine study. The transthoracic approach was used. The study included limited 2D imaging, 3D imaging, limited spectral Doppler, and color Doppler. Systolic blood pressure was 96 mmHg. Diastolic blood pressure was 73 mmHg. Image quality was good. Left ventricle: Size was normal. Systolic function was mildly reduced. Ejection fraction was estimated to be 45 %. There was hypokinesis of the basal-mid inferoseptal, basal-mid inferior, and basal-mid inferolateral wall(s). Wall thickness was normal. Aortic valve: The valve was trileaflet. Leaflets exhibited mildly increased thickness, mild calcification, and normal cuspal separation. Doppler: There was no stenosis. There was no regurgitation. Aorta: The root exhibited normal size. Mitral valve: There was mild thickening. There was normal leaflet separation. Doppler: The transmitral velocity was within the normal range. There was no evidence for stenosis. There was trivial regurgitation. Left atrium: The atrium was mildly dilated. Right ventricle: The size was normal. Systolic function was normal. Wall thickness was normal. Pulmonic valve: Leaflets exhibited normal thickness, no calcification, and normal cuspal separation. Doppler: There was no regurgitation. Pulmonary artery: The size was normal. Doppler: Systolic pressure was within the normal range. Tricuspid valve: The valve structure was normal. There was normal leaflet separation. Doppler: The transtricuspid velocity was within the normal range. There was no evidence for tricuspid stenosis. There was no regurgitation. Right atrium: Size was normal. Systemic veins: IVC: The inferior vena cava was moderately dilated. Pericardium: A trivial pericardial effusion was identified posterior to the heart. The pericardium was normal in appearance. Prepared and signed by Eliezer Driscoll MD Signed 10-Jun-2016 16:20:45 Procedure Note Shay Martins MD - 06/10/2016 Transthoracic Echocardiogram 2D, 3D, Doppler, and Color Doppler Patient: REGLA WEBB MR number: [id number] Height: Weight: BSA: Study date: 10-Jun-2016 : 1955 Age: 60 years Gender: Female Race: Reading Physician: Eliezer Driscoll MD Inspector Air Carrier: Denisse Yepez RDCS Ordering Physician: Ricardo Rivera MD Reading Physician: Eliezer Driscoll MD Summary: - Clinical question: - STEMI, Cardiogenic shock - Left ventricle: - Systolic function was mildly reduced. Ejection fraction was estimated to be 45 %. - There was hypokinesis of the basal-mid inferoseptal, basal-mid inferior, and basal-mid inferolateral wall(s). - Wall thickness was normal. - Left atrium: - The atrium was mildly dilated. - Inferior vena cava, hepatic veins: - The inferior vena cava was moderately dilated. - Pericardium: - A trivial pericardial effusion was identified posterior to the heart. Indications: STEMI, Cardiogenic shock Procedure: The procedure was performed at the bedside. This was a routine study. The transthoracic approach was used. The study included limited 2D imaging, 3D imaging, limited spectral Doppler, and color Doppler. Systolic blood pressure was 96 mmHg. Diastolic blood pressure was 73 mmHg. Image quality was good. Left ventricle: Size was normal. Systolic function was mildly reduced. Ejection fraction was estimated to be 45 %. There was hypokinesis of the basal-mid inferoseptal, basal-mid inferior, and basal-mid inferolateral wall(s). Wall thickness was normal. Aortic valve: The valve was trileaflet. Leaflets exhibited mildly increased thickness, mild calcification, and normal cuspal separation. Doppler: There was no stenosis. There was no regurgitation. Aorta: The root exhibited normal size. Mitral valve: There was mild thickening. There was normal leaflet separation. Doppler: The transmitral velocity was within the normal range. There was no evidence for stenosis. There was trivial regurgitation. Left atrium: The atrium was mildly dilated. Right ventricle: The size was normal. Systolic function was normal. Wall thickness was normal. Pulmonic valve: Leaflets exhibited normal thickness, no calcification, and normal cuspal separation. Doppler: There was no regurgitation. Pulmonary artery: The size was normal. Doppler: Systolic pressure was within the normal range. Tricuspid valve: The valve structure was normal. There was normal leaflet separation. Doppler: The transtricuspid velocity was within the normal range. There was no evidence for tricuspid stenosis. There was no regurgitation. Right atrium: Size was normal. Systemic veins: IVC: The inferior vena cava was moderately dilated. Pericardium: A trivial pericardial effusion was identified posterior to the heart. The pericardium was normal in appearance. Prepared and signed by Eliezer Driscoll MD Signed 10-Jun-2016 16:20:45 Ricardo Rivera MD ECHO ORDERABLES Performing Organization Address City/[facility]/ZIP Co de Phone Number [facility] [address] [place] [address] * (ABNORMAL) TROPONIN I (06/09/2016 11:35 PM CDT) Only the most recent of3 resultswithin the time period is included. Troponin I 64.000(HH) 0.000 - 0.049 ng/mL 06/10/2016 12:23 AM CDT [facility] Blood BLOOD SPECIMEN / Unknown 06/09/2016 11:35 PM CDT 06/09/2016 11:44 PM CDT Narrative [facility] - 06/10/2016 12:23 AM CDT Note: Diagnosis of myocardial infarction requires symptoms of ischemia or EKG changes of ischemia and Troponin I >99th of normal (0.05 ng/mL). Troponin should be drawn on initial assessment and 3-6 hours later as clinically indicated. Any condition resulting in myocardial cell damage can increase cardiac troponin levels. In addition to myocardial infarction, these include but are not limited to congestive heart failure (CHF), arrhythmia, myocarditis, and non-cardiac related causes such as pulmonary embolism, renal failure and sepsis. Stalin Estevez MD LAB - CHEMISTRY ORDE ATIYA Performing Organization Address City/[facility]/ZIP Co de Phone Number [facility] [address] [place] [address] * TYPE + SCREEN PANEL (06/09/2016 11:35 PM CDT) ABO A 06/10/2016 1:05 AM CDT [facility] Rh Type Positive 06/10/2016 1:05 AM CDT [facility] Antibody Screen Negative 06/10/2016 1:05 AM CDT [facility] Comment:History check perfor med. Retype required. Blood Bank BLOOD SPECIMEN / Unknown 06/09/2016 11:35 PM CDT 06/09/2016 11:44 PM CDT Stalin Estevez MD LAB - BLOOD BANK ORD ERABLES [facility] [address] [place] [address], [facility] [phone] * (ABNORMAL) COAGULATION PANEL W D-DIMER (06/09/2016 11:35 PM CDT) Only the most recent of2 resultswithin the time period is included. PT 10.1 9.5 - 11.6 sec 06/10/2016 12:05 AM T [facility] INR 1.0 0.9 - 1.1 06/10/2016 12:[address] [facility] PTT 25.4 21.0 - 32.0 sec 06/10/2016 12:[address] [facility] Fibrinogen 560(H) 200 - 400 mg/dL 06/10/2016 12:[address] [facility] D-Dimer 1.46(H) 0.17 - 0.5 mg/L FEU 06/10/2016 12:[address] [facility] Platelet Count 240 153 - 416 x10E9/L 06/10/2016 12:[address] [facility] Blood BLOOD SPECIMEN / Unknown 06/09/2016 11:35 PM CDT 06/09/2016 11:44 PM CDT Narrative [facility] - 06/10/2016 12:05 AM CDT Conventional Warfarin Anticoagulant Therapy INR Reference Range: 2.0-3.0 Intensive Warfarin Anticoagulant Therapy INR Reference Range: 2.5-3.5 Heparin Therapeutic Range for PTT: 47.7 - 68.6 seconds. The [employer] D-Dimer assay is intended for use as an aid in diagnosis of venous thromboembolism [(VTE): deep vein thrombosis (DVT), pulmonary embolism (PE), and disseminated intravascular coagulation (DIC)], and has received U.S. Food and Drug Administration (FDA) approval to exclude VTE in patients with low or moderate pretest probability of PE or DVT (per Wells' rules). At a clinical cut-off value 0.50 mg/L FEU, the Negative Predictive Value of this assay is 99.8% for excluding PE and 100% for excluding DVT. A very low percentage of patients with VTE may yield D-Dimer results below the cut-off value. An elevated D-Dimer result has low specificity (40.4% for PE, 35.5% for DVT) and is a poor predictor of VTE. An elevated D-Dimer result may indicate DIC in the appropriate clinical setting. Results of this test should always be interpreted in conjunction with the patient's medical history, clinical presentation, and other findings. Stalin Estevez MD LAB - COAGULATION OR DERABLES Performing Organization Address City/[facility] Co de Phone Number [facility] [address] [place] [address] * (ABNORMAL) LACTIC ACID BLOOD (06/09/2016 11:35 PM CDT) Only the most recent of3 resultswithin the time period is included. Lactic Acid 4.7(HH) 0.7 - 2.1 mmol/L 06/10/2016 12:08 AM CDT [facility] Blood BLOOD SPECIMEN / Unknown 06/09/2016 11:35 PM CDT 06/09/2016 11:44 PM CDT Stalin Estevez MD LAB - CHEMISTRY ORDE RABMATTHEW Performing Organization Address [facility] Co de Phone Number [facility] [address] [place] [address] * CARDIAC CATH - For Physician Documentation (06/09/2016 10:17 PM CDT) [facility]ative [facility] - 06/09/2016 10:17 PM CDT Ricardo Rivera MD 06/09/2016 10:17 PM POST CORONARY ANGIOGRAPHY/INTERVENTION PROCEDURE NOTE Patient Name: Regla Webb :1955 Physician Name: Ricardo Rivera MD Pre-Procedural Diagnosis: Shock, CO Procedure Performed: Right and Left Heart Cath Indications: 1.CAD Presentation - Shock, ventricular arrhythmia, ( STEMI andf cardiac arrest 2 days ago). Procedure: 1. Left heart cath 2. LV gram 3. Coronary angiography 4. Right heart cath 5. Repositioning of IABP LVgram: LVEF: 40-45%. Wall motion - inferolateral wall akinetic. Mitral regurgitation - prob mild LVEDP: 32 mmhg Coronary results: R dominant circulation a)LM - normal b)LAD - Proximal LAD stents are patent. Mild disease in mid and distal LAD c)CIRC - non-dominant. Proximal - minor disease. OM1 prox stent is patent. OM2 - stent is patent. Distal circumflex is occluded. d)RCA - dominant. Mild plaquing Right Heart Cath Results: RA - 34/33/24 mmHg RV - 67/11/26 mmHg PA - 60/34/48 mmHg PCWP - 34 mmHg LVEDP- 32 mmHg CO = 7.1 L CI = 3.1 L PA sat 66% FA = 95% Access: L FV - 7 fr LFA - 6 fr Complications: none EBL: 10 cc Tissue removed/specimens: No specimen Assessment: Recent inferolateral STEMI complicated with cardiac arrest and hypotension Shock Hemopericardium Patent OM1 and OM2 stents Mild-moderately decreased LV systolic function Severely elevated R and L heart pressures. Repositioning of IABP (IABP was way down in the abdominal aorta) Plan: Will avoid IV heparin secondary to hemopericardium Decided to avoid Impella LV assist device secondary to same reason. Patient appeared to be fluid overloaded and her severely elevated L and R heart pressures appeared to be related to this at least to some extent. Cautious diuresis. prob will need ultrafiltration. Discussed w CVTS and transport aircrewman. Repeat echo in 24 hours VT - needs electrolyte balance Continue IV amiodarone now Ricardo Rivera MD [facility] Interventional Cardiology [facility] Heart cresco Office Shay Maritns MD CARDIAC SERVI RAN ORDERABLES [facility] * CARDIAC CATH CONSULT - For Epic Reporting (06/09/2016 10:17 PM CDT) Only the most recent of3 resultswithin the time period is included. Narrative [facility] - 06/09/2016 10:17 PM CDT Ricardo Rivera MD 06/09/2016 10:17 PM POST CORONARY ANGIOGRAPHY/INTERVENTION PROCEDURE NOTE Patient Name: Regla Webb :1955 Physician Name: Ricadro Rivera MD Pre-Procedural Diagnosis: Shock, CO Procedure Performed: Right and Left Heart Cath Indications: 1.CAD Presentation - Shock, ventricular arrhythmia, ( STEMI andf cardiac arrest 2 days ago). Procedure: 1. Left heart cath 2. LV gram 3. Coronary angiography 4. Right heart cath 5. Repositioning of IABP LVgram: LVEF: 40-45%. Wall motion - inferolateral wall akinetic. Mitral regurgitation - prob mild LVEDP: 32 mmhg Coronary results: R dominant circulation a)LM - normal b)LAD - Proximal LAD stents are patent. Mild disease in mid and distal LAD c)CIRC - non-dominant. Proximal - minor disease. OM1 prox stent is patent. OM2 - stent is patent. Distal circumflex is occluded. d)RCA - dominant. Mild plaquing Right Heart Cath Results: RA - 34/33/24 mmHg RV - 67/11/26 mmHg PA - 60/34/48 mmHg PCWP - 34 mmHg LVEDP- 32 mmHg CO = 7.1 L CI = 3.1 L PA sat 66% FA = 95% Access: L FV - 7 fr LFA - 6 fr Complications: none EBL: 10 cc Tissue removed/specimens: No specimen Assessment: Recent inferolateral STEMI complicated with cardiac arrest and hypotension Shock Hemopericardium Patent OM1 and OM2 stents Mild-moderately decreased LV systolic function Severely elevated R and L heart pressures. Repositioning of IABP (IABP was way down in the abdominal aorta) Plan: Will avoid IV heparin secondary to hemopericardium Decided to avoid Impella LV assist device secondary to same reason. Patient appeared to be fluid overloaded and her severely elevated L and R heart pressures appeared to be related to this at least to some extent. Cautious diuresis. prob will need ultrafiltration. Discussed w CVTS and transport aircrewman. Repeat echo in 24 hours VT - needs electrolyte balance Continue IV amiodarone now Ricardo Rivera MD [facility] Interventional Cardiology [facility] Heart institute Office Shay Martins MD ECHO ORDERABL ES [facility] [address] [place] [address] * EKG 12-LEAD (06/09/2016 6:23 PM CDT) Only the most recent of3 resultswithin the time period is included. [facility] Ventricular Rate 114 BPM [facility] Atrial Rate 114 BPM [facility] QRS Duration ms 64 ms [facility] Q-T Interval ms 202 ms [facility] QTC Calculation (Bezet) 278 ms [facility]USE Calculated R [place] 4 degrees [facility]USE Calculated T [place] 84 degrees [facility] Interpretation EKG Undetermined rhythm , probably sinus tach vs junctional Low voltage QRS ST elevation consider inferior injury or acute infarct * ACUTE CO Consider right ventricular involvement in acute inferior infarct Abnormal ECG When compared with ECG of 09-JUN-2016 18:22, (Unconfirmed) Nonspecific T wave abnormality has replaced inverted T waves in Inferior leads Nonspecific T wave abnormality has replaced inverted T waves in Lateral leads Confirmed by MD STEPHANIE, LUIS Herrmann ([id number]) on 06/13/2016 8:46:11 AM [facility] 06/09/2016 6:23 PM CDT 06/13/2016 8:46 AM CDT Barbie Wallis MD ECG ORDERABLES [facility] * BLOOD TYPE VERIFICATION (06/09/2016 12:33 PM CDT) Pathologist [facility] ABO A 06/10/2016 1:34 AM CDT [facility] Rh Type Positive 06/10/2016 1:34 AM CDT [facility] Blood Bank BLOOD SPECIMEN / Unknown 06/09/2016 12:33 PM CDT 06/10/2016 1:09 AM CDT Barbie Wallis MD LAB - BLOOD BANK ORDERABLES [facility] [id number] [phone] * (ABNORMAL) TRIGLYCERIDES BLOOD (06/09/2016 5:23 AM CDT) Pathologist [facility] Triglycerides 459(H) <150 mg/dL 06/09/2016 6:01 AM CDT [facility] Blood BLOOD SPECIMEN / Unknown 06/09/2016 5:23 AM CDT 06/09/2016 5:27 AM CDT Katarina Ortiz MD LAB - CHEMISTRY BARBI Hughes Organization Address City/State/ZIP Co de Phone Number [facility] [address] [address] * (ABNORMAL) BLOOD GASES CHASITY (06/08/2016 3:03 AM CDT) pH Venous 7.08(LL) 7.32 - 7.42 pH 06/08/2016 3:35 AM CDT [facility] pCO2 Venous 50 41 - 51 mm hg 06/08/2016 3:35 AM CDT [facility] pO2 Venous 32 mm hg 06/08/2016 3:35 AM CDT [facility] HCO3 Venous 14(L) 24 - 26 mmol/L 06/08/2016 3:35 AM CDT [facility] BE Venous -15.0 mmol/L 06/08/2016 3:35 AM CDT [facility] O2 Saturation Venous 45(L) >70 % 06/08/2016 3:35 AM CDT [facility] Oxyhemoglobin Venous 44 % 06/08/2016 3:35 AM CDT [facility] Hemoglobin Venous 10.5 gm/dL 06/08/2016 3:35 AM CDT [facility] Carboxyhemoglobin Venous 0.3 % 06/08/2016 3:35 AM CDT [facility] Methemoglobin Venous 0.3 % 06/08/2016 3:35 AM CDT [facility] O2 Content Venous 6.6 % 06/08/2016 3:35 AM CDT [facility] Mode APVcmv 06/08/2016 3:35 AM CDT [facility] Anthony's Test N/A 06/08/2016 3:35 AM CDT [facility] FI O2 70 % 06/08/2016 3:35 AM CDT [facility] Tidal Volume 550 mL 06/08/2016 3:35 AM CDT [facility] PEEP (cmH2O) 5.0 06/08/2016 3:35 AM CDT [facility] Respiratory Rate 18.0 06/08/2016 3:35 AM CDT [facility] Sample Site Venous Line 06/08/2016 3:35 AM CDT [facility] Sample Type Venous 06/08/2016 3:35 AM CDT [facility] Renewable [employer] Broker LEVAR BRITTJOSÉ MIGUEL 06/08/2016 3:35 AM CDT [facility] Notified Who Lili Pena RN 06/08/2016 3:35 AM CDT [facility] Notification Time 06/08/2016 03:34 06/08/2016 3:35 AM CDT [facility] Notified By Abe Britt MACHINE HEEL SPRAYER 06/08/2016 3:35 AM CDT [facility] Blood BLOOD SPECIMEN / Unknown 06/08/2016 3:03 AM CDT 06/08/2016 3:03 AM CDT Katarina Ortiz MD LAB - BLOOD GASES OR DERABLES Performing Organization Address City/State/[facility] Co de Phone Number [facility] [address] [place] [address], [facility] * ED CRITICAL CARE (06/07/2016 5:53 PM CDT) Narrative Prashanth Araiza DO - 06/07/2016 5:53 PM CDT Prashanth Araiza DO 06/07/2016 5:53 PM Provider contact with the patient: 06/07/2016 12:20 Regla Webb [id number] [facility] History Chief Complaint Patient presents with Cardiac arrest At work, went into vtach, no pulse. AED at work, shocked once at work. EMS shocked 6 times, 5 epi, 300 amiod, 150 amiod, etomidate 20, versed 5. EMS states HPI Comments: Regla Webb is a 60 y.o. female presenting to the ED with a chief complaint of cardiac arrest. HPI is limited by the patient's medical condition. HPI is obtained via EMS personnel. Patient collapsed at work. Witnessed arrest with bystander CPR. Ventricular tachycardia and pulseless on EMS arrival. EMS had administered three rounds of epinephrine, 300 of amiodarone, and 20 of etomidate prior to arrival to the ED. EMS shocked the patient 5-6 times en route. Upon EMS arrival to the ED, the patient had 40 minutes of CPR and perfusing rythm. (sinus tach alternating with wide complex tachycardia) The patient took 81 mg of aspirin this morning and has a medical history of diabetes and liver issues. PCP: Elgin Thakur MD Cardiopulmonary Resuscitation The history is provided by the EMS personnel. She came to the ER via ambulance. The patient's initial complaint was Chest Pain.The reason for the code was Cardiac Arrest.The arrest was witnessed.There was CPR initiated by bystander(s) at the scene.There was an unknown amount of downtime before CPR was initiated.Upon arrival EMS found the patient with the following conditions: Pulseless and Breathing.The night monitor indicated that the patient was in Ventricular Tachycardia prior to arrival at the Emergency Department.The following prehospital treatment was given: CPR and Combitube.The patient was given the following medications prehospital: Epinephrine and Amiodarone (etomidate).The airway was managed with Combitube.The ET tube placement was comfirmed by Auscultation.The patient's respirations were Bagged.Assessment of the patient's circulation indicated Palpable Pulse.The ECG monitor showed Ventricular Tachycardia upon arrival in the Emergency Department.The patient was not paced by the night monitor.IV access was obtained via Peripheral IV and Interosseous IV.The patient's outcome was transfered to critical care unit. Past Medical History Diagnosis Date GERD (gastroesophageal reflux disease) HTN (hypertension) Diabetes Sleep apnea Past Surgical History Procedure Laterality Date Appendectomy Cholecystectomy Endometrial ablation Liver biopsy No family history on file. History Social History Marital Status: Spouse Name: N/A Number of Children: N/A Years of Education: N/A Occupational History Not on file. Social History Main Topics Smoking status: Never Smoker Smokeless tobacco: Never Used Alcohol Use: No Drug Use: No Sexual Activity: Not on file Other Topics Concern Not on file Social History Narrative Review of Systems Review of Systems Unable to perform ROS: medical condition Physical Exam Ht 1.651 m (5' 5 ) Wt 113.399 kg (250 lb) BMI 41.60 kg/m2 Physical Exam Constitutional: She has a sickly appearance. She appears ill. HENT: Head: Normocephalic and atraumatic. Right Ear: External ear normal. Left Ear: External ear normal. Nose: Nose normal. Eyes: Right pupil is not reactive. Left pupil is not reactive. Neck: Normal range of motion. Neck supple. Cardiovascular: Tachycardia present. Pulmonary/Chest: Apnea noted. She has decreased breath sounds. Abdominal: Soft. Normal appearance. Neurological: She is unresponsive. GCS eye subscore is 1. GCS verbal subscore is 1. GCS motor subscore is 1. Skin: Skin is intact. Psychiatric: nonresponsive to verbal stimuli Nursing note and vitals reviewed. Medications No current outpatient prescriptions on file. Procedures Intubation Date/Time: 06/07/2016 12:26 PM Performed by: PRASHANTH ARAIZA Authorized by: PRASHANTH ARAIZA Consent: The procedure was performed in an emergent situation. Indications: airway protection Intubation method: direct Patient status: paralyzed (RSI) Preoxygenation: BVM Sedatives: etomidate Paralytic: succinylcholine Laryngoscope size: Mac 3 Tube size: 8.0 mm Tube type: cuffed Number of attempts: 1 Cricoid pressure: yes Cords visualized: yes Post-procedure assessment: CO2 detector Breath sounds: absent over the epigastrium and equal Cuff inflated: yes ETT to lip: 22 cm Tube secured with: ETT chávez Patient tolerance: Patient tolerated the procedure well with no immediate complications Critical Care Performed by: PRASHANTH ARAIZA Authorized by: PRASHANTH ARAIZA Total critical care time: 35 minutes Critical care time was exclusive of separately billable procedures and treating other patients. Critical care was necessary to treat or prevent imminent or life-threatening deterioration of the following conditions: cardiac failure, LEARNING DESIGN SPECIALIST failure or compromise, respiratory failure and circulatory failure. Critical care was time spent personally by me on the following activities: development of treatment plan with patient or surrogate, discussions with consultants, interpretation of cardiac output measurements, evaluation of patient's response to treatment, examination of patient, obtaining history from patient or surrogate, ordering and performing treatments and interventions, pulse oximetry, re-evaluation of patient's condition and review of old charts. ECG Interpretation Rhythm: sinus rhythm Rate: tachycardic QRS axis: normal ST Elevation: II, III, aVF, V5 and V6 T Waves: T waves normal Clinical impression: myocardial infarction Comments: Intermittent episodes of Vtach between sinus runs. ECG Rhythm Interpretation ECG Rhythm: sinus tachycardia. ECG Rate: normal. ECG Ectopy: none. ECG Blocks: none. Lab Interpretation Oxygen Saturation Interpretation The oxygen saturation level is: 100%. The patient was on 100% for the saturation measurement. Measurement frequency: Continuous. Oxygen saturation interpretation is Normal. Intervention(s) used: Intubation. Hospital Encounter on 06/07/16 TROPONIN I Result Value Ref Range Troponin I 0.148 (HH) 0.000-0.049 ng/mL TROPONIN I Result Value Ref Range Troponin I 75.800 (HH) 0.000-0.049 ng/mL CBC W AUTO DIFFERENTIAL Result Value Ref Range WBC 15.5 (H) 4.4-10.7 x10E9/L WBC Corrected x10E9/L RBC 4.72 3.80-5.20 x10E12/L Hgb 13.1 12.0-15.6 gm/dL HCT 39.1 35.9-45.5 % MCV 82.8 80.7-98.3 fl MCH 27.8 26.7-34.0 pg MCHC 33.5 30.8-35.9 gm/dL Plt Ct 365 153-416 x10E9/L RDW-CV 13.2 12.1-14.9 % MPV 10.3 9.4-12.9 fl Neutro 52.4 44.0-73.0 % Lymph 37.2 20.0-43.0 % [place] 5.0 5.0-13.0 % Eos 1.1 0.0-6.0 % Baso 0.5 0.0-2.0 % Immature Grans 3.8 (H) 0-1 % Neutro Abs 8.13 (H) 2.01-7.14 x10E9/L Lymph Abs 5.77 (H) 1.07-3.94 x10E9/L [place] Abs 0.78 0.26-1.07 x10E9/L Eosin Abs 0.17 0-0.47 x10E9/L Baso Abs 0.07 0-0.08 x10E9/L Immature Grans (Abs) 0.59 (H) 0.00-0.06 x10E9/L NRBC Auto 0 /100 WBC COMPREHENSIVE METABOLIC PANEL Result Value Ref Range Glucose 231 (H) 74-106 mg/dL Sodium 132 (L) 136-145 mmol/L Potassium 2.7 (L) 3.5-5.1 mmol/L Chloride 96 (L) 98-107 mmol/L CO2 20 (L) 22-31 mmol/L Calcium 8.6 8.5-10.1 mg/dL Anion Gap 16 5-20 mmol/L BUN 16 7-21 mg/dL Creatinine 1.20 0.50-1.30 mg/dL Alk Phos 103 38-126 U/L ALT/SGPT 59 13-61 U/L AST/SGOT 59 (H) 5-40 U/L Protein Total 7.6 6.4-8.2 gm/dL Albumin 3.8 3.4-5.0 gm/dL Bili Total 0.5 0.2-1.0 mg/dL eGFR MDRD 46 (L) >60 mL/min/1.73m2 eGFR MDRD AFR AMR 56 (L) >60 mL/min/1.73m2 BASIC METABOLIC PANEL (CALCIUM TOTAL) Result Value Ref Range Glucose 347 (H) 74-106 mg/dL Sodium 130 (L) 136-145 mmol/L Potassium 4.1 3.5-5.1 mmol/L Chloride 98 98-107 mmol/L CO2 17 (L) 22-31 mmol/L Calcium 8.3 (L) 8.5-10.1 mg/dL Anion Gap 15 5-20 mmol/L BUN 20 7-21 mg/dL Creatinine 1.23 0.50-1.30 mg/dL eGFR MDRD 45 (L) >60 mL/min/1.73m2 eGFR MDRD AFR AMR 54 (L) >60 mL/min/1.73m2 CBC W AUTO DIFFERENTIAL Result Value Ref Range WBC 19.6 (H) 4.4-10.7 x10E9/L WBC Corrected x10E9/L RBC 4.43 3.80-5.20 x10E12/L Hgb 12.1 12.0-15.6 gm/dL HCT 36.7 35.9-45.5 % MCV 82.8 80.7-98.3 fl MCH 27.3 26.7-34.0 pg MCHC 33.0 30.8-35.9 gm/dL Plt Ct 392 153-416 x10E9/L RDW-CV 13.2 12.1-14.9 % MPV 10.4 9.4-12.9 fl Neutro 83.3 (H) 44.0-73.0 % Lymph 10.6 (L) 20.0-43.0 % Ripley 4.7 (L) 5.0-13.0 % Eos 0.1 0.0-6.0 % Baso 0.2 0.0-2.0 % Immature Grans 1.1 (H) 0-1 % Neutro Abs 16.30 (H) 2.01-7.14 x10E9/L Lymph Abs 2.08 1.07-3.94 x10E9/L [place] Abs 0.92 0.26-1.07 x10E9/L Eosin Abs 0.02 0-0.47 x10E9/L Baso Abs 0.04 0-0.08 x10E9/L Immature Grans (Abs) 0.21 (H) 0.00-0.06 x10E9/L NRBC Auto 0 /100 WBC LACTIC ACID BLOOD Result Value Ref Range Lactic Acid 3.8 (H) 0.7-2.1 mmol/L MAGNESIUM BLOOD Result Value Ref Range Magnesium mg/dL 1.6 1.6-2.6 mg/dL BLOOD GASES ART Result Value Ref Range pH Arterial 7.22 (L) 7.35-7.45 pH PCO2 Arterial 42 35-45 mm hg PO2 Arterial 166 (H) 80-100 mm hg HCO3 Arterial 17 (L) 22-26 mmol/L BE Arterial -10.5 (L) -2.0-2.0 mmol/L O2 Sat Arterial 98 90-100 % Hgb ART 13.3 (L) 14.0-16.0 gm/dL COHgb ART 0.4 0.0-2.5 % MetHgb ART 0.0 0.0-2.0 % O2Hgb ART 98 % O2 CONTENT ARTERIAL 18.6 % Mode APVcmv FI O2 % 100 % Tidal Volume 550 mL PEEP 5.0 Respiratory Rate 18.0 Sample Site L Radial Sample Type Arterial Renewable [employer] Broker ID ELZA DORADO PT PTT PANEL Result Value Ref Range PT 11.2 9.5-11.6 sec INR 1.1 0.9-1.1 PTT 45.4 (H) 21.0-32.0 sec PHOSPHORUS BLOOD Result Value Ref Range Phosphorus 3.6 2.5-4.9 mg/dL GLUCOSE - POINT OF CARE Result Value Ref Range Glucose WB/POC 325 (H) 70-106 mg/dL XR CHEST 1VW PORTABLE Final Result Portable Chest AP History: Acute respiratory failure. COMPARISON: None. FINDINGS: ET tube ends mid trachea, above the balbina. NG tube ends in the stomach. Bilateral perihilar patchy opacity, with greater involvement right lung. There is no pleural effusion or pneumothorax. Cardiomegaly. IMPRESSION Cardiomegaly and pulmonary edema. Progress Notes 12:18 PM: Regla Webb is a 60 y.o. female with a chief complaint of cardiac arrest. The patient arrives post arrest in ventricular tachycardia with a perfusing pulse. She is breathing on her own. EMS has administered three rounds of epinephrine, 300 of amiodarone, and 20 of Amidate. EMS shocked the patient 5-6 times en route. 12:19 PM: Ordered amiodarone in dextrose 900mg/500mL infusion. 12:23 PM: Hold CPR. Pulse checked. CPR resumed. 12:24 PM: Preparing for intubation. Ordered Anectine injection (100 mg) and Amidate injection (20 mg). 12:24 PM: Ordered 100 mg of IV lidocaine. 12:25 PM: Clear. Shock 150. CPR resumed. 12:26 PM: Epinephrine injection (1 mg) and Lidocaine 2% injection (100 mg) administered. 12:26 PM: Pulse check. 12:27 PM: Amidate injection (20 mg) and Anectine injection (100 mg) administered. 12:28 PM: Dr. Alicia, cardiology, present at bedside. He has interpreted the patient's EKG. 12:31 PM: Ordered heparin injection 4,000 units. 12:33 PM: Performed bedside cardiac ultrasound. 12:38 PM: Pressure is around 80. Preparing to take the patient to the mill labor supervisor. Dr. Machuca will perform cardiac cath. 12:40 PM: Pulse is 173. 12:41 PM: Transporting the patient to the mill labor supervisor. 12:42 PM: D/w Dr. Machuca all pertinent aspects of the case. Active cooling measures instituted in the ED with ice packs. Further cooling measures to be initiated by ICU. ED Course Medical Decision Making I have reviewed the: Previous Chart, Nursing Notes and Vitals. I have interpreted the following results: 12 Lead EKG and Oxygen Saturation. I have discussed the case with Cardiology (Dr. Alicia and Dr. Machuca). Orders Placed This Encounter ED INTUBATION ED CRITICAL CARE CULTURE VRE CULTURE MRSA XR CHEST 1VW PORTABLE XR CHEST 1VW PORTABLE TROPONIN I CBC W AUTO DIFFERENTIAL COMPREHENSIVE METABOLIC PANEL BASIC METABOLIC PANEL (CALCIUM TOTAL) CBC W AUTO DIFFERENTIAL LACTIC ACID BLOOD MAGNESIUM BLOOD BLOOD GASES ART POTASSIUM BLOOD BLOOD GASES CHASITY BLOOD GASES ART BASIC METABOLIC PANEL (CALCIUM TOTAL) CBC W AUTO DIFFERENTIAL CBC W AUTO DIFFERENTIAL PT PTT PANEL PT PTT PANEL BLOOD GASES ART PHOSPHORUS BLOOD PTT IP CONSULT TO NUTRITIONAL SERV IP CONSULT TO NUTRITIONAL SERV OXYGEN MECHANICAL VENTILATION PULSE OXIMETRY, CONTINUOUS PERFORM SPONTANEOUS BREATHING TRIAL MECHANICAL VENTILATION PULSE OXIMETRY, CONTINUOUS PERFORM SPONTANEOUS BREATHING TRIAL CARDIAC CATH - For Physician Documentation CATH: INTRA AORTIC BALLOON PUMP EKG 12-LEAD EKG 12-LEAD EKG 12-LEAD (SPECIFY TIME) EKG 12-LEAD CARDIAC CATH CONSULT - For Epic Reporting ECHOCARDIOGRAM 2D WITH DOPPLER amiodarone in dextrose 900mg/500mL infusion 0.9% NaCl infusion ADS Med EPINEPHrine (VIAL/AMPULE) 1 MG/ML (1:1000) injection lidocaine (XYLOCAINE) 2 % injection etomidate (AMIDATE) injection succinylcholine (ANECTINE) injection DISCONTD: fentaNYL (PF) (SUBLIMAZE) injection 25-100 mcg DISCONTD: midazolam (VERSED) injection 0.5-2 mg iohexol (OMNIPAQUE 350) contrast 0.9% NaCl injection 2-10 mL DISCONTD: aspirin (ASPIRIN) chew tablet 324 mg DISCONTD: nitroGLYCERIN (NITROSTAT) tablet 0.4 mg DISCONTD: acetaminophen (TYLENOL) tablet 650 mg heparin injection 4,000 Units DISCONTD: bivalirudin (ANGIOMAX) IV bolus DISCONTD: bivalirudin (ANGIOMAX) 250 mg in 0.9% NaCl infusion 0.9% NaCl infusion iodixanol (VISIPAQUE 320) injection DISCONTD: heparin injection 1,000-5,000 Units DISCONTD: DOPamine 1600 mcg/mL in dextrose 5% infusion potassium chloride 40 mEq/200 mL infusion premix tirofiban (AGGRASTAT) bolus 2,835 mcg tirofiban in saline (AGGRASTAT) 50 mcg/ml infusion norepinephrine (LEVOPHED) 8 mg/250 ml drip premix amiodarone (CORDARONE) bolus 150 mg artificial tears ophthalmic ointment propofol (DIPRIVAN) injection potassium chloride 20 meq/ 100 ml infusion calcium chloride 10 % injection 1 g DISCONTD: aspirin (ASPIRIN) chew tablet 81 mg DISCONTD: artificial tears ophthalmic ointment fentaNYL (PF) (SUBLIMAZE) 2,500 mcg in 0.9% NaCl infusion DISCONTD: aspirin (ASPIRIN) chew tablet 81 mg DISCONTD: 0.45 % NaCl infusion DISCONTD: aspirin (ASPIRIN) tablet 325 mg DISCONTD: ticagrelor (BRILINTA) tablet 180 mg DISCONTD: ticagrelor (BRILINTA) tablet 90 mg fentaNYL (SUBLIMAZE) injection 0.05 mg/mL ADS Med fentaNYL (PF) (SUBLIMAZE) injection 100 mcg aspirin (ASPIRIN) tablet 325 mg aspirin (ASPIRIN) chew tablet 81 mg ticagrelor (BRILINTA) tablet 180 mg ticagrelor (BRILINTA) tablet 90 mg atorvastatin (LIPITOR) tablet 80 mg heparin in dextrose 50 units/ml infusion heparin injection 4,000-7,000 Units pantoprazole (PROTONIX) injection 40 mg insulin regular human (humuLIN R; novoLIN R) 100 UNIT/ML 100 Units in 0.9% NaCl infusion dextrose injection 0.5-25 g magnesium sulfate 4 g in 100 mL bolus vecuronium (NORCURON) injection 10 mg Clinical Impression Final diagnoses: Cardiac arrest Acute respiratory failure with hypoxia (Primary) Cardiogenic shock Diagnosis: Encounter Diagnoses Name Primary? Cardiac arrest Acute respiratory failure with hypoxia Yes Cardiogenic shock Disposition: Admit to Dr. Machuca in the cardiac mill labor supervisor I have reviewed the information recorded by the scribe and agree with its accuracy and contents--Dr. Araiza 06/07/2016 Transcribed by Aman Lock--acting scribe on behalf of Dr. Araiza 06/07/2016 Prashanth Araiza DO PROCEDURE/MINOR SURG ICAL ORDERABLES * ED INTUBATION (06/07/2016 5:53 PM CDT) Narrative Prashanth Araiza DO - 06/07/2016 5:53 PM CDT Prashanth Araiza DO 06/07/2016 5:53 PM Provider contact with the patient: 06/07/2016 12:20 Regla Webb [id number] [facility] EM[facility]GENCY [facility]PARTMENT History Chief Complaint Patient presents with Cardiac arrest At work, went into vtach, no pulse. AED at work, shocked once at work. EMS shocked 6 times, 5 epi, 300 amiod, 150 amiod, etomidate 20, versed 5. EMS states HPI Comments: Regla Webb is a 60 y.o. female presenting to the ED with a chief complaint of cardiac arrest. HPI is limited by the patient's medical condition. HPI is obtained via EMS personnel. Patient collapsed at work. Witnessed arrest with bystander CPR. Ventricular tachycardia and pulseless on EMS arrival. EMS had administered three rounds of epinephrine, 300 of amiodarone, and 20 of etomidate prior to arrival to the ED. EMS shocked the patient 5-6 times en route. Upon EMS arrival to the ED, the patient had 40 minutes of CPR and perfusing rythm. (sinus tach alternating with wide complex tachycardia) The patient took 81 mg of aspirin this morning and has a medical history of diabetes and liver issues. PCP: Elgin Thakur MD Cardiopulmonary Resuscitation The history is provided by the EMS personnel. She came to the ER via ambulance. The patient's initial complaint was Chest Pain.The reason for the code was Cardiac Arrest.The arrest was witnessed.There was CPR initiated by bystander(s) at the scene.There was an unknown amount of downtime before CPR was initiated.Upon arrival EMS found the patient with the following conditions: Pulseless and Breathing.The night monitor indicated that the patient was in Ventricular Tachycardia prior to arrival at the Emergency Department.The following prehospital treatment was given: CPR and Combitube.The patient was given the following medications prehospital: Epinephrine and Amiodarone (etomidate).The airway was managed with Combitube.The ET tube placement was comfirmed by Auscultation.The patient's respirations were Bagged.Assessment of the patient's circulation indicated Palpable Pulse.The ECG monitor showed Ventricular Tachycardia upon arrival in the Emergency Department.The patient was not paced by the night monitor.IV access was obtained via Peripheral IV and Interosseous IV.The patient's outcome was transfered to critical care unit. Past Medical History Diagnosis Date GERD (gastroesophageal reflux disease) HTN (hypertension) Diabetes Sleep apnea Past Surgical History Procedure Laterality Date Appendectomy Cholecystectomy Endometrial ablation Liver biopsy No family history on file. History Social History Marital Status: Spouse Name: N/A Number of Children: N/A Years of Education: N/A Occupational History Not on file. Social History Main Topics Smoking status: Never Smoker Smokeless tobacco: Never Used Alcohol Use: No Drug Use: No Sexual Activity: Not on file Other Topics Concern Not on file Social History Narrative Review of Systems Review of Systems Unable to perform ROS: medical condition Physical Exam Ht 1.651 m (5' 5 ) Wt 113.399 kg (250 lb) BMI 41.60 kg/m2 Physical Exam Constitutional: She has a sickly appearance. She appears ill. HENT: Head: Normocephalic and atraumatic. Right Ear: External ear normal. Left Ear: External ear normal. Nose: Nose normal. Eyes: Right pupil is not reactive. Left pupil is not reactive. Neck: Normal range of motion. Neck supple. Cardiovascular: Tachycardia present. Pulmonary/Chest: Apnea noted. She has decreased breath sounds. Abdominal: Soft. Normal appearance. Neurological: She is unresponsive. GCS eye subscore is 1. GCS verbal subscore is 1. GCS motor subscore is 1. Skin: Skin is intact. Psychiatric: nonresponsive to verbal stimuli Nursing note and vitals reviewed. Medications No current outpatient prescriptions on file. Procedures Intubation Date/Time: 06/07/2016 12:26 PM Performed by: PRASHANTH ARAIZA Authorized by: PRASHANTH ARAIZA Consent: The procedure was performed in an emergent situation. Indications: airway protection Intubation method: direct Patient status: paralyzed (RSI) Preoxygenation: BVM Sedatives: etomidate Paralytic: succinylcholine Laryngoscope size: Mac 3 Tube size: 8.0 mm Tube type: cuffed Number of attempts: 1 Cricoid pressure: yes Cords visualized: yes Post-procedure assessment: CO2 detector Breath sounds: absent over the epigastrium and equal Cuff inflated: yes ETT to lip: 22 cm Tube secured with: ETT chávez Patient tolerance: Patient tolerated the procedure well with no immediate complications Critical Care Performed by: PRASHANTH ARAIZA Authorized by: PRASHANTH ARAIZA Total critical care time: 35 minutes Critical care time was exclusive of separately billable procedures and treating other patients. Critical care was necessary to treat or prevent imminent or life-threatening deterioration of the following conditions: cardiac failure, LEARNING DESIGN SPECIALIST failure or compromise, respiratory failure and circulatory failure. Critical care was time spent personally by me on the following activities: development of treatment plan with patient or surrogate, discussions with consultants, interpretation of cardiac output measurements, evaluation of patient's response to treatment, examination of patient, obtaining history from patient or surrogate, ordering and performing treatments and interventions, pulse oximetry, re-evaluation of patient's condition and review of old charts. ECG Interpretation Rhythm: sinus rhythm Rate: tachycardic QRS axis: normal ST Elevation: II, III, aVF, V5 and V6 T Waves: T waves normal Clinical impression: myocardial infarction Comments: Intermittent episodes of Vtach between sinus runs. ECG Rhythm Interpretation ECG Rhythm: sinus tachycardia. ECG Rate: normal. ECG Ectopy: none. ECG Blocks: none. Lab Interpretation Oxygen Saturation Interpretation The oxygen saturation level is: 100%. The patient was on 100% for the saturation measurement. Measurement frequency: Continuous. Oxygen saturation interpretation is Normal. Intervention(s) used: Intubation. Hospital Encounter on 06/07/16 TROPONIN I Result Value Ref Range Troponin I 0.148 (HH) 0.000-0.049 ng/mL TROPONIN I Result Value Ref Range Troponin I 75.800 (HH) 0.000-0.049 ng/mL CBC W AUTO DIFFERENTIAL Result Value Ref Range WBC 15.5 (H) 4.4-10.7 x10E9/L WBC Corrected x10E9/L RBC 4.72 3.80-5.20 x10E12/L Hgb 13.1 12.0-15.6 gm/dL HCT 39.1 35.9-45.5 % MCV 82.8 80.7-98.3 fl MCH 27.8 26.7-34.0 pg MCHC 33.5 30.8-35.9 gm/dL Plt Ct 365 153-416 x10E9/L RDW-CV 13.2 12.1-14.9 % MPV 10.3 9.4-12.9 fl Neutro 52.4 44.0-73.0 % Lymph 37.2 20.0-43.0 % Ripley 5.0 5.0-13.0 % Eos 1.1 0.0-6.0 % Baso 0.5 0.0-2.0 % Immature Grans 3.8 (H) 0-1 % Neutro Abs 8.13 (H) 2.01-7.14 x10E9/L Lymph Abs 5.77 (H) 1.07-3.94 x10E9/L Ripley Abs 0.78 0.26-1.07 x10E9/L Eosin Abs 0.17 0-0.47 x10E9/L Baso Abs 0.07 0-0.08 x10E9/L Immature Grans (Abs) 0.59 (H) 0.00-0.06 x10E9/L NRBC Auto 0 /100 WBC COMPREHENSIVE METABOLIC PANEL Result Value Ref Range Glucose 231 (H) 74-106 mg/dL Sodium 132 (L) 136-145 mmol/L Potassium 2.7 (L) 3.5-5.1 mmol/L Chloride 96 (L) 98-107 mmol/L CO2 20 (L) 22-31 mmol/L Calcium 8.6 8.5-10.1 mg/dL Anion Gap 16 5-20 mmol/L BUN 16 7-21 mg/dL Creatinine 1.20 0.50-1.30 mg/dL Alk Phos 103 38-126 U/L ALT/SGPT 59 13-61 U/L AST/SGOT 59 (H) 5-40 U/L Protein Total 7.6 6.4-8.2 gm/dL Albumin 3.8 3.4-5.0 gm/dL Bili Total 0.5 0.2-1.0 mg/dL eGFR MDRD 46 (L) >60 mL/min/1.73m2 eGFR MDRD AFR AMR 56 (L) >60 mL/min/1.73m2 BASIC METABOLIC PANEL (CALCIUM TOTAL) Result Value Ref Range Glucose 347 (H) 74-106 mg/dL Sodium 130 (L) 136-145 mmol/L Potassium 4.1 3.5-5.1 mmol/L Chloride 98 98-107 mmol/L CO2 17 (L) 22-31 mmol/L Calcium 8.3 (L) 8.5-10.1 mg/dL Anion Gap 15 5-20 mmol/L BUN 20 7-21 mg/dL Creatinine 1.23 0.50-1.30 mg/dL eGFR MDRD 45 (L) >60 mL/min/1.73m2 eGFR MDRD AFR AMR 54 (L) >60 mL/min/1.73m2 CBC W AUTO DIFFERENTIAL Result Value Ref Range WBC 19.6 (H) 4.4-10.7 x10E9/L WBC Corrected x10E9/L RBC 4.43 3.80-5.20 x10E12/L Hgb 12.1 12.0-15.6 gm/dL HCT 36.7 35.9-45.5 % MCV 82.8 80.7-98.3 fl MCH 27.3 26.7-34.0 pg MCHC 33.0 30.8-35.9 gm/dL Plt Ct 392 153-416 x10E9/L RDW-CV 13.2 12.1-14.9 % MPV 10.4 9.4-12.9 fl Neutro 83.3 (H) 44.0-73.0 % Lymph 10.6 (L) 20.0-43.0 % Ripley 4.7 (L) 5.0-13.0 % Eos 0.1 0.0-6.0 % Baso 0.2 0.0-2.0 % Immature Grans 1.1 (H) 0-1 % Neutro Abs 16.30 (H) 2.01-7.14 x10E9/L Lymph Abs 2.08 1.07-3.94 x10E9/L Ripley Abs 0.92 0.26-1.07 x10E9/L Eosin Abs 0.02 0-0.47 x10E9/L Baso Abs 0.04 0-0.08 x10E9/L Immature Grans (Abs) 0.21 (H) 0.00-0.06 x10E9/L NRBC Auto 0 /100 WBC LACTIC ACID BLOOD Result Value Ref Range Lactic Acid 3.8 (H) 0.7-2.1 mmol/L MAGNESIUM BLOOD Result Value Ref Range Magnesium mg/dL 1.6 1.6-2.6 mg/dL BLOOD GASES ART Result Value Ref Range pH Arterial 7.22 (L) 7.35-7.45 pH PCO2 Arterial 42 35-45 mm hg PO2 Arterial 166 (H) 80-100 mm hg HCO3 Arterial 17 (L) 22-26 mmol/L BE Arterial -10.5 (L) -2.0-2.0 mmol/L O2 Sat Arterial 98 90-100 % Hgb ART 13.3 (L) 14.0-16.0 gm/dL COHgb ART 0.4 0.0-2.5 % MetHgb ART 0.0 0.0-2.0 % O2Hgb ART 98 % O2 CONTENT ARTERIAL 18.6 % Mode APVcmv FI O2 % 100 % Tidal Volume 550 mL PEEP 5.0 Respiratory Rate 18.0 Sample Site L Radial Sample Type Arterial Renewable [employer] Broker ID ELZA DORADO PT PTT PANEL Result Value Ref Range PT 11.2 9.5-11.6 sec INR 1.1 0.9-1.1 PTT 45.4 (H) 21.0-32.0 sec PHOSPHORUS BLOOD Result Value Ref Range Phosphorus 3.6 2.5-4.9 mg/dL GLUCOSE - POINT OF CARE Result Value Ref Range Glucose WB/POC 325 (H) 70-106 mg/dL XR CHEST 1VW PORTABLE Final Result Portable Chest AP History: Acute respiratory failure. COMPARISON: None. FINDINGS: ET tube ends mid trachea, above the balbina. NG tube ends in the stomach. Bilateral perihilar patchy opacity, with greater involvement right lung. There is no pleural effusion or pneumothorax. Cardiomegaly. IMPRESSION Cardiomegaly and pulmonary edema. Progress Notes 12:18 PM: Regla Webb is a 60 y.o. female with a chief complaint of cardiac arrest. The patient arrives post arrest in ventricular tachycardia with a perfusing pulse. She is breathing on her own. EMS has administered three rounds of epinephrine, 300 of amiodarone, and 20 of Amidate. EMS shocked the patient 5-6 times en route. 12:19 PM: Ordered amiodarone in dextrose 900mg/500mL infusion. 12:23 PM: Hold CPR. Pulse checked. CPR resumed. 12:24 PM: Preparing for intubation. Ordered Anectine injection (100 mg) and Amidate injection (20 mg). 12:24 PM: Ordered 100 mg of IV lidocaine. 12:25 PM: Clear. Shock 150. CPR resumed. 12:26 PM: Epinephrine injection (1 mg) and Lidocaine 2% injection (100 mg) administered. 12: PM: Pulse check. 12:27 PM: Amidate injection (20 mg) and Anectine injection (100 mg) administered. 12:28 PM: Dr. Alicia, cardiology, present at bedside. He has interpreted the patient's EKG. 12:31 PM: Ordered heparin injection 4,000 units. 12:33 PM: Performed bedside cardiac ultrasound. 12:38 PM: Pressure is around 80. Preparing to take the patient to the mill labor supervisor. Dr. Machuca will perform cardiac cath. 12:40 PM: Pulse is 173. 12:41 PM: Transporting the patient to the mill labor supervisor. 12:42 PM: D/w Dr. Machuca all pertinent aspects of the case. Active cooling measures instituted in the ED with ice packs. Further cooling measures to be initiated by ICU. ED Course Medical Decision Making I have reviewed the: Previous Chart, Nursing Notes and Vitals. I have interpreted the following results: 12 Lead EKG and Oxygen Saturation. I have discussed the case with Cardiology (Dr. Alicia and Dr. Machuca). Orders Placed This Encounter ED INTUBATION ED CRITICAL CARE CULTURE VRE CULTURE MRSA XR CHEST 1VW PORTABLE XR CHEST 1VW PORTABLE TROPONIN I CBC W AUTO DIFFERENTIAL COMPREHENSIVE METABOLIC PANEL BASIC METABOLIC PANEL (CALCIUM TOTAL) CBC W AUTO DIFFERENTIAL LACTIC ACID BLOOD MAGNESIUM BLOOD BLOOD GASES ART POTASSIUM BLOOD BLOOD GASES CHASITY BLOOD GASES ART BASIC METABOLIC PANEL (CALCIUM TOTAL) CBC W AUTO DIFFERENTIAL CBC W AUTO DIFFERENTIAL PT PTT PANEL PT PTT PANEL BLOOD GASES ART PHOSPHORUS BLOOD PTT IP CONSULT TO NUTRITIONAL SERV IP CONSULT TO NUTRITIONAL SERV OXYGEN MECHANICAL VENTILATION PULSE OXIMETRY, CONTINUOUS PERFORM SPONTANEOUS BREATHING TRIAL MECHANICAL VENTILATION PULSE OXIMETRY, CONTINUOUS PERFORM SPONTANEOUS BREATHING TRIAL CARDIAC CATH - For Physician Documentation CATH: INTRA AORTIC BALLOON PUMP EKG 12-LEAD EKG 12-LEAD EKG 12-LEAD (SPECIFY TIME) EKG 12-LEAD CARDIAC CATH CONSULT - For Epic Reporting ECHOCARDIOGRAM 2D WITH DOPPLER amiodarone in dextrose 900mg/500mL infusion 0.9% NaCl infusion ADS Med EPINEPHrine (VIAL/AMPULE) 1 MG/ML (1:1000) injection lidocaine (XYLOCAINE) 2 % injection etomidate (AMIDATE) injection succinylcholine (ANECTINE) injection DISCONTD: fentaNYL (PF) (SUBLIMAZE) injection 25-100 mcg DISCONTD: midazolam (VERSED) injection 0.5-2 mg iohexol (OMNIPAQUE 350) contrast 0.9% NaCl injection 2-10 mL DISCONTD: aspirin (ASPIRIN) chew tablet 324 mg DISCONTD: nitroGLYCERIN (NITROSTAT) tablet 0.4 mg DISCONTD: acetaminophen (TYLENOL) tablet 650 mg heparin injection 4,000 Units DISCONTD: bivalirudin (ANGIOMAX) IV bolus DISCONTD: bivalirudin (ANGIOMAX) 250 mg in 0.9% NaCl infusion 0.9% NaCl infusion iodixanol (VISIPAQUE 320) injection DISCONTD: heparin injection 1,000-5,000 Units DISCONTD: DOPamine 1600 mcg/mL in dextrose 5% infusion potassium chloride 40 mEq/200 mL infusion premix tirofiban (AGGRASTAT) bolus 2,835 mcg tirofiban in saline (AGGRASTAT) 50 mcg/ml infusion norepinephrine (LEVOPHED) 8 mg/250 ml drip premix amiodarone (CORDARONE) bolus 150 mg artificial tears ophthalmic ointment propofol (DIPRIVAN) injection potassium chloride 20 meq/ 100 ml infusion calcium chloride 10 % injection 1 g DISCONTD: aspirin (ASPIRIN) chew tablet 81 mg DISCONTD: artificial tears ophthalmic ointment fentaNYL (PF) (SUBLIMAZE) 2,500 mcg in 0.9% NaCl infusion DISCONTD: aspirin (ASPIRIN) chew tablet 81 mg DISCONTD: 0.45 % NaCl infusion DISCONTD: aspirin (ASPIRIN) tablet 325 mg DISCONTD: ticagrelor (BRILINTA) tablet 180 mg DISCONTD: ticagrelor (BRILINTA) tablet 90 mg fentaNYL (SUBLIMAZE) injection 0.05 mg/mL ADS Med fentaNYL (PF) (SUBLIMAZE) injection 100 mcg aspirin (ASPIRIN) tablet 325 mg aspirin (ASPIRIN) chew tablet 81 mg ticagrelor (BRILINTA) tablet 180 mg ticagrelor (BRILINTA) tablet 90 mg atorvastatin (LIPITOR) tablet 80 mg heparin in dextrose 50 units/ml infusion heparin injection 4,000-7,000 Units pantoprazole (PROTONIX) injection 40 mg insulin regular human (humuLIN R; novoLIN R) 100 UNIT/ML 100 Units in 0.9% NaCl infusion dextrose injection 0.5-25 g magnesium sulfate 4 g in 100 mL bolus vecuronium (NORCURON) injection 10 mg Clinical Impression Final diagnoses: Cardiac arrest Acute respiratory failure with hypoxia (Primary) Cardiogenic shock Diagnosis: Encounter Diagnoses Name Primary? Cardiac arrest Acute respiratory failure with hypoxia Yes Cardiogenic shock Disposition: Admit to Dr. Machuca in the cardiac mill labor supervisor I have reviewed the information recorded by the scribe and agree with its accuracy and contents--Dr. Araiza 06/07/2016 Transcribed by Aman Lock--acting scribe on behalf of Dr. Araiza 06/07/2016 Prashanth Araiza DO PROCEDURE/MINOR SURG ICAL ORDERABLES * PATHOLOGY TISSUE (03/24/2015 8:46 AM CDT) Surgical Pathology Tissue CLINICAL HISTORY/PRE-OP DIAGNOSIS: Nonalcoholic steatohepatitis. Per Epic, also heterozygous alpha 1-antitrypsin deficiency. FINAL DIAGNOSIS: LIVER, BIOPSY (A): - STEATOHEPATITIS, NAFLD ACTIVITY SCORE 4/8 (SEE COMMENT) - FIBROSIS: STAGE 2 COMMENT: NAFLD score (Steatosis 1, lobular inflammation 2, and hepatocellular ballooning 1) is based on WERNER Clinical Research Network Scoring System for Nonalcoholic Fatty Liver Disease (Mary SELAM et al, Hepatology 2005; 41: 1972-1850). No significant [id number] globules are identified in this biopsy. GROSS DESCRIPTION: The specimen is received fixed in formalin in one container, labeled with the patient's name Regla Webb and liver biopsy , and consists of two soft, martini-brown cores ranging in length from 1.7 to 1.8 cm, each with a diameter of 0.1 cm. The specimen is submitted in toto as A1. MNR for AQ/edk MICROSCOPIC DESCRIPTION: Size of biopsy: Adequate Number of portal tracts: 10 Fragmentation: No Fibrosis: Stage 2 with zone 3 focal pericellular fibrosis and portal fibrosis (Trichrome A1, Reticulin A1) Fibrous septa: Focal, thin Septa with curved contours: Not identified Large droplet steatosis (% of hepatocytes): 10-20 Ballooning of hepatocytes: Present, few Jina bodies: Present, few Portal inflammation: Mild, mixed with lymphoid cells and a few eosinophils and histiocytes Interface activity: Not identified Lobular necroinflammation: Present, 2 foci/20x field Ducts: Present in normal number Duct injury: Not identified Ductular reaction: Present, focal Cholestasis: Not identified Iron stain: Negative (Iron stain A1) Ground glass cells with routine stains: Not identified PASD for [id number] droplets: Not identified (PASD stain A1) JL/AQ/aq The performance characteristics of all immunohistochemical and indirect immunofluorescence stains (if any) cited in this report were determined by the Histopathology Laboratory of [facility]. Some of these tests were developed by our own laboratory and have not been cleared or approved by the US Food and Drug Administration. The FDA does not require this test to go through premarket FDA review. These tests are used for clinical purposes. They should not be regarded as investigational or for research. This laboratory is certified under the Clinical Laboratory Improvement Amendments (CLIA) as qualified to perform high complexity clinical laboratory testing. This case has been personally reviewed and interpreted by the attending (teaching) pathologist. Final Diagnosis performed by Gisele Manzano MD. Electronically signed 03/26/2015 [facility] ([facility]) Other (qualifier value) 03/24/2015 8:46 AM CDT 03/24/2015 9:56 AM CDT Narrative [facility] ([facility]) - 03/26/2015 11:24 AM CDT PROBLEM LIST: Patient Active Problem List: WERNER (nonalcoholic steatohepatitis) Restless Leg Syndrome Anxiety Type 2 diabetes mellitus GERD (gastroesophageal reflux disease) Obesity High cholesterol Hypertension Heterozygous alpha 1-antitrypsin deficiency Depression Vitamin d deficiency PRE-OP DIAGNOSIS: WERNER OPERATIVE PROCEDURE / FINDINGS: Procedure(s): LIVER BIOPSY POST-OP DIAGNOSIS: * No post-op diagnosis entered * Collection Date->03/24/15 Collection Time-> 8:40 AM Specimen A->Liver WERNER, A1AT MZ Gurpreet Caban MD LAB - PATH OLOGY/CYTOLOGY ORDERABLES Performing Organization Address [facility] Co de Phone Number [facility] ([facility]) * (ABNORMAL) GLUCOSE ACCUCHECK (03/24/2015 7:28 AM CDT) Glucose, Fingerstick 143(H) 70-115mg/d L mg/dL [facility]) Comment:[employer]able [employer] Broker: LETTY CAGE 03/24/2015 7:28 AM CDT Gurpreet Caban MD LAB - CHEM ISTRY ORDERABLES Performing Organization Address [facility] de Phone Number [facility]) * PT-INR [facility] (02/16/2015 3:22 PM CDT) PT 12.7 12.1 - 14.8 Seconds [facility] INR 0.9 See Comment [facility] Comment: Suggested therapeutic range for low-intensity coumadin therapy for venous thromboembolism prophylaxis is an INR of 2.0-3.0. For high risk patients (Mitral Valve Prosthesis, Atrial Fibrillation, history of TIA/stroke), suggested prophylactic therapeutic range is an INR of 2.5-3.5. Blood specimen (specimen) BLOOD SPECIMEN / Unknown 02/16/2015 3:22 PM CDT 02/16/2015 3:41 PM CDT Narrative [facility] - 02/16/2015 4:09 PM CDT Is patient on Heparin, Argatroban or Dabigatran?->N Gurpreet Caban MD LAB - COAG ULATION ORDERABLES [address] [phone] * CARDIAC ECHOCARDIOGRAM COMPLETE ORDER (06/06/2011 11:11 AM CDT) Narrative 06/06/2011 11:11 AM CDT A scan was deleted from the Results section by S Interface [[id number]] on 06/06/2011 at 11:11 AM (File: [id number]) Procedure Note Document, Scanned - 06/06/2011 11:11 AM CDT Scanned Document ECHO ORDERABLES * VASCULAR LAB ORDER (06/06/2011 11:11 AM CDT) Anatomical Region Laterality Modality Other Narrative 06/05/2011 9:34 AM CDT A scan was deleted from the Results section by S Interface [[id number]] on 06/06/2011 at 11:11 AM (File: [id number]) Procedure Note Document, Scanned - 06/06/2011 11:11 AM CDT Scanned Document VASCULAR LAB ORDERAB LES * IP CONSULT TO CARDIOPULMONARY REHABILITATIO (06/02/2011 8:37 AM CDT) Mark Mirza MD INPATIENT ANCILLARY CONSULT * (ABNORMAL) LIPID PROFILE (06/02/2011 3:00 AM CDT) Only the most recent of2 resultswithin the time period is included. Cholesterol 214(H) 120.0 - 200.0 mg/dl [facility] Triglycerides 284(H) 0.0 - 250.0 mg/dl [facility] HDL Cholesterol 37(L) >40 mg/dl [facility] LDL Calculated 120.2 mg/dl [facility] Chol HDL Ratio 5.8 [facility] Comment Lipid [facility] Comment: Risk Classification HDL CHOL LDL CHOL TOTAL CHOL According to NCEP (mg/dl) (mg/dL) (mg/dl) Desirable >40 <130 < 200 Borderline/High - 130-159 200-239 High - >159 > 239 The total cholesterol to HDL cholesterol ratio may be used to predict risk for coronary heart disease in untreated patients according to data reported from the [place] Study by Artie Alba M.D. The predictive value in patients over 60 years of age is uncertain. Risk TOTAL CHOL/HDL RATIO MEN WOMEN 1/2 Average 3.43 3.27 Average 4.97 4.44 2X Average 9.55 7.05 3X Average 23.39 11.04 In Coronary Artery Disease patients, in whom nonpharmacological therapy has failed, the AHA recommends that drug therapy should be prescribed to lower LDL cholesterol to <100mg/dL. Drug therapy may be instituted in patients with HDL <35mg/dL. The reported LDL is a calculated result. For a more precise measurement, a direct LDL test is available, as necessary. BLOOD SPECIMEN / Unknown 06/02/2011 3:00 AM CDT 06/02/2011 4:22 AM CDT Mark Mirza MD LAB - CHEMISTRY BARBI RAJPUT [facility] [address] [place] [address] * LAB RESULTS ORDER (10/09/2010 12:43 PM SECURITY SHIFT SUPERVISOR) Narrative Procedure Note Document, Scanned - 10/09/2010 12:41 PM SECURITY SHIFT SUPERVISOR Scanned Document LAB - THERAPEUTIC DR KASPER MONITORING ORDERABLES * CATH: PRE-CATH/PTCA OBTAIN INFORMED CONSENT FORM FOR: (10/06/2010 8:11 AM SECURITY SHIFT SUPERVISOR) Narrative Elgin Thakur MD - 10/06/2010 8:11 AM SECURITY SHIFT SUPERVISOR ELGIN THAKUR 10/06/2010 8:11:27 AM PRE-SEDATION PHYSICIAN ASSESSMENT Date: 10/06/2010 Time: 8:10 AM Regla Webb is a 54 y.o. female Pre-procedure diagnosis: Chest Pain, Abnormal Stress Test Planned Procedure: Coronary angiography Medications, vital signs and labs results reviewed prior to procedure: Yes No Known Allergies SEDATION PLAN: moderate ASA Physical Status Classification: 1 (A normal healthy patient) Mallampati Airway Classifications I (soft palate, uvula, fauces, tonsillar pillars visible) Other indicators of a difficult intubation include: Obesity Patient airway and condition has been evaluated immediately prior to sedation and/or analgesia: Yes Procedure Note Elgin Thakur MD - 10/06/2010 8:10 AM CST PRE-SEDATION PHYSICIAN ASSESSMENT Date: 10/06/2010 Time: 8:10 AM Regla Webb is a 54 y.o. female Pre-procedure diagnosis: Chest Pain, Abnormal Stress Test Planned Procedure: Coronary angiography Medications, vital signs and labs results reviewed prior to procedure:Yes No Known Allergies SEDATION PLAN: moderate ASA Physical Status Classification: 1 (A normal healthy patient) Mallampati Airway Classifications I (soft palate, uvula, fauces, tonsillar pillars visible) Other indicators of a difficult intubation include: Obesity Patient airway and condition has been evaluated immediately prior tosedation and/or analgesia: Yes Elgin Thakur MD NURSING - COMMUNICAT ION * CARDIAC CATH ORDER (10/06/2010) Only the most recent of2 resultswithin the time period is included. 10/06/2010 Narrative Procedure Note Elgin Thakur MD - 10/06/2010 8:13 AM [facility] Cardiac Cath [facility] CARDIAC CATHETERIZATION PATIENT: REGLA WEBB MR#: [id number] ADMIT DATE: 10/06/2010 PROCEDURE DATE: 10/06/2010 : 1955 PHYSICIAN: Elgin Thakur MD ROOM: [facility]5 REFERRING PHYSICIAN: ELGIN THAKUR MD PROCEDURE: Left heart catheterization. Selective coronary angiography. Left ventriculography. HISTORY: The patient is a lady born on [birth year] who is 53 years old whocame in with complaints of chest pain. She had a stress test which showedinferior wall ischemia. She was referred for cardiac catheterization. TECHNICAL SUMMARY: After obtaining informed consent and explaining therisks and benefits of the procedure including but not limited to stroke,myocardial infarction, , urgent bypass surgery the patient wasbrought to the catheterization lab. A #5 Fr sheath was inserted in theright femoral artery without any complications. A #5 Fr JL4 catheter wasadvanced into the left coronary artery and multiple pictures were taken.This was exchanged for a #5 Fr JR4 catheter which was advanced into theright coronary artery and multiple pictures were taken. This was exchangedfor a #5 Fr pigtail that was advanced in the left ventricle. Hemodynamicswere measured and left ventriculogram was performed. Pullback wasperformed following which a femoral angiogram was performed which showedthe insertion site of the sheath was at the bifurcation. The sheath wasexchanged for a #6 Fr sheath. For final results please refer to attached diagram. CORONARY ARTERIOGRAPHY: Left coronary artery: The left main was angiographically free of stenosis. The left anteriordescending had a long 40-50% stenosis. The left circumflex is free ofdisease. The right coronary artery was the dominant vessel and had a long90% stenosis in the proximal portion. LEFT VENTRICULOGRAPHY: Left ventriculogram was performed in the standardRAO projection showed normal LV systolic function with no mitralregurgitation. The aortic pressure was 140/80 and the left ventricularpressure was 140/12. There was no aortic stenosis on pullback. IMPRESSION: 1.Two-vessel disease with a moderate lesion in the LAD and significantlesion in the right coronary artery. The patient will be scheduled forstents of this and this will be detailed in a separate report by Dr. Mirza.2.Normal left ventricular systolic function. 3.Continued aggressive risk factor modification. Thank you very much for allowing me to participate in her care. ELGIN THAKUR MD TS/KEITH #: [id number] CC: SETH PAT MD MEDICAL/SURGICAL CARDIAC CATHETERIZATION - DP Elgin Thakur MD CARDIAC TREE AND SHRUB TECHNICIAN ORD ERABLES * PATHOLOGY REPORTS - HPF HISTORICAL (08/09/2010 6:45 PM CDT) 08/09/2010 6:45 PM CDT Narrative [facility] - 08/09/2010 6:45 PM CDT Gurpreet Caban MD LAB - PATH OLOGY/CYTOLOGY ORDERABLES [facility] Care Teams Fur Blower Operator Relationship Specialty Start Date End Date Seth Pat MD [address] [place] [address] PCP - General Family Medicine 07/22/16 Abigail Abernathy, RN Registered Nurse 06/10/16 Nancy Jay, RN Registered Nurse 06/20/16 Abram Dillon MD [address] [place] [address] Gastroenterology 09/13/21
[2024-12-24 07:11] VITALS: BP 126/66; PULSE 82; RESP 18; TEMP 36.1; O2SAT 100
[2024-12-24] MEDS: LACTATED RINGERS 1,000 ML 150 ML IV CONT (07:25)
[2024-12-24 07:26] LABS: Glucose Point of Care 106 mg/dl (65-105)
--- NOTE | 2024-12-24 07:50 | PM.HPGS ---
History of Present Illness History of Present Illness Consent: Risks, benefits, and alternatives have been discussed and questions answered. Patient agrees to proceed with procedure. Chief complaint: personal hx colon polyps Narrative: Regla Kennedy is a 69 year old female with colon polyp in 2020 Review of Systems Review of Systems: All systems reviewed & are unremarkable except as noted in HPI and below PMFSH Past Medical History Medical History CAD (coronary atherosclerotic disease) CHF (congestive heart failure) Atrial fibrillation Type 2 diabetes mellitus without complications Sleep apnea with cognitive complaints Mixed hyperlipidemia Ischemic cardiomyopathy Hypertension Anxiety History of colon polyps Anticoagulant long-term use Metabolic dysfunction-associated steatohepatitis (MASH) Feeling of incomplete bladder emptying Infection caused by Enterobacter cloacae Microhematuria Frequency of micturition Dysuria Mixed anxiety depressive disorder Hypokalemia Iron deficiency anemia Hypoxic encephalopathy Family History Family History Father Hypertension Family history of liver disease Family history of diabetes mellitus in first degree relative Family history of alcoholism Family history of cardiovascular disease Sibling Family history of malignant neoplasm of brain Grandparent Family history of heart disease in male family member before age 55 Social History Social History Smoking status: Never smoker Second hand tobacco smoke exposure: Yes Alcohol intake: never Substance use: never Substance use type: does not use Do You Feel Safe in your Home?: Yes Lack of Transportation: No Lack of Food: Never True Current Housing: I Have Housing Concerned About Future Housing: No Difficulty Paying Gas/Electric Bills: No Difficulty Paying for Meds: No Currently Unemployed: No Difficulty w/ Childcare or Family Care: No Living arrangements: with family Occupation/Education: retired Gender identity (if verbalized by the patient): Female Spiritual care concerns: No Meds Home Medications and Allergies Home Medications ?Medication ?Instructions ?Recorded ?Confirmed ?Type losartan 50 mg tablet 50 mg PO DAILY 12/08/19 12/24/24 History B-complex with vitamin C 1 tablet PO DAILY 08/02/21 12/24/24 History acetaminophen 500 mg capsule 500 mg PO BID PRN Pain 08/02/21 12/09/24 History spironolactone 25 mg tablet 25 mg PO DAILY 08/02/21 12/24/24 History vitamin E mixed 400 unit capsule 400 unit PO DAILY 08/02/21 12/24/24 History cetirizine 10 mg tablet 10 mg PO DAILY PRN allergy symptoms 12/18/23 12/24/24 History inulin 2 gram chewable tablet 8 g PO .qd 12/18/23 12/09/24 History (Fiber Gummies) mupirocin 2 % topical ointment 1 applic topical BID PRN infection 12/18/23 12/09/24 Rx #22 grams ondansetron HCl 8 mg tablet 8 mg PO Q8H PRN nausea and vomiting 12/18/23 12/09/24 History triamcinolone acetonide 0.1 % 1 applic topical BID PRN infection 12/18/23 12/09/24 Rx topical ointment #30 grams omeprazole 40 mg capsule,delayed 40 mg PO DAILY #90 caps 05/21/24 12/24/24 Rx release bumetanide 2 mg tablet 2 mg PO DAILY PRN swelling 07/10/24 12/09/24 History multivitamin 1 tablet PO DAILY 07/10/24 12/09/24 History potassium chloride 10 mEq 10 meq PO BID PRN swelling 07/10/24 12/09/24 History tablet,extended release(part/cryst) blood sugar diagnostic (OneTouch #100 strips 09/23/24 12/09/24 Rx Verio test strips) semaglutide 1 mg/dose (4 mg/3 mL) 1 mg (0.75 mL) subcut WEEKLY #3 mL 10/28/24 12/24/24 Rx subcutaneous pen injector colesevelam 625 mg tablet 1,875 mg (3 x 625 mg) PO BID #540 10/30/24 12/24/24 Rx tabs dapagliflozin propanediol 5 mg 5 mg PO DAILY #30 tabs 10/30/24 12/24/24 Rx tablet (Farxiga) warfarin 3 mg tablet 3 mg PO .QD #90 tabs 10/30/24 12/24/24 Rx warfarin 4 mg tablet 4 mg PO .QD #90 tabs 10/30/24 12/24/24 Rx atorvastatin 80 mg tablet See Rx Instructions .Route 11/20/24 12/24/24 Rx .COMPLEX #90 tabs cholecalciferol (vitamin D3) 125 125 mcg PO DAILY 11/28/24 12/24/24 History mcg (5,000 unit) capsule ferrous sulfate 325 mg (65 mg 325 mg PO DAILY 11/28/24 12/09/24 History iron) tablet venlafaxine 75 mg capsule,extended 75 mg PO DAILY #90 caps 11/28/24 12/24/24 Rx release 24 hr (Effexor XR) Allergies Allergy/AdvReac Type Severity Reaction Status Date / Time heparin Allergy Severe Unknown Verified 12/09/24 11:01 lisinopril Allergy Intermediate Cough Verified 12/09/24 11:01 Vital Signs Vital Signs - 24 hr 12/24/24 07:11 Temperature 97 F L Pulse Rate 82 Respiratory Rate 18 Blood Pressure 126/66 Pulse Oximetry 100 Oxygen Delivery Room Air Exam Const: General: comfortable and no acute distress HENMT: Face/Nose/Sinus: Normal nares present Eyes: General: appearance normal, both eyes and all related structures Neck: Neck: no JVD Resp: Auscultation: clear to auscultation bilaterally Cardio: Rate: regular rate Rhythm: regular rhythm GI: Inspection: non-distended GI Palp: Yes Soft to palpation Skin: General skin exam: normal color Neuro: General: gait normal Speech: normal speech Extrem: General: normal to inspection Psych: Mental Status: mental status grossly normal Assessment and Plan Assessment and plan (1) Polyp of colon: Code(s): K63.5 - Polyp of colon Status: Acute Assessment and Plan: colonoscopy
[2024-12-24 08:19] VITALS: BP 119/61; PULSE 70; RESP 24; O2SAT 100
[2024-12-24 08:29] VITALS: BP 124/68; PULSE 67; RESP 16; O2SAT 100
[2024-12-24 08:39] VITALS: BP 138/61; PULSE 68; RESP 19; O2SAT 100
== END 2024-12-24 08:56 | disposition home or self-care (01) ==
PROVIDERS: PCP Family Medicine; Referring Provider Internal Medicine Gastroenterology; Visit Provider Internal Medicine Gastroenterology
PROC: 0DJD8ZZ Inspection of Lower Intestinal Tract, Via Natural or Artificial Opening Endoscopic (ICD-10-PCS; CPT 45378; principal; 2024-12-24 08:30)
DX: Z12.11 Encounter for screening for malignant neoplasm of colon (principal); D12.3 Benign neoplasm of transverse colon; E78.2 Mixed hyperlipidemia; I25.5 Ischemic cardiomyopathy; F41.9 Anxiety disorder, unspecified; R35.0 Frequency of micturition; E87.6 Hypokalemia; D50.9 Iron deficiency anemia, unspecified; E11.9 Type 2 diabetes mellitus without complications; G47.30 Sleep apnea, unspecified; I25.10 Atherosclerotic heart disease of native coronary artery without angina pectoris; I11.0 Hypertensive heart disease with heart failure; I50.9 Heart failure, unspecified; I48.91 Unspecified atrial fibrillation; E88.9 Metabolic disorder, unspecified; G93.1 Anoxic brain damage, not elsewhere classified; F41.8 Other specified anxiety disorders; Z79.01 Long term (current) use of anticoagulants; Z79.85 Long-term (current) use of injectable non-insulin antidiabetic drugs; Z79.84 Long term (current) use of oral hypoglycemic drugs; Z80.8 Family history of malignant neoplasm of other organs or systems; Z82.49 Family history of ischemic heart disease and other diseases of the circulatory system
CPT/HCPCS: 45385; 82948; 88305; J2003; J2704; J7120

== ENCOUNTER 2025-06-26 09:05 | Outpatient (CLI) | payer MEDICARE, SELFPAY ==
--- NOTE | ~2025-06-26 | MM_ITS ---
EXAMINATION: MM screening joan BI w calvin HISTORY: Screening TECHNIQUE: Craniocaudal and mediolateral oblique 3-D tomosynthesis images were obtained and synthetic 2-D images were generated. CAD analysis was submitted and interpreted. COMPARISON: Comparison to multiple prior studies sequentially, with oldest reviewed study dated 05/28. BREAST PARENCHYMAL COMPOSITION: Not dense: There are scattered areas of fibroglandular density. FINDINGS: There is no evidence of suspicious mass, calcification, or architectural distortion to sugg est malignancy in either breast. There has been no suspicious interval change. IMPRESSION: 1. No mammographic evidence of malignancy. 2. Recommend routine screening mammography in one year. BI-RADS Category 1: Negative Reviewed, dictated and finalized at location A.
--- OUTSIDE RECORDS SUMMARY | 2025-06-26 09:16 | XMS_ITS | Encounter Summary ---
Author Organization [facility] Health Address [address] [place] [address] Care Team Providers Care Blower Operator Name Role Phone Abigail Abernathy RN Unavailable Unavailable Nancy Jay RN Unavailable Unavailable Jose Pat MD Primary Care Provider [phone] Abram Dillon MD Unavailable [phone] Encounter Details Date Type Department Care Team (Late st Contact Info) Description 04/17/2017 [facility] Outpatient Visit [facility] [address] [place] [address] Lillie Quinonez MD [address] [facility] [address] [address] Social History Tobacco Use Types Packs/Day Years Used Date Smoking Tobacco: Never Smokeless Tobacco: Never Alcohol Use Standard Drinks/Week Comments No 0 (1 standard drink = 0.6 oz pur e alcohol) Comments Unknown Sex and Gender Information Value Date Recorded Sex Assigned at Not on file Legal Sex Female 6:12 AM MUSIC STORE MANAGER Gender Identity Not on file Sexual Orientation Not on file documented as of this encounter Functional Status * Is person deaf or have serious hearing difficulty? Answer Date of Assessment Author No 06/17/2016 1:00 AM Jenna Oliva RN * Is person blind or have serious difficulty seeing? Answer Date of Assessment Author No 06/17/2016 1:00 AM Jenna Oliva RN * Does person have serious difficulty walking/climbing stairs? Answer Date of Assessment Author Yes 06/17/2016 1:00 AM Jenna Oliva RN * Does person have difficulty dressing/bathing? Answer Date of Assessment Author Yes 06/17/2016 1:00 AM Jenna Oliva RN * Does person have difficulty doing errands alone? Answer Date of Assessment Author Yes 06/17/2016 1:00 AM Jenna Oliva RN documented as of this encounter Mental Status * Does person have difficulty concentrating/remembering/making decisions? Answer Entry Date Author Yes 06/17/2016 1:00 AM Jenna Oliva RN documented in this encounter Plan of Treatment Upcoming Encounters Date Type Department Care Team (Late st Contact Info) Description 09/15/2025 12:30 PM MUSIC STORE MANAGER Office Visit [facility] - GI [address] [place] [address], [place] [address] Gurpreet Caban MD [address] [place] [address] [place] [address] documented as of this encounter Visit Diagnoses Not on filedocumented in this encounter Care Teams Blower Operator Relationship Specialty Start Date End Date Jose Pat MD [address] [place] [address] PCP - General Family Medicine 07/22/16 Abigail Abernathy, RN Registered Nurse 06/10/16 Nancy Jay, RN Registered Nurse 06/20/16 Abram Dillon MD [address] [place] [address] Gastroenterology 09/13/21 documented as of this encounter
--- OUTSIDE RECORDS SUMMARY | 2025-06-26 09:16 | XMS_ITS | Clinical Summary ---
Author Organization [facility] Address [address] [place] [address] Care Team Providers Care Business Systems Developer Name Role Phone Abigail Abernathy RN Unavailable Unavailable Nancy Jay RN Unavailable Unavailable Jose Pat MD Primary Care Provider [phone] Abram Dillon MD Unavailable [phone] Source Comments [facility],non-owned Affiliates and Associated Physician Practices is amultiple site organization consisting of ambulatory clinics and hospital sitesin [place], [place], [place] and [place]. This disclosure is being madepursuant to the Care Everywhere program and may not contain all information available regarding this patient. Last updated 18.[facility] Allergies Active Allergy Reactions Criticality Noted Date Comments Heparin 06/19/2016 06/19/16 - suspected HIT Lisinopril Cough 06/20/2016 Medications * Be aware that medications may not be up to date on this document. Alwaysverify current medications with the patient. busPIRone (BUSPAR) 15 MG tablet Take 5 mg by mouth 2 times daily as needed 10/06/20 10 Active B Complex-Biotin- FA (B COMPLETE PO) Take by mouth. Activ [...] by mouth at bedtime 90 Tab 1 07/29/20 16 Active bumetanide (BUMEX) 2 MG tablet Take 1 Tab by mouth once daily 90 Tab 1 07/29/20 16 Active Additional Information Patient taking differently:2 mg OralDAILY PRN, PRN ankle or feet swelling, Reported on 09/16/2024 losartan (COZAAR) 50 MG tablet Take 1 Tab by mouth once daily 90 Tab 1 07/29/20 16 Active spironolactone (ALDACTONE) 25 MG tablet Take 1 Tab by mouth once daily 90 Tab 1 07/29/20 16 Active warfarin (COUMADIN) 5 MG tablet Take 8 mg by mouth once daily 7MG ON & , 8MG EVERY DAY BUT TUES & THURS 5 09/06/20 16 Active potassium chloride (KLOR-CON M) 10 MEQ [...] Inject 0.75 mg subcutaneously every 7 days 09/08/20 22 Active aspirin (Aspirin) 81 MG chew tablet 08/16/20 23 Active acetaminophen (Tylenol) 500 MG tablet Take [...] 04/12/20 18 Cardiac arrest 06/08/2016 04/12/2018 Immunizations Immunization Administration Dates Next Due CovMundi primary monoval ent 12+ yr 0.3mL Purple [...] on file Legal Sex Female 6:12 AM TRAVEL RN OR Gender Identity Not on file Sexual Orientation Not on file Last Filed Vital Signs Vital Sign Reading Time Taken Comments Blood Pressure 140/71 09/16/2024 12:53 PM TRAVEL RN OR Pulse 82 09/16/2024 12:40 PM TRAVEL RN OR Temperature 36.4 C (97.5 F) 09/18/2023 1:09 PM TRAVEL RN OR Respiratory Rate 14 09/26/2022 12:5 0 PM TRAVEL RN OR Oxygen Saturation 100% 09/16/2024 12: 40 PM TRAVEL RN OR Inhaled Oxygen Concentration 30% 06/14/2016 8 :00 AM CDT Weight 89.3 kg (196 lb 12.8 oz) 024 12:40 PM TRAVEL RN OR Height 165.1 cm (5' 5) 09/16/2024 12:4 0 PM TRAVEL RN OR Body Mass Index 32.75 09/16/2024 12:40 PM TRAVEL RN OR Plan of Treatment Upcoming Encounters Date Type Department Care Team (Late st Contact Info) Description 09/15/2025 12:30 PM TRAVEL RN OR Office Visit [facility] - GI [address] [facility] [place] [address] Gurpreet Caban MD [address] [place] [address] [place] [address] Health Maintenance Due Date Last Done Comments [...] VACCINE ( season) 2024 08/14/2021, 02/04/2021, 01/14/2021 DIABETES-SERUM CREATININE 09/13/20242022, 02/05/2019, 07/06/2016, Additional history exists DEPRESSION SCREENING 11/13/2024 DIABETES - URINE PROTEIN SCREENING 11/13/2024 INFLUENZA VACCINE (#1) 2025 08/14/2021 HEPATITIS B VACCINE Aged Out No longe r eligible based on patient's age to complete this topic HIB VACCINE Aged Out No longer eligi ble based on patient's age to complete this topic HPV VACCINE Aged Out No longer eligi ble based on patient's age to complete this topic MENINGOCOCCAL (Group B) VACCINE SHARED DECISION-MAKING Aged Out No longer eligible based on patient's age to complete this topic MENINGOCOCCAL GROUPS A/C/Y/W VACCINE Aged Out No longer eligible based on patient's age to complete this topic Goals Goal Patient Goal Type Associated Problems Recent Progress Patient-Stated? Author Medication Management General On track( 023 1:08 PM TRAVEL RN OR) Christopher Joshi, RN Note: Expected end date: Interventions: Take [...] AM CDT Historical Provider LAB - CHEMISTRY ORDERABLE S Final Result OTHER LAB * HEMOGLOBIN A1C (06/12/2016 3:20 AM CDT) Hemoglobin A1c 6.2 4.2 - 6.3 % 06/12/2016 4:00 AM CDT [facility] Estimated Average Glucose 131 mg/dL 06/12/2016 4:00 AM CDT [facility] Whole Blood BLOOD SPECIMEN WITH EDTA / Unknown 06/12/2016 3:20 AM CDT 06/12/2016 3:25 AM CDT Katarina Ortiz MD LAB - CHEMISTRY ORDERABLES F inal Result [facility] [address] [place] [address] from Last 3 Months or Most Recently Relevant to [place] [address] SELF PAY NO INSURANCE Member Subscriber Plan / Payer (Ef fective for All Dates) Name:Regla Kennedy Member ID:Not on file Relation to Subscriber:Self Name:REGLA KENNEDY Subscriber ID:Not on file Payer ID:Not on file Group ID:Not on file Type:Self Pay Address: [place], [place] MEDICARE [employer] Advance Directives Documents on File Type Date Recorded Patient Speech Lang Path Expl anation Adv Directive/Living Will/POA 07/01/2016 7:02 [...] 2:09 PM 10/08/2010 1:42 AM Care Teams Business Systems Developer Relationship Specialty Start Date End Date Jose Pat MD [address] [place] [address] PCP - General Family Medicine 07/22/16 Abigail Abernathy, RN Registered Nurse 06/10/16 Nancy Jay, RN Registered Nurse 06/20/16 Abram Dillon MD [address] [place] [address] Gastroenterology 09/13/21
--- OUTSIDE RECORDS SUMMARY | 2025-06-26 09:16 | XMS_ITS | Encounter Summary ---
Author Organization [facility] Address [address] [place] [address] Care Team Providers Care Oncology Rep Name Role Phone Elgin Thakur MD Primary Care Provider [phone] Abigail Abernathy RN Unavailable Unavailable Nancy Jay RN Unavailable Unavailable Jose Pat MD Primary Care Provider [phone] Abram Dillon MD Unavailable [phone] Encounter Details Date Type Department Care Team (Late st Contact Info) Description 06/24/2016 Transitional Care [facility] - Disease Management [address] [place] [address] Dasha Greenwood RN Social History Tobacco Use Types Packs/Day Years Used Date Smoking Tobacco: Never Smokeless Tobacco: Never Alcohol Use Standard Drinks/Week Comments No 0 (1 standard drink = 0.6 oz pur e alcohol) Comments Unknown Sex and Gender Information Value Date Recorded Sex Assigned at Not on file Legal Sex Female 6:12 AM AUTHORIZATION SPECIALIST Gender Identity Not on file Sexual Orientation [...] st Contact Info) Description 09/15/2025 12:30 PM AUTHORIZATION SPECIALIST Office Visit [facility] - GI [address] [place] [address], [place] [address] Gurpreet Caban MD [address] [place] [address] [place] [address] documented as of this encounter Visit Diagnoses Not on filedocumented in this encounter Care Teams Oncology Rep Relationship Specialty Start Date End Date Elgin Thakur MD [address] [place] [phone] PCP - General 10/06/10 07/21/16 Jose Pat MD [address] [place] [address] PCP - General Family Medicine 07/22/16 Abigail Abernathy, RN Registered Nurse 06/10/16 Nancy Jay, RN Registered Nurse 06/20/16 Abram Dillon MD [address] [place] [address] Gastroenterology 09/13/21 documented as of this encounter
== END 2025-06-26 09:06 | disposition home or self-care (01) ==
LOC: ANHIMG 09:07
PROVIDERS: PCP Family Medicine; Visit Provider Obstetrics & Gynecology
DX: Z12.31 Encounter for screening mammogram for malignant neoplasm of breast (principal)
CPT/HCPCS: 77063; 77067

== ENCOUNTER 2025-07-02 16:07 | Outpatient (CLI) | payer MEDICARE, SELFPAY ==
--- NOTE | ~2025-07-02 | US_ITS ---
EXAMINATION:US venous doppler LE BI INDICATION:Right leg pain TECHNIQUE: Multiple grayscale, color flow and Doppler images of the bilateral lower extremity deep venous systems were obtained and reviewed. COMPARISON:Ultrasound dated 09/16/2016 FINDINGS: The common femoral, superficial femoral and popliteal veins demonstrate normal respiratory variation, augmentation and compressibility. Color flow is also seen within the posterior tibial, peroneal, greater saphenous and profunda veins. IMPRESSION: 1: No lower extremity deep venous thrombosis. Reviewed, dictated and finalized at location A.
--- OUTSIDE RECORDS SUMMARY | 2025-07-02 16:13 | XMS_ITS | Encounter Summary ---
Author Organization [facility] Address [address] [facility] [place] [address] Care Team Providers Care Client Account Representative Name Role Phone [place] Thakur MD Primary Care Provider [phone] Abigail Abernathy RN Unavailable Unavailable Nancy Jay RN Unavailable Unavailable Jose Pat MD Primary Care Provider [phone] Abram Dillon MD Unavailable [phone] Encounter Details Date Type Department Care Team (Late st Contact Info) Description 06/24/2016 Transitional Care [facility] - Disease Management [address] [place] [address] Dasha Greenwood RN Social History Tobacco Use Types Packs/Day Years Used Date Smoking Tobacco: Never Smokeless Tobacco: Never Alcohol Use Standard Drinks/Week Comments No 0 (1 standard drink = 0.6 oz pur e alcohol) Comments Unknown Sex and Gender Information Value Date Recorded Sex Assigned at Not on file Legal Sex Female 6:12 AM DOWEL INSERTING MACHINE OPERATOR Gender Identity Not on file Sexual Orientation [...] st Contact Info) Description 09/15/2025 12:30 PM DOWEL INSERTING MACHINE OPERATOR Office Visit [facility] - GI [address] [place] [address], [place] [address] Gurpreet Caban MD [address] [place] [address] [place] [address] documented as of this encounter Visit Diagnoses Not on filedocumented in this encounter Care Teams Client Account Representative Relationship Specialty Start Date End Date Elgin Thakur MD [address] [place] [phone] PCP - General 10/06/10 07/21/16 Jose Pat MD [address] [place] [address] PCP - General Family Medicine 07/22/16 Abigail Abernathy, RN Registered Nurse 06/10/16 Nancy Jay, RN Registered Nurse 06/20/16 Abram Dillon MD [address] [place] [address] Gastroenterology 09/13/21 documented as of this encounter
--- OUTSIDE RECORDS SUMMARY | 2025-07-02 16:13 | XMS_ITS | Clinical Summary ---
Author Organization [facility] Plur[employer] Address [address] [facility] [place] [address] Care Team Providers Care Noc Technician Name Role Phone Abigail Abernathy RN Unavailable Unavailable Nancy Jay RN Unavailable Unavailable Jose Pat MD Primary Care Provider [phone] Abram Dillon MD Unavailable [phone] Source Comments [facility],non-owned Affiliates and Associated Physician Practices is amultiple site organization consisting of ambulatory clinics and hospital sitesin [place], [place], [place] and [place]. This disclosure is being madepursuant to the Care Everywhere program and may not contain all information available regarding this patient. Last updated 18.[facility] Allergies Active Allergy Reactions Criticality Noted Date [...] 04/12/2018 Immunizations Immunization Administration Dates Next Due CovSolaborate primary monoval ent 12+ yr 0.3mL Purple [...] on file Legal Sex Female 6:12 AM APARTMENT GROUNDSKEEPER Gender Identity Not on file Sexual Orientation Not on file Last Filed Vital Signs Vital Sign Reading Time Taken Comments Blood Pressure 140/71 09/16/2024 12:53 PM APARTMENT GROUNDSKEEPER Pulse 82 09/16/2024 12:40 PM APARTMENT GROUNDSKEEPER Temperature 36.4 C (97.5 F) 09/18/2023 1:09 PM APARTMENT GROUNDSKEEPER Respiratory Rate 14 09/26/2022 12:5 0 PM APARTMENT GROUNDSKEEPER Oxygen Saturation 100% 09/16/2024 12: 40 PM APARTMENT GROUNDSKEEPER Inhaled Oxygen Concentration 30% 06/14/2016 8 :00 AM CDT Weight 89.3 kg (196 lb 12.8 oz) 024 12:40 PM APARTMENT GROUNDSKEEPER Height 165.1 cm (5' 5) 09/16/2024 12:4 0 PM APARTMENT GROUNDSKEEPER Body Mass Index 32.75 09/16/2024 12:40 PM APARTMENT GROUNDSKEEPER Plan of Treatment Upcoming Encounters Date Type Department Care Team (Late st Contact Info) Description 09/15/2025 12:30 PM APARTMENT GROUNDSKEEPER Office Visit [facility] - [place] [address] [facility] [place] [address] Gurpreet Caban MD [address] [place] [address] [place] [address] Health Maintenance Due Date Last Done Comments [...] Management General On track( 023 1:08 PM APARTMENT GROUNDSKEEPER) Christopher Joshi, RN Note: Expected end date: [...] - 6.3 % 06/12/2016 4:00 AM CDT [facility] Estimated Average Glucose 131 mg/dL 06/12/2016 4:00 AM CDT [facility] Whole Blood BLOOD SPECIMEN WITH EDTA / Unknown 06/12/2016 3:20 AM CDT 06/12/2016 3:25 AM CDT Katarina Ortiz MD LAB - CHEMISTRY ORDERABLES F inal Result [facility] [address] [place] [address] from Last 3 Months or Most Recently Relevant [place] [address] SELF PAY NO INSURANCE Member Subscriber Plan / Payer (Ef fective for All Dates) Name:Regla Kennedy Member ID:Not on file Relation to Subscriber:Self Name:REGLA KENNEDY Subscriber ID:Not on file Payer ID:Not on file Group ID:Not on file Type:Self Pay Address: [place], [place] MEDICARE [employer] Advance Directives Documents on File Type Date Recorded Patient Charger Operator Helper Expl anation Adv Directive/Living Will/POA 07/01/2016 7:02 [...] 2:09 PM 10/08/2010 1:42 AM Care Teams Noc Technician Relationship Specialty Start Date End Date Jose Pat MD [address] [place] [address] PCP - General Family Medicine 07/22/16 Abigail Abernathy, RN Registered Nurse 06/10/16 Nancy Jay, RN Registered Nurse 06/20/16 Abram Dillon MD [address] [place] [address] Gastroenterology 09/13/21
--- OUTSIDE RECORDS SUMMARY | 2025-07-02 16:13 | XMS_ITS | Encounter Summary ---
Author Organization [facility] Health Address [address] [place] [address] Care Team Providers Care Automatic Door Mechanic Name Role Phone Abigail Abernathy RN Unavailable Unavailable Nancy Jay RN Unavailable Unavailable Jose Pat MD Primary Care Provider [phone] Abram Dillon MD Unavailable [phone] Encounter Details Date Type Department Care Team (Late st Contact Info) Description 04/17/2017 [facility] Outpatient Visit [facility] [address] [place] [address] Lillie Quinonez MD [address] [facility] [address] [address] Social History Tobacco Use Types Packs/Day Years Used Date Smoking Tobacco: Never Smokeless Tobacco: Never Alcohol Use Standard Drinks/Week Comments No 0 (1 standard drink = 0.6 oz pur e alcohol) Comments Unknown Sex and Gender Information Value Date Recorded Sex Assigned at Not on file Legal Sex Female 6:12 AM INSECTICIDE EXPERT Gender Identity Not on file Sexual Orientation [...] st Contact Info) Description 09/15/2025 12:30 PM INSECTICIDE EXPERT Office Visit [facility] - [place] [address] [place] [address], [place] [address] Gurpreet Caban MD [address] [place] [address] [place] [address] documented as of this encounter Visit Diagnoses Not on filedocumented in this encounter Care Teams Automatic Door Mechanic Relationship Specialty Start Date End Date Jose Pat MD [address] [place] [address] PCP - General Family Medicine 07/22/16 Abigail Abernathy, RN Registered Nurse 06/10/16 Nancy Jay, RN Registered Nurse 06/20/16 Abram Dillon MD [address] [place] [address] Gastroenterology 09/13/21 documented as of this encounter
== END 2025-07-02 16:08 | disposition home or self-care (01) ==
PROVIDERS: PCP Family Medicine; Visit Provider Physician Assistant Medical
DX: M79.604 Pain in right leg (principal); M79.89 Other specified soft tissue disorders
CPT/HCPCS: 93970

== ENCOUNTER 2025-08-11 09:39 | Outpatient (CLI) | payer MEDICARE, SELFPAY ==
[2025-08-11 10:06] LABS: Hematocrit 42.2 % (37.0-47.0); Hemoglobin 13.9 g/dL (12.0-15.0); Mean Corpuscular HGB Conc 32.9 g/dl (32-36); Mean Corpuscular Hemoglobin 31.2 pg (26-34); Mean Corpuscular Volume 94.6 fl (80-100); Platelet Count Result 228 k/mm3 (150-375); Red Blood Count 4.46 M/mm3 (4.2-5.4); White Blood Count 4.2 K/mm3 (4.5-10.0)
--- OUTSIDE RECORDS SUMMARY | 2025-08-11 10:13 | XMS_ITS | Encounter Summary ---
Author Organization [facility] Address [address] [place] [address] Care Team Providers Care Chemical Etching Processor Name Role Phone Elgin Thakur MD Primary Care Provider [phone] Abigail Abernathy RN Unavailable Unavailable Nancy Jay RN Unavailable Unavailable Jose Pat MD Primary Care Provider [phone] Abram Dillon MD Unavailable [phone] Encounter Details Date Type Department Care Team (Late st Contact Info) Description 06/24/2016 [facility] - Disease Management [address] [place] [address] Dasha Greenwood RN Social History Tobacco Use Types Packs/Day Years Used Date Smoking Tobacco: Never Smokeless Tobacco: Never Alcohol Use Standard Drinks/Week Comments No 0 (1 standard drink = 0.6 oz pur e alcohol) Comments Unknown Sex and Gender Information Value Date Recorded Sex Assigned at Not on file Legal Sex Female 6:12 AM SLOT TECHNICIAN Gender Identity Not on file Sexual Orientation [...] st Contact Info) Description 09/15/2025 12:30 PM SLOT TECHNICIAN Office Visit [facility] - [place] [address] [place] [address], [place] [address] Gurpreet Caban MD [address] [place] [address] [place] [address] documented as of this encounter Visit Diagnoses Not on filedocumented in this encounter Care Teams Chemical Etching Processor Relationship Specialty Start Date End Date Elgin Thakur MD [address] [place] [id number] PCP - General 10/06/10 07/21/16 Jose Pat MD [address] [place] [address] PCP - General Family Medicine 07/22/16 Abigail Abernathy, RN Registered Nurse 06/10/16 Nancy Jay, RN Registered Nurse 06/20/16 Abram Dillon MD [address] [place] [address] Gastroenterology 09/13/21 documented as of this encounter
--- OUTSIDE RECORDS SUMMARY | 2025-08-11 10:13 | XMS_ITS | Encounter Summary ---
Author Organization [facility] Health Address [address] [place] [address] Care Team Providers Care Oyster Floater Name Role Phone Abigail Abernathy RN Unavailable Unavailable Nancy Jay RN Unavailable Unavailable Jose Pat MD Primary Care Provider [phone] Abram Dillon MD Unavailable [phone] Encounter Details Date Type Department Care Team (Late st Contact Info) Description 04/17/2017 [facility] Outpatient Visit [facility] [address] [place] [address] Lillie Quinonez MD [address] [facility] [address] [address] Social History Tobacco Use Types Packs/Day Years Used Date Smoking Tobacco: Never Smokeless Tobacco: Never Alcohol Use Standard Drinks/Week Comments No 0 (1 standard drink = 0.6 oz pur e alcohol) Comments Unknown Sex and Gender Information Value Date Recorded Sex Assigned at Not on file Legal Sex Female 6:12 AM SERVICE PARTS COORDINATOR Gender Identity Not on file Sexual Orientation [...] st Contact Info) Description 09/15/2025 12:30 PM SERVICE PARTS COORDINATOR Office Visit [facility] - [place] [address] [place] [address], [place] [address] Gurpreet Caban MD [address] [place] [address] [place] [address] documented as of this encounter Visit Diagnoses Not on filedocumented in this encounter Care Teams Oyster Floater Relationship Specialty Start Date End Date Jose Pat MD [address] [place] [address] PCP - General Family Medicine 07/22/16 Abigail Abernathy, RN Registered Nurse 06/10/16 Nancy Jay, RN Registered Nurse 06/20/16 Abram Dillon MD [address] [place] [address] Gastroenterology 09/13/21 documented as of this encounter
--- OUTSIDE RECORDS SUMMARY | 2025-08-11 10:13 | XMS_ITS | Clinical Summary ---
Author Organization [facility] [employer] [facility] Address [address] [facility] [place] [address] Care Team Providers Care Geodetic Computator Name Role Phone Abigail Abernathy RN Unavailable Unavailable Nancy Jay RN Unavailable Unavailable Jose Pat MD Primary Care Provider [phone] Abram Dillon MD Unavailable [phone] Source Comments [facility],non-owned Affiliates and Associated Physician Practices is amultiple site organization consisting of ambulatory clinics and hospital sitesin [place], [place], [place] and [place]. This disclosure is being madepursuant to the Care Everywhere program and may not contain all information available regarding this patient. Last updated 18.[facility] Allergies Active Allergy Reactions Criticality [...] Overview (09/18/2021): Gets regular colonoscopies by Dr. Dlilon. 08/09/21 colonoscopy: 2 adenomas removed Iron deficiency [...] 04/12/2018 Immunizations Immunization Administration Dates Next Due CovCAPPTURE primary monoval ent 12+ yr 0.3mL Purple [...] on file Legal Sex Female 6:12 AM PRINT TRAFFIC MANAGER Gender Identity Not on file Sexual Orientation Not on file Last Filed Vital Signs Vital Sign Reading Time Taken Comments Blood Pressure 140/71 09/16/2024 12:53 PM PRINT TRAFFIC MANAGER Pulse 82 09/16/2024 12:40 PM PRINT TRAFFIC MANAGER Temperature 36.4 C (97.5 F) 09/18/2023 1:09 PM PRINT TRAFFIC MANAGER Respiratory Rate 14 09/26/2022 12:5 0 PM PRINT TRAFFIC MANAGER Oxygen Saturation 100% 09/16/2024 12: 40 PM PRINT TRAFFIC MANAGER Inhaled Oxygen Concentration 30% 06/14/2016 8 :00 AM CDT Weight 89.3 kg (196 lb 12.8 oz) 024 12:40 PM PRINT TRAFFIC MANAGER Height 165.1 cm (5' 5) 09/16/2024 12:4 0 PM PRINT TRAFFIC MANAGER Body Mass Index 32.75 09/16/2024 12:40 PM PRINT TRAFFIC MANAGER Plan of Treatment Upcoming Encounters Date Type Department Care Team (Late st Contact Info) Description 09/15/2025 12:30 PM PRINT TRAFFIC MANAGER Office Visit [facility] [place] [address] [facility] [place] [address] Gurpreet Caban MD [address] [place] [address] [place] [address] Health Maintenance Due Date Last Done Comments [...] MONOFILAMENT 01/29/2019 DIABETES-HGB A1C 01/29/2019 06/12/2016, 02/16/2015 DIABETES-SERUM CREATININE 09/13/20242022, 02/05/2019, 07/06/2016, Additional history exists DEPRESSION SCREENING 11/13/2024 DIABETES - URINE PROTEIN SCREENING 11/13/2024 COVID-19 VACCINE ( season) 2025 08/14/2021, 02/04/2021, 01/14/2021 INFLUENZA VACCINE (#1) 2025 08/14/2021 HEPATITIS B [...] Management General On track( 023 1:08 PM PRINT TRAFFIC MANAGER) Christopher Joshi, RN Note: Expected end date: [...] - 6.3 % 06/12/2016 4:00 AM CDT [facility] Estimated Average Glucose 131 mg/dL 06/12/2016 4:00 AM CDT [facility] Whole Blood BLOOD SPECIMEN WITH EDTA / Unknown 06/12/2016 3:20 AM CDT 06/12/2016 3:25 AM CDT Katarina Ortiz MD LAB - CHEMISTRY ORDERABLES F inal Result [facility] [address] [place] [address] from Last 3 Months or Most Recently Relevant to [place] [address] SELF PAY NO INSURANCE Member Subscriber Plan / Payer (Ef fective for All Dates) Name:Regla Kennedy Member ID:Not on file Relation to Subscriber:Self Name:REGLA KENNEDY Subscriber ID:Not on file Payer ID:Not on file Group ID:Not on file Type:Self Pay Address: [place], [place] MEDICARE [employer] Advance Directives Documents on File Type Date Recorded Patient Inserting Operator Expl anation Adv Directive/Living Will/POA 07/01/2016 7:02 [...] 2:09 PM 10/08/2010 1:42 AM Care Teams Geodetic Computator Relationship Specialty Start Date End Date Jose Pat MD [address] [place] [address] PCP - General Family Medicine 07/22/16 Abigail Abernathy, RN Registered Nurse 06/10/16 Nancy Jay, RN Registered Nurse 06/20/16 Abram Dillon MD [address] [place] [address] Gastroenterology 09/13/21
[2025-08-11 10:27] LABS: Hemoglobin A1C 5.3 % (<5.7)
[2025-08-11 10:29] LABS: Iron 72 ug/dL (37-170)
[2025-08-11 10:30] LABS: Alanine Aminotransferase 40 U/L (6-35); Albumin Level 4.9 g/dL (3.5-5.1); Alkaline Phosphatase 105 U/L (38-126); Anion Gap 10 mmol/L (4-12); Aspartate Amino Transferase 43 U/L (14-36); Bilirubin,Total 1.3 mg/dL (0.2-1.3); Blood Urea Nitrogen 20 mg/dL (7-17); Calcium 9.4 mg/dL (8.4-10.2); Carbon Dioxide 29 mmol/L (22-30); Chloride 100 mmol/L (98-107); Cholesterol 152 mg/dL (0-200); Estimated Glomerular Filt Rate > 60; Glucose 95 mg/dL (65-110); HDL Direct 70 mg/dL; Potassium 4.3 mmol/L (3.4-5.0); Sodium 139 mmol/L (137-145); Total Protein 8.7 g/dL (6.3-8.2); Triglycerides 58 mg/dL (<150)
[2025-08-11 10:39] LABS: Percent Iron Saturation 18 % (20-50)
[2025-08-11 11:06] LABS: Thyroid Stimulating Hormone 2.550 uIU/mL (0.465-4.680)
[2025-08-11 11:09] LABS: MALB Creatinine Ratio 17.3 mg/g (0-30)
[2025-08-11 11:11] LABS: Ferritin 89.50 ng/mL (11.1-264)
== END 2025-08-11 09:40 | disposition home or self-care (01) ==
LOC: ANHLAB 09:44
PROVIDERS: PCP Family Medicine; Visit Provider Family Medicine
DX: F41.8 Other specified anxiety disorders (principal); D50.9 Iron deficiency anemia, unspecified; K75.81 Nonalcoholic steatohepatitis (NASH); E11.9 Type 2 diabetes mellitus without complications; E78.2 Mixed hyperlipidemia; Z13.220 Encounter for screening for lipoid disorders
CPT/HCPCS: 36415; 80053; 80061; 82043; 82728; 83036; 83540; 83550; 84443; 85027

== ENCOUNTER 2025-09-13 10:05 | Outpatient (CLI) | payer MEDICARE, SELFPAY ==
--- OUTSIDE RECORDS SUMMARY | 2025-09-13 10:10 | XMS_ITS | Clinical Summary ---
Author Organization [facility] [employer] Address [address] [place] [address] Care Team Providers Care Deputy Juvenile Officer Name Role Phone Abigail Abernathy RN Unavailable Unavailable Nancy Jay RN Unavailable Unavailable Jose Pat MD Primary Care Provider [phone] Abram Dillon MD Unavailable [phone] Source Comments [facility],non-owned Affiliates and Associated Physician Practices is amultiple site organization consisting of ambulatory clinics and hospital sitesin [place], [place], [place] and [place]. This disclosure is being madepursuant to the Care Everywhere program and may not contain all information available regarding this patient. Last updated 18.[facility] Allergies Active Allergy Reactions Criticality Noted [...] 04/12/2018 Immunizations Immunization Administration Dates Next Due CovUnidym primary monoval ent 12+ yr 0.3mL Purple [...] on file Legal Sex Female 6:12 AM CAD ADMINISTRATOR Gender Identity Not on file Sexual Orientation Not on file Last Filed Vital Signs Vital Sign Reading Time Taken Comments Blood Pressure 140/71 09/16/2024 12:53 PM CAD ADMINISTRATOR Pulse 82 09/16/2024 12:40 PM CAD ADMINISTRATOR Temperature 36.4 C (97.5 F) 09/18/2023 1:09 PM CAD ADMINISTRATOR Respiratory Rate 14 09/26/2022 12:5 0 PM CAD ADMINISTRATOR Oxygen Saturation 100% 09/16/2024 12: 40 PM CAD ADMINISTRATOR Inhaled Oxygen Concentration 30% 06/14/2016 8 :00 AM CDT Weight 89.3 kg (196 lb 12.8 oz) 024 12:40 PM CAD ADMINISTRATOR Height 165.1 cm (5' 5) 09/16/2024 12:4 0 PM CAD ADMINISTRATOR Body Mass Index 32.75 09/16/2024 12:40 PM CAD ADMINISTRATOR Plan of Treatment Upcoming Encounters Date Type Department Care Team (Late st Contact Info) Description 09/15/2025 12:30 PM CAD ADMINISTRATOR Office Visit [facility] [place] [address] [facility] Third [place] [address] Gurpreet Caban MD [address] [place] [address] [place] [address] Health Maintenance Due Date Last Done Comments [...] Management General On track( 023 1:08 PM CAD ADMINISTRATOR) Christopher Joshi, RN Note: Expected end date: [...] - 6.3 % 06/12/2016 4:00 AM CDT [facility] Estimated Average Glucose 131 mg/dL 06/12/2016 4:00 AM CDT [facility] Whole Blood BLOOD SPECIMEN WITH EDTA / Unknown 06/12/2016 3:20 AM CDT 06/12/2016 3:25 AM CDT Katarina Ortiz MD LAB - CHEMISTRY ORDERABLES F inal Result [facility] [address] [place] [address] from Last 3 Months or Most Recently Relevant to Health [place] [address] SELF PAY NO INSURANCE Member Subscriber Plan / Payer (Ef fective for All Dates) Name:Regla Kennedy Member ID:Not on file Relation to Subscriber:Self Name:REGLA KENNEDY Subscriber ID:Not on file Payer ID:Not on file Group ID:Not on file Type:Self Pay Address: [place], [place] MEDICARE [employer] Advance Directives Documents on File Type Date Recorded Patient Irrigation Pump Installer Expl anation Adv Directive/Living Will/POA 07/01/2016 7:02 [...] 2:09 PM 10/08/2010 1:42 AM Care Teams Deputy Juvenile Officer Relationship Specialty Start Date End Date Jose Pat MD [address] [place] [address] PCP - General Family Medicine 07/22/16 Abigail Abernathy, RN Registered Nurse 06/10/16 Nancy Jay, RN Registered Nurse 06/20/16 Abram Dillon MD [address] [place] [address] Gastroenterology 09/13/21
--- OUTSIDE RECORDS SUMMARY | 2025-09-13 10:10 | XMS_ITS | Encounter Summary ---
Author Organization [facility] Health Address [address] [place] [address] Care Team Providers Care Business Services Vice President Name Role Phone Abigail Abernathy RN Unavailable Unavailable Nancy Jay RN Unavailable Unavailable Jose Pat MD Primary Care Provider [phone] Abram Dillon MD Unavailable [phone] Encounter Details Date Type Department Care Team (Late st Contact Info) Description 04/17/2017 [facility] Outpatient Visit [facility] [address] [place] [address] Lillie Quinonez MD [address] [facility] [address] [address] Social History Tobacco Use Types Packs/Day Years Used Date Smoking Tobacco: Never Smokeless Tobacco: Never Alcohol Use Standard Drinks/Week Comments No 0 (1 standard drink = 0.6 oz pur e alcohol) Comments Unknown Sex and Gender Information Value Date Recorded Sex Assigned at Not on file Legal Sex Female 6:12 AM GROUND INSTRUCTOR BASIC Gender Identity Not on file Sexual Orientation [...] st Contact Info) Description 09/15/2025 12:30 PM GROUND INSTRUCTOR BASIC Office Visit [facility] - [place] [address] [place] [address], [place] [address] Gurpreet Caban MD [address] [place] [address] [place] [address] documented as of this encounter Visit Diagnoses Not on filedocumented in this encounter Care Teams Business Services Vice President Relationship Specialty Start Date End Date Jose Pat MD [address] [place] [address] PCP - General Family Medicine 07/22/16 Abigail Abernathy, RN Registered Nurse 06/10/16 Nancy Jay, RN Registered Nurse 06/20/16 Abram Dillon MD [address] [place] [address] Gastroenterology 09/13/21 documented as of this encounter
[2025-09-13 11:09] LABS: Hematocrit 41.1 % (37.0-47.0); Hemoglobin 13.7 g/dL (12.0-15.0); Immature Granulocyte Percent A 0.5 % (0-0.5); Lymphocytes Absolute Auto 1.27 K/mm3 (0.9-3.2); Mean Corpuscular HGB Conc 33.3 g/dl (32-36); Mean Corpuscular Hemoglobin 30.9 pg (26-34); Mean Corpuscular Volume 92.8 fl (80-100); Nucleated Red Blood Cells Absolute Auto 0.000 K/mm3 (0.0-0.012); Nucleated Red Blood Cells Perc 0.0 % (0.0-0.2); Platelet Count Result 223 k/mm3 (150-375); Red Blood Count 4.43 M/mm3 (4.2-5.4); White Blood Count 4.1 K/mm3 (4.5-10.0)
[2025-09-13 11:22] LABS: Alanine Aminotransferase 32 U/L (6-35); Albumin Level 4.7 g/dL (3.5-5.1); Alkaline Phosphatase 92 U/L (38-126); Anion Gap 6 mmol/L (4-12); Aspartate Amino Transferase 39 U/L (14-36); Bilirubin,Total 1.4 mg/dL (0.2-1.3); Blood Urea Nitrogen 17 mg/dL (7-17); Calcium 9.4 mg/dL (8.4-10.2); Carbon Dioxide 29 mmol/L (22-30); Chloride 101 mmol/L (98-107); Estimated Glomerular Filt Rate > 60; Glucose 87 mg/dL (65-110); Potassium 4.4 mmol/L (3.4-5.0); Sodium 136 mmol/L (137-145); Total Protein 8.2 g/dL (6.3-8.2)
[2025-09-13 11:40] LABS: Alanine Aminotransferase 29 U/L (6-35); Albumin Level 4.6 g/dL (3.5-5.1); Alkaline Phosphatase 107 U/L (38-126); Aspartate Amino Transferase 37 U/L (14-36); Bilirubin,Total 1.3 mg/dL (0.2-1.3); Total Protein 8.0 g/dL (6.3-8.2)
[2025-09-13 11:54] LABS: Hepatitis B Surface Antigen Negative (Negative)
[2025-09-13 11:59] LABS: HAV RESULT Negative (Negative); Hepatitis B Core IgM Result Negative (Negative)
== END 2025-09-13 10:06 | disposition home or self-care (01) ==
PROVIDERS: PCP Family Medicine; Referring Provider Internal Medicine Gastroenterology; Visit Provider Family Medicine
DX: R79.89 Other specified abnormal findings of blood chemistry (principal); K75.81 Nonalcoholic steatohepatitis (NASH)
CPT/HCPCS: 36415; 80053; 80074; 80076; 85025